=== PATIENT | female | born 1955 | race Caucasian/White ===

== ENCOUNTER 2016-11-20 16:13 | Emergency (ER) | payer OTHER ==
[2016-11-20] MEDS ORDERED: Acetaminophen/HYDROcodone 325-5 MG Tab PO ONE (16:56)
[2016-11-20] MEDS ORDERED: Acetaminophen 325 MG Tab PO ONE (16:57)
--- NOTE | 2016-11-20 17:27 | EDM.PDOC ---
ED HPI Trauma - General Chief Complaint: Upper Extremity Injury/Pain Stated Complaint: L UPPER BODY INJURY, GOT BLOWN OFF PORCH Time Seen by Provider: 11/20/16 16:38 Source: Reports: Patient, Family (spouse), RN notes reviewed - History of Present Illness INITIAL COMMENTS - FREE TEXT/NARRATIVE: 61-year-old female that fell injuring her left shoulder, left clavicle and also back of her shoulder. Not absolutely sure just how she landed. she states she was opening a screen door in the wind grabbed the door, threw her hand blew her off of the porch landing hard on the left elbow and shoulder. She has a lot of discomfort with motion of her left arm particular of the anterior mid clavicle and also back of her shoulder. She did not hurt her head neck or back. There was no LOC and she has no difficulty breathing. She denies other major pain or injury from this incident. Allergies/ADRs: Allergies No Known Allergies Allergy (Verified 11/20/16 16:23) Home Medications: Ambulatory Orders Acetaminophen [Tylenol Arthritis Pain] 650 mg PO DAILY 01/22/16 [Confirmed 11/20] Cholecalciferol (Vitamin D3) [Vitamin D3] 5,000 unit PO BEDTIME 01/22/16 [ Confirmed 11/20/16] Glucosamine [Glucosamine Sulfate] 500 mg PO DAILY 01/22/16 [Confirmed 11/20/16] Hydrocodone/Acetaminophen [[place] 5-325 Tablet] 1 tab PO Q6H PRN #20 tablet 01/21 [Confirmed 11/20/16] Omeprazole [Prilosec] 20 mg PO DAILY 01/22/16 [Confirmed 11/20/16] Pramipexole Di-HCl [Mirapex] 10 mg PO DAILY 01/22/16 [Confirmed 11/20/16] Vitamin E 1,000 unit PO BEDTIME 01/22/16 [Confirmed 11/20/16] Doxycycline [Doxycycline Hyclate] 100 mg PO BID 11/20/16 [Confirmed 11/20/16] Prednisone [IJD: predniSONE] 20 mg PO DAILY 11/20/16 [Confirmed 11/20/16] Past Medical History HEENT History: Reports: Impaired vision Other HEENT History: wears glasses Gastrointestinal History: Reports: GERD Musculoskeletal History: Reports: Back pain, chronic, Osteoarthritis Neurological History: Reports: Other (see below) (Restless leg syndrome) Dermatologic History: Reports: Psoriasis - Past Surgical History Female Surgical History: Reports: Hysterectomy Musculoskeletal Surgical History: Reports: Hip replacement, Knee replacement Social & Family History - Family History Family Medical History: Noncontributory - Tobacco Use Smoking Status *Q: Current Every Day Smoker Years of Tobacco use: 40 Packs/Tins Daily: 0.2 - Caffeine Use Caffeine Use: Reports: Coffee, Soda - Recreational Drug Use Recreational Drug Use: No - Living Situation & Occupation Living situation: Reports: , with spouse 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 Denies: leg pain, foot pain Skin: Denies: bruising Neurological: Denies: numbness, tingling, trouble speaking, difficulty walking, weakness Trauma Exam - Physical Exam Exam: See Below General Appearance: Reports: alert, mild distress Head: Reports: atraumatic. Denies: scalp swelling, facial swelling Eyes: bilateral eye: PERRL Ears: Reports: normal external exam Nose: Reports: normal inspection Throat/Mouth: Reports: Normal inspection Neck: Reports: non-tender, full range of motion Respiratory Exam: Reports: no respiratory distress, lungs clear, normal breath sounds, chest non-tender Cardiovascular: Reports: regular rate, rhythm GI/Abdominal: Reports: soft, non tender Back: Reports: other (there is tenderness over the left posterior scapula, no bruising or swelling visible). Denies: paraspinal tenderness, vertebral tenderness Extremities: Reports: bony-point tenderness (left superior posterior and anterior shoulder, left clavicle), other (no visible deformity, she does have some pain with motion of the left upper extremity) Neurologic: Reports: no motor/sensory deficits Skin: Reports: Normal color, Warm/dry Course - Vital Signs Last Recorded V/S: Last Vital Signs Temp 97.8 F 11/20/16 16:19 Pulse 79 03/07/17 16:19 Resp 18 11/20/16 16:19 BP 156/84 H 11/20/16 16:19 Pulse Ox 96 11/20/16 16:19 - Orders/Labs/Meds Orders: Active Orders 24 hr Category Date Time Status Clavicle Lt [CR] Stat Exams 11/20/16 17:16 Taken Shoulder 1V Lt [CR] Stat Exams 11/20/16 17:15 Taken Meds: Medications Discontinued Medications Generic Name Dose Route Start Last Admin Trade Name Kristine PRN Reason Stop Dose Admin Acetaminophen 650 mg 11/20/16 16:57 11/20/16 17:03 Tylenol PO 11/20/16 16:58 650 mg NOW ONE Administration Acetaminophen/Hydrocodone Bitart 1 tab 11/20/16 16:56 11/20/16 17:04 [place] 325-5 Mg PO 11/20/16 16:57 0.5 tab ONETIME ONE Administration - Re-Assessments/Exams Free Text/Narrative Re-Assessment/Exam: 11/20/16 18:00 x-rays of the shoulder and clavicle do not show any sign of fracture. Have given Tylenol 650 milligrams by mouth, one half tablet hydrocodone 5 325. Plan to treat with an arm sling. Discharge instructions as documented Departure - Departure Time of Disposition: 18:01 Disposition: Home, Self-Care 01 Condition: fair Clinical Impression: Fall Qualifiers: Encounter type: initial encounter Qualified Code(s): W19.XXXA - Unspecified fall, initial encounter Shoulder contusion Qualifiers: Encounter type: initial encounter Laterality: left Qualified Code(s): S40.012A - Contusion of left shoulder, initial encounter Forms: ED Department Discharge, Return to Work/School Form Additional Instructions: rest arm and shoulder, no heavy lifting, use arm cradle her sling as needed for comfort, Tylenol every 6-8 hours as needed for discomfort or 500 mg Tylenol along with one half tablet hydrocodone if needed for more severe pain, increase activity slowly as tolerated, followup clinic if not much better within 4-5 days as expected - My Orders Last 24 Hours: My Active Orders 11/20/16 17:15 Shoulder 1V Lt [CR] Stat 11/20/16 17:16 Clavicle Lt [CR] Stat - Assessment/Plan Last 24 Hours: My Active Orders 11/20/16 17:15 Shoulder 1V Lt [CR] Stat 11/20/16 17:16 Clavicle Lt [CR] Stat
[2016-11-20 18:32] VITALS: BP 155/95
--- NOTE | 2016-11-21 10:16 | CR ---
Left shoulder: Single Y scapular view was obtained of the left shoulder. Comparison: Previous left shoulder study of 11/20/16. No dislocation seen on current exam. No definite fracture is seen on this one view. Impression: 1. Unremarkable Y scapular view. Diagnostic code #1
--- NOTE | 2016-11-21 10:16 | CR ---
Left clavicle: Two views of the left clavicle were obtained. Slight joint space narrowing is noted within the acromioclavicular joint. No fracture or other abnormality is appreciated. Impression: 1. Mild degenerative change. Nothing acute is seen on two-view left clavicle study. Diagnostic code #2
== END 2016-11-20 18:30 | disposition home or self-care (01) ==
LOC: JD.ED 16:13
DX: S40.012A Contusion of left shoulder, initial encounter (principal); W19.XXXA Unspecified fall, initial encounter; K21.9 Gastro-esophageal reflux disease without esophagitis; M19.90 Unspecified osteoarthritis, unspecified site; L40.9 Psoriasis, unspecified; Z90.710 Acquired absence of both cervix and uterus; Z96.649 Presence of unspecified artificial hip joint; Z96.659 Presence of unspecified artificial knee joint; F17.210 Nicotine dependence, cigarettes, uncomplicated; Z79.899 Other long term (current) drug therapy
CPT/HCPCS: 73000; 73020; 99284; A9270; 99283

== ENCOUNTER 2017-01-29 12:58 | Inpatient (IN) | payer OTHER ==
--- NOTE | 2017-01-29 13:35 | EDM.PDOC ---
ED HPI GENERAL MEDICAL PROBLEM - General Chief Complaint: Neurological Problem Stated Complaint: SYNCOPE/CONFUSION Time Seen by Provider: 01/29/17 13:28 Source of Information: Reports: Patient, Family (spouse) History Limitations: Reports: No Limitations - History of Present Illness INITIAL COMMENTS - FREE TEXT/NARRATIVE: 61-year-old female presents to the ED in the accompaniment of her .. she reports that she has developed confusion and severe fatigue. His heart he went to get out of bed the last 2 days. He did not recognize that she was febrile. She has a chronic productive cough but it is more productive the last day or 2. She's had some chills and she had to use extra coverage to keep warm last night. Denies any genitourinary complaints. Not coughing up any sputum that she spits out. She is a smoker approximately 3/4 of a pack per day. Is taking water without difficulty today. No appetite. Denies any genitourinary complaints. No diarrhea. No skin sores. Onset: Gradual (Started yesterday.) Onset Date: 01/28/17 Duration: Hour(s):, Getting Worse Location: Reports: Generalized Quality: Reports: Other (Generalized myalgia. Sense of confusion and disorientation.) Severity: Moderate Improves with: Reports: None Worsens with: Reports: None Context: Denies: Activity, Exercise, Lifting, Sick Contact, Trauma, Other Associated Symptoms: Reports: Confusion, Cough, cough w sputum, Diaphoresis ( She doesn't cough up and this "get it.), Fever/Chills, Headaches, Loss of Appetite, Malaise, Nausea/Vomiting, Weakness (Mild nausea with no vomiting generalized.). Denies: Chest Pain, Rash, Seizure, Shortness of Breath, Syncope Treatments [employer]CHNICIAN: Reports: Other (see below) (None.) Generalized Pain Score (Numeric/FACES): 5 - Related Data Allergies Allergy/AdvReac Type Severity Reaction Status Date / Time No Known Allergies Allergy Verified 01/29/17 13:17 Home Meds: Home Meds Acetaminophen [Tylenol Arthritis Pain] 650 mg PO DAILY 01/22/16 [History] Cholecalciferol (Vitamin D3) [Vitamin D3] 5,000 unit PO BEDTIME 01/22/16 [ History] Glucosamine [Glucosamine Sulfate] 500 mg PO DAILY 01/22/16 [History] Omeprazole [Prilosec] 20 mg PO DAILY 01/22/16 [History] Pramipexole Di-HCl [Mirapex] 10 mg PO DAILY 01/22/16 [History] Vitamin E 1,000 unit PO BEDTIME 01/22/16 [History] Past Medical History HEENT History: Reports: Impaired Vision Other HEENT History: wears glasses Respiratory History: Reports: Bronchitis, Recurrent, COPD (Chronic bronchitis from cigarette smoking not on any medications other than occasional albuterol neb treatment.), Pneumonia, Recurrent Gastrointestinal History: Reports: GERD Musculoskeletal History: Reports: Back Pain, Chronic, Osteoarthritis Neurological History: Reports: Other (See Below) Dermatologic History: Reports: Psoriasis - Past Surgical History Female Surgical History: Reports: Hysterectomy (Ovaries were retained.) Musculoskeletal Surgical History: Reports: Hip Replacement (Right hip replacement.), Knee Replacement (Right has been replaced. The left lens replacement.) Social & Family History - Family History Family Medical History: Noncontributory - Tobacco Use Smoking Status *Q: Current Every Day Smoker Years of Tobacco use: 40 Packs/Tins Daily: 0.5 - Caffeine Use Caffeine Use: Reports: Coffee - Recreational Drug Use Recreational Drug Use: No - Living Situation & Occupation Living situation: Reports: , with Spouse Occupation: Employed ED ROS GENERAL - Review of Systems Review Of Systems: See Below Constitutional: Reports: Fever, Chills, Malaise, Weakness, Fatigue, Diaphoresis , Decreased Appetite HEENT: Reports: Other (Dry throat.) Respiratory: Reports: Shortness of Breath, Cough (Productive cough.). Denies: Wheezing, Pleuritic Chest Pain Cardiovascular: Reports: Chest Pain. Denies: Claudication, Dyspnea on Exertion , Edema, Lightheadedness, Orthopnea, Palpitations, PND, Syncope, Other Endocrine: Reports: Fatigue GI/Abdominal: Reports: Anorexia, Nausea (Mild). Denies: Abdominal Pain, Black Stool, Bloody Stool, Constipation, Diarrhea, Difficulty Swallowing, Distension, Flatus, Hematemesis, Hematochezia, Vomiting : Reports: No Symptoms Musculoskeletal: Reports: Back Pain, Other (Been joint pain.) Skin: Reports: No Symptoms ( The muscles are achy.) Neurological: Reports: Confusion, Dizziness Psychiatric: Reports: Confusion Hematologic/Lymphatic: Reports: No Symptoms Immunologic: Reports: No Symptoms - Physical Exam Exam: See Below Exam Limited By: No Limitations General Appearance: Alert, Mild Distress, Other (Very warm to palpation temperatures to greater than 102.) Eye Exam: Bilateral Eye: Normal Inspection Ears: Normal External Exam, Normal TMs Throat/Mouth: Normal Inspection, Normal Lips, Normal Teeth, Normal Oropharynx, Other Head Exam: Atraumatic, Normocephalic (Tongue is dry and coated) Neck: Normal Inspection, Supple, Non-Tender, Full Range of Motion. No: Lymphadenopathy (L), Lymphadenopathy (R) Respiratory/Chest: No Accessory Muscle Use, Chest Non-Tender, Respiratory Distress, Rhonchi (Dictated rest 20-24 per minute.), Wheezing ( Upper anterior lobes with productive sounding cough.scattered wheezes primarily throughout the upper anterior lungs are laterally. ). No: Lungs Clear, Normal Breath Sounds Cardiovascular: Normal Peripheral Pulses, Regular Rate, Rhythm, No Edema ( Synthroid 1:15 prominent presumably due to fever. Monitor suggests a sinus rhythm.), No Gallop, No Murmur, No Rub, Tachycardia GI/Abdominal: Normal Bowel Sounds, Soft, Non-Tender, No Organomegaly Neuro Exam (Abbreviated): Alert, Oriented, CN II-XII Intact, Normal Cognition, Normal Gait Back Exam: Normal Inspection, Full Range of Motion. No: CVA Tenderness (L), CVA Tenderness (R) Extremities: Normal Inspection, Normal Range of Motion, Non-Tender, Normal Capillary Refill, Other (Well-healed right lateral hip surgical wound and right) Psychiatric: Normal Affect ( anterior knee wound compatible with hip and knee replacements), Normal Mood Skin Exam: Warm, Dry, Intact, Normal Color, No Rash EKG INTERPRETATION EKG Date: 01/29/17 Time: 13:45 Rhythm: other (Sinus tachycardia) Rate (beats/min): 108 [place]: normal P-wave: present QRS: normal ST-T: normal QT: normal Course - Vital Signs Last Recorded V/S: Last Vital Signs Temp 38.8 C H 01/29/17 14:15 Pulse 112 H 01/29/17 13:10 Resp 22 H 01/29/17 13:10 BP 116/61 01/29/17 13:10 Pulse Ox 95 01/29/17 13:10 - Orders/Labs/Meds Orders: Active Orders 24 hr Category Date Time Status Admission Status [Patient Status] [ADT] Routine ADT 01/29/17 15:23 Ordered EKG Documentation Completion [RC] STAT Care 01/29/17 13:40 Active Chest 2V [CR] Stat Exams 01/29/17 13:37 Taken CKMB [CHEM] Stat Lab 01/29/17 14:00 Results COMPREHENSIVE METABOLIC PN,CMP [CHEM] Stat Lab 01/29/17 14:00 Results CRP [C-REACTIVE PROTEIN] [CHEM] Stat Lab 01/29/17 14:00 Results CULTURE BLOOD [BC] Stat Lab 01/29/17 14:00 Received CULTURE BLOOD [BC] Stat Lab 01/29/17 14:34 Received CULTURE URINE [RM] Stat Lab 01/29/17 14:58 Uncollected MYCOPLASMA PNEUMONIAE IGM AB [CHEM] Stat Lab 01/29/17 14:34 Received TROPONIN I [CHEM] Stat Lab 01/29/17 14:00 Results Azithromycin [Zithromax] 500 mg Med 01/29/17 14:50 Active Sodium Chloride 0.9% [Normal Saline] 250 ml IV ONETIME Dextrose 5%-0.9% NaCl [Dextrose 5%-Normal Saline] 1,000 Med 01/29/17 13:45 Active ml IV ASDIRECTED Ketorolac [Toradol] Med 01/29/17 13:45 Active 30 mg IVPUSH ONETIME Blood Culture x2 Reflex Set [OM.PC] Stat Oth 01/29/17 13:38 Ordered Medication Orders Dextrose/Sodium Chloride (Dextrose 5%-Normal Saline) 1,000 mls @ 500 mls/hr IV ASDIRECTED YOSEPH Last Admin: 01/29/17 14:17 Dose: 500 mls/hr Azithromycin 500 mg/ Sodium (Chloride) 250 mls @ 250 mls/hr IV ONETIME ONE Stop: 01/29/17 15:49 Ketorolac Tromethamine (Toradol) 30 mg IVPUSH ONETIME YOSEPH Last Admin: 01/29/17 14:17 Dose: 30 mg Labs: Laboratory Tests 01/29/17 01/29/17 01/29/17 Range/Units 14:00 14:00 14:00 WBC 24.95 H (3.98-10.04) K/mm3 RBC 4.09 (3.98-5.22) M/mm3 Hgb 11.6 (11.2-15.7) gm/L Hct 36.5 (34.1-44.9) % MCV 89.2 (79.4-94.8) fl MCH 28.4 (25.6-32.2) pg MCHC 31.8 L (32.2-35.5) g/dl RDW Std Deviation 45.5 (36.4-46.3) fL Plt Count 266 (182-369) K/mm3 MPV 7.9 L (9.4-12.3) fl Neutrophils % (Manual) 89 H (40-60) % Band Neutrophils % 0 (0-10) % Lymphocytes % (Manual) 6 L (20-40) % Atypical Lymphs % 0 % Monocytes % (Manual) 5 (2-10) % Eosinophils % (Manual) 0 L (0.7-5.8) % Basophils % (Manual) 0 L (0.1-1.2) Platelet Estimate Adequate Plt Morphology Comment Normal RBC Morph Comment Normal Sodium 128 L (136-145) mEq/L Potassium 3.8 (3.5-5.1) mEq/L Chloride 95 L (98-107) mEq/L Carbon Dioxide 22 (21-32) mEq/L Anion Gap 14.8 (5-15) BUN 17 (7-18) mg/dL Creatinine 0.9 (0.55-1.02) mg/dL Est Cr Clr Drug Dosing 56.68 mL/min Estimated GFR (MDRD) > 60 (>60) mL/min BUN/Creatinine Ratio 18.9 H (14-18) Glucose 99 (80-115) mg/dL Lactic Acid 1.1 (0.4-2.0) mmol/L Calcium 8.6 (8.5-10.1) mg/dL Total Bilirubin 0.7 (0.2-1.0) mg/dL AST 16 (15-37) U/L ALT 18 (14-59) U/L Alkaline Phosphatase 117 H (46-116) U/L CK-MB (CK-2) < 0.5 (0-3.6) ng/ml Troponin I < 0.017 (0.00-0.056) ng/mL Total Protein 7.4 (6.4-8.2) g/dl Albumin 3.1 L (3.4-5.0) g/dl Globulin 4.3 gm/dL Albumin/Globulin Ratio 0.7 L (1-2) Urine Color (Yellow) Urine Appearance (Clear) Urine pH (5.0-8.0) Ur Specific [place] (1.005-1.030) Urine Protein (Negative) Urine Glucose (UA) (Negative) Urine Ketones (Negative) Urine Occult Blood (Negative) Urine Nitrite (Negative) Urine Bilirubin (Negative) Urine Urobilinogen (0.2-1.0) Ur Leukocyte Esterase (Negative) Urine RBC (0-5) /hpf Urine WBC (0-5) /hpf Urine WBC Clumps (NOT SEEN) /hpf Ur Epithelial Cells (0-5) /hpf Amorphous Sediment (NOT SEEN) /hpf Urine Bacteria (FEW) /hpf Fine Granular Casts (0-5) /lpf Coarse Granular Casts (0-5) /hpf Urine Mucus (FEW) /hpf Urinalysis Comment 01/29/17 Range/Units 14:20 WBC (3.98-10.04) K/mm3 RBC (3.98-5.22) M/mm3 Hgb (11.2-15.7) gm/L Hct (34.1-44.9) % MCV (79.4-94.8) fl MCH (25.6-32.2) pg MCHC (32.2-35.5) g/dl RDW Std Deviation (36.4-46.3) fL Plt Count (182-369) K/mm3 MPV (9.4-12.3) fl Neutrophils % (Manual) (40-60) % Band Neutrophils % (0-10) % Lymphocytes % (Manual) (20-40) % Atypical Lymphs % % Monocytes % (Manual) (2-10) % Eosinophils % (Manual) (0.7-5.8) % Basophils % (Manual) (0.1-1.2) Platelet Estimate Plt Morphology Comment RBC Morph Comment Sodium (136-145) mEq/L Potassium (3.5-5.1) mEq/L Chloride (98-107) mEq/L Carbon Dioxide (21-32) mEq/L Anion Gap (5-15) BUN (7-18) mg/dL Creatinine (0.55-1.02) mg/dL Est Cr Clr Drug Dosing mL/min Estimated GFR (MDRD) (>60) mL/min BUN/Creatinine Ratio (14-18) Glucose (80-115) mg/dL Lactic Acid (0.4-2.0) mmol/L Calcium (8.5-10.1) mg/dL Total Bilirubin (0.2-1.0) mg/dL AST (15-37) U/L ALT (14-59) U/L Alkaline Phosphatase (46-116) U/L CK-MB (CK-2) (0-3.6) ng/ml Troponin I (0.00-0.056) ng/mL Total Protein (6.4-8.2) g/dl Albumin (3.4-5.0) g/dl Globulin gm/dL Albumin/Globulin Ratio (1-2) Urine Color [place] H (Yellow) Urine Appearance Slt cloudy H (Clear) Urine pH 5.5 (5.0-8.0) Ur Specific [place] 1.025 (1.005-1.030) Urine Protein 2+ H (Negative) Urine Glucose (UA) Trace H (Negative) Urine Ketones Trace H (Negative) Urine Occult Blood 1+ H (Negative) Urine Nitrite Positive H (Negative) Urine Bilirubin 3+ H (Negative) Urine Urobilinogen 1.0 (0.2-1.0) Ur Leukocyte Esterase Trace H (Negative) Urine RBC 0-5 (0-5) /hpf Urine WBC 10-20 H (0-5) /hpf Urine WBC Clumps Few (NOT SEEN) /hpf Ur Epithelial Cells 10-20 H (0-5) /hpf Amorphous Sediment Few H (NOT SEEN) /hpf Urine Bacteria Moderate H (FEW) /hpf Fine Granular Casts 0-5 (0-5) /lpf Coarse Granular Casts 0-5 (0-5) /hpf Urine Mucus Few (FEW) /hpf Urinalysis Comment Meds: Medications Generic Name Dose Route Start Last Admin Trade Name Freq PRN Reason Stop Dose Admin Dextrose/Sodium Chloride 1,000 mls @ 500 mls/hr 01/29/17 13:45 01/29/17 14:17 Dextrose 5%-Normal Saline IV 500 mls/hr ASDIRECTED YOSEPH Administration Azithromycin 500 mg/ Sodium 250 mls @ 250 mls/hr 01/29/17 14:50 Chloride IV 01/29/17 15:49 ONETIME ONE Ketorolac Tromethamine 30 mg 01/29/17 13:45 01/29/17 14:17 Toradol IVPUSH 30 mg ONETIME YOSEPH Administration Discontinued Medications Generic Name Dose Route Start Last Admin Trade Name Kristine PRN Reason Stop Dose Admin Acetaminophen 975 mg 01/29/17 13:36 01/29/17 14:15 Tylenol PO 01/29/17 13:37 975 mg NOW ONE Administration Ceftriaxone Sodium 2 gm/ 100 mls @ 200 mls/hr 01/29/17 14:50 01/29/17 15:10 Sodium Chloride IV 01/29/17 15:19 200 mls/hr ONETIME ONE Administration - Radiology Interpretation Free Text/Narrative:: 61-year-old female presents the ED with her . He identified that she still in bed this morning since he got home from work. She has not gotten out of bed today. . She is feeling weak and confused. Her dizzy and lightheaded when she stands up. Illness started yesterday. Feeling chills and some rigors last night. Has a productive sounding cough and apparently is prone to bronchitis pneumonia. She hasn't coughed up any sputum to identify what color it is She has an albuterol metered dose inhaler she uses when necessary .examination reveals her to be markedly febrile. Her heart rate of 1:15 per minute tachypnea get 22-24 per minute with O2 sats of 95% on room air. On examination lungs are congested with rhonchi throughout both upper lung bone. Concern would be for an underlying pneumonia. Septic workup commenced. IV will be normal D5 normal saline at 500 mils per hour. Given Toradol 30 mg IV for aches and pain and Tylenol 97.5 mg by mouth for fever relief. Influenza screen will also be done. - Re-Assessments/Exams Free Text/Narrative Re-Assessment/Exam: 01/29/17 14:54 ECG reveals a sinus tachycardia at 108 per minute. No other abnormalities were appreciated. Two-view chest x-ray reveals a large pneumonic infiltrate in the left mid portion of the lower lobe. There is also a mild fluffy infiltrate in the inferior lobe the right lung. Will therefore be started on Rocephin 2 g IV and Zithromax 500 mg IV. She reports being on Levaquin 500 mg for 10 days about 6 weeks ago. She reports this is her fourth diagnoses of pneumonia in the last year. This raises the concern for a partially obstructing bronchial lesion. She is still a cigarette smoker. 01/29/17 14:57 lab tests reveal a markedly elevated white count at 24.95 with 89 % neutrophils and no bands. Hemoglobin is low 11.6 hematocrit is 36.5. Platelets 266,000. Chemistry shows low sodium of 128 potassium 3.8 chloride 95. Anion gap is 14.8 alkaline phosphatase is 117. Urinalysis is also positive for potential infection with 1+ blood positive nitrates. 3+ bilirubin white cells 10 -20 per high-power field and 10-20 epithelial cells per high-power field moderate bacteria noted. Urine culture ordered. She will require admission to the hospital. I will check on her bed status. 01/29/17 15:[address] criteria for admission. Will be admitted to med surgery floor on telemetry. Case discussed with Dr. Harris--hospitalist. Departure - Departure Time of Disposition: 15:26 Disposition: Admitted As Inpatient 66 Condition: serious Clinical Impression: Hyponatremia Bilateral pneumonia Qualifiers: Pneumonia type: due to unspecified organism Lung location: lower lobe of lung Qualified Code(s): J18.9 - Pneumonia, unspecified organism Urinary tract infection Qualifiers: Urinary tract infection type: site unspecified Hematuria presence: without hematuria Qualified Code(s): N39.0 - Urinary tract infection, site not specified - Discharge Information Referrals: Zachary Kevin MD [Primary Care Provider] - Forms: ED Department Discharge - My Orders Last 24 Hours: My Active Orders 01/29/17 13:37 Chest 2V [CR] Stat 01/29/17 13:38 Blood Culture x2 Reflex Set [OM.PC] Stat 01/29/17 13:40 EKG Documentation Completion [RC] STAT 01/29/17 13:45 Dextrose 5%-0.9% NaCl [Dextrose 5%-Normal Saline] 1,000 ml IV ASDIRECTED Ketorolac [Toradol] 30 mg IVPUSH ONETIME 01/29/17 14:00 CKMB [CHEM] Stat COMPREHENSIVE METABOLIC PN,CMP [CHEM] Stat CRP [C-REACTIVE PROTEIN] [CHEM] Stat CULTURE BLOOD [BC] Stat TROPONIN I [CHEM] Stat 01/29/17 14:34 CULTURE BLOOD [BC] Stat MYCOPLASMA PNEUMONIAE IGM AB [CHEM] Stat 01/29/17 14:50 Azithromycin [Zithromax] 500 mg Sodium Chloride 0.9% [Normal Saline] 250 ml IV ONETIME 01/29/17 14:58 CULTURE URINE [RM] Stat 01/29/17 15:23 Admission Status [Patient Status] [ADT] Routine - Assessment/Plan Last 24 Hours: My Active Orders 01/29/17 13:37 Chest 2V [CR] Stat 01/29/17 13:38 Blood Culture x2 Reflex Set [OM.PC] Stat 01/29/17 13:40 EKG Documentation Completion [RC] STAT 01/29/17 13:45 Dextrose 5%-0.9% NaCl [Dextrose 5%-Normal Saline] 1,000 ml IV ASDIRECTED Ketorolac [Toradol] 30 mg IVPUSH ONETIME 01/29/17 14:00 CKMB [CHEM] Stat COMPREHENSIVE METABOLIC PN,CMP [CHEM] Stat CRP [C-REACTIVE PROTEIN] [CHEM] Stat CULTURE BLOOD [BC] Stat TROPONIN I [CHEM] Stat 01/29/17 14:34 CULTURE BLOOD [BC] Stat MYCOPLASMA PNEUMONIAE IGM AB [CHEM] Stat 01/29/17 14:50 Azithromycin [Zithromax] 500 mg Sodium Chloride 0.9% [Normal Saline] 250 ml IV ONETIME 01/29/17 14:58 CULTURE URINE [RM] Stat 01/29/17 15:23 Admission Status [Patient Status] [ADT] Routine
[2017-01-29] MEDS ORDERED: Acetaminophen 325 MG Tab PO ONE (13:36)
[2017-01-29] MEDS ORDERED: Ketorolac 30 MG/ML SDV IVPUSH SCH (13:45)
[2017-01-29] MEDS: Dextrose 5%-0.9% NaCl 1,000 ML IV SCH ×2 (14:17→19:43)
[2017-01-29] MEDS ORDERED: Azithromycin 500 MG in Sodium Chloride 0.9% 250 ML IV ONE (14:50)
[2017-01-29] MEDS ORDERED: cefTRIAXone 2 GM in Sodium Chloride 0.9% 100 ML IV ONE (14:50)
--- NOTE | 2017-01-29 15:37 | CR ---
Chest: Two views of the chest were obtained. Comparison: No previous chest x-ray. Consolidation noted within the left mid lung. Lesser density noted within both lower lobes. Heart size appears at the upper limits of normal. Tortuous thoracic aorta is seen. Impression: 1. Consolidation within the left mid lung with lesser density seen within both lower lobes. Findings presumably represent pneumonia. Follow-up recommended after clinical therapy is complete to make sure this does not represent a pulmonary mass. Diagnostic code #3
--- NOTE | 2017-01-29 17:44 | PCM.HP ---
H&P History of Present Illness - General Date of Service: 01/29/17 Admit Problem/Dx: Admission Diagnosis/Problem Admission Diagnosis/Problem Pneumonia Source of Information: Patient, Old Records, Provider, RN, RN Notes Reviewed History Limitations: Reports: Altered Mental Status - History of Present Illness Initial Comments - Free Text/Narative: This is a 61 yo white female with past medical hx/o GERD, Chronic Back Pain, OA and Psoriasis who comes in with complaints of malaise, fatigue with confusion for the past 2 days. She reports associated productive cough that was brownish but is now dark-yellowish in color. She had some chills but w/o subjective fever. She denies any muscle or joint aches or pain. Patient is an active smoker, at least 1ppd for 40 years now. She denies ever been diagnosed with any lung disease. However she has had recurrent bronchitis/ pneumonia at least 4 bouts in a year. Her initial work up in ED shows a CBC remarkable for WBC of 24.95, and Neutrophils of 89%. Her chemistry is significant for Na of 128, Cl of 95, BS of 99, Serum Osm of 269, LA of 1.1, Alk Phos of 117, Mg 1.7, CRP of 35.6, and Albumin of 3.1. Her UA is pos for UTI. Her CXR shows left mid-lung consolidation. Patient is being admitted for PNA and UTI. She is full code. Generalized Pain Score (Numeric/FACES): 5 - Related Data Allergies/Adverse Reactions: Allergies Allergy/AdvReac Type Severity Reaction Status Date / Time perfume Allergy Airway Verified 01/29/17 20:26 Tightness Home Medications: Home Meds Acetaminophen [Tylenol Arthritis Pain] 650 mg PO DAILY 01/22/16 [History] Cholecalciferol (Vitamin D3) [Vitamin D3] 5,000 unit PO DAILY 01/22/16 [History] Omeprazole [Prilosec] 20 mg PO DAILY 01/22/16 [History] Pramipexole Di-HCl [Mirapex] 1.5 mg PO BEDTIME 01/22/16 [History] Vitamin E 1,000 unit PO BEDTIME 01/22/16 [History] Albuterol Sulfate [Proair Hfa] 1 - 2 inh INH Q4HR PRN 01/29/17 [History] Fluticasone/Vilanterol [Breo Ellipta 200-25 Mcg INH] 1 dose INH DAILY 01/29/17 [ History] Loratadine/Pseudoephedrine [Loratadine-Pseudoephed 10-240] 1 tab PO DAILY PRN [History] Montelukast [Singulair] 10 mg PO BEDTIME 01/29/17 [History] traZODone 1 - 2 tab PO BEDTIME 01/29/17 [History] Past Medical History HEENT History: Reports: Impaired Vision Other HEENT History: wears glasses Respiratory History: Reports: Bronchitis, Recurrent, COPD, Pneumonia, Recurrent Gastrointestinal History: Reports: GERD Genitourinary History: Reports: None 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: Musculoskeletal History: Reports: Back Pain, Chronic, Osteoarthritis Neurological History: Reports: Other (See Below) Dermatologic History: Reports: Psoriasis - Infectious Disease History Infectious Disease History: Reports: Chicken Pox, Measles, Mumps - Past Surgical History HEENT Surgical History: Reports: None Respiratory Surgical History: Reports: None GI Surgical History: Reports: None Female Surgical History: Reports: Hysterectomy Musculoskeletal Surgical History: Reports: Hip Replacement, Knee Replacement Dermatological Surgical History: Reports: None Social & Family History - Family History Family Medical History: Noncontributory Neurological: Reports: CVA Oncologic: Reports: Colon - Tobacco Use Smoking Status *Q: Current Every Day Smoker Years of Tobacco use: 40 Packs/Tins Daily: 0.5 Used Tobacco, but Quit: No Second Hand Smoke Exposure: No - Caffeine Use Caffeine Use: Reports: Coffee, Soda - Recreational Drug Use Recreational Drug Use: No - Living Situation & Occupation Living situation: Reports: , with Spouse Occupation: Employed H&P Review of Systems - Review of Systems: Review Of Systems: See Below General: Reports: Fever, Chills, Malaise, Weakness, Fatigue, Diaphoresis, Decreased Appetite HEENT: Reports: No Symptoms Pulmonary: Reports: Shortness of Breath, Cough, Sputum. Denies: Wheezing, Pleuritic Chest Pain Cardiovascular: Reports: Chest Pain. Denies: Palpitations, Dyspnea on Exertion , Edema, Lightheadedness, Syncope, Blood Pressure Problem Gastrointestinal: Reports: Anorexia, Decreased Appetite, Nausea. Denies: Abdominal Pain, Constipation, Diarrhea, Vomiting Genitourinary: Reports: No Symptoms Musculoskeletal: Reports: Back Pain, Joint Pain Skin: Denies: Cyanosis, Pruritis, Rash, Erythema Psychiatric: Reports: Confusion. Denies: Mood Lability, Anxiety, Agitation, Hallucinations Neurological: Reports: Dizziness, Weakness, Gait Disturbance Hematologic/Lymphatic: Reports: No Symptoms Immunologic: Reports: No Symptoms Exam - Exam Exam: See Below - Vital Signs Vital Signs: Last Vital Signs Temp 38.8 C H 01/29/17 14:15 Pulse 112 H 01/29/17 13:10 Resp 22 H 01/29/17 13:10 BP 116/61 01/29/17 13:10 Pulse Ox 95 01/29/17 13:10 Weight: 80.83 kg - Exam Quality Assessment: No: Supplemental Oxygen General: Alert, Oriented, Cooperative, Mild Distress HEENT: Conjunctiva Clear, EACs Clear, EOMI, Hearing Intact, Mucosa Moist & [place] , Nares Patent, Normal Nasal Septum, Posterior Pharynx Clear, Pupils Equal, Pupils Reactive Neck: Supple, Trachea Midline, +2 Carotid Pulse wo Bruit, Full Range of Motion. No: JVD Lungs: Normal Respiratory Effort, Decreased Breath Sounds, Rhonchi, Wheezing Cardiovascular: Regular Rate, Regular Rhythm Abdomen: Normal Bowel Sounds, Soft. No: Organomegaly (Female) Exam: Deferred Rectal (Female) Exam: Deferred Back Exam: Normal Inspection, Decreased Range of Motion Extremities: Normal Inspection, Normal Pulses. No: Clubbing, Cyanosis Peripheral Pulses: 2+: Posterior Tibial (L), Posterior Tibial (R), Dorsalis Pedis (L), Dorsalis Pedis (R) Skin: Warm, Dry, Intact Neuro Extensive - Mental Status: Oriented x3, Normal Cognition, Memory Intact Neuro Extensive - Motor, Sensory, Reflexes: CN II-XII Intact, Abnormal Gait Psychiatric: Alert, Normal Affect, Normal Mood - Patient Data Lab Results last 24 hrs: Laboratory Results - last 24 hr 01/29/17 Range/Units 15:46 Serum Osmolality 269 L (280-300) mosm/kg Result Diagrams: 01/30/17 05:25 01/30/17 05:25 EKG INTERPRETATION EKG Date: 01/29/17 Time: 13:45 Rhythm: other (Sinus Tachycardia) Rate (beats/min): 108 [place]: normal P-wave: present QRS: normal ST-T: normal QT: normal *Q Meaningful Use (ADM) - VTE *Q VTE Criteria *Q: - Stroke *Q Stroke Criteria *Q: - AMI *Q AMI Criteria *Q: Problem List Initiated/Reviewed/Updated: Yes Orders Last 24hrs: Medication Orders Dextrose/Sodium Chloride (Dextrose 5%-Normal Saline) 1,000 mls @ 500 mls/hr IV ASDIRECTED YOSEPH Last Admin: 01/29/17 14:17 Dose: 500 mls/hr Ketorolac Tromethamine (Toradol) 30 mg IVPUSH ONETIME YOSEPH Last Admin: 01/29/17 14:17 Dose: 30 mg Assessment/Plan Comment:: Assessment/Plan: Acute: Right Mid Lung CAP - Risk factor: GERD, Smoking and likely COPD via CXR (she has not had PFT done) - HR CT scan since this is her 4ht episode of pneumonia in AM - IV Antibiotics Azithromycin and Rocephin daily - FV and IS as directed - Mucinex 1200 mg po BID - Serial CXR Urinary Tract Infection - UA pos - UA Cx/Sx pending - Already on IV Abx Leukoctyosis - WBC 25K and CRP is 35 - 2/2 above - Treat underlying cause - Will continue to monitor Hyponatremia - Likely from hypovolemic - UA spec gravity is 1.025 (she is dry) - IVF fluids and encourage oral intake Chronic: GERD OA Chronic Back Pain OA Nicotine Dependence Psoriasis Plan: Admit to Med-Surge Resume Home Meds Routine AM Labs Offered Nicotine Patch/Gum-refused PT/OT/RT eval SW/CM for d/c planning Additional orders as above Code status:1
[2017-01-29] MEDS ORDERED: Metoprolol Tartrate 5 MG/5 ML SDV IVPUSH PRN (19:13)
[2017-01-29] MEDS ORDERED: hydrALAZINE 20 MG/ML SDV IVPUSH PRN (19:13)
[2017-01-29] MEDS ORDERED: LORATADINE PO PRN (19:14)
[2017-01-29] MEDS ORDERED: PSEUDOEPHEDRINE PO PRN (19:14)
[2017-01-29] MEDS ORDERED: Acetaminophen/HYDROcodone 325-5 MG Tab PO PRN (19:15)
[2017-01-29] MEDS ORDERED: HYDROmorphone 1 MG/ML Syringe IVPUSH PRN (19:15)
[2017-01-29] MEDS ORDERED: Promethazine 12.5 MG in Sodium Chloride 0.9% 50 ML IV PRN (19:15)
[2017-01-29] MEDS ORDERED: Docusate Sodium 100 MG Cap PO PRN (19:15)
[2017-01-29] MEDS ORDERED: Bisacodyl 5 MG Tab PO PRN (19:15)
[2017-01-29] MEDS ORDERED: LORazepam 2 MG/ML MDV IV PRN (19:15)
[2017-01-29] MEDS ORDERED: Ondansetron 4 MG/2 ML SDV IV PRN (19:15)
[2017-01-29] MEDS: Albuterol/Ipratropium 3.0-0.5 MG/3 ML Neb Soln NEB PRN (20:25)
[2017-01-29] MEDS: Cholecalciferol (Vitamin D3) 1,000 Unit Tab PO SCH (21:05)
[2017-01-29] MEDS: guaiFENesin 600 MG Tab.ER PO SCH (21:06)
[2017-01-29] MEDS: Vitamin E (dl-alpha-tocopherol acetate) 400 Unit Cap PO SCH (21:06)
[2017-01-29] MEDS: Montelukast 10 MG Tab PO SCH (21:06)
[2017-01-30] MEDS: Acetaminophen 325 MG Tab PO PRN ×2 (03:38→16:41)
[2017-01-30] MEDS: Pramipexole 0.25 MG Tab PO SCH ×2 (04:16→20:59)
[2017-01-30] MEDS: Pantoprazole 40 MG Tab.CR PO SCH (06:05)
[2017-01-30] MEDS: Albuterol/Ipratropium 3.0-0.5 MG/3 ML Neb Soln NEB PRN ×2 (06:23→10:12)
[2017-01-30] MEDS ORDERED: Iopamidol 612 MG/ML 100 ML Bottle IVPUSH ONE (08:35)
[2017-01-30] MEDS ORDERED: Sodium Chloride 0.9% 10 ML Syringe FLUSH PRN (08:35)
[2017-01-30] MEDS ORDERED: Pramipexole 0.5 MG Tab PO SCH (09:00)
[2017-01-30] MEDS: Acetaminophen 325 MG Tab PO SCH (09:31)
[2017-01-30] MEDS: guaiFENesin 600 MG Tab.ER PO SCH ×2 (09:32→20:59)
[2017-01-30] MEDS: BREO ELLIPTA INH SCH (09:32)
[2017-01-30] MEDS: Azithromycin 500 MG in Sodium Chloride 0.9% 250 ML IV SCH (09:32)
[2017-01-30] MEDS: Enoxaparin 40 MG/0.4 ML Syringe SUBCUT SCH (09:32)
[2017-01-30] MEDS ORDERED: Pneumococcal Polyvalent-23 Vaccine 0.5 ML SDV IM ONE (09:35)
--- NOTE | 2017-01-30 10:02 | CT ---
CT chest Technique: Multiple axial sections through the chest were obtained. Intravenous contrast was utilized. Comparison: Previous chest x-ray of 01/29/17. Findings: Consolidation is seen within the left upper lung mostly within the lingula. Other smaller patchy areas of increased density are seen along the lateral chest within the right lower lobe, right middle lobe and right upper lung. Emphysematous changes are present. Interstitial fibrosis is seen within both lung bases. Small left-sided pleural effusion is noted. No axillary adenopathy is seen. Several mediastinal lymph nodes are seen which are slightly prominent in size with largest measuring about 1.7 cm. No pericardial thickening is seen. Cyst is noted within the right kidney measuring approximately 1.5 cm. Bone window settings were reviewed which show scattered degenerative change within the spine. Impression: 1. Consolidation within primarily the lingula as well as smaller areas of parenchymal densities scattered within the right lung. Findings most likely represent pneumonia. 2. Small left-sided pleural effusion most likely representing small parapneumonic effusion. 3. Emphysematous change and bilateral basilar fibrosis. 4. Slightly prominent mediastinal lymph nodes most likely due to old inflammatory change although follow-up could be obtained in 6 months to confirm stability. Follow-up can be performed without contrast. Diagnostic code #5 Inspector Filters called report to Dr. Ronny Corona at 09:46 on 01/30/17
[2017-01-30] MEDS: cefTRIAXone 1 GM in Sodium Chloride 0.9% 100 ML IV SCH (10:46)
[2017-01-30] MEDS ORDERED: HYDROmorphone 0.5 MG/0.5 ML Syringe IVPUSH PRN (10:52)
[2017-01-30] MEDS ORDERED: Magnesium Sulfate/Water 2 GM in Premix Bag 1 BAG IV ONE (11:30)
--- NOTE | 2017-01-30 17:24 | PCM.PN ---
- General Info Date of Service: 01/30/17 Admission Dx/Problem (Free Text): Admission Diagnosis/Problem Admission Diagnosis/Problem Pneumonia Subjective Update: Follow Up Functional Status: Reports: pain controlled, tolerating diet, ambulating, urinating. Denies: new symptoms - Review of Systems General: Denies: Fever, Weakness, Fatigue, Malaise, Chills HEENT: Reports: no symptoms Pulmonary: Reports: cough, sputum. Denies: shortness of breath, pleuritic chest pain, wheezing Cardiovascular: Denies: Chest Pain, Palpitations, Dyspnea on Exertion Gastrointestinal: Denies: Abdominal pain, Vomiting Genitourinary: Reports: no symptoms Musculoskeletal: Reports: no symptoms Skin: Denies: cyanosis, pallor, pruritis, rash Neurological: Denies: Confusion, Difficulty Walking, Weakness Psychiatric: Denies: confusion, depression, anxiety, agitation, cravings, hallucinations Systems Review Comment:: She feels better. She did not sleep well overnight. She coughs up more phlegm. She remains afebrile and her WBC is now down to 20K. She has no new complaints. - Patient Data Vitals - most recent: Last Vital Signs Temp 37.7 C 01/30/17 16:41 Pulse 89 01/30/17 15:27 Resp 20 01/30/17 15:27 BP 120/64 01/30/17 15:27 Pulse Ox 97 01/30/17 15:27 Weight - most recent: 80.785 kg I&O - last 24 hours: Intake & Output 01/30/17 01/30/17 01/30/17 06:59 14:59 22:59 Intake Total 1183 142 1130 Output Total 575 1150 Balance 1135 180 600 Lab Results last 24 hrs: Laboratory Results - last 24 hr 01/30/17 01/30/17 Range/Units 05:25 05:25 WBC 20.05 H (3.98-10.04) K/mm3 RBC 3.56 L (3.98-5.22) M/mm3 Hgb 10.3 L (11.2-15.7) gm/L Hct 31.9 L (34.1-44.9) % MCV 89.6 (79.4-94.8) fl MCH 28.9 (25.6-32.2) pg MCHC 32.3 (32.2-35.5) g/dl RDW Std Deviation 45.7 (36.4-46.3) fL Plt Count 280 (182-369) K/mm3 MPV 8.0 L (9.4-12.3) fl Neut % (Auto) 85.5 H (34.0-71.1) % Lymph % (Auto) 7.8 L (19.3-51.7) % [place] % (Auto) 6.6 (4.7-12.5) % Eos % (Auto) 0 L (0.7-5.8) Baso % (Auto) 0.0 L (0.1-1.2) % Neut # (Auto) 17.11 H (1.56-6.13) K/mm3 Lymph # (Auto) 1.56 (1.18-3.74) K/mm3 [place] # (Auto) 1.33 H (0.24-0.36) K/mm3 Eos # (Auto) 0.01 L (0.04-0.36) K/mm3 Baso # (Auto) 0.01 (0.01-0.08) K/mm3 Manual Slide Review Abnormal smear Sodium 131 L (136-145) mEq/L Potassium 3.6 (3.5-5.1) mEq/L Chloride 100 (98-107) mEq/L Carbon Dioxide 21 (21-32) mEq/L Anion Gap 13.6 (5-15) BUN 17 (7-18) mg/dL Creatinine 0.7 (0.55-1.02) mg/dL Est Cr Clr Drug Dosing 72.88 mL/min Estimated GFR (MDRD) > 60 (>60) mL/min BUN/Creatinine Ratio 24.3 H (14-18) Glucose 95 (80-115) mg/dL Calcium 8.0 L (8.5-10.1) mg/dL Magnesium 1.5 L (1.8-2.4) mg/dl C-Reactive Protein 41.1 H* (<1.0) mg/dL Yaya Results last 24 hrs: Microbiology 01/29/17 21:20 Gram Stain - Final Sputum - Expectorated Sputum Culture - Preliminary NORMAL RESPIRATORY ALTAGRACIA 1 DAY Med Orders - Current: Current Medications Acetaminophen (Tylenol) 650 mg PO DAILY YOSEPH Last Admin: 05/17/17 09:31 Dose: 650 mg Acetaminophen (Tylenol) 650 mg PO Q4H PRN PRN Reason: Pain (Mild 1-3)/fever Last Admin: 01/30/17 16:41 Dose: 650 mg Hydrocodone Bitart/Acetaminophen ([place] 325-5 Mg) 1 tab PO Q4H PRN PRN Reason: Pain (moderate 4-6) Albuterol/Ipratropium (Duoneb 3.0-0.5 Mg/3 Ml) 3 ml NEB Q4H PRN PRN Reason: Shortness Of Breath/wheezing Last Admin: 01/30/17 10:12 Dose: 3 ml Bisacodyl (Dulcolax) 5 mg PO DAILY PRN PRN Reason: Constipation Cholecalciferol (Vitamin D3) 5,000 units PO BEDTIME [facility] Last Admin: 01/29/17 21:05 Dose: Not Given Docusate Sodium (Colace) 100 mg PO BID PRN PRN Reason: Constipation Enoxaparin Sodium (Lovenox) 40 mg SUBCUT DAILY [facility] Last Admin: 01/30/17 09:32 Dose: 40 mg Guaifenesin (Mucinex) 1,200 mg PO BID [facility] Last Admin: 01/30/17 09:32 Dose: 1,200 mg Hydralazine HCl (Apresoline) 20 mg IVPUSH Q4H PRN PRN Reason: Hypertension Hydromorphone HCl (Dilaudid) 0.25 mg IVPUSH Q2H PRN PRN Reason: Pain (severe 7-10) Azithromycin 500 mg/ Sodium (Chloride) 250 mls @ 250 mls/hr IV Q24H [facility] Last Admin: 01/30/17 09:32 Dose: 250 mls/hr Promethazine HCl 12.5 mg/ (Sodium Chloride) 50.5 mls @ 100 mls/hr IV Q6H PRN PRN Reason: Nausea/Vomiting Ceftriaxone Sodium 1 gm/ (Sodium Chloride) 100 mls @ 200 mls/hr IV Q24H [facility] Last Admin: 01/30/17 10:46 Dose: 200 mls/hr Lorazepam (Ativan) 1 mg IV Q6H PRN PRN Reason: Anxiety Magnesium Sulfate (Pharmacy To Dose - Magnesium Replacement) 0 dose .XX ASDIRECTED PRN PRN Reason: rx dose Metoprolol Tartrate (Lopressor) 5 mg IVPUSH Q4H PRN PRN Reason: Tachycardia Montelukast Sodium (Singulair) 10 mg PO BEDTIME [facility] Last Admin: 01/29/17 21:06 Dose: 10 mg Ondansetron HCl (Zofran) 4 mg IV Q6H PRN PRN Reason: Nausea/Vomiting Pantoprazole Sodium (Protonix) 40 mg PO DAILY@0700 [facility] Last Admin: 01/30/17 06:05 Dose: 40 mg Breo Ellipta 200-25 (Mcg Inhaler) 0 each INH DAILY [facility] Last Admin: 01/30/17 09:32 Dose: Not Given Loratadine/Pseudoephedrine 10- 240 Mg 1 each PO DAILY PRN PRN Reason: Allergies Potassium Chloride (Pharmacy To Dose - Potassium Replacement) 0 dose .XX ASDIRECTED PRN PRN Reason: rx dose Pramipexole Dihydrochloride (Mirapex) 1.5 mg PO BEDTIME [facility] Last Admin: 01/30/17 04:16 Dose: Not Given Senna/Docusate Sodium (Senna Plus) 1 tab PO BID PRN PRN Reason: Constipation Sodium Chloride (Saline Flush) 10 ml FLUSH ONETIME PRN PRN Reason: IV FLUSH Stop: 01/30/17 18:00 Last Admin: 01/30/17 08:52 Dose: 10 ml Temazepam (Restoril) 15 mg PO BEDTIME PRN PRN Reason: Sleep Vitamin E (Vitamin E) 800 units PO BEDTIME [facility] Last Admin: 01/29/17 21:06 Dose: 800 units Discontinued Medications Acetaminophen (Tylenol) 975 mg PO NOW ONE Stop: 01/29/17 13:37 Last Admin: 01/29/17 14:15 Dose: 975 mg Hydromorphone HCl (Dilaudid) 0.25 mg IVPUSH Q2H PRN PRN Reason: Pain (severe 7-10) Dextrose/Sodium Chloride (Dextrose 5%-Normal Saline) 1,000 mls @ 500 mls/hr IV ASDIRECTED [facility] Last Admin: 01/29/17 19:43 Dose: 500 mls/hr Azithromycin 500 mg/ Sodium (Chloride) 250 mls @ 250 mls/hr IV ONETIME ONE Stop: 01/29/17 15:49 Last Admin: 01/29/17 15:52 Dose: 250 mls/hr Ceftriaxone Sodium 2 gm/ (Sodium Chloride) 100 mls @ 200 mls/hr IV ONETIME ONE Stop: 01/29/17 15:19 Last Admin: 01/29/17 15:10 Dose: 200 mls/hr Magnesium Sulfate 2 gm/ Premix 50 mls @ 25 mls/hr IV ONETIME ONE Stop: 01/30/17 13:29 Last Admin: 01/30/17 11:36 Dose: 25 mls/hr Iopamidol (Isovue-300 (61%)) 80 ml IVPUSH ONETIME ONE Stop: 01/30/17 08:36 Last Admin: 01/30/17 08:52 Dose: 80 ml Ketorolac Tromethamine (Toradol) 30 mg IVPUSH ONETIME YOSEPH Last Admin: 01/29/17 14:17 Dose: 30 mg Pneumococcal Polyvalent Vaccine (Pneumovax 23) 0.5 ml IM .ONCE ONE Stop: 01/30/17 09:36 Pramipexole Dihydrochloride (Mirapex) 1.5 mg PO DAILY [facility] Pramipexole Dihydrochloride (Mirapex) 1.5 mg PO BEDTIME YOSEPH - Exam Quality Assessment: No: supplemental oxygen General: alert, oriented, cooperative, no acute distress HEENT: Pupils equal, Pupils reactive, EOMI, Mucous membr. moist/pink Neck: supple, trachea midline Lungs: Normal respiratory effort, Decreased breath sounds, Rhonchi Cardiovascular: Regular Rate, Regular Rhythm Abdomen: bowel sounds present, soft, no tenderness, no distension (Female) Exam: Deferred Back Exam: Normal Inspection, Decreased Range of Motion Extremities: no edema, normal pulses, no tenderness/swelling, no clubbing, no cyanosis, no calf tenderness Peripheral Pulses: 2+: Dorsalis Pedis (L), Dorsalis Pedis (R) Skin: warm, dry, intact Neurological: no new focal deficit Psy/Mental Status: alert, normal affect, normal mood - Problem List Review Problem List Initiated/Reviewed/Updated: Yes - My Orders Last 24 Hours: My Active Orders 01/29/17 19:13 Metoprolol Tartrate [Lopressor] 5 mg IVPUSH Q4H PRN hydrALAZINE [Apresoline] 20 mg IVPUSH Q4H PRN 01/29/17 19:14 Patient's Own Medication [Ptom] 1 each PO DAILY PRN 01/29/17 19:15 Height and Weight [RC] 04 Intake and Output [RC] 04,16 Oxygen Therapy [RC] PRN Up With Assistance [RC] ASDIRECTED Up ad Key [RC] ASDIRECTED VTE/DVT Education [RC] , Vital Signs [RC] 03,09,15,21 Acetaminophen [Tylenol] 650 mg PO Q4H PRN Acetaminophen/HYDROcodone [[place] 325-5 MG] 1 tab PO Q4H PRN Albuterol/Ipratropium [DuoNeb 3.0-0.5 MG/3 ML] 3 ml NEB Q4H PRN Bisacodyl [Dulcolax] 5 mg PO DAILY PRN Docusate Sodium [Colace] 100 mg PO BID PRN Docusate Sodium/Sennosides [Senna Plus] 1 tab PO BID PRN LORazepam [Ativan] 1 mg IV Q6H PRN Magnesium Rep Pharmacy to Dose [Pharmacy to Dose - Magnesium Replacement] 0 dose .XX ASDIRECTED PRN Ondansetron [Zofran] 4 mg IV Q6H PRN Potassium Rep Pharmacy to Dose [Pharmacy to Dose - Potassium Replacement] 0 dose .XX ASDIRECTED PRN Promethazine [Phenergan] 12.5 mg Sodium Chloride 0.9% [Normal Saline] 50 ml IV Q6H Temazepam [Restoril] 15 mg PO BEDTIME PRN Resuscitation Status Routine 01/29/17 19:16 RT Aerosol Therapy [RC] ASDIRECTED 01/29/17 19:17 Consult to Case Management [CONS] Routine Consult to Finishing And Shipping Supervisor [CONS] Routine OT Evaluation and Treatment [CONS] Routine PT Evaluation and Treatment [CONS] Routine Respiratory Care Assess and Treatment [CONS] Routine 01/29/17 19:21 Flutter Valve Therapy [RT Chest Physiotherapy] [RC] ASDIRECTED 01/29/17 19:23 Incentive Spirometry [RT Incentive Spirometry] [RC] ASDIRECTED 01/29/17 21:00 Cholecalciferol (Vitamin D3) [Vitamin D3] 5,000 units PO BEDTIME Montelukast [Singulair] 10 mg PO BEDTIME Vitamin E (dl, acetate) [Vitamin E] 800 units PO BEDTIME guaiFENesin [Mucinex] 1,200 mg PO BID 01/29/17 21:20 CULTURE SPUTUM + SMEAR [RM] Stat STREP PNEUMONIAE ANTIGEN [MREF] Stat 01/29/17 Dinner Regular Diet [DIET] 01/30/17 03:00 Pramipexole [Mirapex] 1.5 mg PO BEDTIME 01/30/17 07:00 Pantoprazole [ProTONIX] 40 mg PO DAILY@0700 01/30/17 08:35 Sodium Chloride 0.9% [Saline Flush] 10 ml FLUSH ONETIME PRN 01/30/17 09:00 Acetaminophen [Tylenol] 650 mg PO DAILY Azithromycin [Zithromax] 500 mg Sodium Chloride 0.9% [Normal Saline] 250 ml IV Q24H Enoxaparin [Lovenox] 40 mg SUBCUT DAILY Patient's Own Medication [Ptom] 0 each INH DAILY 01/30/17 10:52 HYDROmorphone [Dilaudid] 0.25 mg IVPUSH Q2H PRN 01/30/17 11:00 cefTRIAXone [Rocephin] 1 gm Sodium Chloride 0.9% [Normal Saline] 100 ml IV Q24H 01/31/17 05:11 Chest 2V [CR] AM BASIC METABOLIC PANEL,BMP [CHEM] AM C-REACTIVE PROTEIN [CHEM] AM CBC WITH AUTO DIFF [HEME] AM MAGNESIUM [CHEM] AM 02/01/17 05:11 BASIC METABOLIC PANEL,BMP [CHEM] AM C-REACTIVE PROTEIN [CHEM] AM CBC WITH AUTO DIFF [HEME] AM MAGNESIUM [CHEM] AM 02/02/17 05:11 BASIC METABOLIC PANEL,BMP [CHEM] AM C-REACTIVE PROTEIN [CHEM] AM CBC WITH AUTO DIFF [HEME] AM MAGNESIUM [CHEM] AM 02/03/17 05:11 BASIC METABOLIC PANEL,BMP [CHEM] AM C-REACTIVE PROTEIN [CHEM] AM CBC WITH AUTO DIFF [HEME] AM MAGNESIUM [CHEM] AM 02/04/17 05:11 CBC WITH AUTO DIFF [HEME] AM MAGNESIUM [CHEM] AM - Plan Plan:: Assessment/Plan: Acute: Right Mid Lung CAP - Risk factor: GERD, Smoking and likely COPD via CXR (she has not had PFT done) - HR CT scan to be done this am - Continue IV Antibiotics Azithromycin and Rocephin daily - FV and IS as directed - Sputum Cx is negative for far - Mycoplasma Ag negative - Mucinex 1200 mg po BID - Serial CXR Urinary Tract Infection - UA pos - UA Cx is negative so far - Already on IV Abx Leukoctyosis - WBC 25K-->20K and CRP is 35--> 41 - 2/2 above - Treat underlying cause - Will continue to monitor Hyponatremia - Na 128--> now 131 - Likely from hypovolemic - UA spec gravity is 1.025 (she is dry) - IVF fluids and encourage oral intake Hypomagnesemia - Mg 1.7 - Pharmacy to monitor and replete Chronic: GERD OA Chronic Back Pain OA Nicotine Dependence Psoriasis Plan: She is looks much better Routine AM Labs Continue current treatment Continue PT/OT/RT eval Encourage to use FV/IS as directed Encourage to ambulate down the chambers as many times as she wants to SW/CM for d/c planning Additional orders as above Code status:1
[2017-01-30] MEDS: Temazepam 15 MG Cap PO PRN (20:59)
[2017-01-30] MEDS: Cholecalciferol (Vitamin D3) 1,000 Unit Tab PO SCH (20:59)
[2017-01-30] MEDS ORDERED: Pramipexole 0.25 MG Tab PO SCH (21:00)
[2017-01-30] MEDS: Montelukast 10 MG Tab PO SCH (21:00)
[2017-01-30] MEDS: Vitamin E (dl-alpha-tocopherol acetate) 400 Unit Cap PO SCH (21:00)
--- NOTE | 2017-01-31 01:14 | PCM.SN ---
- Free Text/Narrative Note: CT scan shows right lung consolidation, small left sided pleural effusion (most likely representing parapneumonic effusion), emphysematous change and bilateral basilar fibrosis, slightly prominent mediastinal lymph node (follow up in 6 months). Relayed info to patient. If she does not get better here, she [place] need to go [place] for bronchoscopy
[2017-01-31] MEDS: Pantoprazole 40 MG Tab.CR PO SCH (05:59)
[2017-01-31] MEDS: Albuterol/Ipratropium 3.0-0.5 MG/3 ML Neb Soln NEB PRN ×2 (06:17→20:30)
[2017-01-31] MEDS ORDERED: guaiFENesin/Dextromethorphan 100-10 MG/5 ML Soln 5 ML Cup PO PRN (07:26)
[2017-01-31] MEDS: Enoxaparin 40 MG/0.4 ML Syringe SUBCUT SCH (08:14)
[2017-01-31] MEDS: guaiFENesin 600 MG Tab.ER PO SCH ×2 (08:15→20:02)
[2017-01-31] MEDS: Acetaminophen 325 MG Tab PO SCH (08:15)
[2017-01-31] MEDS: Benzonatate 100 MG Cap PO PRN ×2 (08:16→20:03)
[2017-01-31] MEDS: Azithromycin 500 MG in Sodium Chloride 0.9% 250 ML IV SCH (08:16)
[2017-01-31] MEDS: BREO ELLIPTA INH SCH (08:16)
[2017-01-31] MEDS ORDERED: Magnesium Sulfate/Water 2 GM in Premix Bag 1 BAG IV ONE (09:00)
[2017-01-31] MEDS ORDERED: fentaNYL 12 MCG/HR Transdermal Patch TRDERM SCH (09:00)
--- NOTE | 2017-01-31 10:29 | PCM.PN ---
- General Info Date of Service: 01/31/17 Admission Dx/Problem (Free Text): Admission Diagnosis/Problem Admission Diagnosis/Problem Pneumonia Subjective Update: Follow Up Functional Status: Reports: tolerating diet, ambulating, urinating, new symptoms. Denies: pain controlled - Review of Systems General: Denies: Fever HEENT: Reports: no symptoms Pulmonary: Reports: cough, sputum. Denies: shortness of breath, wheezing Cardiovascular: Denies: Chest Pain, Palpitations, Dyspnea on Exertion, Edema Gastrointestinal: Denies: Abdominal pain, Nausea, Vomiting Genitourinary: Reports: no symptoms Musculoskeletal: Reports: back pain Skin: Denies: pallor, pruritis, rash Neurological: Reports: Gait Disturbance. Denies: Confusion, Difficulty Walking , Weakness Psychiatric: Denies: depression, anxiety, agitation, cravings, hallucinations Systems Review Comment:: Patient in so much pain this am. She did not sleep well last night. She could not get comfortable due to chronic back pain. She feels she is getting better otherwise. - Patient Data Vitals - most recent: Last Vital Signs Temp 37.0 C 01/31/17 07:47 Pulse 90 01/31/17 07:47 Resp 15 01/31/17 07:47 BP 129/59 L 01/31/17 07:47 Pulse Ox 94 L 01/31/17 07:47 Weight - most recent: 81.148 kg I&O - last 24 hours: Intake & Output 01/30/17 01/31/17 01/31/17 22:59 06:59 14:59 Intake Total 1750 3450 120 Output Total 1150 1100 Balance 600 2350 120 Lab Results last 24 hrs: Laboratory Results - last 24 hr 01/31/17 01/31/17 Range/Units 04:40 04:40 WBC 12.43 H (3.98-10.04) K/mm3 RBC 3.54 L (3.98-5.22) M/mm3 Hgb 10.1 L (11.2-15.7) gm/L Hct 31.4 L (34.1-44.9) % MCV 88.7 (79.4-94.8) fl MCH 28.5 (25.6-32.2) pg MCHC 32.2 (32.2-35.5) g/dl RDW Std Deviation 44.6 (36.4-46.3) fL Plt Count 265 (182-369) K/mm3 MPV 8.2 L (9.4-12.3) fl Neut % (Auto) 76.8 H (34.0-71.1) % Lymph % (Auto) 13.1 L (19.3-51.7) % [place] % (Auto) 9.4 (4.7-12.5) % Eos % (Auto) 0.2 L (0.7-5.8) Baso % (Auto) 0.1 (0.1-1.2) % Neut # (Auto) 9.54 H (1.56-6.13) K/mm3 Lymph # (Auto) 1.63 (1.18-3.74) K/mm3 [place] # (Auto) 1.17 H (0.24-0.36) K/mm3 Eos # (Auto) 0.03 L (0.04-0.36) K/mm3 Baso # (Auto) 0.01 (0.01-0.08) K/mm3 Sodium 133 L (136-145) mEq/L Potassium 3.7 (3.5-5.1) mEq/L Chloride 99 (98-107) mEq/L Carbon Dioxide 23 (21-32) mEq/L Anion Gap 14.7 (5-15) BUN 8 (7-18) mg/dL Creatinine 0.4 L (0.55-1.02) mg/dL Est Cr Clr Drug Dosing 127.54 mL/min Estimated GFR (MDRD) > 60 (>60) mL/min BUN/Creatinine Ratio 20.0 H (14-18) Glucose 112 (80-115) mg/dL Calcium 8.2 L (8.5-10.1) mg/dL Magnesium 1.6 L (1.8-2.4) mg/dl C-Reactive Protein 28.5 H* (<1.0) mg/dL Yaya Results last 24 hrs: Microbiology 01/29/17 21:20 Gram Stain - Final Sputum - Expectorated Sputum Culture - Final NORMAL RESPIRATORY ALTAGRACAI 2 DAYS 01/29/17 21:20 Streptococcus pneumoniae Antigen (M - Final Urine - Bladder Med Orders - Current: Current Medications Acetaminophen (Tylenol) 650 mg PO DAILY YOSEPH Last Admin: 01/31/17 08:15 Dose: 650 mg Acetaminophen (Tylenol) 650 mg PO Q4H PRN PRN Reason: Pain (Mild 1-3)/fever Last Admin: 01/30/17 16:41 Dose: 650 mg Hydrocodone Bitart/Acetaminophen ([place] 325-5 Mg) 1 tab PO Q4H PRN PRN Reason: Pain (moderate 4-6) Albuterol/Ipratropium (Duoneb 3.0-0.5 Mg/3 Ml) 3 ml NEB Q4H PRN PRN Reason: Shortness Of Breath/wheezing Last Admin: 01/31/17 06:17 Dose: 3 ml Benzonatate (Tessalon Perles) 200 mg PO TID PRN PRN Reason: Cough Last Admin: 01/31/17 08:16 Dose: 200 mg Bisacodyl (Dulcolax) 5 mg PO DAILY PRN PRN Reason: Constipation Cholecalciferol (Vitamin D3) 5,000 units PO BEDTIME [facility] Last Admin: 01/30/17 20:59 Dose: 5,000 units Docusate Sodium (Colace) 100 mg PO BID PRN PRN Reason: Constipation Enoxaparin Sodium (Lovenox) 40 mg SUBCUT DAILY [facility] Last Admin: 01/31/17 08:14 Dose: 40 mg Fentanyl (Duragesic) 12 mcg TRDERM Q72H [facility] Last Admin: 01/31/17 08:49 Dose: 12 mcg Guaifenesin (Mucinex) 1,200 mg PO BID [facility] Last Admin: 01/31/17 08:15 Dose: 1,200 mg Hydralazine HCl (Apresoline) 20 mg IVPUSH Q4H PRN PRN Reason: Hypertension Hydromorphone HCl (Dilaudid) 0.25 mg IVPUSH Q2H PRN PRN Reason: Pain (severe 7-10) Azithromycin 500 mg/ Sodium (Chloride) 250 mls @ 250 mls/hr IV Q24H [facility] Last Admin: 01/31/17 08:16 Dose: 250 mls/hr Promethazine HCl 12.5 mg/ (Sodium Chloride) 50.5 mls @ 100 mls/hr IV Q6H PRN PRN Reason: Nausea/Vomiting Ceftriaxone Sodium 1 gm/ (Sodium Chloride) 100 mls @ 200 mls/hr IV Q24H [facility] Last Admin: 01/30/17 10:46 Dose: 200 mls/hr Magnesium Sulfate 2 gm/ Premix 50 mls @ 25 mls/hr IV ONETIME ONE Stop: 01/31/17 10:59 Last Admin: 01/31/17 08:14 Dose: 25 mls/hr Lorazepam (Ativan) 1 mg IV Q6H PRN PRN Reason: Anxiety Magnesium Oxide (Magnesium Oxide) 400 mg PO DAILY [facility] Magnesium Sulfate (Pharmacy To Dose - Magnesium Replacement) 0 dose .XX ASDIRECTED PRN PRN Reason: rx dose Metoprolol Tartrate (Lopressor) 5 mg IVPUSH Q4H PRN PRN Reason: Tachycardia Miscellaneous Information (Remove Patch) 0 ea TRDERM Q72H [facility] Montelukast Sodium (Singulair) 10 mg PO BEDTIME [facility] Last Admin: 01/30/17 21:00 Dose: 10 mg Ondansetron HCl (Zofran) 4 mg IV Q6H PRN PRN Reason: Nausea/Vomiting Pantoprazole Sodium (Protonix) 40 mg PO DAILY@0700 [facility] Last Admin: 01/31/17 05:59 Dose: 40 mg Breo Ellipta 200-25 (Mcg Inhaler) 0 each INH DAILY [facility] Last Admin: 01/31/17 08:16 Dose: Not Given Loratadine/Pseudoephedrine 10- 240 Mg 1 each PO DAILY PRN PRN Reason: Allergies Potassium Chloride (Pharmacy To Dose - Potassium Replacement) 0 dose .XX ASDIRECTED PRN PRN Reason: rx dose Pramipexole Dihydrochloride (Mirapex) 1.5 mg PO BEDTIME [facility] Last Admin: 01/30/17 20:59 Dose: 1.5 mg Senna/Docusate Sodium (Senna Plus) 1 tab PO BID PRN PRN Reason: Constipation Temazepam (Restoril) 15 mg PO BEDTIME PRN PRN Reason: Sleep Last Admin: 01/30/17 20:59 Dose: 15 mg Vitamin E (Vitamin E) 800 units PO BEDTIME [facility] Last Admin: 01/30/17 21:00 Dose: 800 units Discontinued Medications Acetaminophen (Tylenol) 975 mg PO NOW ONE Stop: 01/29/17 13:37 Last Admin: 01/29/17 14:15 Dose: 975 mg Guaifenesin/Phenylephrine HCl (Robitussin Dm) 5 ml PO QID PRN PRN Reason: Cough Hydromorphone HCl (Dilaudid) 0.25 mg IVPUSH Q2H PRN PRN Reason: Pain (severe 7-10) Dextrose/Sodium Chloride (Dextrose 5%-Normal Saline) 1,000 mls @ 500 mls/hr IV ASDIRECTED [facility] Last Admin: 01/29/17 19:43 Dose: 500 mls/hr Azithromycin 500 mg/ Sodium (Chloride) 250 mls @ 250 mls/hr IV ONETIME ONE Stop: 01/29/17 15:49 Last Admin: 01/29/17 15:52 Dose: 250 mls/hr Ceftriaxone Sodium 2 gm/ (Sodium Chloride) 100 mls @ 200 mls/hr IV ONETIME ONE Stop: 01/29/17 15:19 Last Admin: 01/29/17 15:10 Dose: 200 mls/hr Magnesium Sulfate 2 gm/ Premix 50 mls @ 25 mls/hr IV ONETIME ONE Stop: 01/30/17 13:29 Last Admin: 01/30/17 11:36 Dose: 25 mls/hr Iopamidol (Isovue-300 (61%)) 80 ml IVPUSH ONETIME ONE Stop: 01/30/17 08:36 Last Admin: 01/30/17 08:52 Dose: 80 ml Ketorolac Tromethamine (Toradol) 30 mg IVPUSH ONETIME [facility] Last Admin: 01/29/17 14:17 Dose: 30 mg Pneumococcal Polyvalent Vaccine (Pneumovax 23) 0.5 ml IM .ONCE ONE Stop: 01/30/17 09:36 Pramipexole Dihydrochloride (Mirapex) 1.5 mg PO DAILY [facility] Pramipexole Dihydrochloride (Mirapex) 1.5 mg PO BEDTIME [facility] Sodium Chloride (Saline Flush) 10 ml FLUSH ONETIME PRN PRN Reason: IV FLUSH Stop: 01/30/17 18:00 Last Admin: 01/30/17 08:52 Dose: 10 ml - Exam Quality Assessment: No: supplemental oxygen General: alert, oriented, cooperative, no acute distress HEENT: Pupils equal, Pupils reactive, EOMI, Mucous membr. moist/pink Neck: supple, trachea midline, no JVD, no thyromegaly Lungs: Normal respiratory effort, Decreased breath sounds, Rhonchi Cardiovascular: Regular Rate, Regular Rhythm Abdomen: bowel sounds present, soft, no tenderness, no distension (Female) Exam: Deferred Back Exam: Normal Inspection, Decreased Range of Motion Extremities: no edema, normal pulses Peripheral Pulses: 2+: Posterior Tibial (L), Posterior Tibial (R), Dorsalis Pedis (L), Dorsalis Pedis (R) Skin: warm, dry, intact Neurological: no new focal deficit Psy/Mental Status: alert, normal affect, normal mood - Problem List Review Problem List Initiated/Reviewed/Updated: Yes - My Orders Last 24 Hours: My Active Orders 01/30/17 10:52 HYDROmorphone [Dilaudid] 0.25 mg IVPUSH Q2H PRN 01/30/17 11:00 cefTRIAXone [Rocephin] 1 gm Sodium Chloride 0.9% [Normal Saline] 100 ml IV Q24H 01/31/17 05:11 Chest 2V [CR] AM 01/31/17 09:00 Magnesium Sulfate/Water [Magnesium Sulfate 2 GM in Water 50 ML] 2 gm Premix Bag 1 bag IV ONETIME fentaNYL [Duragesic] 12 mcg TRDERM Q72H 01/31/17 10:02 Heat Therapy [OM.PC] Routine 01/31/17 12:00 Magnesium Oxide 400 mg PO DAILY 02/01/17 05:11 BASIC METABOLIC PANEL,BMP [CHEM] AM C-REACTIVE PROTEIN [CHEM] AM CBC WITH AUTO DIFF [HEME] AM MAGNESIUM [CHEM] AM 02/02/17 05:11 BASIC METABOLIC PANEL,BMP [CHEM] AM C-REACTIVE PROTEIN [CHEM] AM CBC WITH AUTO DIFF [HEME] AM MAGNESIUM [CHEM] AM 02/03/17 05:11 BASIC METABOLIC PANEL,BMP [CHEM] AM C-REACTIVE PROTEIN [CHEM] AM CBC WITH AUTO DIFF [HEME] AM MAGNESIUM [CHEM] AM 02/03/17 09:00 Remove Patch 0 ea TRDERM Q72H 02/04/17 05:11 CBC WITH AUTO DIFF [HEME] AM MAGNESIUM [CHEM] AM - Plan Plan:: Assessment/Plan: Acute: Right Mid Lung CAP - Risk factor: GERD, Smoking and likely COPD via CXR (she has not had PFT done) - HR CT scan to be done this am - Continue IV Antibiotics Azithromycin and Rocephin daily - FV and IS as directed - Sputum Cx is negative for far - Mycoplasma Ag negative - Mucinex 1200 mg po BID - CXR today Urinary Tract Infection - UA pos - UA Cx is negative so far - Already on IV Abx - I don't think she has it - She is asymptomatic Leukoctyosis - WBC 25K-->20K--> 12K and CRP is 35--> 41--> 28 - 2/2 above - Treat underlying cause - Will continue to monitor Hyponatremia - Na 128--> 131--> 133 - Likely from hypovolemic - UA spec gravity is 1.025 (she is dry) - IVF fluids and encourage oral intake Hypomagnesemia - Mg 1.7--> 1.6 - Pharmacy to monitor and replete Acute on CHronic Back Pain - She was crying in pain - She could not get comfortable last night - Fentanyl patch 12.5 mg daily - Will ask nursing supervisor buffing and pasting if we can change her bed or give her more back support Chronic: GERD OA Chronic Back Pain OA Nicotine Dependence Psoriasis Plan: She is clinically stable She is responding to current treatment Routine AM Labs Continue PT/OT/RT eval Encourage to use FV/IS as directed Encourage to ambulate down the chambers as many times as she wants to SW/CM for d/c planning Additional orders as above Code status:1
--- NOTE | 2017-01-31 10:50 | CR ---
Chest: Two views of the chest were obtained. Comparison: Previous chest x-ray 01/29/17. Continuing consolidation within the left midlung is seen. Increasing density noted throughout the right lung. Heart size is normal. Tortuous thoracic aorta is seen. Scattered degenerative change within the spine is seen. Bony structures are also osteopenic. Impression: 1. Worsening density throughout the right chest. Stable consolidation within the left midlung. 2. Other incidental findings. Diagnostic code #3
[2017-01-31] MEDS: cefTRIAXone 1 GM in Sodium Chloride 0.9% 100 ML IV SCH (10:53)
[2017-01-31] MEDS: Magnesium Oxide 400 MG Tab PO SCH ×2 (10:53→11:01)
[2017-01-31] MEDS: Acetaminophen 325 MG Tab PO PRN (13:44)
[2017-01-31] MEDS: Temazepam 15 MG Cap PO PRN (20:02)
[2017-01-31] MEDS: Vitamin E (dl-alpha-tocopherol acetate) 400 Unit Cap PO SCH (20:02)
[2017-01-31] MEDS: Pramipexole 0.25 MG Tab PO SCH (20:02)
[2017-01-31] MEDS: Cholecalciferol (Vitamin D3) 1,000 Unit Tab PO SCH (20:03)
[2017-01-31] MEDS: Montelukast 10 MG Tab PO SCH (20:03)
[2017-01-31] MEDS ORDERED: Pneumococcal Polyvalent-23 Vaccine 0.5 ML SDV IM ONE (21:24)
[2017-02-01] MEDS: Pantoprazole 40 MG Tab.CR PO SCH ×2 (05:06→06:04)
[2017-02-01] MEDS: Acetaminophen 325 MG Tab PO SCH ×2 (05:06→10:54)
[2017-02-01] MEDS: Albuterol/Ipratropium 3.0-0.5 MG/3 ML Neb Soln NEB PRN ×2 (06:20→21:20)
[2017-02-01] MEDS ORDERED: Magnesium Sulfate/Water 2 GM in Premix Bag 1 BAG IV ONE (08:00)
[2017-02-01] MEDS: Enoxaparin 40 MG/0.4 ML Syringe SUBCUT SCH (08:25)
[2017-02-01] MEDS: guaiFENesin 600 MG Tab.ER PO SCH ×2 (08:25→20:24)
[2017-02-01] MEDS: Magnesium Oxide 400 MG Tab PO SCH ×2 (08:26→20:22)
[2017-02-01] MEDS: Azithromycin 500 MG in Sodium Chloride 0.9% 250 ML IV SCH (08:26)
[2017-02-01] MEDS: Potassium Chloride 20 MEQ Tab.ER PO SCH ×3 (08:26→14:40)
--- NOTE | 2017-02-01 10:15 | PCM.PN ---
- General Info Date of Service: 02/01/17 Admission Dx/Problem (Free Text): Admission Diagnosis/Problem Admission Diagnosis/Problem Pneumonia Lynn was seen this morning resting comfortably in bed. Back pain is improved. Coughing is much improved. Denies SOB, CP, palpitations. No n/v/d, f/c/s. No constipation or difficulty with urination. CXR obtained yesterday showed slight worsening of PNA. Labs today are improved and are reviewed with patient in room today. Functional Status: Reports: pain controlled, tolerating diet, ambulating, urinating. Denies: new symptoms - Review of Systems General: Reports: Weakness (improving). Denies: Fever HEENT: Reports: no symptoms Pulmonary: Reports: cough (improved), wheezing (improved). Denies: shortness of breath, pleuritic chest pain Cardiovascular: Reports: No Symptoms. Denies: Chest Pain, Palpitations, Dyspnea on Exertion Gastrointestinal: Reports: No symptoms Genitourinary: Reports: no symptoms Musculoskeletal: Reports: back pain (improved today) Neurological: Reports: No Symptoms Psychiatric: Reports: no symptoms - Patient Data Vitals - most recent: Last Vital Signs Temp 98.2 F 02/01/17 08:24 Pulse 74 02/01/17 08:24 Resp 18 02/01/17 08:24 BP 121/68 02/01/17 08:24 Pulse Ox 97 02/01/17 08:24 Weight - most recent: 178 lb I&O - last 24 hours: Intake & Output 01/31/17 02/01/17 02/01/17 22:59 06:59 14:59 Intake Total 1500 500 Output Total 850 400 Balance 650 100 Lab Results last 24 hrs: Laboratory Results - last 24 hr 02/01/17 02/01/17 Range/Units 06:15 06:15 WBC 7.61 (3.98-10.04) K/mm3 RBC 3.50 L (3.98-5.22) M/mm3 Hgb 9.9 L (11.2-15.7) gm/L Hct 31.2 L (34.1-44.9) % MCV 89.1 (79.4-94.8) fl MCH 28.3 (25.6-32.2) pg MCHC 31.7 L (32.2-35.5) g/dl RDW Std Deviation 45.2 (36.4-46.3) fL Plt Count 311 (182-369) K/mm3 MPV 7.9 L (9.4-12.3) fl Neut % (Auto) 71.3 H (34.0-71.1) % Lymph % (Auto) 19.2 L (19.3-51.7) % [place] % (Auto) 7.9 (4.7-12.5) % Eos % (Auto) 0.5 L (0.7-5.8) Baso % (Auto) 0.3 (0.1-1.2) % Neut # (Auto) 5.43 (1.56-6.13) K/mm3 Lymph # (Auto) 1.46 (1.18-3.74) K/mm3 [place] # (Auto) 0.60 H (0.24-0.36) K/mm3 Eos # (Auto) 0.04 (0.04-0.36) K/mm3 Baso # (Auto) 0.02 (0.01-0.08) K/mm3 Sodium 136 (136-145) mEq/L Potassium 3.2 L (3.5-5.1) mEq/L Chloride 101 (98-107) mEq/L Carbon Dioxide 24 (21-32) mEq/L Anion Gap 14.2 (5-15) BUN 8 (7-18) mg/dL Creatinine 0.6 (0.55-1.02) mg/dL Est Cr Clr Drug Dosing 85.03 mL/min Estimated GFR (MDRD) > 60 (>60) mL/min BUN/Creatinine Ratio 13.3 L (14-18) Glucose 133 H (80-115) mg/dL Calcium 8.4 L (8.5-10.1) mg/dL Magnesium 1.6 L (1.8-2.4) mg/dl C-Reactive Protein 17.2 H* (<1.0) mg/dL Yaya Results last 24 hrs: Microbiology 01/29/17 21:20 Gram Stain - Final Sputum - Expectorated Sputum Culture - Final NORMAL RESPIRATORY ALTAGRACIA 2 DAYS 01/29/17 21:20 Streptococcus pneumoniae Antigen (M - Final Urine - Bladder Med Orders - Current: Current Medications Acetaminophen (Tylenol) 650 mg PO DAILY YOSEPH Last Admin: 02/01/17 05:06 Dose: 650 mg Acetaminophen (Tylenol) 650 mg PO Q4H PRN PRN Reason: Pain (Mild 1-3)/fever Last Admin: 01/31/17 13:44 Dose: 650 mg Hydrocodone Bitart/Acetaminophen ([place] 325-5 Mg) 1 tab PO Q4H PRN PRN Reason: Pain (moderate 4-6) Albuterol/Ipratropium (Duoneb 3.0-0.5 Mg/3 Ml) 3 ml NEB Q4H PRN PRN Reason: Shortness Of Breath/wheezing Last Admin: 02/01/17 06:20 Dose: 3 ml Benzonatate (Tessalon Perles) 200 mg PO TID PRN PRN Reason: Cough Last Admin: 01/31/17 20:03 Dose: 200 mg Bisacodyl (Dulcolax) 5 mg PO DAILY PRN PRN Reason: Constipation Cholecalciferol (Vitamin D3) 5,000 units PO BEDTIME [facility] Last Admin: 01/31/17 20:03 Dose: 5,000 units Docusate Sodium (Colace) 100 mg PO BID PRN PRN Reason: Constipation Enoxaparin Sodium (Lovenox) 40 mg SUBCUT DAILY [facility] Last Admin: 02/01/17 08:25 Dose: 40 mg Fentanyl (Duragesic) 12 mcg TRDERM Q72H [facility] Last Admin: 01/31/17 08:49 Dose: 12 mcg Guaifenesin (Mucinex) 1,200 mg PO BID [facility] Last Admin: 02/01/17 08:25 Dose: 1,200 mg Hydralazine HCl (Apresoline) 20 mg IVPUSH Q4H PRN PRN Reason: Hypertension Hydromorphone HCl (Dilaudid) 0.25 mg IVPUSH Q2H PRN PRN Reason: Pain (severe 7-10) Azithromycin 500 mg/ Sodium (Chloride) 250 mls @ 250 mls/hr IV Q24H [facility] Last Admin: 02/01/17 08:26 Dose: 250 mls/hr Promethazine HCl 12.5 mg/ (Sodium Chloride) 50.5 mls @ 100 mls/hr IV Q6H PRN PRN Reason: Nausea/Vomiting Ceftriaxone Sodium 1 gm/ (Sodium Chloride) 100 mls @ 200 mls/hr IV Q24H [facility] Last Admin: 01/31/17 10:53 Dose: 200 mls/hr Lorazepam (Ativan) 1 mg IV Q6H PRN PRN Reason: Anxiety Magnesium Oxide (Magnesium Oxide) 400 mg PO DAILY [facility] Last Admin: 02/01/17 08:26 Dose: 400 mg Magnesium Sulfate (Pharmacy To Dose - Magnesium Replacement) 0 dose .XX ASDIRECTED PRN PRN Reason: rx dose Metoprolol Tartrate (Lopressor) 5 mg IVPUSH Q4H PRN PRN Reason: Tachycardia Miscellaneous Information (Remove Patch) 0 ea TRDERM Q72H [facility] Montelukast Sodium (Singulair) 10 mg PO BEDTIME [facility] Last Admin: 01/31/17 20:03 Dose: 10 mg Ondansetron HCl (Zofran) 4 mg IV Q6H PRN PRN Reason: Nausea/Vomiting Pantoprazole Sodium (Protonix) 40 mg PO DAILY@0700 [facility] Last Admin: 02/01/17 06:04 Dose: Not Given Potassium Chloride (Pharmacy To Dose - Potassium Replacement) 0 dose .XX ASDIRECTED PRN PRN Reason: rx dose Potassium Chloride (Klor-Con M20) 20 meq PO Q3H [facility] Stop: 02/01/17 14:01 Last Admin: 02/01/17 08:26 Dose: 20 meq Pramipexole Dihydrochloride (Mirapex) 1.5 mg PO BEDTIME [facility] Last Admin: 01/31/17 20:02 Dose: 1.5 mg Senna/Docusate Sodium (Senna Plus) 1 tab PO BID PRN PRN Reason: Constipation Temazepam (Restoril) 15 mg PO BEDTIME PRN PRN Reason: Sleep Last Admin: 01/31/17 20:02 Dose: 15 mg Vitamin E (Vitamin E) 800 units PO BEDTIME [facility] Last Admin: 01/31/17 20:02 Dose: 800 units Discontinued Medications Acetaminophen (Tylenol) 975 mg PO NOW ONE Stop: 01/29/17 13:37 Last Admin: 01/29/17 14:15 Dose: 975 mg Guaifenesin/Phenylephrine HCl (Robitussin Dm) 5 ml PO QID PRN PRN Reason: Cough Hydromorphone HCl (Dilaudid) 0.25 mg IVPUSH Q2H PRN PRN Reason: Pain (severe 7-10) Dextrose/Sodium Chloride (Dextrose 5%-Normal Saline) 1,000 mls @ 500 mls/hr IV ASDIRECTED [facility] Last Admin: 01/29/17 19:43 Dose: 500 mls/hr Azithromycin 500 mg/ Sodium (Chloride) 250 mls @ 250 mls/hr IV ONETIME ONE Stop: 01/29/17 15:49 Last Admin: 01/29/17 15:52 Dose: 250 mls/hr Ceftriaxone Sodium 2 gm/ (Sodium Chloride) 100 mls @ 200 mls/hr IV ONETIME ONE Stop: 01/29/17 15:19 Last Admin: 01/29/17 15:10 Dose: 200 mls/hr Magnesium Sulfate 2 gm/ Premix 50 mls @ 25 mls/hr IV ONETIME ONE Stop: 01/30/17 13:29 Last Admin: 01/30/17 11:36 Dose: 25 mls/hr Magnesium Sulfate 2 gm/ Premix 50 mls @ 25 mls/hr IV ONETIME ONE Stop: 01/31/17 10:59 Last Admin: 01/31/17 08:14 Dose: 25 mls/hr Magnesium Sulfate 2 gm/ Premix 50 mls @ 25 mls/hr IV ONETIME ONE Stop: 02/01/17 09:59 Last Admin: 02/01/17 08:26 Dose: 25 mls/hr Iopamidol (Isovue-300 (61%)) 80 ml IVPUSH ONETIME ONE Stop: 01/30/17 08:36 Last Admin: 01/30/17 08:52 Dose: 80 ml Ketorolac Tromethamine (Toradol) 30 mg IVPUSH ONETIME [facility] Last Admin: 01/29/17 14:17 Dose: 30 mg Breo Ellipta 200-25 (Mcg Inhaler) 0 each INH DAILY [facility] Last Admin: 01/31/17 08:16 Dose: Not Given Loratadine/Pseudoephedrine 10- 240 Mg 1 each PO DAILY PRN PRN Reason: Allergies Pneumococcal Polyvalent Vaccine (Pneumovax 23) 0.5 ml IM .ONCE ONE Stop: 01/30/17 09:36 Pramipexole Dihydrochloride (Mirapex) 1.5 mg PO DAILY [facility] Pramipexole Dihydrochloride (Mirapex) 1.5 mg PO BEDTIME [facility] Sodium Chloride (Saline Flush) 10 ml FLUSH ONETIME PRN PRN Reason: IV FLUSH Stop: 01/30/17 18:00 Last Admin: 01/30/17 08:52 Dose: 10 ml - Exam Quality Assessment: DVT prophylaxis General: alert, oriented, cooperative, no acute distress HEENT: Pupils equal, Pupils reactive, EOMI, Mucous membr. moist/pink Neck: supple Lungs: Normal respiratory effort, Decreased breath sounds, Wheezing (expiratory) Cardiovascular: Regular Rate, Regular Rhythm Abdomen: bowel sounds present, soft, no tenderness, no distension (Female) Exam: Deferred Extremities: no edema, no calf tenderness Peripheral Pulses: 1+: Dorsalis Pedis (L), Dorsalis Pedis (R) Skin: warm, dry Neurological: no new focal deficit Psy/Mental Status: alert, normal affect, normal mood - Problem List & Annotations (1) Bilateral pneumonia SNOMED Code(s): 448358880 Code(s): J18.9 - PNEUMONIA, UNSPECIFIED ORGANISM Status: Acute Priority: High Current Visit: Yes Qualifiers: Pneumonia type: due to unspecified organism Lung location: lower lobe of lung Qualified Code(s): J18.9 - Pneumonia, unspecified organism (2) Hyponatremia SNOMED Code(s): 48835902 Code(s): E87.1 - HYPO-OSMOLALITY AND HYPONATREMIA Status: Resolved Priority: High Current Visit: Yes (3) Urinary tract infection SNOMED Code(s): 74262514 Code(s): N39.0 - URINARY TRACT INFECTION, SITE NOT SPECIFIED Status: Acute Priority: High Current Visit: Yes Qualifiers: Urinary tract infection type: site unspecified Hematuria presence: without hematuria Qualified Code(s): N39.0 - Urinary tract infection, site not specified (4) Back pain SNOMED Code(s): 490482837 Code(s): M54.9 - DORSALGIA, UNSPECIFIED Status: Acute Priority: High Current Visit: Yes Qualifiers: Back pain location: low back pain Chronicity: acute Sciatica presence: without sciatica - Problem List Review Problem List Initiated/Reviewed/Updated: Yes - Plan Plan:: Assessment/Plan: Acute: Right Mid Lung CAP - Risk factor: GERD, Smoking and likely COPD via CXR (she has not had PFT done) - HR CT scan completed - Continue IV Antibiotics Azithromycin and Rocephin daily - FV and IS as directed - Sputum Cx is negative for far - Mycoplasma Ag negative - Mucinex 1200 mg po BID - CXR repeat showed slight worsening but clinically she is much improved today Urinary Tract Infection - UA pos - UA Cx is negative so far - Already on IV Abx - She is asymptomatic Leukoctyosis - WBC 25K-->20K--> 12K-->7K and CRP is 35--> 41--> 28 --> 17 - 2/2 above - Treat underlying cause - Will continue to monitor Hyponatremia---Resolved - Na 128--> 131--> 133 - Likely from hypovolemic - UA spec gravity is 1.025 (she is dry) - IVF fluids and encourage oral intake Hypomagnesemia - Mg 1.7--> 1.6 - Pharmacy to monitor and replete Acute on Chronic low back pain --improved today - She was crying in pain - She could not get comfortable last night - Fentanyl patch 12.5 mg daily - Will ask nursing coin machine supervisor if we can change her bed or give her more back support Chronic: GERD OA Chronic Back Pain OA Nicotine Dependence Psoriasis Plan: She is clinically stable She is responding to current treatment Routine AM Labs Continue PT/OT/RT eval Encourage to use FV/IS as directed Encourage to ambulation SW/CM for d/c planning--likely discharge home tomorrow DVT/GI prophylax Additional orders as above Code status:1
[2017-02-01] MEDS: cefTRIAXone 1 GM in Sodium Chloride 0.9% 100 ML IV SCH (11:52)
[2017-02-01] MEDS ORDERED: Acetaminophen/Butalbital/Caffeine 325-50-40 MG Tab PO PRN (12:09)
[2017-02-01] MEDS: Pramipexole 0.25 MG Tab PO SCH (20:22)
[2017-02-01] MEDS: Montelukast 10 MG Tab PO SCH (20:24)
[2017-02-01] MEDS: Cholecalciferol (Vitamin D3) 1,000 Unit Tab PO SCH (20:25)
[2017-02-01] MEDS: Vitamin E (dl-alpha-tocopherol acetate) 400 Unit Cap PO SCH (20:27)
[2017-02-02] MEDS: Benzonatate 100 MG Cap PO PRN ×2 (01:30→10:02)
[2017-02-02] MEDS: Pantoprazole 40 MG Tab.CR PO SCH (06:40)
[2017-02-02] MEDS ORDERED: Magnesium Sulfate/Water 2 GM in Premix Bag 1 BAG IV ONE (08:13)
[2017-02-02] MEDS: Azithromycin 500 MG in Sodium Chloride 0.9% 250 ML IV SCH (08:16)
[2017-02-02] MEDS: Enoxaparin 40 MG/0.4 ML Syringe SUBCUT SCH (08:16)
[2017-02-02] MEDS: Acetaminophen 325 MG Tab PO SCH (08:16)
[2017-02-02] MEDS: guaiFENesin 600 MG Tab.ER PO SCH (08:17)
[2017-02-02] MEDS: Magnesium Oxide 400 MG Tab PO SCH (08:18)
--- NOTE | 2017-02-02 08:35 | PCM.DCSUM1 ---
Discharge Summary - Hospital Course Free Text/Narrative:: Additional Discharge Diagnoses: 1. Emphysema 2. Bibasilar Fibrosis 3. Small Left Sided Pleural Effusion 4. Mediastinal Lymph Node with CT scan follow up in 6 months Brief History: This is a 61 yo white female with past medical hx/o GERD, Chronic Back Pain, OA and Psoriasis who comes in with complaints of malaise, fatigue with confusion for the past 2 days. She reports associated productive cough that was brownish but now dark-yellowish in color. She had some chills but w/o subjective fever. She denies any muscle or joint aches or pain. Patient was admitted for medical treatment of PNA and UTI. - Discharge Data Discharge Date: 02/02/17 Discharge Disposition: Home, Self-Care 01 Condition: Good - Discharge Diagnosis/Problem(s) (1) Pneumonia SNOMED Code(s): 000558643 ICD Code: J18.9 - PNEUMONIA, UNSPECIFIED ORGANISM Status: Acute Qualifiers: Qualified Code(s): J18.1 - Lobar pneumonia, unspecified organism (2) Back pain SNOMED Code(s): 783139586 ICD Code: M54.9 - DORSALGIA, UNSPECIFIED Status: Acute Priority: High (3) Hyponatremia SNOMED Code(s): 82425977 ICD Code: E87.1 - HYPO-OSMOLALITY AND HYPONATREMIA Status: Resolved Priority: High (4) Hypomagnesemia syndrome SNOMED Code(s): 434219077 ICD Code: E83.42 - HYPOMAGNESEMIA Status: Acute (5) Leukocytosis SNOMED Code(s): 118827237, 409771069 ICD Code: D72.829 - ELEVATED WHITE BLOOD CELL COUNT, UNSPECIFIED Status: Resolved Qualifiers: Qualified Code(s): D72.825 - Bandemia (6) Acute exacerbation of chronic low back pain SNOMED Code(s): 978538496 ICD Code: M54.5 - LOW BACK PAIN; G89.29 - OTHER CHRONIC PAIN Status: Resolved (7) Nicotine abuse SNOMED Code(s): 88301047 ICD Code: Z72.0 - TOBACCO USE Status: Chronic - Patient Summary/Data Operative Procedure(s) Performed: None Complications: None Consults: Consultations 01/29/17 19:17 Consult to Case Management [CONS] Routine Consult to Director Of Group Counseling Program [CONS] Routine OT Evaluation and Treatment [CONS] Routine PT Evaluation and Treatment [CONS] Routine Respiratory Care Assess and Treatment [CONS] Routine Recommended Follow-up Testing/Procedures: CXR in 2-3 weeks Hospital Course: Patient was primarily admitted for CAP (mid-lung pneumonia) seen on CXR. She was thought to have UTI but we felt UA was contaminated. Given that this was her 45th-or 5th episode of PNA. A CT scan was ordered for baseline and she was found to have right sided pneumonia, small left sided pleural effusion, emphysema, bilateral basilar fibrosis and mediastinal lymph node with recommendation to follow up in 6 months. Patient received appropriate treatment to include IV antibiotics, routine RT care, bronchodilators, decongestant and expectorant along with FV/IS to improve her respiratory symptoms. Patient responded well to this regimen. Her hospital course was fairly uncomplicated. She did have an acute onset of chronic back pain but we were able to resolve with pain medications and routine back care. During this admission she had some electrolytes abnormality but with supplementation her levels improved. However she remained low on Mg so she was provided rx for it. Patient has done fairly well since admission. Over an hour was spent counseling her on smoking cessation. Patient will take additional 3 day course of oral antibiotics. She was advised to follow up her PCP and a repeat x-ray in 2-3 weeks. She was further advised to see a sales advisory manager in [place] for further pulmonary evaluation. Patient expressed understanding and in agreement with the plans as discussed above. All questions was answered. - Patient Instructions Diet: Usual Diet as Tolerated Activity: As Tolerated Driving: May Drive Today Notify Provider of: Fever, Increased Pain, Nausea and/or Vomiting Other/Special Instructions: - Please take all medications as directed. - Recommend you see a lung specialist at this time due to multiple hx/o. recurrent PNA. - Follow up CXR in 2-3 weeks. - Quit smoking. - Call your doctor for any questions or concerns. - Follow up with your family doctor in 2- 3 weeks - Discharge Plan Prescriptions/Med Rec: Acetaminophen/HYDROcodone [[place] 325-5 MG] 1 tab PO Q4H PRN #20 tablet PRN Reason: Other Docusate Sodium [Colace] 100 mg PO BID PRN #30 cap PRN Reason: Stool Softener Lactobac Cmb #3/Fos/Pantethine [Probiotic & Acidophilus] 1 each PO BID #6 capsule Levofloxacin [Levaquin] 750 mg PO DAILY #3 tablet Magnesium Oxide 400 mg PO BID #15 tablet guaiFENesin [Mucinex] 1,200 mg PO BID #15 tab.er Home Medications: Home Meds Acetaminophen [Tylenol Arthritis Pain] 650 mg PO DAILY 01/22/16 [History] Cholecalciferol (Vitamin D3) [Vitamin D3] 5,000 unit PO DAILY 01/22/16 [History] Omeprazole [Prilosec] 20 mg PO DAILY 01/22/16 [History] Pramipexole Di-HCl [Mirapex] 1.5 mg PO BEDTIME 01/22/16 [History] Vitamin E 1,000 unit PO BEDTIME 01/22/16 [History] Albuterol Sulfate [Proair Hfa] 1 - 2 inh INH Q4HR PRN 01/29/17 [History] Fluticasone/Vilanterol [Breo Ellipta 200-25 Mcg INH] 1 dose INH DAILY 01/29/17 [ History] Loratadine/Pseudoephedrine [Loratadine-Pseudoephed 10-240] 1 tab PO DAILY PRN [History] Montelukast [Singulair] 10 mg PO BEDTIME 01/29/17 [History] traZODone 1 - 2 tab PO BEDTIME 01/29/17 [History] Acetaminophen/HYDROcodone [[place] 325-5 MG] 1 tab PO Q4H PRN #20 tablet 02/02/17 [Rx] Docusate Sodium [Colace] 100 mg PO BID PRN #30 cap 02/02/17 [Rx] Lactobac Cmb #3/Fos/Pantethine [Probiotic & Acidophilus] 1 each PO BID #6 capsule 02/02/17 [Rx] Levofloxacin [Levaquin] 750 mg PO DAILY #3 tablet 02/02/17 [Rx] Magnesium Oxide 400 mg PO BID #15 tablet 02/02/17 [Rx] guaiFENesin [Mucinex] 1,200 mg PO BID #15 tab.er 02/02/17 [Rx] Patient Handouts: Smoking Cessation, Tips for Success, Psed-th-Cumh, Hyponatremia, [id number], Community-Acquired Pneumonia, Adult, [id number] Referrals: Zachary Kevin MD [Primary Care Provider] - - Discharge Summary/Plan Comment DC Time >30 min.: Yes (45 mins) Discharge Summary/Plan Comment: Discharge to Home - General Info Date of Service: 02/02/17 Admission Dx/Problem (Free Text: Admission Diagnosis/Problem Admission Diagnosis/Problem Pneumonia Lynn was seen this morning resting comfortably in bed. Back pain is improved. Coughing is much improved. Denies SOB, CP, palpitations. No n/v/d, f/c/s. No constipation or difficulty with urination. CXR obtained yesterday showed slight worsening of PNA. Labs today are improved and are reviewed with patient in room today. Subjective Update: Follow Up Functional Status: Reports: pain controlled, tolerating diet, ambulating, urinating. Denies: new symptoms - Review of Systems General: Denies: Fever, Weakness, Fatigue, Malaise HEENT: Reports: no symptoms Pulmonary: Reports: cough, sputum. Denies: shortness of breath Cardiovascular: Reports: No Symptoms Gastrointestinal: Denies: Abdominal pain, Decreased appetite, Nausea, Vomiting Genitourinary: Reports: no symptoms Musculoskeletal: Reports: back pain, joint pain Skin: Denies: rash Neurological: Reports: Difficulty Walking, Gait Disturbance. Denies: Confusion , Weakness Psychiatric: Denies: confusion, depression, anxiety, agitation, cravings, hallucinations - Patient Data Vitals - Most Recent: Last Vital Signs Temp 37.1 C 02/01/17 20:21 Pulse 87 02/01/17 20:21 Resp 18 02/01/17 20:21 BP 137/79 02/01/17 20:21 Pulse Ox 96 02/01/17 21:20 Weight - Most Recent: 81.329 kg I&O - Last 24 hours: Intake & Output 02/01/17 02/02/17 02/02/17 22:59 06:59 14:59 Intake Total 1530 1000 Output Total 700 1000 Balance 830 0 Lab Results - Last 24 hrs: Laboratory Results - last 24 hr 02/02/17 02/02/17 Range/Units 06:25 06:25 WBC 7.38 (3.98-10.04) K/mm3 RBC 3.57 L (3.98-5.22) M/mm3 Hgb 10.2 L (11.2-15.7) gm/L Hct 31.9 L (34.1-44.9) % MCV 89.4 (79.4-94.8) fl MCH 28.6 (25.6-32.2) pg MCHC 32.0 L (32.2-35.5) g/dl RDW Std Deviation 46.1 (36.4-46.3) fL Plt Count 337 (182-369) K/mm3 MPV 7.8 L (9.4-12.3) fl Neut % (Auto) 54.4 (34.0-71.1) % Lymph % (Auto) 30.6 (19.3-51.7) % [place] % (Auto) 12.2 (4.7-12.5) % Eos % (Auto) 0.8 (0.7-5.8) Baso % (Auto) 0.4 (0.1-1.2) % Neut # (Auto) 4.01 (1.56-6.13) K/mm3 Lymph # (Auto) 2.26 (1.18-3.74) K/mm3 [place] # (Auto) 0.90 H (0.24-0.36) K/mm3 Eos # (Auto) 0.06 (0.04-0.36) K/mm3 Baso # (Auto) 0.03 (0.01-0.08) K/mm3 Manual Slide Review Abnormal smear Sodium 137 (136-145) mEq/L Potassium 4.4 (3.5-5.1) mEq/L Chloride 102 (98-107) mEq/L Carbon Dioxide 28 (21-32) mEq/L Anion Gap 11.4 (5-15) BUN 6 L (7-18) mg/dL Creatinine 0.5 L (0.55-1.02) mg/dL Est Cr Clr Drug Dosing 102.03 mL/min Estimated GFR (MDRD) > 60 (>60) mL/min BUN/Creatinine Ratio 12.0 L (14-18) Glucose 99 (80-115) mg/dL Calcium 8.7 (8.5-10.1) mg/dL Magnesium 1.6 L (1.8-2.4) mg/dl C-Reactive Protein 13.8 H* (<1.0) mg/dL Med Orders - Current: Current Medications Acetaminophen (Tylenol) 650 mg PO DAILY YOSEPH Last Admin: 02/02/17 08:16 Dose: 650 mg Acetaminophen (Tylenol) 650 mg PO Q4H PRN PRN Reason: Pain (Mild 1-3)/fever Last Admin: 01/31/17 13:44 Dose: 650 mg Acetaminophen/Butalbital/Caffeine (Fioricet 325-50-40 Mg) 2 tab PO Q6H PRN PRN Reason: migraines Hydrocodone Bitart/Acetaminophen ([place] 325-5 Mg) 1 tab PO Q4H PRN PRN Reason: Pain (moderate 4-6) Last Admin: 02/02/17 01:31 Dose: 1 tab Albuterol/Ipratropium (Duoneb 3.0-0.5 Mg/3 Ml) 3 ml NEB Q4H PRN PRN Reason: Shortness Of Breath/wheezing Last Admin: 02/01/17 21:20 Dose: 3 ml Benzonatate (Tessalon Perles) 200 mg PO TID PRN PRN Reason: Cough Last Admin: 02/02/17 01:30 Dose: 200 mg Bisacodyl (Dulcolax) 5 mg PO DAILY PRN PRN Reason: Constipation Cholecalciferol (Vitamin D3) 5,000 units PO BEDTIME [facility] Last Admin: 02/01/17 20:25 Dose: 5,000 units Docusate Sodium (Colace) 100 mg PO BID PRN PRN Reason: Constipation Enoxaparin Sodium (Lovenox) 40 mg SUBCUT DAILY [facility] Last Admin: 02/02/17 08:16 Dose: Not Given Fentanyl (Duragesic) 12 mcg TRDERM Q72H [facility] Last Admin: 01/31/17 08:49 Dose: 12 mcg Guaifenesin (Mucinex) 1,200 mg PO BID [facility] Last Admin: 02/02/17 08:17 Dose: 1,200 mg Hydralazine HCl (Apresoline) 20 mg IVPUSH Q4H PRN PRN Reason: Hypertension Hydromorphone HCl (Dilaudid) 0.25 mg IVPUSH Q2H PRN PRN Reason: Pain (severe 7-10) Azithromycin 500 mg/ Sodium (Chloride) 250 mls @ 250 mls/hr IV Q24H [facility] Last Admin: 02/02/17 08:16 Dose: 250 mls/hr Promethazine HCl 12.5 mg/ (Sodium Chloride) 50.5 mls @ 100 mls/hr IV Q6H PRN PRN Reason: Nausea/Vomiting Ceftriaxone Sodium 1 gm/ (Sodium Chloride) 100 mls @ 200 mls/hr IV Q24H [facility] Last Admin: 02/01/17 11:52 Dose: 200 mls/hr Magnesium Sulfate 2 gm/ Premix 50 mls @ 25 mls/hr IV ONETIME ONE Stop: 02/02/17 10:12 Lorazepam (Ativan) 1 mg IV Q6H PRN PRN Reason: Anxiety Magnesium Oxide (Magnesium Oxide) 400 mg PO BID [facility] Last Admin: 02/02/17 08:18 Dose: 400 mg Magnesium Sulfate (Pharmacy To Dose - Magnesium Replacement) 0 dose .XX ASDIRECTED PRN PRN Reason: rx dose Metoprolol Tartrate (Lopressor) 5 mg IVPUSH Q4H PRN PRN Reason: Tachycardia Miscellaneous Information (Remove Patch) 0 ea TRDERM Q72H [facility] Last Admin: 02/01/17 14:40 Dose: 1 ea Montelukast Sodium (Singulair) 10 mg PO BEDTIME [facility] Last Admin: 02/01/17 20:24 Dose: 10 mg Ondansetron HCl (Zofran) 4 mg IV Q6H PRN PRN Reason: Nausea/Vomiting Pantoprazole Sodium (Protonix) 40 mg PO DAILY@0700 [facility] Last Admin: 02/02/17 06:40 Dose: 40 mg Potassium Chloride (Pharmacy To Dose - Potassium Replacement) 0 dose .XX ASDIRECTED PRN PRN Reason: rx dose Pramipexole Dihydrochloride (Mirapex) 1.5 mg PO BEDTIME [facility] Last Admin: 02/01/17 20:22 Dose: 1.5 mg Senna/Docusate Sodium (Senna Plus) 1 tab PO BID PRN PRN Reason: Constipation Temazepam (Restoril) 15 mg PO BEDTIME PRN PRN Reason: Sleep Last Admin: 01/31/17 20:02 Dose: 15 mg Vitamin E (Vitamin E) 800 units PO BEDTIME [facility] Last Admin: 02/01/17 20:27 Dose: 800 units Discontinued Medications Acetaminophen (Tylenol) 975 mg PO NOW ONE Stop: 01/29/17 13:37 Last Admin: 01/29/17 14:15 Dose: 975 mg Guaifenesin/Phenylephrine HCl (Robitussin Dm) 5 ml PO QID PRN PRN Reason: Cough Hydromorphone HCl (Dilaudid) 0.25 mg IVPUSH Q2H PRN PRN Reason: Pain (severe 7-10) Dextrose/Sodium Chloride (Dextrose 5%-Normal Saline) 1,000 mls @ 500 mls/hr IV ASDIRECTED [facility] Last Admin: 01/29/17 19:43 Dose: 500 mls/hr Azithromycin 500 mg/ Sodium (Chloride) 250 mls @ 250 mls/hr IV ONETIME ONE Stop: 01/29/17 15:49 Last Admin: 01/29/17 15:52 Dose: 250 mls/hr Ceftriaxone Sodium 2 gm/ (Sodium Chloride) 100 mls @ 200 mls/hr IV ONETIME ONE Stop: 01/29/17 15:19 Last Admin: 01/29/17 15:10 Dose: 200 mls/hr Magnesium Sulfate 2 gm/ Premix 50 mls @ 25 mls/hr IV ONETIME ONE Stop: 01/30/17 13:29 Last Admin: 01/30/17 11:36 Dose: 25 mls/hr Magnesium Sulfate 2 gm/ Premix 50 mls @ 25 mls/hr IV ONETIME ONE Stop: 01/31/17 10:59 Last Admin: 01/31/17 08:14 Dose: 25 mls/hr Magnesium Sulfate 2 gm/ Premix 50 mls @ 25 mls/hr IV ONETIME ONE Stop: 02/01/17 09:59 Last Admin: 02/01/17 08:26 Dose: 25 mls/hr Iopamidol (Isovue-300 (61%)) 80 ml IVPUSH ONETIME ONE Stop: 01/30/17 08:36 Last Admin: 01/30/17 08:52 Dose: 80 ml Ketorolac Tromethamine (Toradol) 30 mg IVPUSH ONETIME [facility] Last Admin: 01/29/17 14:17 Dose: 30 mg Magnesium Oxide (Magnesium Oxide) 400 mg PO DAILY [facility] Last Admin: 02/01/17 08:26 Dose: 400 mg Breo Ellipta 200-25 (Mcg Inhaler) 0 each INH DAILY [facility] Last Admin: 01/31/17 08:16 Dose: Not Given Loratadine/Pseudoephedrine 10- 240 Mg 1 each PO DAILY PRN PRN Reason: Allergies Pneumococcal Polyvalent Vaccine (Pneumovax 23) 0.5 ml IM .ONCE ONE Stop: 01/30/17 09:36 Potassium Chloride (Klor-Con M20) 20 meq PO Q3H YOSEPH Stop: 02/01/17 14:01 Last Admin: 02/01/17 14:40 Dose: 20 meq Pramipexole Dihydrochloride (Mirapex) 1.5 mg PO DAILY YOSEPH Pramipexole Dihydrochloride (Mirapex) 1.5 mg PO BEDTIME YOSEPH Sodium Chloride (Saline Flush) 10 ml FLUSH ONETIME PRN PRN Reason: IV FLUSH Stop: 01/30/17 18:00 Last Admin: 01/30/17 08:52 Dose: 10 ml - Exam Quality Assessment: Denies: supplemental oxygen General: Reports: alert, oriented, cooperative, no acute distress HEENT: Reports: Pupils equal, Pupils reactive, EOMI, Mucous membr. moist/pink Neck: Reports: supple, trachea midline, no JVD, no thyromegaly Lungs: Reports: Normal respiratory effort, Decreased breath sounds, Rhonchi Cardiovascular: Reports: Regular Rate, Regular Rhythm Abdomen: Reports: bowel sounds present, soft, no tenderness, no distension (Female) Exam: Deferred Rectal (Female) Exam: Deferred Back Exam: Reports: Normal Inspection, Decreased Range of Motion Extremities: Reports: no edema, normal pulses, no tenderness/swelling, no clubbing, no cyanosis, no calf tenderness Skin: Reports: warm, dry, intact Neurological: Reports: no new focal deficit Psy/Mental Status: Reports: alert, normal affect, normal mood *Q Meaningful Use (DIS) - VTE *Q VTE Criteria *Q: - Stroke *Q Stroke Criteria *Q: - AMI *Q AMI Criteria *Q:
[2017-02-02] MEDS: Albuterol/Ipratropium 3.0-0.5 MG/3 ML Neb Soln NEB PRN (09:00)
[2017-02-02] MEDS: cefTRIAXone 1 GM in Sodium Chloride 0.9% 100 ML IV SCH (10:36)
[2017-02-02] MEDS ORDERED: Diphtheria,Pertussis(Acell),Tetanus Vaccine 0.5 ML SDV inactive IM ONE (11:16)
[2017-02-02] MEDS ORDERED: Pneumococcal Polyvalent-23 Vaccine 0.5 ML SDV IM ONE (11:54)
[2017-02-02 13:35] VITALS: BP 135/82
== END 2017-02-02 12:37 | disposition home or self-care (01) | DRG 689 ==
LOC: JD.ED 12:58 → JD.MS 15:23
PROVIDERS: ADMIT Internal Medicine; ATTEND Internal Medicine
DX: N39.0 Urinary tract infection, site not specified (principal); J18.9 Pneumonia, unspecified organism; E87.1 Hypo-osmolality and hyponatremia; E83.42 Hypomagnesemia; J43.9 Emphysema, unspecified; J84.10 Pulmonary fibrosis, unspecified; K21.9 Gastro-esophageal reflux disease without esophagitis; G89.29 Other chronic pain; M54.9 Dorsalgia, unspecified; M19.90 Unspecified osteoarthritis, unspecified site; L40.9 Psoriasis, unspecified; Z96.641 Presence of right artificial hip joint; Z96.651 Presence of right artificial knee joint; F17.210 Nicotine dependence, cigarettes, uncomplicated; Z79.899 Other long term (current) drug therapy
CPT/HCPCS: 36415; 71020; 71020-26; 71260; 71260-26; 80048; 80053; 81001; 82553; 83605; 83735; 83930; 84484; 85025; 86140; 86738; 87040; 87070; 87086; 87205; 87804; 87899; 90715; 90732; 93005; 94640-76; 94664; 94667; 94760; 96361; 96374; 96375; 97110-GP; 97112-GP; 97116-GP; 97161-GP; 97165-GO; 97530-GO; 99285; 99285-25; A9270-GY; J0456; J0696; J1650; J1885; J3475; J7030; J7042; J7050; Q9967

== ENCOUNTER 2017-02-03 20:07 | Emergency (ER) | payer OTHER ==
[2017-02-03 20:14] VITALS: BP 146/86
[2017-02-03] MEDS ORDERED: Sodium Chloride 0.9% 10 ML Syringe FLUSH PRN ×2 (20:28→21:15)
[2017-02-03] MEDS ORDERED: Morphine 2 MG/ML Syringe IVPUSH ONE (20:34)
--- NOTE | 2017-02-03 20:36 | EDM.PDOC ---
ED HPI GENERAL MEDICAL PROBLEM - General Chief Complaint: Chest Pain Stated Complaint: CHEST PAIN Time Seen by Provider: 02/03/17 20:20 Source of Information: Reports: Patient History Limitations: Reports: No Limitations - History of Present Illness INITIAL COMMENTS - FREE TEXT/NARRATIVE: patient is a 61-year-old female who presents to the E.D. complaining of sudden onset of left-sided chest discomfort. States it started approximately one hour ago while at home and has slowly subsided with admission to the ED. Pain is described as a pressure, sharp, worsened with palpation and taking a deep breath. She did become lightheaded with onset. She denies any radiation of chest pain, diaphoresis, increasing shortness of breath, nausea/vomiting Pre/ syncopal episodes, or any additional complaints. Patient was just recently released from the hospital yesterday. Patient was admitted this past Saturday for pneumonia and is currently on Levaquin 750 mg every day. She continues to be short of breath but notes it has not worsened. She does not recall any specific events may have contributed to this. She never had these symptoms in the past. She has no history of CAD or DVT/PE. She took 325 mg aspirin this morning. She has not had anything for pain at this time. Pain is rated a 6/10 currently. Onset: Today, Sudden Duration: Hour(s): Location: Reports: Chest Quality: Reports: Ache, Sharp Severity: Moderate Left Chest Pain Score (Numeric/FACES): 8 - Related Data Allergies Allergy/AdvReac Type Severity Reaction Status Date / Time perfume Allergy Airway Verified 02/03/17 20:14 Tightness Home Meds: Home Meds Acetaminophen [Tylenol Arthritis Pain] 650 mg PO DAILY 01/22/16 [History] Cholecalciferol (Vitamin D3) [Vitamin D3] 5,000 unit PO DAILY 01/22/16 [History] Omeprazole [Prilosec] 20 mg PO DAILY 01/22/16 [History] Pramipexole Di-HCl [Mirapex] 1.5 mg PO BEDTIME 01/22/16 [History] Vitamin E 1,000 unit PO BEDTIME 01/22/16 [History] Albuterol Sulfate [Proair Hfa] 1 - 2 inh INH Q4HR PRN 01/29/17 [History] Fluticasone/Vilanterol [Breo Ellipta 200-25 Mcg INH] 1 dose INH DAILY 01/29/17 [ History] Loratadine/Pseudoephedrine [Loratadine-Pseudoephed 10-240] 1 tab PO DAILY PRN [History] Montelukast [Singulair] 10 mg PO BEDTIME 01/29/17 [History] traZODone 1 - 2 tab PO BEDTIME 01/29/17 [History] Acetaminophen/HYDROcodone [[place] 325-5 MG] 1 tab PO Q4H PRN #20 tablet 02/02/17 [Rx] Docusate Sodium [Colace] 100 mg PO BID PRN #30 cap 02/02/17 [Rx] Lactobac Cmb #3/Fos/Pantethine [Probiotic & Acidophilus] 1 each PO BID #6 capsule 02/02/17 [Rx] Levofloxacin [Levaquin] 750 mg PO DAILY #3 tablet 02/02/17 [Rx] Magnesium Oxide 400 mg PO BID #15 tablet 02/02/17 [Rx] guaiFENesin [Mucinex] 1,200 mg PO BID #15 tab.er 02/02/17 [Rx] Past Medical History HEENT History: Reports: Impaired Vision Other HEENT History: wears glasses Respiratory History: Reports: Bronchitis, Recurrent, COPD, Pneumonia, Recurrent Gastrointestinal History: Reports: GERD Genitourinary History: Reports: None 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: 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: Musculoskeletal History: Reports: Back Pain, Chronic, Osteoarthritis Neurological History: Reports: Other (See Below) Dermatologic History: Reports: Psoriasis - Infectious Disease History Infectious Disease History: Reports: Chicken Pox, Measles, Mumps - Past Surgical History HEENT Surgical History: Reports: None Respiratory Surgical History: Reports: None GI Surgical History: Reports: None Female Surgical History: Reports: Hysterectomy Musculoskeletal Surgical History: Reports: Hip Replacement, Knee Replacement Dermatological Surgical History: Reports: None Social & Family History - Family History Family Medical History: Noncontributory Neurological: Reports: CVA Oncologic: Reports: Colon - Tobacco Use Smoking Status *Q: Former Smoker Years of Tobacco use: 40 Packs/Tins Daily: 0.5 Used Tobacco, but Quit: Yes Month Tobacco Last Used: 01/2017 Second Hand Smoke Exposure: No - Caffeine Use Caffeine Use: Reports: Soda - Recreational Drug Use Recreational Drug Use: No - Living Situation & Occupation Living situation: Reports: , with Spouse Occupation: Employed ED ROS GENERAL - Review of Systems Review Of Systems: ROS reveals no pertinent complaints other than HPI. ED EXAM, GENERAL - Physical Exam Exam: See Below Exam Limited By: No Limitations General Appearance: Alert, WD/WN, No Apparent Distress Ears: Normal External Exam, Hearing Grossly Normal Nose: Normal Inspection Throat/Mouth: Normal Voice, No Airway Compromise Neck: Normal Inspection, Supple Respiratory/Chest: No Respiratory Distress, No Accessory Muscle Use, Rhonchi ( IN ALL LUNG LANE BILATERALLY), Wheezing (IN ALL LUNG LANE BILATERALLY), Other (TENDERNESS ALONG THE 4 AND 5TH INTERCOSTAL SPACE ALONG LEFT STERNAL BORDER) Cardiovascular: Normal Peripheral Pulses, Regular Rate, Rhythm Peripheral Pulses: 2+: Radial (L), Radial (R) GI/Abdominal: Normal Bowel Sounds, Soft, Non-Tender Back Exam: Normal Inspection Extremities: Normal Inspection, Non-Tender, Pedal Edema (TRACE ) Neurological: Alert, Oriented, CN II-XII Intact, Normal Cognition, No Motor/ Sensory Deficits Psychiatric: Normal Affect, Normal Mood Skin Exam: Warm, Dry, Intact, Normal Color Course - Vital Signs Last Recorded V/S: Last Vital Signs Temp 97.9 F 02/03/17 20:11 Pulse 104 H 02/03/17 20:11 Resp 17 02/03/17 20:11 BP 146/86 H 02/03/17 20:11 Pulse Ox 96 02/03/17 20:11 - Orders/Labs/Meds Orders: Active Orders 24 hr Category Date Time Status EKG Documentation Completion [RC] STAT Care 02/03/17 20:28 Active Peripheral IV Care [RC] . DIRECTED Care 02/03/17 20:28 Active Chest 2V [CR] Stat Exams 02/03/17 20:28 Taken Chest PE [Ang Chest] [CT] Stat Exams 02/03/17 21:08 Taken Peripheral IV Insertion Adult [OM.PC] Stat Oth 02/03/17 20:28 Ordered Labs: Laboratory Tests 02/03/17 02/03/17 02/03/17 Range/Units 20:20 20:20 20:20 WBC 9.78 (3.98-10.04) K/mm3 RBC 3.64 L (3.98-5.22) M/mm3 Hgb 10.3 L (11.2-15.7) gm/L Hct 32.3 L (34.1-44.9) % MCV 88.7 (79.4-94.8) fl MCH 28.3 (25.6-32.2) pg MCHC 31.9 L (32.2-35.5) g/dl RDW Std Deviation 43.8 (36.4-46.3) fL Plt Count 413 H (182-369) K/mm3 MPV 8.0 L (9.4-12.3) fl Neut % (Auto) 62.7 (34.0-71.1) % Lymph % (Auto) 24.2 (19.3-51.7) % Snyder % (Auto) 9.9 (4.7-12.5) % Eos % (Auto) 1.2 (0.7-5.8) Baso % (Auto) 0.5 (0.1-1.2) % Neut # (Auto) 6.12 (1.56-6.13) K/mm3 Lymph # (Auto) 2.37 (1.18-3.74) K/mm3 Snyder # (Auto) 0.97 H (0.24-0.36) K/mm3 Eos # (Auto) 0.12 (0.04-0.36) K/mm3 Baso # (Auto) 0.05 (0.01-0.08) K/mm3 Manual Slide Review Abnormal smear PT 10.7 (8.0-13.0) SECONDS INR 0.98 APTT 29 (22-36) SECONDS D-Dimer, Quantitative (0.19-0.59) mg/L Sodium 133 L (136-145) mEq/L Potassium 3.7 (3.5-5.1) mEq/L Chloride 97 L (98-107) mEq/L Carbon Dioxide 27 (21-32) mEq/L Anion Gap 12.7 (5-15) BUN 9 (7-18) mg/dL Creatinine 0.7 (0.55-1.02) mg/dL Est Cr Clr Drug Dosing 72.88 mL/min Estimated GFR (MDRD) > 60 (>60) mL/min BUN/Creatinine Ratio 12.9 L (14-18) Glucose 103 (80-115) mg/dL Calcium 8.6 (8.5-10.1) mg/dL Total Bilirubin 0.3 (0.2-1.0) mg/dL AST 24 (15-37) U/L ALT 72 H (14-59) U/L Alkaline Phosphatase 135 H (46-116) U/L CK-MB (CK-2) 0.6 (0-3.6) ng/ml Troponin I < 0.017 (0.00-0.056) ng/mL C-Reactive Protein 11.1 H* (<1.0) mg/dL Total Protein 7.2 (6.4-8.2) g/dl Albumin 2.7 L (3.4-5.0) g/dl Globulin 4.5 gm/dL Albumin/Globulin Ratio 0.6 L (1-2) 02/03/17 02/03/17 Range/Units 20:20 22:54 WBC (3.98-10.04) K/mm3 RBC (3.98-5.22) M/mm3 Hgb (11.2-15.7) gm/L Hct (34.1-44.9) % MCV (79.4-94.8) fl MCH (25.6-32.2) pg MCHC (32.2-35.5) g/dl RDW Std Deviation (36.4-46.3) fL Plt Count (182-369) K/mm3 MPV (9.4-12.3) fl Neut % (Auto) (34.0-71.1) % Lymph % (Auto) (19.3-51.7) % Snyder % (Auto) (4.7-12.5) % Eos % (Auto) (0.7-5.8) Baso % (Auto) (0.1-1.2) % Neut # (Auto) (1.56-6.13) K/mm3 Lymph # (Auto) (1.18-3.74) K/mm3 Snyder # (Auto) (0.24-0.36) K/mm3 Eos # (Auto) (0.04-0.36) K/mm3 Baso # (Auto) (0.01-0.08) K/mm3 Manual Slide Review PT (8.0-13.0) SECONDS INR APTT (22-36) SECONDS D-Dimer, Quantitative 2.25 H (0.19-0.59) mg/L Sodium (136-145) mEq/L Potassium (3.5-5.1) mEq/L Chloride (98-107) mEq/L Carbon Dioxide (21-32) mEq/L Anion Gap (5-15) BUN (7-18) mg/dL Creatinine (0.55-1.02) mg/dL Est Cr Clr Drug Dosing mL/min Estimated GFR (MDRD) (>60) mL/min BUN/Creatinine Ratio (14-18) Glucose (80-115) mg/dL Calcium (8.5-10.1) mg/dL Total Bilirubin (0.2-1.0) mg/dL AST (15-37) U/L ALT (14-59) U/L Alkaline Phosphatase (46-116) U/L CK-MB (CK-2) (0-3.6) ng/ml Troponin I < 0.017 (0.00-0.056) ng/mL C-Reactive Protein (<1.0) mg/dL Total Protein (6.4-8.2) g/dl Albumin (3.4-5.0) g/dl Globulin gm/dL Albumin/Globulin Ratio (1-2) Meds: Medications Discontinued Medications Generic Name Dose Route Start Last Admin Trade Name Freq PRN Reason Stop Dose Admin Sodium Chloride 100 mls @ 65 mls/hr 02/03/17 21:15 02/03/17 22:12 Normal Saline IV 65 mls/hr ASDIRECTED YOSEPH Administration Sodium Chloride 1,000 mls @ 125 mls/hr 02/03/17 22:00 Normal Saline IV ASDIRECTED YOSEPH Iopamidol 100 ml 02/03/17 21:15 02/03/17 22:12 Isovue-370 (76%) IVPUSH 02/03/17 21:16 100 ml ONETIME ONE Administration Morphine Sulfate 2 mg 02/03/17 20:34 02/03/17 21:03 Morphine IVPUSH 02/03/17 20:35 2 mg ONETIME ONE Administration Sodium Chloride 10 ml 02/03/17 20:28 02/03/17 21:04 Saline Flush FLUSH 10 ml ASDIRECTED PRN Administration Keep Vein Open Sodium Chloride 10 ml 02/03/17 21:15 02/03/17 22:13 Saline Flush FLUSH 10 ml ONETIME PRN Administration IV FLUSH - Re-Assessments/Exams Free Text/Narrative Re-Assessment/Exam: 02/03/17 20:30 Ordered a peripheral IV. Intial labs and studies include: CBC, chem 14, troponin, CK-MB, CRP, PTT, PT/INR, ddimer, chest x-ray, and EKG. Ordered 2mg Morphine IVP. Patient has taken ASA this morning. EKG: Sinus rhythm rate of 91, MS 149, QTc 447, No acute ST changes noted. 02/03/17 21:00 D-Dimer 2.25.Awaiting CMP to come back prior to ordering CTA chest. NS 125mls/hr ordered. CXR: improving consolidation in the left midlung and comparison to previous chest x-ray dated January 31, 2017. Density noted throughout the right lung. No cardiomegaly. Tortuous thoracic aorta seen. Final interpretation is pending Reassessment, patient's discomfort has improved with the above therapies. White blood cell count 9.78, hemoglobin 10.3, platelets 413, d-dimer 2.25, sodium 133, potassium 3.7, creatinine 0.7, ALT 72, alkaline phosphatase is 135, troponin less than 0.017, CRP 11.1. CT of the chest impression: No evidence of pulmonary emboli. Moderate in severity pulmonary fibrotic changes. Interval development of diffuse patchy airspace process. Consider bronchopneumonia or cryptogenic organizing pneumonia. Small bilateral pleural effusions. Pneumonia is improving per evidence of CT. No PE. Vital signs are stable. Will discharge patient home with instructions as documented. Discussed results of CT. Patient has mild pain that has moved to under the left breast along the sternal border. Will obtain 2nd troponin. 02/03/17 22:44 02/03/17 23:37 2nd troponin negative. Departure - Departure Time of Disposition: 22:32 Disposition: Home, Self-Care 01 Condition: good Clinical Impression: Atypical chest pain Pneumonia Qualifiers: Pneumonia type: due to unspecified organism Laterality: bilateral Lung location : unspecified part of lung Qualified Code(s): J18.9 - Pneumonia, unspecified organism Instructions: Community-Acquired Pneumonia, Adult, [id number] Referrals: Zachary Kevin MD [Primary Care Provider] - Forms: ED Department Discharge Additional Instructions: CT did not elicit PE. Pneumonia is improving. Continue taking all medications discharged from the hospital as prescribed. For pain take tylenol and ibuprofen in alternating fashion. As instructed with discharge from hospital follow up of lung specialist do to recurring pneumonia. Chest x-ray in 2-3 weeks. Quit smoking. Followup with her primary doctor in 2-3 weeks. Return back to the ED if you develop any new or worsening symptoms. - My Orders Last 24 Hours: My Active Orders 02/03/17 20:28 EKG Documentation Completion [RC] STAT Peripheral IV Care [RC] . DIRECTED Chest 2V [CR] Stat Peripheral IV Insertion Adult [OM.PC] Stat 02/03/17 21:08 Chest PE [Ang Chest] [CT] Stat - Assessment/Plan Last 24 Hours: My Active Orders 02/03/17 20:28 EKG Documentation Completion [RC] STAT Peripheral IV Care [RC] . DIRECTED Chest 2V [CR] Stat Peripheral IV Insertion Adult [OM.PC] Stat 02/03/17 21:08 Chest PE [Ang Chest] [CT] Stat
[2017-02-03] MEDS ORDERED: Sodium Chloride 0.9% 100 ML IV SCH (21:15)
[2017-02-03] MEDS ORDERED: Iopamidol 755 Mg/ML 100 ML Bottle IVPUSH ONE (21:15)
[2017-02-03] MEDS ORDERED: Sodium Chloride 0.9% 1,000 ML IV SCH (22:00)
--- NOTE | 2017-02-04 07:37 | CR ---
Chest: Two views of the chest were obtained. Comparison: Previous chest x-ray of 01/31/17. Decreasing mass or pneumonia within the left chest from prior exam. Multiple nodular densities are seen within the right chest which are more prominent than on previous exam. Heart size appears within normal limits. Tortuous thoracic aorta is identified. Impression: 1. Improving density within the left mid chest. Worsening nodular densities within the right chest. Diagnostic code #3
--- NOTE | 2017-02-04 07:52 | CT ---
CT chest Technique: Multiple axial sections through the chest are obtained. Intravenous contrast was utilized. Study has been performed as a pulmonary angiogram protocol. Comparison: Previous chest CT of 01/30/17. Findings: Small left-sided pleural effusion is seen slightly increased in size from prior exam. Minimal right sided pleural effusion is seen. Parenchymal consolidation noted within the left base which has diminished in size from previous exam. Nodular areas of parenchymal density seen throughout the right upper right middle lobe and right lower lobe which have worsened in appearance from prior exam. Interstitial fibrosis is present. Parenchymal densities also seen within the left upper chest which have worsened in the interim from prior exam. Mild adenopathy is seen within the mediastinum which appears stable from recent study. Coronary artery calcification is noted. Small portion of the visualized upper abdominal structures shows a cyst within the left kidney. Impression: 1. No findings of pulmonary embolism. 2. Slightly prominent mediastinal lymph nodes which remain stable from most recent exam. Continued follow-up is recommended as described on previous chest CT. 3. Slightly increased bilateral pleural effusions which remain small. 4. Improved consolidation within the left chest with multiple areas of worsenings densities within both sides of the chest. Findings could represent multiple areas of pneumonia either with typical or atypical organism. Bronchoscopy could be considered to further evaluate given the rapid worsening of these findings. 5. Other findings as noted above which are stable. Diagnostic code #5 Agree with preliminary report issued by [employer] ([facility] preliminary report dictated on 02/03/17, 11:17 PM Central Time)
== END 2017-02-04 00:05 | disposition home or self-care (01) ==
LOC: JD.ED 20:07
DX: J18.9 Pneumonia, unspecified organism (principal); R07.89 Other chest pain; J44.9 Chronic obstructive pulmonary disease, unspecified; M19.90 Unspecified osteoarthritis, unspecified site; L40.9 Psoriasis, unspecified; Z90.710 Acquired absence of both cervix and uterus; Z96.659 Presence of unspecified artificial knee joint; Z88.8 Allergy status to other drugs, medicaments and biological substances; Z79.899 Other long term (current) drug therapy; Z87.01 Personal history of pneumonia (recurrent); Z96.649 Presence of unspecified artificial hip joint; Z87.891 Personal history of nicotine dependence
CPT/HCPCS: 36415; 71020; 71275; 80053; 82553; 84484; 85025; 85379; 85610; 85730; 86140; 93005; 96374; 99285; J2270; J7030; J7050; Q9967; 99284

== ENCOUNTER 2018-04-26 22:35 | Emergency (ER) | payer BC, OTHER ==
[2018-04-26 22:38] VITALS: BP 115/69
--- NOTE | 2018-04-26 23:11 | EDM.PDOC ---
ED HPI GENERAL MEDICAL PROBLEM - General Chief Complaint: Respiratory Problem Stated Complaint: [facility] Time Seen by Provider: 04/26/18 22:36 Source of Information: Reports: Patient History Limitations: Reports: No Limitations - History of Present Illness INITIAL COMMENTS - FREE TEXT/NARRATIVE: This is a 62-year-old female. In April 11 she had the left top part of her lung removed due to what they thought was cancer. 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 Yesterday she had 2 episodes of when she would get up to walk she would get extremely short of breath and have to sit down. Today it has happened every time she gets up to go to the bathroom or walk. Her states that her oxygen while seated is around 93% pulse ox when she gets up to walk it drops down into the low 80s up her 70s and she gets short of breath and has to sit down. She states she has not smoked now for at least one year. Normally she is on 1-3 L by nasal cannula oxygen by an oxygen concentrator. She is also noted that recently she's been having some swelling in her lower legs but she has no history of congestive heart failure. She's had some chills today but no documented fever. No nausea vomiting or diarrhea. Her automation control technician is Dr. Juraez and her cardiothoracic surgeon was Dr. Alvarado. Due to the dropping oxygen and the shortness of breath today especially she comes to the ER for evaluation. - Related Data Allergies Allergy/AdvReac Type Severity Reaction Status Date / Time perfume Allergy Airway Verified 04/26/18 22:39 Tightness Home Meds: Home Meds Acetaminophen [Tylenol Arthritis Pain] 500 mg PO Q6H 01/22/16 [History] Omeprazole [Prilosec] 20 mg PO DAILY 01/22/16 [History] Pramipexole Di-HCl [Mirapex] 1.5 mg PO BEDTIME 01/22/16 [History] traZODone 1 tab PO BEDTIME 01/29/17 [History] Acetaminophen/HYDROcodone [Corona 325-5 MG] 1 tab PO Q4H PRN #20 tablet 02/02/17 [Rx] Magnesium Oxide 400 mg PO BID #15 tablet 02/02/17 [Rx] Albuterol Sulfate [Proair Respiclick] 1 - 2 inh INH Q4H PRN 04/26/18 [History] Ascorbic Acid [C-1000 with Delfina Hips] 1,000 mg PO DAILY 04/26/18 [History] Aspirin 325 mg PO DAILY 04/26/18 [History] Cetirizine [ZyrTEC] 10 mg PO DAILY 04/26/18 [History] Fexofenadine [Kat] 60 mg PO DAILY 04/26/18 [History] Hydrocodone/Acetaminophen [Hydrocodon-Acetaminophen 5-325] 1 tab PO Q6H PRN 08/03 [History] Ibuprofen 400 mg PO Q6H PRN 04/26/18 [History] Melatonin 3 mg PO BEDTIME PRN 04/26/18 [History] Metoprolol Tartrate 25 mg PO BID 04/26/18 [History] Polyethylene Glycol [Polyox Wsr-301] 17 gm PO BID PRN 04/26/18 [History] guaiFENesin [Mucinex] 1 tab PO BID 04/26/18 [History] Past Medical History HEENT History: Reports: Impaired Vision Other HEENT History: wears glasses Respiratory History: Reports: Bronchitis, Recurrent, COPD, Pneumonia, Recurrent Gastrointestinal History: Reports: GERD Genitourinary History: Reports: None MEDICAL RESEARCH TECH History: Reports: Musculoskeletal History: Reports: Back Pain, Chronic, Osteoarthritis Neurological History: Reports: Other (See Below) Dermatologic History: Reports: Psoriasis - Infectious Disease History Infectious Disease History: Reports: Chicken Pox, Measles, Mumps - Past Surgical History HEENT Surgical History: Reports: None Respiratory Surgical History: Reports: None, Lung Resection GI Surgical History: Reports: None Female Surgical History: Reports: Hysterectomy Musculoskeletal Surgical History: Reports: Hip Replacement, Knee Replacement Dermatological Surgical History: Reports: None Social & Family History - Family History Family Medical History: Noncontributory Neurological: Reports: CVA Oncologic: Reports: Colon - Tobacco Use Smoking Status *Q: Current Every Day Smoker Years of Tobacco use: 30 Packs/Tins Daily: 3 - Caffeine Use Caffeine Use: Reports: Coffee, Soda - Recreational Drug Use Recreational Drug Use: No - Living Situation & Occupation Living situation: Reports: , with Spouse Occupation: Employed ED ROS GENERAL - Review of Systems Review Of Systems: See Below Constitutional: Reports: Chills. Denies: Fever HEENT: Reports: No Symptoms Respiratory: Reports: Shortness of Breath, Wheezing. Denies: Cough Cardiovascular: Denies: Chest Pain Endocrine: Reports: No Symptoms GI/Abdominal: Denies: Abdominal Pain, Diarrhea, Nausea, Vomiting : Reports: No Symptoms Musculoskeletal: Reports: No Symptoms Skin: Reports: No Symptoms Neurological: Reports: No Symptoms, Difficulty Walking, Weakness Psychiatric: Reports: No Symptoms Hematologic/Lymphatic: Reports: No Symptoms ED EXAM, GENERAL - Physical Exam Exam: See Below Exam Limited By: No Limitations General Appearance: Alert, WD/WN, No Apparent Distress, Other (Pulse ox on 3 L is 97%) Eye Exam: Bilateral Eye: Normal Inspection Ears: Normal External Exam Nose: Normal Inspection Throat/Mouth: Normal Inspection, Normal Lips, Normal Voice, No Airway Compromise Head: Normocephalic Neck: Supple Respiratory/Chest: No Respiratory Distress, Lungs Clear, Normal Breath Sounds, Wheezing, Other (Scattered inspiratory wheezing noted in the bases bilaterally but no expiratory wheezing noted, no prolonged expiratory phase) Cardiovascular: Regular Rate, Rhythm, No Murmur. No: No Edema GI/Abdominal: Soft Back Exam: Full Range of Motion Extremities: Normal Inspection, Normal Range of Motion, Non-Tender, Pedal Edema , Other (She has 1+ edema to shins to the feet and it is pitting in nature) Neurological: Alert, Oriented Psychiatric: Normal Affect, Normal Mood Skin Exam: Warm, Dry EKG INTERPRETATION EKG Date: 04/26/18 Time: 23:15 EKG Interpretation Comments: Normal sinus rhythm rate of 88, no acute ST or T-wave changes noted however he has biphasic T waves in the anterior septal leads, there is no acute ischemia noted. Course - Vital Signs Last Recorded V/S: Last Vital Signs Temp 99.8 F 04/26/18 22:36 Pulse 103 H 04/26/18 22:36 Resp 20 04/26/18 22:36 BP 115/69 04/26/18 22:36 Pulse Ox 96 04/27/18 00:00 - Orders/Labs/Meds Labs: Laboratory Tests 04/26/18 04/26/18 04/26/18 Range/Units 23:20 23:20 23:20 WBC 10.94 H (3.98-10.04) K/mm3 RBC 3.02 L (3.98-5.22) M/mm3 Hgb 8.5 L (11.2-15.7) gm/L Hct 27.6 L (34.1-44.9) % MCV 91.4 (79.4-94.8) fl MCH 28.1 (25.6-32.2) pg MCHC 30.8 L (32.2-35.5) g/dl RDW Std Deviation 47.9 H (36.4-46.3) fL Plt Count 508 H (182-369) K/mm3 MPV 7.5 L (9.4-12.3) fl Neut % (Auto) 76.8 H (34.0-71.1) % Lymph % (Auto) 12.4 L (19.3-51.7) % [place] % (Auto) 8.8 (4.7-12.5) % Eos % (Auto) 1.4 (0.7-5.8) Baso % (Auto) 0.3 (0.1-1.2) % Neut # (Auto) 8.41 H (1.56-6.13) K/mm3 Lymph # (Auto) 1.36 (1.18-3.74) K/mm3 [place] # (Auto) 0.96 H (0.24-0.36) K/mm3 Eos # (Auto) 0.15 (0.04-0.36) K/mm3 Baso # (Auto) 0.03 (0.01-0.08) K/mm3 Sodium 140 (136-145) mEq/L Potassium 3.6 (3.5-5.1) mEq/L Chloride 105 (98-107) mEq/L Carbon Dioxide 25 (21-32) mEq/L Anion Gap 13.6 (5-15) BUN 11 (7-18) mg/dL Creatinine 0.7 (0.55-1.02) mg/dL Est Cr Clr Drug Dosing 65.90 mL/min Estimated GFR (MDRD) > 60 (>60) mL/min BUN/Creatinine Ratio 15.7 (14-18) Glucose 136 H (80-115) mg/dL Lactic Acid (0.4-2.0) mmol/L Calcium 8.1 L (8.5-10.1) mg/dL Total Bilirubin 0.3 (0.2-1.0) mg/dL AST 15 (15-37) U/L ALT 19 (14-59) U/L Alkaline Phosphatase 97 (46-116) U/L Troponin I < 0.017 (0.00-0.056) ng/mL C-Reactive Protein (<1.0) mg/dL NT-Pro-B Natriuret Pep 1708 H (0-125) pg/mL Total Protein 6.4 (6.4-8.2) g/dl Albumin 2.5 L (3.4-5.0) g/dl Globulin 3.9 gm/dL Albumin/Globulin Ratio 0.6 L (1-2) 04/26/18 04/27/18 Range/Units 23:20 00:50 WBC (3.98-10.04) K/mm3 RBC (3.98-5.22) M/mm3 Hgb (11.2-15.7) gm/L Hct (34.1-44.9) % MCV (79.4-94.8) fl MCH (25.6-32.2) pg MCHC (32.2-35.5) g/dl RDW Std Deviation (36.4-46.3) fL Plt Count (182-369) K/mm3 MPV (9.4-12.3) fl Neut % (Auto) (34.0-71.1) % Lymph % (Auto) (19.3-51.7) % [place] % (Auto) (4.7-12.5) % Eos % (Auto) (0.7-5.8) Baso % (Auto) (0.1-1.2) % Neut # (Auto) (1.56-6.13) K/mm3 Lymph # (Auto) (1.18-3.74) K/mm3 [place] # (Auto) (0.24-0.36) K/mm3 Eos # (Auto) (0.04-0.36) K/mm3 Baso # (Auto) (0.01-0.08) K/mm3 Sodium (136-145) mEq/L Potassium (3.5-5.1) mEq/L Chloride (98-107) mEq/L Carbon Dioxide (21-32) mEq/L Anion Gap (5-15) BUN (7-18) mg/dL Creatinine (0.55-1.02) mg/dL Est Cr Clr Drug Dosing mL/min Estimated GFR (MDRD) (>60) mL/min BUN/Creatinine Ratio (14-18) Glucose (80-115) mg/dL Lactic Acid 0.4 (0.4-2.0) mmol/L Calcium (8.5-10.1) mg/dL Total Bilirubin (0.2-1.0) mg/dL AST (15-37) U/L ALT (14-59) U/L Alkaline Phosphatase (46-116) U/L Troponin I (0.00-0.056) ng/mL C-Reactive Protein 9.3 H* (<1.0) mg/dL NT-Pro-B Natriuret Pep (0-125) pg/mL Total Protein (6.4-8.2) g/dl Albumin (3.4-5.0) g/dl Globulin gm/dL Albumin/Globulin Ratio (1-2) Meds: Medications Discontinued Medications Generic Name Dose Route Start Last Admin Trade Name Freq PRN Reason Stop Dose Admin Albuterol/Ipratropium 3 ml 04/26/18 23:50 04/26/18 23:55 Duoneb 3.0-0.5 Mg/3 Ml NEB 04/26/18 23:51 3 ml ONETIME ONE Administration Furosemide 80 mg 04/27/18 00:31 04/27/18 00:36 Lasix IVPUSH 04/27/18 00:32 80 mg NOW STA Administration - Radiology Interpretation Free Text/Narrative:: Chest x-ray suggests congestive heart failure as well as a possible infiltrate in the right lower lung. - Re-Assessments/Exams Free Text/Narrative Re-Assessment/Exam: 04/27/18 02:04 With the 80 of Lasix IV she is already diuresed 700 mL of fluids. 04/27/18 03:07 Patient is now diuresed about 1200 mL. She states she is feeling better and breathing better. 04/27/18 03:[address] Escobar at [facility] who is the hospitalist and she agrees to accept the patient in transport for further evaluation and treatment. The patient has requested to go to [facility] because that is where all her doctors are and that is where she had her pulmonary surgery and they have a on staff community ambassador. As long as the patient is quiet she breathes without difficulty and she is been sleeping part of the time while she's been here in the ER. She does indicate she is feeling better breathing better. She has had no chest pain and no other acute symptoms. Her pulse is 83 her pulse ox is 100% on 3 L by nasal cannula her blood pressure 137/85. She has remained stable since she has been here in the ER. 04/27/18 03:12 Her white cell count is 10.9, with a hemoglobin of 8.5, there is no left shift. Her troponin was negative lactic acid was 0.4. Her C-reactive protein was 9.3 but her pro-BNP was 1708. Departure - Departure Time of Disposition: 03:45 Disposition: DC/Tfer to Acute Hospital 02 Condition: Fair Clinical Impression: New onset of congestive heart failure, Hypoxemia, Oxygen desaturation, Peripheral edema Anemia Qualifiers: Anemia type: unspecified type Qualified Code(s): D64.9 - Anemia, unspecified COPD (chronic obstructive pulmonary disease) Qualifiers: COPD type: unspecified COPD Qualified Code(s): J44.9 - Chronic obstructive pulmonary disease, unspecified - Discharge Information *PRESCRIPTION DRUG MONITORING PROGRAM REVIEWED*: Not Applicable *COPY OF PRESCRIPTION DRUG MONITORING REPORT IN PATIENT [place]: Not Applicable Additional Instructions: I spoke to Dr. Escobar the hospitalist at [facility] and she accepts the patient in transport further evaluation and treatment ED Communication - ED Communication Date/Time Date: 04/27/18 Time Called: 03:05 - Discussed Case With (1) Discussed Case With (1): Admitting Provider Person/s Notified (1): Dr. Escobar (She accepts the patient)
[2018-04-26] MEDS ORDERED: Albuterol/Ipratropium 3.0-0.5 MG/3 ML Neb Soln NEB ONE (23:50)
[2018-04-27] MEDS ORDERED: Furosemide 40 MG/4 ML VIAL IVPUSH STA (00:31)
--- NOTE | 2018-04-28 10:51 | CR ---
Chest: Two views of the chest were obtained. Comparison: Prior chest x-ray of 11/12/17. Diffuse increased lung markings seen throughout the right chest as an interval change. Focal density noted within the left upper lung as well as mild increased lung markings within the left base. Heart size appears within normal limits. Atherosclerotic calcification is identified within the thoracic aorta. Bony structures appear within normal limits for the patient's age. Skin maryuri are present within the left chest. Impression: 1. Diffuse increased density on both sides of the chest worse on the right side. Please correlate if patient has infectious symptoms to represent diffuse bronchitis/pneumonia. Other differential is fairly extensive. Diagnostic code #3
== END 2018-04-27 03:45 ==
LOC: SUPCPDRO 22:35 → JD.ED 22:35
DX: I50.9 Heart failure, unspecified (principal); J44.9 Chronic obstructive pulmonary disease, unspecified; D64.9 Anemia, unspecified; R09.02 Hypoxemia; K21.9 Gastro-esophageal reflux disease without esophagitis; F17.210 Nicotine dependence, cigarettes, uncomplicated; Z79.82 Long term (current) use of aspirin; Z79.899 Other long term (current) drug therapy; Z91.09 Other allergy status, other than to drugs and biological substances
CPT/HCPCS: 36415; 51702; 71046; 80053; 83605; 83880; 84484; 85025; 86140; 87040; 93005; 94640; 96374; 99285; J1940; 93010; J7620-GY

== ENCOUNTER 2018-06-17 05:25 | Emergency (ER) | payer BC ==
--- NOTE | 2018-06-17 05:51 | EDM.PDOC ---
<PatriciaOlinda bell Javier - Last Filed: 06/17/18 06:49> ED HPI GENERAL MEDICAL PROBLEM - General Chief Complaint: Chest Pain Stated Complaint: POSSIBLE HEART ATTACK Time Seen by Provider: 06/17/18 05:35 Source of Information: Reports: Patient History Limitations: Reports: No Limitations - History of Present Illness INITIAL COMMENTS - FREE TEXT/NARRATIVE: 62 y/o F with hx L upper lobectomy for lung cancer approx 3 months ago presents with chest pain. States it woke her from sleep early this morning. No provoking factor. Pain is squeezing, located in mid chest slightly to the left, waxes and wanes, no provoking or relieving factor. She has the pain now, rates it moderate. Denies hx of similar symptoms previously. No abd pain/vomiting. No lower extremity pain or swelling. No hx immobilization in last several weeks, though she wasn't mobile for a few weeks after her surgery in March. No personal or family hx of DVT or PE. She's unsure whether or not she's ever had a stress test. She's not aware of having a hx of CAD, but she does have CHF and was admitted in [place] recently. Left Chest Pain Score (Numeric/FACES): 4 - Related Data Allergies Allergy/AdvReac Type Severity Reaction Status Date / Time perfume Allergy Airway Verified 06/17/18 05:37 Tightness Home Meds: Home Meds Acetaminophen [Tylenol Arthritis Pain] 500 mg PO Q6H 01/22/16 [History] Omeprazole [Prilosec] 20 mg PO DAILY 01/22/16 [History] Pramipexole Di-HCl [Mirapex] 1.5 mg PO BEDTIME 01/22/16 [History] traZODone 1 tab PO BEDTIME 01/29/17 [History] Acetaminophen/HYDROcodone [[place] 325-5 MG] 1 tab PO Q4H PRN #20 tablet 02/02/17 [Rx] Magnesium Oxide 400 mg PO BID #15 tablet 02/02/17 [Rx] Albuterol Sulfate [Proair Respiclick] 1 - 2 inh INH Q4H PRN 04/26/18 [History] Ascorbic Acid [C-1000 with Delfina Hips] 1,000 mg PO DAILY 04/26/18 [History] Aspirin 325 mg PO DAILY 04/26/18 [History] Cetirizine [ZyrTEC] 10 mg PO DAILY 04/26/18 [History] Fexofenadine [Kat] 60 mg PO DAILY 04/26/18 [History] Hydrocodone/Acetaminophen [Hydrocodon-Acetaminophen 5-325] 1 tab PO Q6H PRN 08/03 [History] Ibuprofen 400 mg PO Q6H PRN 04/26/18 [History] Melatonin 3 mg PO BEDTIME PRN 04/26/18 [History] Metoprolol Tartrate 25 mg PO BID 04/26/18 [History] Polyethylene Glycol [Polyox Wsr-301] 17 gm PO BID PRN 04/26/18 [History] guaiFENesin [Mucinex] 1 tab PO BID 04/26/18 [History] Past Medical History HEENT History: Reports: Impaired Vision Other HEENT History: wears glasses Respiratory History: Reports: Bronchitis, Recurrent, COPD, Pneumonia, Recurrent Gastrointestinal History: Reports: GERD Genitourinary History: Reports: None [employer] History: Reports: Musculoskeletal History: Reports: Back Pain, Chronic, Osteoarthritis Neurological History: Reports: Other (See Below) Dermatologic History: Reports: Psoriasis - Infectious Disease History Infectious Disease History: Reports: Chicken Pox, Measles, Mumps - Past Surgical History HEENT Surgical History: Reports: None Respiratory Surgical History: Reports: None, Lung Resection GI Surgical History: Reports: None Female Surgical History: Reports: Hysterectomy Musculoskeletal Surgical History: Reports: Hip Replacement, Knee Replacement Dermatological Surgical History: Reports: None Social & Family History - Family History Family Medical History: Noncontributory Neurological: Reports: CVA Oncologic: Reports: Colon - Caffeine Use Caffeine Use: Reports: Coffee, Soda - Living Situation & Occupation Living situation: Reports: , with Spouse Occupation: Employed ED ROS GENERAL - Review of Systems Review Of Systems: See Below Constitutional: Denies: Fever HEENT: Reports: No Symptoms Respiratory: Denies: Shortness of Breath Cardiovascular: Reports: Chest Pain Endocrine: Reports: No Symptoms GI/Abdominal: Denies: Abdominal Pain : Reports: No Symptoms Musculoskeletal: Reports: No Symptoms. Denies: Leg Pain Skin: Reports: No Symptoms Neurological: Reports: No Symptoms ED EXAM, GENERAL - Physical Exam Exam: See Below Exam Limited By: No Limitations General Appearance: Alert, WD/WN, No Apparent Distress Eye Exam: Bilateral Eye: Normal Inspection, PERRL Ears: Normal External Exam Nose: Normal Inspection Throat/Mouth: Normal Inspection, Normal Voice, No Airway Compromise Head: Atraumatic, Normocephalic Neck: Normal Inspection, Supple Respiratory/Chest: No Respiratory Distress, Lungs Clear, Normal Breath Sounds, Chest Non-Tender Cardiovascular: Normal Peripheral Pulses, Regular Rate, Rhythm, No Edema, No Murmur GI/Abdominal: Soft, Non-Tender, No Distention Back Exam: Normal Inspection Extremities: Normal Inspection, Non-Tender, No Pedal Edema Neurological: Alert, Oriented, Normal Cognition, No Motor/Sensory Deficits Psychiatric: Normal Affect, Normal Mood Skin Exam: Warm, Dry, Intact, Normal Color, No Rash Course - Vital Signs Last Recorded V/S: Last Vital Signs Temp 36.4 C 06/17/18 05:32 Pulse 70 06/17/18 07:01 Resp 18 06/17/18 07:01 BP 101/60 06/17/18 07:01 Pulse Ox 97 06/17/18 07:01 - Orders/Labs/Meds Orders: Active Orders 24 hr Category Date Time Status EKG 12 Lead [EKG Documentation Completion] [RC] STAT Care 06/17/18 05:36 Active Peripheral IV Care [RC] . DIRECTED Care 06/17/18 05:36 Active Peripheral IV Care [RC] . DIRECTED Care 06/17/18 05:36 Active Chest 1V Frontal [CR] Stat Exams 06/17/18 05:36 Taken Aspirin Med 06/17/18 06:00 Active 162 mg PO DAILY Morphine Med 06/17/18 05:44 Active 2 mg IVPUSH Q2H PRN Sodium Chloride 0.9% [Saline Flush] Med 06/17/18 05:36 Active 10 ml FLUSH ASDIRECTED PRN Peripheral IV Insertion Adult [OM.PC] Routine Oth 06/17/18 05:36 Ordered Medication Orders Aspirin (Aspirin) 162 mg PO DAILY [facility] Last Admin: 06/17/18 09:10 Dose: Not Given Admin: 06/17/18 06:02 Dose: 162 mg Morphine Sulfate (Morphine) 2 mg IVPUSH Q2H PRN PRN Reason: Pain Last Admin: 06/17/18 07:25 Dose: 2 mg Admin: 06/17/18 06:02 Dose: 2 mg Sodium Chloride (Saline Flush) 10 ml FLUSH ASDIRECTED PRN PRN Reason: Keep Vein Open Last Admin: 06/17/18 07:34 Dose: 10 ml Admin: 06/17/18 06:03 Dose: 10 ml Labs: Laboratory Tests 06/17/18 06/17/18 06/17/18 Range/Units 05:45 05:45 05:45 WBC 5.31 (3.98-10.04) K/mm3 RBC 4.21 (3.98-5.22) M/mm3 Hgb 11.9 (11.2-15.7) gm/L Hct 38.7 (34.1-44.9) % MCV 91.9 (79.4-94.8) fl MCH 28.3 (25.6-32.2) pg MCHC 30.7 L (32.2-35.5) g/dl RDW Std Deviation 47.1 H (36.4-46.3) fL Plt Count 325 (182-369) K/mm3 MPV 8.2 L (9.4-12.3) fl Neut % (Auto) 41.8 (34.0-71.1) % Lymph % (Auto) 43.3 (19.3-51.7) % [place] % (Auto) 9.4 (4.7-12.5) % Eos % (Auto) 4.5 (0.7-5.8) Baso % (Auto) 0.8 (0.1-1.2) % Neut # (Auto) 2.22 (1.56-6.13) K/mm3 Lymph # (Auto) 2.30 (1.18-3.74) K/mm3 [place] # (Auto) 0.50 H (0.24-0.36) K/mm3 Eos # (Auto) 0.24 (0.04-0.36) K/mm3 Baso # (Auto) 0.04 (0.01-0.08) K/mm3 D-Dimer, Quantitative 2.32 H (0.19-0.50) mg/L Sodium 140 (136-145) mEq/L Potassium 4.3 (3.5-5.1) mEq/L Chloride 106 (98-107) mEq/L Carbon Dioxide 29 (21-32) mEq/L Anion Gap 9.3 (5-15) BUN 21 H (7-18) mg/dL Creatinine 0.8 (0.55-1.02) mg/dL Est Cr Clr Drug Dosing 57.67 mL/min Estimated GFR (MDRD) > 60 (>60) mL/min BUN/Creatinine Ratio 26.3 H (14-18) Glucose 92 (80-115) mg/dL Calcium 8.8 (8.5-10.1) mg/dL Magnesium 2.2 (1.8-2.4) mg/dl Total Bilirubin 0.3 (0.2-1.0) mg/dL AST 18 (15-37) U/L ALT 16 (14-59) U/L Alkaline Phosphatase 93 (46-116) U/L Troponin I < 0.017 (0.00-0.056) ng/mL Total Protein 7.0 (6.4-8.2) g/dl Albumin 3.2 L (3.4-5.0) g/dl Globulin 3.8 gm/dL Albumin/Globulin Ratio 0.8 L (1-2) 06/17/18 Range/Units 08:06 WBC (3.98-10.04) K/mm3 RBC (3.98-5.22) M/mm3 Hgb (11.2-15.7) gm/L Hct (34.1-44.9) % MCV (79.4-94.8) fl MCH (25.6-32.2) pg MCHC (32.2-35.5) g/dl RDW Std Deviation (36.4-46.3) fL Plt Count (182-369) K/mm3 MPV (9.4-12.3) fl Neut % (Auto) (34.0-71.1) % Lymph % (Auto) (19.3-51.7) % [place] % (Auto) (4.7-12.5) % Eos % (Auto) (0.7-5.8) Baso % (Auto) (0.1-1.2) % Neut # (Auto) (1.56-6.13) K/mm3 Lymph # (Auto) (1.18-3.74) K/mm3 [place] # (Auto) (0.24-0.36) K/mm3 Eos # (Auto) (0.04-0.36) K/mm3 Baso # (Auto) (0.01-0.08) K/mm3 D-Dimer, Quantitative (0.19-0.50) mg/L Sodium (136-145) mEq/L Potassium (3.5-5.1) mEq/L Chloride (98-107) mEq/L Carbon Dioxide (21-32) mEq/L Anion Gap (5-15) BUN (7-18) mg/dL Creatinine (0.55-1.02) mg/dL Est Cr Clr Drug Dosing mL/min Estimated GFR (MDRD) (>60) mL/min BUN/Creatinine Ratio (14-18) Glucose (80-115) mg/dL Calcium (8.5-10.1) mg/dL Magnesium (1.8-2.4) mg/dl Total Bilirubin (0.2-1.0) mg/dL AST (15-37) U/L ALT (14-59) U/L Alkaline Phosphatase (46-116) U/L Troponin I < 0.017 (0.00-0.056) ng/mL Total Protein (6.4-8.2) g/dl Albumin (3.4-5.0) g/dl Globulin gm/dL Albumin/Globulin Ratio (1-2) Meds: Medications Generic Name Dose Route Start Last Admin Trade Name Freq PRN Reason Stop Dose Admin Aspirin 162 mg 06/17/18 06:00 06/17/18 09:10 Aspirin PO Not Given DAILY YOSEPH Morphine Sulfate 2 mg 06/17/18 05:44 06/17/18 07:25 Morphine IVPUSH 2 mg Q2H PRN Administration Pain Sodium Chloride 10 ml 06/17/18 05:36 06/17/18 07:34 Saline Flush FLUSH 10 ml ASDIRECTED PRN Administration Keep Vein Open Discontinued Medications Generic Name Dose Route Start Last Admin Trade Name Freq PRN Reason Stop Dose Admin Sodium Chloride 100 mls @ 4 mls/sec 06/17/18 07:06 06/17/18 07:34 Normal Saline IV 06/17/18 07:07 4 mls/sec ONETIME ONE Administration Iopamidol 100 ml 06/17/18 07:06 06/17/18 07:34 Isovue-370 (76%) IVPUSH 06/17/18 07:07 100 ml ONETIME ONE Administration - Re-Assessments/Exams Free Text/Narrative Re-Assessment/Exam: 06/17/18 05:51 EKG shows NSR, normal intervals, no significant ST abnormality, T wave flat in V2, T waves otherwise normal. 06/17/18 06:48 CXR shows mild pulmonary edema, difficult to exclude LLL pneumonia. However she isn't complaining of a cough, fever or feeling ill. Suspect this is just mild fluid overload. She is in no respiratory distress and has SpO2 99 on her usual 2L NC. D-D is positive, will proceed with CTA chest to r/o PE. Trop neg, will repeat for a delta 3 hr trop. Departure - Departure Disposition: Home, Self-Care 01 Clinical Impression: Chest pain Instructions: Nonspecific Chest Pain Referrals: Archana Lyles PA [Primary Care Provider] - Forms: ED Department Discharge Additional Instructions: You were seen in the emergency room for central chest pain. Workup in the ER included blood work, that included 2 sets of cardiac enzymes, a chest x-ray, a CT angiogram of your chest, and an ECG. Your workup was, for the most part, unremarkable. You have not suffered a heart attack. You do not have a blood clot in your lungs. You do not have pneumonia. The CT scan found that you have a small amount of fluid in the lower part of your left chest, likely left over from your left upper lobectomy in March. It is possible that this is the cause of your pain. In order to make sure that your pain was not cardiac, we recommend that you undergo an outpatient stress test. Please follow-up with your PCP, Archana Lyles, this week, to make such arrangements. If the stress test comes back negative but your chest pain continues, consideration could be given to removing the fluid from your chest. If any other problems, please do not hesitate to return to the ER. <Jacob Baker - Last Filed: 06/17/18 09:35> EKG INTERPRETATION EKG Date: 06/17/18 Time: 05:31 Rhythm: NSR Rate (Beats/Min): 69 [place]: Normal P-Wave: Present QRS: Normal ST-T: Normal QT: Normal Comparison: No Change (04/26/2018) Course - Re-Assessments/Exams Free Text/Narrative Re-Assessment/Exam: 06/17/18 07:51 CT angiogram of the chest is read by Dr. Hernandez as: 1. No findings of pulmonary embolism. 2. Enlarged heart with coronary artery calcification. 3. Small left-sided pleural effusion which may be loculated. 4. Diffuse interstitial fibrosis, worse on the right side. 5. Nothing acute is definitely appreciated. 06/17/18 09:28 Test results discussed with the patient and her . Today's workup, including 2 troponins, is unremarkable, and does not definitively explain the cause of the patient's symptoms. As above, the patient has a small left-sided pleural effusion, likely left over from her left upper lobectomy in March, and this may be the cause of her pain, however, while the patient has not suffered an CA, her pain could still be cardiac, and for that reason I'm recommending that she undergo an outpatient stress test. The patient has agreed to follow-up with her PCP this week to arrange for that. If the stress test is negative, consideration could be given to a therapeutic thoracentesis. Departure - Departure Time of Disposition: 09:30 Condition: Good
[2018-06-17] MEDS: Aspirin 81 MG Tab.Chew PO SCH ×2 (06:02→09:10)
[2018-06-17] MEDS: Morphine 4 MG/ML Syringe IVPUSH PRN ×2 (06:02→07:25)
[2018-06-17] MEDS: Sodium Chloride 0.9% 10 ML Syringe FLUSH PRN ×2 (06:03→07:34)
[2018-06-17] MEDS ORDERED: Sodium Chloride 0.9% 100 ML IV ONE (07:06)
[2018-06-17] MEDS ORDERED: Iopamidol 755 Mg/ML 100 ML Bottle IVPUSH ONE (07:06)
--- NOTE | 2018-06-17 07:49 | CT ---
CT chest Technique: Multiple axial sections through the chest were obtained. Intravenous contrast was utilized. Study has been performed as a pulmonary angiogram protocol. Comparison: Previous CT chest of 02/03/17. Findings: Pulmonary arteries are moderately well-opacified. No filling defects are identified to indicate pulmonary embolism. Heart is enlarged. Coronary artery calcification is seen. Small left-sided pleural effusion is seen which may be loculated. Scattered mediastinal lymph nodes are seen which are felt to be stable from previous CT exam and most likely on an old inflammatory basis. Thyroid gland is slightly generous in size which appears stable from previous exam. Small portion of the upper abdominal structures appear within normal limits. Diffuse interstitial fibrosis is seen within both lungs, worse on the right side. No acute parenchymal change is appreciated. Bone window settings were reviewed which shows slight degenerative change within the spine. Impression: 1. No findings of pulmonary embolism. 2. Enlarged heart with coronary artery calcification. 3. Small left-sided pleural effusion which may be loculated. 4. Diffuse interstitial fibrosis, worse on the right side. 5. Nothing acute is definitely appreciated. Diagnostic code #3
[2018-06-17 09:48] VITALS: BP 104/66
--- NOTE | 2018-06-17 11:01 | CR ---
Chest: Portable view of the chest was obtained. Comparison: Previous chest x-ray of 05/15/18. Diffuse interstitial change is seen on both sides. Triangular density is noted within the left upper lung which is stable. Heart size is mildly enlarged. Tortuous thoracic aorta is seen. Bony structures are osteopenic. Scattered degenerative change is seen within the spine. Impression: 1. Diffuse interstitial change which appears stable. Triangular density within the left upper chest remain stable. 2. Nothing acute is definitely appreciated. Diagnostic code #3
== END 2018-06-17 09:40 | disposition home or self-care (01) ==
LOC: JD.ED 05:25
DX: R07.9 Chest pain, unspecified (principal); R91.8 Other nonspecific abnormal finding of lung field; J44.9 Chronic obstructive pulmonary disease, unspecified; Z87.01 Personal history of pneumonia (recurrent); Z79.899 Other long term (current) drug therapy
CPT/HCPCS: 36415; 71045; 71275; 80053; 83735; 84484; 85025; 85379; 93005; 96374; 96376; 99285; A9270; J2270; J7030; J7050; Q9967; 93010; 99284-25

== ENCOUNTER 2019-01-15 12:00 | Emergency (ER) | payer BC ==
[2019-01-15 12:15] VITALS: BP 124/80
[2019-01-15] MEDS ORDERED: Albuterol/Ipratropium 3.0-0.5 MG/3 ML Neb Soln NEB ONE (12:40)
--- NOTE | 2019-01-15 12:46 | EDM.PDOC ---
ED HPI GENERAL MEDICAL PROBLEM - General Chief Complaint: Allergic Reaction Stated Complaint: RASH/SHORNTESS OF BREATH Time Seen by Provider: 01/15/19 12:17 Source of Information: Reports: Patient, Significant Other History Limitations: Reports: No Limitations - History of Present Illness INITIAL COMMENTS - FREE TEXT/NARRATIVE: 63 yo F sent from our clinic today for possible allergic reaction from unknown source. Symptoms started yesterday with rash on the arms, forearms, and back, swollen lips, as well as wheezing, SOB, swollen lips. She has various allergies , such as to environment (pollen, dust, etc) and has an epinephrine pen at home for "extreme allergy to perfume and cologne". She has not recently started any new medications, no new pets at home, no new foods. She has no idea what could be causing this reaction. She states she had similar symptoms 2 weeks ago but they were alleviated with Benadryl. She also has been using her Duoneb at home TID for the past couple of weeks. Today she took Benadryl around 7:30 am with no relief and also tried a Duoneb at home. She also has an albuterol inhaler at home, but states she hasn't used it in a couple of weeks. She was recently on 5 day course of Prednisone in December for IPF which helped her productive cough, but cough has since persisted, with sputum from clear to yellow at times. Only sick contact recently was her granddaughter who was recently diagnosed with mono. PCP is BHARGAVI Bae. - Related Data Allergies Allergy/AdvReac Type Severity Reaction Status Date / Time amoxicillin Allergy Nausea and Verified 01/15/19 12:13 Vomiting latex Allergy Rash Verified 07/20/18 23:11 levofloxacin Allergy Other Verified 01/15/19 12:13 perfume Allergy Airway Verified 07/20/18 23:11 Tightness Home Meds: Home Meds Acetaminophen [Tylenol Arthritis Pain] 650 mg PO Q6H PRN 01/22/16 [History] Omeprazole [Prilosec] 20 mg PO DAILY 01/22/16 [History] Pramipexole Di-HCl [Mirapex] 1.5 mg PO BEDTIME 01/22/16 [History] traZODone 50 mg PO BEDTIME 01/29/17 [History] Albuterol Sulfate [Proair Respiclick] 1 - 2 inh INH Q4H PRN 04/26/18 [History] Ascorbic Acid [C-1000 with Delfina Hips] 1,000 mg PO DAILY 04/26/18 [History] Aspirin 325 mg PO DAILY 04/26/18 [History] Melatonin 5 mg PO BEDTIME PRN 04/26/18 [History] Polyethylene Glycol [Polyox Wsr-301] 17 gm PO BID PRN 04/26/18 [History] guaiFENesin [Mucinex] 600 mg PO BID 04/26/18 [History] Calcium Carbonate/Vitamin D3 [Calcium Carb 500 MG] 400 mg PO BID 07/18/18 [ History] Cholecalciferol (Vitamin D3) [Vitamin D3] 1,000 unit PO DAILY 07/18/18 [History] Fluticasone Propionate [Flonase Allergy Relief] 2 spray NASBOTH BID 07/18/18 [ History] Furosemide [Lasix] 40 mg PO DAILY #30 tab 07/18/18 [Rx] Magnesium Oxide 400 mg PO DAILY 07/18/18 [History] Furosemide [Lasix] 20 mg PO DAILY #30 tab 07/21/18 [Rx] Spironolactone [Aldactone] 25 mg PO DAILY #30 tablet 07/21/18 [Rx] Past Medical History HEENT History: Reports: Impaired Vision Other HEENT History: wears glasses Respiratory History: Reports: Bronchitis, Recurrent, COPD, Pneumonia, Recurrent , Pulmonary Fibrosis, SOB, Other (See Below) Other Respiratory History: Upper L) lobe of lung removed. Gastrointestinal History: Reports: GERD Genitourinary History: Reports: UTI, Recurrent [employer]STRU[employer] MGR History: Reports: Musculoskeletal History: Reports: Back Pain, Chronic, Osteoarthritis Neurological History: Reports: Other (See Below) Psychiatric History: Reports: Depression Hematologic History: Reports: Blood Transfusion(s) Oncologic (Cancer) History: Reports: Lung Dermatologic History: Reports: Psoriasis - Infectious Disease History Infectious Disease History: Reports: Chicken Pox, Measles, Mumps - Past Surgical History HEENT Surgical History: Reports: None Respiratory Surgical History: Reports: None, Lung Resection GI Surgical History: Reports: None Female Surgical History: Reports: Hysterectomy Musculoskeletal Surgical History: Reports: Hip Replacement, Knee Replacement, Other (See Below) Other Musculoskeletal Surgeries/Procedures:: hip revision. Oncologic Surgical History: Reports: Lobectomy Dermatological Surgical History: Reports: None Social & Family History - Family History Family Medical History: Noncontributory Neurological: Reports: CVA Oncologic: Reports: Colon - Tobacco Use Smoking Status *Q: Former Smoker Used Tobacco, but Quit: Yes Month/Year Tobacco Last Used: 1 yr - Caffeine Use Caffeine Use: Reports: Soda - Recreational Drug Use Recreational Drug Use: No - Living Situation & Occupation Living situation: Reports: , with Spouse Occupation: Employed ED ROS ALLERGIC REACTION - Review of Systems Review Of Systems: See Below Constitutional: Reports: No Symptoms. Denies: Fever, Chills HEENT: Reports: Glasses, Rhinitis, Throat Pain ("irritated"). Denies: Ear Discharge, Ear Pain, Nosebleed, Throat Swelling Respiratory: Reports: Shortness of Breath, Wheezing, Cough, Sputum (clear to yellow). Denies: Pleuritic Chest Pain, Hemoptysis Cardiovascular: Reports: No Symptoms. Denies: Chest Pain, Edema, Lightheadedness, Palpitations Endocrine: Reports: No Symptoms GI/Abdominal: Reports: No Symptoms. Denies: Abdominal Pain, Diarrhea, Nausea, Vomiting : Reports: No Symptoms Musculoskeletal: Reports: No Symptoms Skin: Reports: Pruritis, Rash (forearms and back), Urticaria (forearms and back) Neurological: Reports: No Symptoms Psychiatric: Reports: No Symptoms Hematologic/Lymphatic: Reports: No Symptoms Immunologic: Reports: Seasonal Allergy. Denies: Anaphylaxis ED EXAM GENERAL NO PERIP PULSE - Physical Exam Exam: See Below Exam Limited By: No Limitations General Appearance: Alert, WD/WN, No Apparent Distress Eye Exam: Bilateral Eye: EOMI, Normal Inspection, PERRL Ears: Normal External Exam, Hearing Grossly Normal Nose: Normal Inspection, Normal Mucosa, No Blood. No: Nasal Tenderness Throat/Mouth: Normal Inspection, Normal Lips, Normal Teeth, Normal Gums, Normal Oropharynx, Normal Voice, No Airway Compromise Head: Atraumatic, Normocephalic Neck: Normal Inspection, Supple, Non-Tender, Full Range of Motion Respiratory/Chest: No Respiratory Distress, No Accessory Muscle Use, Chest Non- Tender, Wheezing (thoughout lung bone, LL posterior worst) Cardiovascular: Normal Peripheral Pulses, Regular Rate, Rhythm, No Edema, No Gallop, No JVD, No Murmur, No Rub GI/Abdominal: Soft, Non-Tender, No Organomegaly, No Distention, No Abnormal Bruit, No Mass, Abnormal Bowel Sounds (hyperactive- she hasn't eaten yet) Back Exam: Full Range of Motion, Other (mild rash on exam upper and lower back) Extremities: Normal Range of Motion, No Pedal Edema, Normal Capillary Refill, Other (petechiae to forearms) Neurological: Alert, Oriented, CN II-XII Intact, Normal Cognition, Normal Gait, Normal Reflexes, No Motor/Sensory Deficits Psychiatric: Normal Affect, Normal Mood Skin Exam: Warm, Dry, Intact, Petechiae (forearms), Rash Lymphatic: No Adenopathy Course - Vital Signs Last Recorded V/S: Last Vital Signs Temp 98.2 F 01/15/19 12:11 Pulse 93 01/15/19 12:11 Resp 20 01/15/19 12:11 BP 124/80 01/15/19 12:11 Pulse Ox 95 01/15/19 12:51 - Orders/Labs/Meds Orders: Active Orders 24 hr Category Date Time Status RT Aerosol Therapy [RC] ASDIRECTED Care 01/15/19 12:40 Active RT Aerosol Therapy [RC] ASDIRECTED Care 01/15/19 14:10 Active Labs: Laboratory Tests 01/15/19 01/15/19 01/15/19 Range/Units 12:15 12:15 12:15 WBC 6.50 (3.98-10.04) K/mm3 RBC 4.92 (3.98-5.22) M/mm3 Hgb 14.3 D (11.2-15.7) gm/L Hct 45.0 H (34.1-44.9) % MCV 91.5 (79.4-94.8) fl MCH 29.1 (25.6-32.2) pg MCHC 31.8 L (32.2-35.5) g/dl RDW Std Deviation 45.1 (36.4-46.3) fL Plt Count 302 (182-369) K/mm3 MPV 8.0 L (9.4-12.3) fl Neut % (Auto) 59.4 (34.0-71.1) % Lymph % (Auto) 29.7 (19.3-51.7) % Gordon % (Auto) 8.0 (4.7-12.5) % Eos % (Auto) 2.2 (0.7-5.8) Baso % (Auto) 0.5 (0.1-1.2) % Neut # (Auto) 3.87 (1.56-6.13) K/mm3 Lymph # (Auto) 1.93 (1.18-3.74) K/mm3 Gordon # (Auto) 0.52 H (0.24-0.36) K/mm3 Eos # (Auto) 0.14 (0.04-0.36) K/mm3 Baso # (Auto) 0.03 (0.01-0.08) K/mm3 PT 10.3 (9.5-12.1) SECONDS INR 0.94 Sodium 138 (136-145) mEq/L Potassium 3.8 (3.5-5.1) mEq/L Chloride 101 (98-107) mEq/L Carbon Dioxide 27 (21-32) mEq/L Anion Gap 13.8 (5-15) BUN 18 (7-18) mg/dL Creatinine 0.8 (0.55-1.02) mg/dL Est Cr Clr Drug Dosing 56.93 mL/min Estimated GFR (MDRD) > 60 (>60) mL/min BUN/Creatinine Ratio 22.5 H (14-18) Glucose 91 (80-115) mg/dL Calcium 9.1 (8.5-10.1) mg/dL Total Bilirubin 0.2 (0.2-1.0) mg/dL AST 19 (15-37) U/L ALT 21 (14-59) U/L Alkaline Phosphatase 95 (46-116) U/L C-Reactive Protein 0.6 (<1.0) mg/dL NT-Pro-B Natriuret Pep (0-125) pg/mL Total Protein 8.1 (6.4-8.2) g/dl Albumin 4.1 (3.4-5.0) g/dl Globulin 4.0 gm/dL Albumin/Globulin Ratio 1.0 (1-2) Monoscreen (NEGATIVE) 01/15/19 01/15/19 Range/Units 12:15 12:15 WBC (3.98-10.04) K/mm3 RBC (3.98-5.22) M/mm3 Hgb (11.2-15.7) gm/L Hct (34.1-44.9) % MCV (79.4-94.8) fl MCH (25.6-32.2) pg MCHC (32.2-35.5) g/dl RDW Std Deviation (36.4-46.3) fL Plt Count (182-369) K/mm3 MPV (9.4-12.3) fl Neut % (Auto) (34.0-71.1) % Lymph % (Auto) (19.3-51.7) % Gordon % (Auto) (4.7-12.5) % Eos % (Auto) (0.7-5.8) Baso % (Auto) (0.1-1.2) % Neut # (Auto) (1.56-6.13) K/mm3 Lymph # (Auto) (1.18-3.74) K/mm3 Gordon # (Auto) (0.24-0.36) K/mm3 Eos # (Auto) (0.04-0.36) K/mm3 Baso # (Auto) (0.01-0.08) K/mm3 PT (9.5-12.1) SECONDS INR Sodium (136-145) mEq/L Potassium (3.5-5.1) mEq/L Chloride (98-107) mEq/L Carbon Dioxide (21-32) mEq/L Anion Gap (5-15) BUN (7-18) mg/dL Creatinine (0.55-1.02) mg/dL Est Cr Clr Drug Dosing mL/min Estimated GFR (MDRD) (>60) mL/min BUN/Creatinine Ratio (14-18) Glucose (80-115) mg/dL Calcium (8.5-10.1) mg/dL Total Bilirubin (0.2-1.0) mg/dL AST (15-37) U/L ALT (14-59) U/L Alkaline Phosphatase (46-116) U/L C-Reactive Protein (<1.0) mg/dL NT-Pro-B Natriuret Pep 111 (0-125) pg/mL Total Protein (6.4-8.2) g/dl Albumin (3.4-5.0) g/dl Globulin gm/dL Albumin/Globulin Ratio (1-2) Monoscreen Negative (NEGATIVE) Meds: Medications Discontinued Medications Generic Name Dose Route Start Last Admin Trade Name Freq PRN Reason Stop Dose Admin Albuterol 2.5 mg 01/15/19 14:10 Proventil Neb Soln NEB 01/15/19 14:11 ONETIME ONE Albuterol/Ipratropium 3 ml 01/15/19 12:40 01/15/19 12:51 Duoneb 3.0-0.5 Mg/3 Ml NEB 01/15/19 12:41 3 ml ONETIME ONE Administration Sodium Chloride 1,000 mls @ 999 mls/hr 01/15/19 13:20 Normal Saline IV 01/15/19 14:20 ONETIME ONE Ketorolac Tromethamine 30 mg 01/15/19 13:20 Toradol IVPUSH 01/15/19 13:21 ONETIME ONE - Re-Assessments/Exams Free Text/Narrative Re-Assessment/Exam: 01/15/19 12:41 I have ordered CBC, CMP, CRP to help r/o infection as she does c/o productive cough w/ yellow sputum PT, PTT as appears to have petechiae on arms and back Gordon screen as recently around granddaughter who was recently diagnosed CXR 2V as she is SOB and has productive cough Duoneb treatment ordered to help with wheezing 01/15/19 13:41 CBC shows Hct 45, MCHC 31.8, MPV 8 CMP WNL CRP 0.6 Gordon negative Pt is feeling much better after Duoneb treatment. She is now 98% on RA. 01/15/19 13:[address] Phillips and myself: Some pulmonary vascular congestion and fibrosis seen on CXR--> Will order BNP to r/o possible HF d/t her IPF. 01/15/19 14:17 BNP 111, WNL. At this time, she is stable enough to go home. Will continue nebulizer treatments at home and search for what may be causing her allergic reaction. Recommend close f/u with PCP. Departure - Departure Time of Disposition: 14:18 Disposition: Home, Self-Care 01 Condition: Good Clinical Impression: Wheezing, Idiopathic pulmonary fibrosis Allergic contact dermatitis, unspecified cause Qualifiers: Contact dermatitis trigger: unspecified trigger Qualified Code(s): L23.9 - Allergic contact dermatitis, unspecified cause - Discharge Information *PRESCRIPTION DRUG MONITORING PROGRAM REVIEWED*: Not Applicable *COPY OF PRESCRIPTION DRUG MONITORING REPORT IN PATIENT [place]: Not Applicable Instructions: Allergies, Adult, [id number], Contact Dermatitis, [id number] Referrals: Zoey Blanco, [employer] [Primary Care Provider] - Forms: ED Department Discharge Additional Instructions: You were seen in the ED today for new onset rash and difficulty breathing likely due to unknown allergic reaction. You had Chest Xray and infectious workup as well as 2 nebulizing treatments here. You were able to be taken off oxygen with saturations around 95% and higher. Your workup here was negative for infection, including Gordon, which likely makes this an allergic reaction. At this time, it is important for you to continue using your Duoneb at home and oxygen as needed, Benadryl as needed, as well as figuring out what is causing these reactions. For the itching, you can try over the counter Calamine lotion for relief. Recommend close follow up with your primary care provider within the next few days to figure this out. Please return to ED if new or worsening symptoms. - My Orders Last 24 Hours: My Active Orders 01/15/19 12:40 RT Aerosol Therapy [RC] ASDIRECTED 01/15/19 14:10 RT Aerosol Therapy [RC] ASDIRECTED - Assessment/Plan Last 24 Hours: My Active Orders 01/15/19 12:40 RT Aerosol Therapy [RC] ASDIRECTED 01/15/19 14:10 RT Aerosol Therapy [RC] ASDIRECTED
[2019-01-15] MEDS ORDERED: Sodium Chloride 0.9% 1,000 ML IV ONE (13:20)
[2019-01-15] MEDS ORDERED: Ketorolac 30 MG/ML SDV IVPUSH ONE (13:20)
--- NOTE | 2019-01-15 14:02 | CR ---
Chest: Two views of the chest were obtained. Comparison: Prior chest x-ray of 11/26/18. Diffuse right-sided interstitial change is seen presumably due to asymmetric interstitial fibrosis. Mild increased density within the right middle lobe which is more prominent than on prior exam possibly due to small area of superimposed pneumonia. Left lung shows no acute parenchymal change. Heart size slightly enlarged. Scoliosis noted with the spine. Impression: 1. Diffuse right sided interstitial fibrosis. 2. Mild increased density of the right middle lobe from prior study possibly due to superimposed small area of pneumonia. 3. Other incidental findings. Diagnostic code #3
[2019-01-15] MEDS ORDERED: Albuterol 0.083% 2.5 MG/3 ML Neb Soln NEB ONE (14:10)
== END 2019-01-15 15:10 | disposition home or self-care (01) ==
LOC: JD.ED 12:00
DX: L23.9 Allergic contact dermatitis, unspecified cause (principal); K21.9 Gastro-esophageal reflux disease without esophagitis; R06.2 Wheezing; J84.10 Pulmonary fibrosis, unspecified; Z88.1 Allergy status to other antibiotic agents; Z91.040 Latex allergy status; Z79.899 Other long term (current) drug therapy; Z79.82 Long term (current) use of aspirin; Z87.891 Personal history of nicotine dependence
CPT/HCPCS: 36415; 71046; 71046-26; 80053; 83880; 85025; 85610; 86140; 86308; 94640; 99284-25; J7620-GY

== ENCOUNTER 2019-05-19 14:24 | Emergency (ER) | payer BC ==
[2019-05-19 14:58] VITALS: BP 118/87
[2019-05-19] MEDS ORDERED: Sodium Chloride 0.9% 10 ML Syringe FLUSH PRN ×2 (15:26→18:03)
[2019-05-19] MEDS ORDERED: Albuterol/Ipratropium 3.0-0.5 MG/3 ML Neb Soln NEB ONE (15:26)
--- NOTE | 2019-05-19 15:33 | EDM.PDOC ---
ED HPI GENERAL MEDICAL PROBLEM - General Chief Complaint: Respiratory Problem Stated Complaint: HARD TIME BREATHING Time Seen by Provider: 05/19/19 15:31 Source of Information: Reports: Patient History Limitations: Reports: No Limitations - History of Present Illness INITIAL COMMENTS - FREE TEXT/NARRATIVE: 63-year-old female presents for evaluation and treatment of shortness of breath. Patient reports gradual onset. Has really appreciate symptoms have worsened since Saturday. She reports shortness of breath primarily with exertion. She reports a productive cough and congestion. She states that she is been experiencing some chest pain, lightheadedness and dizziness. She has some subjective fevers and chills. No syncope. Has been taking [id number]-bybyafp Tylenol and nukol for symptoms. Last dose of Tylenol was around noon. Patient reports she is on O2 3L nasal canula at home with sleeping and on exertion. Primary care providers Dilia Dent. She also sees pulmonology in [place]. Next appointment is July 01 at she has a history of lung cancer and IPF. Chest Pain Score (Numeric/FACES): 4 - Related Data Allergies Allergy/AdvReac Type Severity Reaction Status Date / Time amoxicillin Allergy Nausea and Verified 05/19/19 14:58 Vomiting latex Allergy Rash Verified 05/19/19 14:58 levofloxacin Allergy Other Verified 05/19/19 14:58 perfume Allergy Airway Verified 05/19/19 14:58 Tightness bananas Allergy Vomiting Uncoded 05/19/19 14:58 Home Meds: Home Meds Acetaminophen [Tylenol Arthritis Pain] 650 mg PO Q6H PRN 01/22/16 [History] Omeprazole [Prilosec] 20 mg PO DAILY 01/22/16 [History] Pramipexole Di-HCl [Mirapex] 1.5 mg PO BEDTIME 01/22/16 [History] traZODone 50 mg PO BEDTIME 01/29/17 [History] Albuterol Sulfate [Proair Respiclick] 1 - 2 inh INH Q4H PRN 04/26/18 [History] Ascorbic Acid [C-1000 with Delfina Hips] 1,000 mg PO DAILY 04/26/18 [History] Aspirin 325 mg PO DAILY 04/26/18 [History] Melatonin 5 mg PO BEDTIME PRN 04/26/18 [History] guaiFENesin [Mucinex] 600 mg PO BID 04/26/18 [History] Calcium Carbonate/Vitamin D3 [Calcium Carb 500 MG] 400 mg PO BID 07/18/18 [ History] Cholecalciferol (Vitamin D3) [Vitamin D3] 1,000 unit PO DAILY 07/18/18 [History] Fluticasone Propionate [Flonase Allergy Relief] 2 spray NASBOTH BID PRN [History] Magnesium Oxide 400 mg PO DAILY 07/18/18 [History] Spironolactone [Aldactone] 25 mg PO DAILY #30 tablet 07/21/18 [Rx] Albuterol/Ipratropium [DuoNeb 3.0-0.5 MG/3 ML] 1 dose INH BID PRN 05/19/19 [ History] Fluticasone/Vilanterol [Breo Ellipta 100-25 MCG Inhalation Kit] 1 dose INH DAILY 05/19/19 [History] Furosemide [Lasix] 20 mg PO WITHLUNCH 05/19/19 [History] Furosemide [Lasix] 40 mg PO QAM 05/19/19 [History] predniSONE [Prednisone] 20 mg PO BID #10 tablet 05/19/19 [Rx] Past Medical History HEENT History: Reports: Impaired Vision Other HEENT History: wears glasses Respiratory History: Reports: Bronchitis, Recurrent, COPD, Pneumonia, Recurrent , Pulmonary Fibrosis, SOB, Other (See Below) Other Respiratory History: Upper L) lobe of lung removed. Gastrointestinal History: Reports: GERD Genitourinary History: Reports: UTI, Recurrent FLAT [employer] JEWEL History: Reports: Musculoskeletal History: Reports: Back Pain, Chronic, Osteoarthritis Neurological History: Reports: Other (See Below) Psychiatric History: Reports: Depression Hematologic History: Reports: Blood Transfusion(s) Oncologic (Cancer) History: Reports: Lung Dermatologic History: Reports: Psoriasis - Infectious Disease History Infectious Disease History: Reports: Chicken Pox, Measles, Mumps - Past Surgical History HEENT Surgical History: Reports: None Respiratory Surgical History: Reports: None, Lung Resection GI Surgical History: Reports: None Female Surgical History: Reports: Hysterectomy Musculoskeletal Surgical History: Reports: Hip Replacement, Knee Replacement, Other (See Below) Other Musculoskeletal Surgeries/Procedures:: hip revision. Oncologic Surgical History: Reports: Lobectomy Dermatological Surgical History: Reports: None Social & Family History - Family History Family Medical History: Noncontributory Neurological: Reports: CVA Oncologic: Reports: Colon - Tobacco Use Smoking Status *Q: Former Smoker Used Tobacco, but Quit: Yes Month/Year Tobacco Last Used: 1 year ago - Caffeine Use Caffeine Use: Reports: Soda - Recreational Drug Use Recreational Drug Use: No - Living Situation & Occupation Living situation: Reports: , with Spouse Occupation: Employed ED ROS GENERAL - Review of Systems Review Of Systems: See Below Constitutional: Reports: Fever (subjective), Chills HEENT: Reports: Other (reports congestion) Respiratory: Reports: Shortness of Breath, Cough, Sputum Cardiovascular: Reports: Chest Pain Neurological: Denies: Dizziness, Syncope ED EXAM, GENERAL - Physical Exam Exam: See Below Exam Limited By: No Limitations General Appearance: Alert, WD/WN, No Apparent Distress Eye Exam: Bilateral Eye: Normal Inspection Ears: Normal External Exam, Normal Canal, Hearing Grossly Normal, Normal TMs Nose: Normal Inspection Throat/Mouth: Normal Inspection, Normal Lips, Normal Oropharynx, Normal Voice, No Airway Compromise Neck: Normal Inspection Respiratory/Chest: No Respiratory Distress, Lungs Clear, Wheezing Cardiovascular: Normal Peripheral Pulses, Regular Rate, Rhythm, No Murmur Neurological: Alert, Oriented, Normal Cognition Psychiatric: Normal Affect, Normal Mood Skin Exam: Warm, Dry, Normal Color EKG INTERPRETATION EKG Date: 05/19/19 Time: 15:40 Rhythm: NSR Rate (Beats/Min): 84 [place]: Normal P-Wave: Present QRS: Normal ST-T: Normal QT: Normal EKG Interpretation Comments: NSR at [address] segment changes. PVC. right axis deviation. Reviewed by myself and dr. Nails . Course - Vital Signs Last Recorded V/S: Last Vital Signs Temp 98 F 05/19/19 14:53 Pulse 96 05/19/19 14:53 Resp 13 05/19/19 14:53 BP 118/87 05/19/19 14:53 Pulse Ox 93 L 05/19/19 15:39 - Orders/Labs/Meds Labs: Laboratory Tests 05/19/19 05/19/19 05/19/19 Range/Units 15:35 15:35 15:35 WBC 6.72 (3.98-10.04) K/mm3 RBC 4.70 (3.98-5.22) M/mm3 Hgb 13.6 (11.2-15.7) gm/L Hct 44.0 (34.1-44.9) % MCV 93.6 (79.4-94.8) fl MCH 28.9 (25.6-32.2) pg MCHC 30.9 L (32.2-35.5) g/dl RDW Std Deviation 44.7 (36.4-46.3) fL Plt Count 341 (182-369) K/mm3 MPV 8.1 L (9.4-12.3) fl Neutrophils % (Manual) 56 (40-60) % Band Neutrophils % 0 (0-10) % Lymphocytes % (Manual) 33 (20-40) % Atypical Lymphs % 0 % Monocytes % (Manual) 9 (2-10) % Eosinophils % (Manual) 2 (0.7-5.8) % Basophils % (Manual) 0 L (0.1-1.2) Platelet Estimate Adequate RBC Morph Comment Normal D-Dimer, Quantitative 0.68 H (0.19-0.50) mg/L Sodium 137 (136-145) mEq/L Potassium 4.2 (3.5-5.1) mEq/L Chloride 99 (98-107) mEq/L Carbon Dioxide 29 (21-32) mEq/L Anion Gap 13.2 (5-15) BUN 20 H (7-18) mg/dL Creatinine 0.7 (0.55-1.02) mg/dL Est Cr Clr Drug Dosing 65.06 mL/min Estimated GFR (MDRD) > 60 (>60) mL/min BUN/Creatinine Ratio 28.6 H (14-18) Glucose 102 (80-115) mg/dL Calcium 8.8 (8.5-10.1) mg/dL Total Bilirubin 0.3 (0.2-1.0) mg/dL AST 15 (15-37) U/L ALT 16 (14-59) U/L Alkaline Phosphatase 97 (46-116) U/L Troponin I < 0.017 (0.00-0.056) ng/mL C-Reactive Protein 0.5 (<1.0) mg/dL Total Protein 7.7 (6.4-8.2) g/dl Albumin 3.7 (3.4-5.0) g/dl Globulin 4.0 gm/dL Albumin/Globulin Ratio 0.9 L (1-2) Meds: Medications Discontinued Medications Generic Name Dose Route Start Last Admin Trade Name Freq PRN Reason Stop Dose Admin Albuterol/Ipratropium 3 ml 05/19/19 15:26 05/19/19 15:39 Duoneb 3.0-0.5 Mg/3 Ml NEB 05/19/19 15:27 3 ml ONETIME ONE Administration Sodium Chloride 500 mls @ 999 mls/hr 05/19/19 18:01 05/19/19 18:17 Normal Saline IV 05/19/19 18:31 999 mls/hr ONETIME ONE Administration Sodium Chloride 100 mls @ 80 mls/hr 05/19/19 18:15 05/19/19 18:18 Normal Saline IV 80 mls/hr ASDIRECTED YOSEPH Administration Iopamidol 100 ml 05/19/19 18:03 05/19/19 18:18 Isovue-370 (76%) IVPUSH 05/19/19 18:04 100 ml ONETIME ONE Administration Sodium Chloride 10 ml 05/19/19 15:26 05/19/19 18:18 Saline Flush FLUSH 10 ml ASDIRECTED PRN Administration Keep Vein Open Sodium Chloride 10 ml 05/19/19 18:03 05/19/19 15:35 Saline Flush FLUSH 10 ml ONETIME PRN Administration KEEP VEIN OPEN - Radiology Interpretation Free Text/Narrative:: CT chest Technique: Multiple axial sections through the chest were obtained. Intravenous contrast was utilized. Study has been performed as a pulmonary angiogram protocol. Comparison: Previous chest CT of 07/18/18. Findings: Pulmonary arteries are well-opacified. No filling defects are seen to indicate pulmonary embolism. No adenopathy is seen within the chest. Ascending aorta is slightly ectatic. Descending aorta is normal in size. No focal aneurysm is seen. Coronary artery calcification is seen. Heart is enlarged. Cyst is noted within the left kidney which is felt to be incidental. Diffuse interstitial change is seen within the right lung which is stable. Lesser interstitial fibrosis is noted within the left lung. No acute parenchymal change is appreciated. Stable appearing left sixth rib fractures are seen. Anterior fracture remains ununited. Posterior fracture shows bridging callus. Impression: 1. No findings of pulmonary embolism. 2. Interstitial fibrosis which appears similar to prior chest CT. 3. Other findings as noted above which are also stable. Chest: PA and lateral views of the chest were obtained. Comparison: Prior chest x-ray of 01/15/19. Diffuse right-sided interstitial change is seen. These findings are similar to previous exam. Lungs otherwise are clear. Heart size is mildly enlarged. Tortuous thoracic aorta is seen. Possible emphysematous change is noted. Mild degenerative change is scattered within the spine with scoliosis. Impression: 1. Interstitial change within the right lung which appears fairly stable most likely representing fibrosis. 2. Other findings as noted above. Nothing acute is definitely appreciated. - Re-Assessments/Exams Free Text/Narrative Re-Assessment/Exam: 05/19/19 19:37 Reviewed the labs, ekg and imaging with the patient. Will discharge her home at this time. Will put her on some prednisone. Follow-up with PCP. Discharge instructions as documented. Departure - Departure Time of Disposition: 19:38 Disposition: Home, Self-Care 01 Condition: Fair Clinical Impression: Wheezing - Discharge Information *PRESCRIPTION DRUG MONITORING PROGRAM REVIEWED*: No *COPY OF PRESCRIPTION DRUG MONITORING REPORT IN PATIENT ODESSA: No Prescriptions: predniSONE [Prednisone] 20 mg PO BID #10 tablet Instructions: Bronchospasm, Adult Referrals: Shari Franklin PA-C [Primary Care Provider] - Forms: ED Department Discharge Additional Instructions: prednisone 1 tab PO bid x 5 days. continue breathing treatments as prescribed. follow-up with PCP or Saturday for a recheck of your symptoms. please return to the ER should your symptoms change or worsen.
[2019-05-19] MEDS ORDERED: Sodium Chloride 0.9% 500 ML IV ONE (18:01)
[2019-05-19] MEDS ORDERED: Iopamidol 755 Mg/ML 100 ML Bottle IVPUSH ONE (18:03)
[2019-05-19] MEDS ORDERED: Sodium Chloride 0.9% 100 ML IV SCH (18:15)
--- NOTE | 2019-05-19 18:46 | CT ---
CT chest Technique: Multiple axial sections through the chest were obtained. Intravenous contrast was utilized. Study has been performed as a pulmonary angiogram protocol. Comparison: Previous chest CT of 07/18/18. Findings: Pulmonary arteries are well-opacified. No filling defects are seen to indicate pulmonary embolism. No adenopathy is seen within the chest. Ascending aorta is slightly ectatic. Descending aorta is normal in size. No focal aneurysm is seen. Coronary artery calcification is seen. Heart is enlarged. Cyst is noted within the left kidney which is felt to be incidental. Diffuse interstitial change is seen within the right lung which is stable. Lesser interstitial fibrosis is noted within the left lung. No acute parenchymal change is appreciated. Stable appearing left sixth rib fractures are seen. Anterior fracture remains ununited. Posterior fracture shows bridging callus. Impression: 1. No findings of pulmonary embolism. 2. Interstitial fibrosis which appears similar to prior chest CT. 3. Other findings as noted above which are also stable. Diagnostic code #2
--- NOTE | 2019-05-20 07:00 | CR ---
Chest: PA and lateral views of the chest were obtained. Comparison: Prior chest x-ray of 01/15/19. Diffuse right-sided interstitial change is seen. These findings are similar to previous exam. Lungs otherwise are clear. Heart size is mildly enlarged. Tortuous thoracic aorta is seen. Possible emphysematous change is noted. Mild degenerative change is scattered within the spine with scoliosis. Impression: 1. Interstitial change within the right lung which appears fairly stable most likely representing fibrosis. 2. Other findings as noted above. Nothing acute is definitely appreciated. Diagnostic code #2
== END 2019-05-19 19:49 | disposition home or self-care (01) ==
LOC: JD.ED 14:24
DX: R06.2 Wheezing (principal); K21.9 Gastro-esophageal reflux disease without esophagitis; J44.9 Chronic obstructive pulmonary disease, unspecified; M19.90 Unspecified osteoarthritis, unspecified site; Z88.1 Allergy status to other antibiotic agents; Z91.040 Latex allergy status; Z91.048 Other nonmedicinal substance allergy status; Z79.899 Other long term (current) drug therapy; Z79.82 Long term (current) use of aspirin; Z79.51 Long term (current) use of inhaled steroids; Z90.710 Acquired absence of both cervix and uterus; Z87.891 Personal history of nicotine dependence
CPT/HCPCS: 36415; 71046; 71275; 80053; 84484; 85007; 85027; 85379; 86140; 93005; 94640; 96360; 99285; J7030; J7040; Q9967; J7620-GY

== ENCOUNTER 2019-06-05 19:12 | Emergency (ER) | payer BC ==
[2019-06-05 19:21] VITALS: BP 100/79; PULSE 90
[2019-06-05] MEDS ORDERED: Alum Hydrox/Mag Hydrox/Simeth 30 ML, Lidocaine 2% 15 ML PO STA ×2 (20:18)
--- NOTE | 2019-06-05 20:22 | EDM.PDOC ---
ED HPI GENERAL MEDICAL PROBLEM - General Chief Complaint: Chest Pain Stated Complaint: CHEST PAIN Time Seen by Provider: 06/05/19 19:46 Source of Information: Reports: Patient, Family () History Limitations: Reports: No Limitations - History of Present Illness INITIAL COMMENTS - FREE TEXT/NARRATIVE: Mrs. Willson is a very pleasant 63-year-old woman who states that she has been experiencing sternal and medial pectoralis area pain on and off for the past 2 months. She states that when it is present, it feels extremity is sitting on her chest. She also has occasional sharp pain on the left side of her chest. She describes the sensations as a pain, not a discomfort. When present, she has dyspnea and nausea, but no diaphoresis or sense of impending doom. Her pain is made worse with exertion, but can also come on with rest. She states that she underwent a cardiac stress test last Saturday, finding 2 areas of decreased perfusion. She will be following up with a Gas Leak Tester this coming Saturday, , possibly for a coronary angiogram. The patient is also complaining of GERD symptoms. She states that she took an 81 mg aspirin when her symptoms recurred again tonight. The patient's PCP is DON Aarna. Her Oncologist is Dr. Juan Morales. Treatments PATTERN DRAFTER: Reports: Aspirin Middle Chest Pain Score (Numeric/FACES): 8 - Related Data Allergies Allergy/AdvReac Type Severity Reaction Status Date / Time amoxicillin Allergy Nausea and Verified 06/05/19 19:21 Vomiting latex Allergy Rash Verified 06/05/19 19:21 levofloxacin Allergy Other Verified 06/05/19 19:21 perfume Allergy Airway Verified 06/05/19 19:21 Tightness bananas Allergy Vomiting Uncoded 05/19/19 14:58 Home Meds: Home Meds Acetaminophen [Tylenol Arthritis Pain] 650 mg PO Q6H PRN 01/22/16 [History] Omeprazole [Prilosec] 20 mg PO DAILY 01/22/16 [History] Pramipexole Di-HCl [Mirapex] 1.5 mg PO BEDTIME 01/22/16 [History] traZODone 50 mg PO BEDTIME 01/29/17 [History] Albuterol Sulfate [Proair Respiclick] 1 - 2 inh INH Q4H PRN 04/26/18 [History] Ascorbic Acid [C-1000 with Delfina Hips] 1,000 mg PO DAILY 04/26/18 [History] Aspirin 325 mg PO DAILY 04/26/18 [History] Melatonin 5 mg PO BEDTIME PRN 04/26/18 [History] guaiFENesin [Mucinex] 600 mg PO BID 04/26/18 [History] Cholecalciferol (Vitamin D3) [Vitamin D3] 1,000 unit PO DAILY 07/18/18 [History] Fluticasone Propionate [Flonase Allergy Relief] 2 spray NASBOTH BID PRN [History] Spironolactone [Aldactone] 25 mg PO DAILY #30 tablet 07/21/18 [Rx] Albuterol/Ipratropium [DuoNeb 3.0-0.5 MG/3 ML] 1 dose INH BID PRN 05/19/19 [ History] Fluticasone/Vilanterol [Breo Ellipta 100-25 MCG Inhalation Kit] 1 dose INH DAILY 05/19/19 [History] Furosemide [Lasix] 20 mg PO WITHLUNCH 05/19/19 [History] Furosemide [Lasix] 40 mg PO QAM 05/19/19 [History] Past Medical History HEENT History: Reports: Impaired Vision Other HEENT History: wears glasses Respiratory History: Reports: Pulmonary Fibrosis (idiopathic, on home O2) Gastrointestinal History: Reports: GERD MOTOR 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: Reports: Musculoskeletal History: Reports: Back Pain, Chronic (DDD), Osteoarthritis ( spine) Neurological History: Reports: Other (See Below) (Restless leg syndrome) Psychiatric History: Reports: Depression Endocrine/Metabolic History: Reports: Obesity/BMI 30+ Hematologic History: Reports: Blood Transfusion(s) Oncologic (Cancer) History: Reports: Lung (s/p left upper lobectomy 2018) Dermatologic History: Reports: Psoriasis - Infectious Disease History Infectious Disease History: Reports: Chicken Pox, Measles, Mumps - Past Surgical History HEENT Surgical History: Reports: Oral Surgery (wisdom teeth extraction) Female Surgical History: Reports: D&C (x 1), Hysterectomy (partial), Tubal Ligation (bilateral) Musculoskeletal Surgical History: Reports: Hip Replacement (right, with revision ), Knee Replacement (right), ORIF (left 5th finger, right femur) Oncologic Surgical History: Reports: Lobectomy (left upper, 2018) Social & Family History - Family History Family Medical History: Noncontributory Neurological: Reports: CVA Oncologic: Reports: Colon - Tobacco Use Smoking Status *Q: Former Smoker Years of Tobacco use: 43 Packs/Tins Daily: 2 Month/Year Tobacco Last Used: Quit 2018 - Caffeine Use Caffeine Use: Reports: Soda - Alcohol Use Alcohol Use History: No - Recreational Drug Use Recreational Drug Use: No - Living Situation & Occupation Living situation: Reports: , with Spouse 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 Musculoskeletal: Reports: Back Pain (chronic) ED EXAM, GENERAL - Physical Exam Exam: See Below Exam Limited By: No Limitations General Appearance: Alert, WD/WN, No Apparent Distress Eye Exam: Bilateral Eye: EOMI, Normal Inspection Ears: Normal External Exam, Hearing Grossly Normal Nose: Normal Inspection Throat/Mouth: Normal Inspection, Normal Lips, Normal Voice, No Airway Compromise Head: Atraumatic, Normocephalic Neck: Normal Inspection, Full Range of Motion Respiratory/Chest: No Respiratory Distress, Lungs Clear, Normal Breath Sounds, No Accessory Muscle Use, Other (Reproducible tenderness to palpation of the patient's sternum and medial pectoralis muscles, bilaterally. Pain is also reproduced with the patient pressing her hands together with her arms outstretched in front of her chest.) Cardiovascular: Normal Peripheral Pulses, Regular Rate, Rhythm, No Edema, No Gallop, No JVD, No Murmur, No Rub Peripheral Pulses: 4+: Radial (L), Radial (R) GI/Abdominal: Normal Bowel Sounds, Soft, Non-Tender (including the epigastrium) , No Organomegaly, No Distention, No Abnormal Bruit, No Mass (Female) Exam: Deferred Rectal (Female) Exam: Deferred Back Exam: Normal Inspection, Full Range of Motion, NT Extremities: Normal Inspection, Normal Range of Motion, No Pedal Edema, Normal Capillary Refill Neurological: Alert, Oriented, Normal Cognition, No Motor/Sensory Deficits Psychiatric: Normal Affect Skin Exam: Warm, Dry, Intact, Normal Color, No Rash EKG INTERPRETATION EKG Date: 06/05/19 Time: 19:17 Rhythm: NSR Rate (Beats/Min): 87 [place]: RAD-Right [place] Deviation P-Wave: Enlarged (LAE) QRS: Normal ST-T: Normal QT: Normal Comparison: No Change (05/19/2019) Course - Vital Signs Last Recorded V/S: Last Vital Signs Temp 36.3 C 06/05/19 19:18 Pulse 90 06/05/19 19:18 Resp 16 06/05/19 19:18 BP 100/79 06/05/19 19:18 Pulse Ox 100 06/05/19 19:18 - Orders/Labs/Meds Labs: Laboratory Tests 06/05/19 06/05/19 06/05/19 Range/Units 20:29 20:29 20:29 WBC (3.98-10.04) K/mm3 RBC (3.98-5.22) M/mm3 Hgb (11.2-15.7) gm/dl Hct (34.1-44.9) % MCV (79.4-94.8) fl MCH (25.6-32.2) pg MCHC (32.2-35.5) g/dl RDW Std Deviation (36.4-46.3) fL Plt Count (182-369) K/mm3 MPV (9.4-12.3) fl Neut % (Auto) (34.0-71.1) % Lymph % (Auto) (19.3-51.7) % Travis % (Auto) (4.7-12.5) % Eos % (Auto) (0.7-5.8) Baso % (Auto) (0.1-1.2) % Neut # (Auto) (1.56-6.13) K/mm3 Lymph # (Auto) (1.18-3.74) K/mm3 Travis # (Auto) (0.24-0.36) K/mm3 Eos # (Auto) (0.04-0.36) K/mm3 Baso # (Auto) (0.01-0.08) K/mm3 D-Dimer, Quantitative 0.55 H (0.19-0.50) mg/L Sodium 139 (136-145) mEq/L Potassium 3.6 (3.5-5.1) mEq/L Chloride 105 (98-107) mEq/L Carbon Dioxide 23 (21-32) mEq/L Anion Gap 14.6 (5-15) BUN 20 H (7-18) mg/dL Creatinine 0.7 (0.55-1.02) mg/dL Est Cr Clr Drug Dosing 62.07 mL/min Estimated GFR (MDRD) > 60 (>60) mL/min BUN/Creatinine Ratio 28.6 H (14-18) Glucose 103 (80-115) mg/dL Calcium 8.9 (8.5-10.1) mg/dL Total Bilirubin 0.2 (0.2-1.0) mg/dL AST 13 L (15-37) U/L ALT 14 (14-59) U/L Alkaline Phosphatase 82 (46-116) U/L Troponin I < 0.017 (0.00-0.056) ng/mL NT-Pro-B Natriuret Pep 174 H (0-125) pg/mL Total Protein 7.3 (6.4-8.2) g/dl Albumin 3.6 (3.4-5.0) g/dl Globulin 3.7 gm/dL Albumin/Globulin Ratio 1.0 (1-2) 06/05/19 Range/Units 20:29 WBC 7.03 (3.98-10.04) K/mm3 RBC 4.66 (3.98-5.22) M/mm3 Hgb 13.5 (11.2-15.7) gm/dl Hct 42.7 (34.1-44.9) % MCV 91.6 (79.4-94.8) fl MCH 29.0 (25.6-32.2) pg MCHC 31.6 L (32.2-35.5) g/dl RDW Std Deviation 44.5 (36.4-46.3) fL Plt Count 313 (182-369) K/mm3 MPV 7.9 L (9.4-12.3) fl Neut % (Auto) 55.1 (34.0-71.1) % Lymph % (Auto) 34.3 (19.3-51.7) % Travis % (Auto) 7.5 (4.7-12.5) % Eos % (Auto) 2.4 (0.7-5.8) Baso % (Auto) 0.4 (0.1-1.2) % Neut # (Auto) 3.87 (1.56-6.13) K/mm3 Lymph # (Auto) 2.41 (1.18-3.74) K/mm3 Travis # (Auto) 0.53 H (0.24-0.36) K/mm3 Eos # (Auto) 0.17 (0.04-0.36) K/mm3 Baso # (Auto) 0.03 (0.01-0.08) K/mm3 D-Dimer, Quantitative (0.19-0.50) mg/L Sodium (136-145) mEq/L Potassium (3.5-5.1) mEq/L Chloride (98-107) mEq/L Carbon Dioxide (21-32) mEq/L Anion Gap (5-15) BUN (7-18) mg/dL Creatinine (0.55-1.02) mg/dL Est Cr Clr Drug Dosing mL/min Estimated GFR (MDRD) (>60) mL/min BUN/Creatinine Ratio (14-18) Glucose (80-115) mg/dL Calcium (8.5-10.1) mg/dL Total Bilirubin (0.2-1.0) mg/dL AST (15-37) U/L ALT (14-59) U/L Alkaline Phosphatase (46-116) U/L Troponin I (0.00-0.056) ng/mL NT-Pro-B Natriuret Pep (0-125) pg/mL Total Protein (6.4-8.2) g/dl Albumin (3.4-5.0) g/dl Globulin gm/dL Albumin/Globulin Ratio (1-2) Meds: Medications Discontinued Medications Generic Name Dose Route Start Last Admin Trade Name Omkarq PRN Reason Stop Dose Admin Al Hydroxide/Mg Hydroxide 30 0 ml 06/05/19 20:18 06/05/19 20:30 ml/ Lidocaine HCl 15 ml PO 06/05/19 20:19 45 ml ONETIME STA Administration - Re-Assessments/Exams Free Text/Narrative Re-Assessment/Exam: 06/05/19 20:19 Because the patient failed a stress test last Saturday, she likely has significant coronary artery disease, however, because her chest pain is reproducible with palpation, as well as with pressing her hands together with her arms outstretched in front of her chest, her current chest pain appears to be musculoskeletal in etiology, and is unlikely anginal. Her ECG is unremarkable , despite being obtained while she is having chest pain. I have ordered a workup that includes blood work and a chest x-ray, and in the meantime, the patient will be given a GI cocktail to address her GERD. 06/05/19 21:06 Notified by Carol COELHO that the GI cocktail helped the patient's GERD symptoms. 06/05/19 21:36 2-view chest radiograph reviewed. The cardiac silhouette is at the upper limits of normal, however, no pulmonary vascular congestion or pleural effusions are seen to suggest decompensated CHF. There is a diffuse interstitial infiltrate, prominently on the right, consistent with pulmonary fibrosis, but no focal infiltrate seen. No pneumothorax. There is mild hyperinflation and mild bilateral diaphragmatic flattening, consistent with COPD. Aortosclerosis is noted. There may be slight thoracolumbar scoliosis. Formal read per the Radiologist pending. The patient's CBC is unremarkable. Her CMP is remarkable for BUN slightly elevated at 20, with a normal creatinine. The remainder of her CMP is unremarkable. Her troponin is undetectably low. Her D-dimer is slightly elevated at 0.55. Her BNP is slightly elevated at 174. I believe the patient's D-dimer is normal for her age, and not consistent with a pulmonary embolus. 06/05/19 21:43 Test results discussed with the patient and her . As above, I believe the patient's chest pain is musculoskeletal in etiology, combined with some GERD. I suggested that the patient increase her Nexium to twice a day, until she can discuss the issue with her prescribing provider. I explained that my diagnosis today do not mean that she does not have coronary artery disease; she almost certainly does have coronary disease, only that her presenting symptoms today are not due to the coronary artery disease. The patient appears to understand that distinction. Departure - Departure Time of Disposition: 21:45 Disposition: Home, Self-Care 01 Condition: Good Clinical Impression: GERD (gastroesophageal reflux disease), Musculoskeletal chest pain - Discharge Information *PRESCRIPTION DRUG MONITORING PROGRAM REVIEWED*: Not Applicable *COPY OF PRESCRIPTION DRUG MONITORING REPORT IN PATIENT ODESSA: Not Applicable Instructions: Nonspecific Chest Pain, [id number], Musculoskeletal Pain, Gastroesophageal Reflux Disease, Adult, [id number] Referrals: Shari Franklin PA-C [Primary Care Provider] - Juan Morales MD [Ordering Only Provider] - Forms: ED Department Discharge Additional Instructions: You were seen in the emergency room for recurrent central chest pain, along with shortness of breath, nausea, and acid reflux symptoms. Workup in the ER included blood work, a chest x-ray, and an ECG. Your entire workup was unremarkable. You have not suffered a heart attack. You do not have pneumonia or a collapsed lung. You do not have a blood clot in your lungs. You are not in congestive heart failure. Based on your history, physical examination, and ER tests, the cause of your chest pain appears to be musculoskeletal in etiology. For this, you may take [id number] Tylenol and a muscle relaxant. Your acid reflux symptoms improved following a GI cocktail. For this, we recommend that you increase your Nexium to one tablet twice a day. As discussed, just because you have musculoskeletal chest pain and GERD does not mean that you do not have significant coronary artery disease. We recommend that you proceed with the cardiac testing currently scheduled for this coming 06/10/2019. If any other problems, please do not hesitate to return to the ER.
--- NOTE | 2019-06-08 07:10 | CR ---
Chest: Two views of the chest were obtained. Comparison: Prior chest x-ray 05/19/19. Interstitial change is seen. Interstitial change is felt compatible with stable fibrosis. Heart is slightly enlarged. Tortuous thoracic aorta is seen. Diaphragms are flattened on the lateral view compatible with emphysematous change. Mild disc space narrowing is noted within the spine with mild scoliosis and osteopenia. Impression: 1. Findings as noted above. Nothing acute is appreciated. Diagnostic code #2
== END 2019-06-05 22:10 | disposition home or self-care (01) ==
LOC: JD.ED 19:12
DX: R07.89 Other chest pain (principal); K21.9 Gastro-esophageal reflux disease without esophagitis; M19.90 Unspecified osteoarthritis, unspecified site; E66.9 Obesity, unspecified; Z68.33 Body mass index [BMI] 33.0-33.9, adult; Z87.891 Personal history of nicotine dependence; Z88.1 Allergy status to other antibiotic agents; Z91.040 Latex allergy status; Z88.8 Allergy status to other drugs, medicaments and biological substances; Z91.018 Allergy to other foods; Z91.048 Other nonmedicinal substance allergy status; Z79.82 Long term (current) use of aspirin; Z79.899 Other long term (current) drug therapy
CPT/HCPCS: 36415; 71046; 80053; 83880; 84484; 85025; 85379; 93005; 99285; A9270; 93010; 99284

== ENCOUNTER 2019-06-27 13:07 | Emergency (ER) | payer BC ==
[2019-06-27 13:17] VITALS: BP 133/81; PULSE 84
[2019-06-27] MEDS ORDERED: Sodium Chloride 0.9% 10 ML Syringe FLUSH PRN (13:23)
[2019-06-27] MEDS ORDERED: Ondansetron 4 MG/2 ML SDV IVPUSH ONE (13:24)
[2019-06-27] MEDS ORDERED: Aspirin 81 MG Tab.Chew PO ONE (13:24)
--- NOTE | 2019-06-27 14:50 | CR ---
Chest: Portable view of the chest was obtained. Comparison: Prior chest x-ray of 06/17/19. Interstitial change is noted within the right lung. This is either stable or improved from previous exam. No acute parenchymal change is seen within either lung. Heart size and mediastinum are within normal limits for portable technique. Bony structures are grossly intact. Impression: 1. Interstitial change within the right lung either stable or improved from prior chest x-ray. 2. Other findings also stable. Nothing acute is appreciated. Diagnostic code #2
[2019-06-27] MEDS ORDERED: methylPREDNISolone Sodium Succinate 125 MG/2 ML SDV IVPUSH ONE (14:57)
[2019-06-27] MEDS ORDERED: Albuterol/Ipratropium 3.0-0.5 MG/3 ML Neb Soln NEB ONE (14:57)
--- NOTE | 2019-06-27 15:36 | EDM.PDOC ---
ED HPI GENERAL MEDICAL PROBLEM - General Chief Complaint: Chest Pain Stated Complaint: CHEST PAIN Time Seen by Provider: 06/27/19 13:20 Source of Information: Reports: Patient, Family History Limitations: Reports: No Limitations - History of Present Illness INITIAL COMMENTS - FREE TEXT/NARRATIVE: The patient presents with chest pain and shortness of breath. This started at home. She had the pain go to her left arm. She has oxygen at home as needed so she took some oxygen. She recently had a stent in her heart 10 days ago. She has no fever, chills, cough, abdominal pain, or vomiting. She has no swelling in her legs or pain in her legs. She did have some nausea. Onset: Sudden Duration: Hour(s): Location: Reports: Chest Quality: Reports: Pressure Severity: Moderate Improves with: Reports: None Worsens with: Reports: None Associated Symptoms: Reports: Chest Pain, Shortness of Breath. Denies: Cough, Fever/Chills, Headaches, Nausea/Vomiting Chest Pain Score (Numeric/FACES): 7 - Related Data Allergies Allergy/AdvReac Type Severity Reaction Status Date / Time amoxicillin Allergy Nausea and Verified 06/27/19 13:17 Vomiting latex Allergy Rash Verified 06/27/19 13:17 levofloxacin Allergy Other Verified 06/27/19 13:17 perfume Allergy Airway Verified 06/27/19 13:17 Tightness bananas Allergy Vomiting Uncoded 06/27/19 13:17 Home Meds: Home Meds Acetaminophen [Tylenol Arthritis Pain] 650 mg PO Q6H PRN 01/22/16 [History] Omeprazole [Prilosec] 20 mg PO DAILY 01/22/16 [History] Pramipexole Di-HCl [Mirapex] 1.5 mg PO BEDTIME 01/22/16 [History] traZODone 50 mg PO BEDTIME 01/29/17 [History] Albuterol Sulfate [Proair Respiclick] 1 - 2 inh INH Q4H PRN 04/26/18 [History] Ascorbic Acid [C-1000 with Delfina Hips] 1,000 mg PO DAILY 04/26/18 [History] Melatonin 5 mg PO BEDTIME PRN 04/26/18 [History] guaiFENesin [Mucinex] 600 mg PO BID 04/26/18 [History] Cholecalciferol (Vitamin D3) [Vitamin D3] 1,000 unit PO DAILY 07/18/18 [History] Fluticasone Propionate [Flonase Allergy Relief] 2 spray NASBOTH BID PRN [History] Spironolactone [Aldactone] 25 mg PO DAILY #30 tablet 07/21/18 [Rx] Albuterol/Ipratropium [DuoNeb 3.0-0.5 MG/3 ML] 1 dose INH BID PRN 05/19/19 [ History] Fluticasone/Vilanterol [Breo Ellipta 100-25 MCG Inhalation Kit] 1 dose INH DAILY 05/19/19 [History] Furosemide [Lasix] 40 mg PO QAM 05/19/19 [History] Aspirin 81 mg PO DAILY 06/27/19 [History] Clopidogrel [Plavix] 75 mg PO DAILY 06/27/19 [History] Codeine/Promethazine [Phenergan with Codeine] 5 - 10 ml PO Q6HR PRN #300 ml 09/03 [Rx] Pramipexole [Mirapex] 1.5 mg PO BEDTIME 06/27/19 [History] Sertraline [Zoloft] 50 mg PO DAILY 06/27/19 [History] atorvaSTATin [Lipitor] 40 mg PO DAILY 06/27/19 [History] hydrOXYzine HCl [Hydroxyzine HCl] 25 mg PO BEDTIME PRN 06/27/19 [History] Past Medical History HEENT History: Reports: Impaired Vision Other HEENT History: wears glasses Cardiovascular History: Reports: Angina Other Cardiovascular History: Stent LD4 06/10/19. Respiratory History: Reports: Pulmonary Fibrosis Other Respiratory History: Upper L) lobe of lung removed. 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 History: Reports: Musculoskeletal History: Reports: Back Pain, Chronic, Osteoarthritis Neurological History: Reports: Other (See Below) Psychiatric History: Reports: Depression Endocrine/Metabolic History: Reports: Obesity/BMI 30+ Hematologic History: Reports: Blood Transfusion(s) Immunologic History: Reports: None Oncologic (Cancer) History: Reports: Lung Dermatologic History: Reports: Psoriasis - Infectious Disease History Infectious Disease History: Reports: Chicken Pox, Measles, Mumps - Past Surgical History HEENT Surgical History: Reports: Oral Surgery Female Surgical History: Reports: D&C, Hysterectomy, Tubal Ligation Musculoskeletal Surgical History: Reports: Hip Replacement, Knee Replacement, ORIF, Other (See Below) Other Musculoskeletal Surgeries/Procedures:: Hip revision to R Oncologic Surgical History: Reports: Lobectomy, Other (See Below) Other Oncologic Surgeries/Procedures: lobectomy to L upper lung Social & Family History - Family History Family Medical History: Noncontributory Neurological: Reports: CVA Oncologic: Reports: Colon - Tobacco Use Smoking Status *Q: Former Smoker Used Tobacco, but Quit: Yes Month/Year Tobacco Last Used: 2017 Second Hand Smoke Exposure: No - Caffeine Use Caffeine Use: Reports: Soda - Recreational Drug Use Recreational Drug Use: No - Living Situation & Occupation Living situation: Reports: , with Spouse 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) ED ROS GENERAL - Review of Systems Review Of Systems: See Below Constitutional: Reports: No Symptoms HEENT: Reports: No Symptoms Respiratory: Reports: Shortness of Breath Cardiovascular: Reports: Chest Pain Endocrine: Reports: No Symptoms GI/Abdominal: Reports: No Symptoms : Reports: No Symptoms Musculoskeletal: Reports: No Symptoms ED EXAM, GENERAL - Physical Exam Exam: See Below Exam Limited By: No Limitations General Appearance: Alert, No Apparent Distress Ears: Normal External Exam Nose: Normal Inspection Head: Atraumatic, Normocephalic Neck: Normal Inspection Respiratory/Chest: No Respiratory Distress, Wheezing (Moderate) Cardiovascular: Regular Rate, Rhythm, No Edema, No Murmur GI/Abdominal: Soft, Non-Tender, No Organomegaly, No Mass Back Exam: Normal Inspection Extremities: Normal Inspection EKG INTERPRETATION EKG Date: 06/27/19 Time: 13:13 Rhythm: NSR Rate (Beats/Min): 81 [place]: Normal P-Wave: Present QRS: Normal ST-T: Normal QT: Normal Course - Vital Signs Last Recorded V/S: Last Vital Signs Temp 98.6 F 06/27/19 13:14 Pulse 84 06/27/19 13:14 Resp 19 06/27/19 13:14 BP 133/81 06/27/19 13:14 Pulse Ox 96 06/27/19 14:57 - Orders/Labs/Meds Orders: Active Orders 24 hr Category Date Time Status Cardiac Monitoring [RC] . DIRECTED Care 06/27/19 13:23 Active EKG Documentation Completion [RC] ASDIRECTED Care 06/27/19 16:09 Active EKG Documentation Completion [RC] STAT Care 06/27/19 13:24 Active Oxygen Therapy [RC] PRN Care 06/27/19 13:24 Active Peripheral IV Care [RC] . DIRECTED Care 06/27/19 13:24 Active RT Aerosol Therapy [RC] ASDIRECTED Care 06/27/19 14:57 Active Sodium Chloride 0.9% [Saline Flush] Med 06/27/19 13:23 Active 10 ml FLUSH ASDIRECTED PRN Peripheral IV Insertion Adult [OM.PC] Stat Oth 06/27/19 13:23 Ordered EKG 12 Lead [EK] Stat Ther 06/27/19 16:09 Ordered Medication Orders Sodium Chloride (Saline Flush) 10 ml FLUSH ASDIRECTED PRN PRN Reason: Keep Vein Open Last Admin: 06/27/19 13:34 Dose: 10 ml Labs: Laboratory Tests 06/27/19 06/27/19 06/27/19 Range/Units 13:25 13:25 16:25 WBC 8.49 (3.98-10.04) K/mm3 RBC 4.50 (3.98-5.22) M/mm3 Hgb 13.1 (11.2-15.7) gm/dl Hct 41.4 (34.1-44.9) % MCV 92.0 (79.4-94.8) fl MCH 29.1 (25.6-32.2) pg MCHC 31.6 L (32.2-35.5) g/dl RDW Std Deviation 46.5 H (36.4-46.3) fL Plt Count 366 (182-369) K/mm3 MPV 8.0 L (9.4-12.3) fl Neut % (Auto) 84.8 H (34.0-71.1) % Lymph % (Auto) 10.2 L (19.3-51.7) % [place] % (Auto) 3.8 L (4.7-12.5) % Eos % (Auto) 0.9 (0.7-5.8) Baso % (Auto) 0.2 (0.1-1.2) % Neut # (Auto) 7.19 H (1.56-6.13) K/mm3 Lymph # (Auto) 0.87 L (1.18-3.74) K/mm3 [place] # (Auto) 0.32 (0.24-0.36) K/mm3 Eos # (Auto) 0.08 (0.04-0.36) K/mm3 Baso # (Auto) 0.02 (0.01-0.08) K/mm3 Sodium 144 (136-145) mEq/L Potassium 3.0 L (3.5-5.1) mEq/L Chloride 105 (98-107) mEq/L Carbon Dioxide 30 (21-32) mEq/L Anion Gap 12.0 (5-15) BUN 18 (7-18) mg/dL Creatinine 0.6 (0.55-1.02) mg/dL Est Cr Clr Drug Dosing 72.42 mL/min Estimated GFR (MDRD) > 60 (>60) mL/min BUN/Creatinine Ratio 30.0 H (14-18) Glucose 111 (80-115) mg/dL Calcium 8.7 (8.5-10.1) mg/dL Total Bilirubin 0.6 (0.2-1.0) mg/dL AST 14 L (15-37) U/L ALT 17 (14-59) U/L Alkaline Phosphatase 84 (46-116) U/L Troponin I < 0.017 < 0.017 (0.00-0.056) ng/mL Total Protein 6.6 (6.4-8.2) g/dl Albumin 3.4 (3.4-5.0) g/dl Globulin 3.2 gm/dL Albumin/Globulin Ratio 1.1 (1-2) Meds: Medications Generic Name Dose Route Start Last Admin Trade Name Freq PRN Reason Stop Dose Admin Sodium Chloride 10 ml 06/27/19 13:23 06/27/19 13:34 Saline Flush FLUSH 10 ml ASDIRECTED PRN Administration Keep Vein Open Discontinued Medications Generic Name Dose Route Start Last Admin Trade Name Freq PRN Reason Stop Dose Admin Albuterol/Ipratropium 3 ml 06/27/19 14:57 06/27/19 15:11 Duoneb 3.0-0.5 Mg/3 Ml NEB 06/27/19 14:58 3 ml ONETIME ONE Administration Aspirin 324 mg 06/27/19 13:24 06/27/19 13:34 Aspirin PO 06/27/19 13:25 324 mg ONETIME ONE Administration Methylprednisolone Sodium Succinate 125 mg 06/27/19 14:57 06/27/19 15:28 Solu-Medrol IVPUSH 06/27/19 14:58 125 mg ONETIME ONE Administration Ondansetron HCl 4 mg 06/27/19 13:24 06/27/19 13:34 Zofran IVPUSH 06/27/19 13:25 4 mg ONETIME ONE Administration - Re-Assessments/Exams Free Text/Narrative Re-Assessment/Exam: 06/27/19 15:36 I ordered an IV NS, zofran 4mg IV, aspirin 324mg PO, EKG, CXR and labs. Her EKG shows a NSR with no acute changes. Her CXR shows pulmonary fibrosis and COPD that is stable. Her CBC looks good. Her K was low at 3. Her troponin is negative. She did not feel much better. She is wheezing so I ordered a duoneb and solu-medrol 125mg IV. I will do a repeat troponin and EKG at 3 hours. 06/27/19 17:28 Her repeat EKG shows no changes from prior. Her repeat troponin is negative. She still does not feel good. She got up to go to the bathroom without oxygen and her sats went into the 70s. I feels she needs to be admitted but she does not want to be. She was recently on steroids. I will have her continue the treatments and have her continue the oxygen. I will give her some phenergan with codeine for the cough. Departure - Departure Time of Disposition: 17:30 Disposition: Home, Self-Care 01 Condition: Good Clinical Impression: Non-cardiac chest pain COPD (chronic obstructive pulmonary disease) Qualifiers: COPD type: unspecified COPD Qualified Code(s): J44.9 - Chronic obstructive pulmonary disease, unspecified Prescriptions: Codeine/Promethazine [Phenergan with Codeine] 5 - 10 ml PO Q6HR PRN #300 ml PRN Reason: Cough Referrals: Shari Franklin PA-C [Primary Care Provider] - 1 Week Forms: ED Department Discharge Additional Instructions: Continue with your nebs at home. Take the phenergan with codeine every 6 hours as needed for the cough and congestion. Follow up with Dilia Franklin within a week. Please return if you are worse. - My Orders Last 24 Hours: My Active Orders 06/27/19 13:23 Cardiac Monitoring [RC] . DIRECTED Sodium Chloride 0.9% [Saline Flush] 10 ml FLUSH ASDIRECTED PRN Peripheral IV Insertion Adult [OM.PC] Stat 06/27/19 13:24 EKG Documentation Completion [RC] STAT Oxygen Therapy [RC] PRN Peripheral IV Care [RC] . DIRECTED 06/27/19 14:57 RT Aerosol Therapy [RC] ASDIRECTED 06/27/19 16:09 EKG Documentation Completion [RC] ASDIRECTED EKG 12 Lead [EK] Stat - Assessment/Plan Last 24 Hours: My Active Orders 06/27/19 13:23 Cardiac Monitoring [RC] . DIRECTED Sodium Chloride 0.9% [Saline Flush] 10 ml FLUSH ASDIRECTED PRN Peripheral IV Insertion Adult [OM.PC] Stat 06/27/19 13:24 EKG Documentation Completion [RC] STAT Oxygen Therapy [RC] PRN Peripheral IV Care [RC] . DIRECTED 06/27/19 14:57 RT Aerosol Therapy [RC] ASDIRECTED 06/27/19 16:09 EKG Documentation Completion [RC] ASDIRECTED EKG 12 Lead [EK] Stat
== END 2019-06-27 17:42 | disposition home or self-care (01) ==
LOC: JD.ED 13:07
DX: J44.9 Chronic obstructive pulmonary disease, unspecified (principal); F32.9 Major depressive disorder, single episode, unspecified; K21.9 Gastro-esophageal reflux disease without esophagitis; E66.9 Obesity, unspecified; Z68.32 Body mass index [BMI] 32.0-32.9, adult; Z88.0 Allergy status to penicillin; Z88.1 Allergy status to other antibiotic agents; Z91.040 Latex allergy status; Z91.018 Allergy to other foods; Z91.09 Other allergy status, other than to drugs and biological substances; Z95.5 Presence of coronary angioplasty implant and graft; Z79.899 Other long term (current) drug therapy; Z79.02 Long term (current) use of antithrombotics/antiplatelets; Z79.82 Long term (current) use of aspirin; Z87.891 Personal history of nicotine dependence
CPT/HCPCS: 36415; 71045; 80053; 84484; 85025; 93005; 94640; 96374; 96375; 99285; A9270; J2405; J2930; 93010; 99284; J7620-GY

== ENCOUNTER 2020-03-03 11:18 | Emergency (ER) | payer OTHER ==
[2020-03-03] MEDS ORDERED: Sodium Chloride 0.9% 10 ML Syringe FLUSH PRN (11:35)
[2020-03-03] MEDS ORDERED: methylPREDNISolone Sodium Succinate 125 MG/2 ML SDV IVPUSH ONE (11:36)
[2020-03-03] MEDS ORDERED: Albuterol/Ipratropium 3.0-0.5 MG/3 ML Neb Soln NEB ONE (11:36)
[2020-03-03] MEDS ORDERED: Aspirin 81 MG Tab.Chew PO ONE (11:37)
--- NOTE | 2020-03-03 11:42 | EDM.PDOC ---
ED HPI GENERAL MEDICAL PROBLEM - General Chief Complaint: Chest Pain Stated Complaint: CHEST PAIN/SOB Time Seen by Provider: 03/03/20 11:26 Source of Information: Reports: Patient History Limitations: Reports: No Limitations - History of Present Illness INITIAL COMMENTS - FREE TEXT/NARRATIVE: The patient presents with chest pain and shortness of breath. She said the chest pain was yesterday. She has been more short of breath the past few days. She has a history of pulmonary fibrosis and she is on oxygen. She has been requiring more oxygen when walking around. She has no fever or chills. She does have a slight cough but that is normal for her. She was tested for COVID 19 about 15 days ago. She did travel out of the state about 4 weeks ago and that is why she got tested. There has been no travel since then. She has a stent in her LAD. She has no swelling or pain. She has no abdominal pain, nausea and vomiting. Onset: Gradual Duration: Day(s): Location: Reports: Chest Quality: Reports: Pressure Severity: Mild Improves with: Reports: None Worsens with: Reports: None Associated Symptoms: Reports: Chest Pain, Cough, Shortness of Breath. Denies: Fever/Chills, Headaches, Nausea/Vomiting - Related Data Allergies Allergy/AdvReac Type Severity Reaction Status Date / Time amoxicillin Allergy Nausea and Verified 03/03/20 11:41 Vomiting antihemoph factor (FVIII) Allergy Anaphylactic Verified 03/03/20 11:41 rec B-dom trunc peg-exei Shock [From Esperoct] latex Allergy Rash Verified 03/03/20 11:41 levofloxacin Allergy Other Verified 03/03/20 11:41 perfume Allergy Airway Verified 03/03/20 11:41 Tightness bananas Allergy Vomiting Uncoded 03/03/20 11:41 Home Meds: Home Meds Acetaminophen [Tylenol Arthritis Pain] 650 mg PO Q6H PRN 01/22/16 [History] Omeprazole [Prilosec] 20 mg PO DAILY 01/22/16 [History] Pramipexole Di-HCl [Mirapex] 1.5 mg PO BEDTIME 01/22/16 [History] traZODone 50 mg PO BEDTIME 01/29/17 [History] Albuterol Sulfate [Proair Respiclick] 1 - 2 inh INH Q4H PRN 04/26/18 [History] Ascorbic Acid [C-1000 with Delfina Hips] 1,000 mg PO DAILY 04/26/18 [History] Melatonin 5 mg PO BEDTIME PRN 04/26/18 [History] guaiFENesin [Mucinex] 600 mg PO BID 04/26/18 [History] Cholecalciferol (Vitamin D3) [Vitamin D3] 1,000 unit PO DAILY 07/18/18 [History] Fluticasone Propionate [Flonase Allergy Relief] 2 spray NASBOTH BID PRN 07/18/18 [History] Spironolactone [Aldactone] 25 mg PO DAILY #30 tablet 07/21/18 [Rx] Albuterol/Ipratropium [DuoNeb 3.0-0.5 MG/3 ML] 1 dose INH BID PRN 05/19/19 [History] Fluticasone/Vilanterol [Breo Ellipta 100-25 MCG Inhalation Kit] 1 dose INH DAILY 05/19/19 [History] Furosemide [Lasix] 40 mg PO QAM 05/19/19 [History] Aspirin 81 mg PO DAILY 06/27/19 [History] Clopidogrel [Plavix] 75 mg PO DAILY 06/27/19 [History] Codeine/Promethazine [Phenergan with Codeine] 5 - 10 ml PO Q6HR PRN #300 ml 06/27/19 [Rx] Pramipexole [Mirapex] 1.5 mg PO BEDTIME 06/27/19 [History] Sertraline [Zoloft] 50 mg PO DAILY 06/27/19 [History] atorvaSTATin [Lipitor] 40 mg PO DAILY 06/27/19 [History] hydrOXYzine HCL [Hydroxyzine HCl] 25 mg PO BEDTIME PRN 06/27/19 [History] Past Medical History HEENT History: Reports: Impaired Vision Other HEENT History: wears glasses Cardiovascular History: Reports: Angina Other Cardiovascular History: Stent LD4 06/10/19. Respiratory History: Reports: Pulmonary Fibrosis Other Respiratory History: Upper L) lobe of lung removed. 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: Musculoskeletal History: Reports: Back Pain, Chronic, Osteoarthritis Neurological History: Reports: Other (See Below) Psychiatric History: Reports: Depression Endocrine/Metabolic History: Reports: Obesity/BMI 30+ Hematologic History: Reports: Blood Transfusion(s) Immunologic History: Reports: None Oncologic (Cancer) History: Reports: Lung Dermatologic History: Reports: Psoriasis - Infectious Disease History Infectious Disease History: Reports: Chicken Pox, Measles, Mumps - Past Surgical History HEENT Surgical History: Reports: Oral Surgery Female Surgical History: Reports: D&C, Hysterectomy, Tubal Ligation Musculoskeletal Surgical History: Reports: Hip Replacement, Knee Replacement, ORIF, Other (See Below) Other Musculoskeletal Surgeries/Procedures:: Hip revision to R Oncologic Surgical History: Reports: Lobectomy, Other (See Below) Other Oncologic Surgeries/Procedures: lobectomy to L upper lung Social & Family History - Family History Family Medical History: Noncontributory Neurological: Reports: CVA Oncologic: Reports: Colon - Caffeine Use Caffeine Use: Reports: Soda - Living Situation & Occupation Living situation: Reports: , with Spouse 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) ED ROS GENERAL - Review of Systems Review Of Systems: See Below Constitutional: Reports: No Symptoms HEENT: Reports: No Symptoms Respiratory: Reports: Shortness of Breath, Cough Cardiovascular: Reports: No Symptoms Endocrine: Reports: No Symptoms GI/Abdominal: Reports: No Symptoms : Reports: No Symptoms Musculoskeletal: Reports: No Symptoms ED EXAM, GENERAL - Physical Exam Exam: See Below Exam Limited By: No Limitations General Appearance: Alert, No Apparent Distress Ears: Normal External Exam Nose: Normal Inspection Head: Atraumatic, Normocephalic Neck: Normal Inspection Respiratory/Chest: No Respiratory Distress, Decreased Breath Sounds, Wheezing Cardiovascular: Regular Rate, Rhythm, No Edema, No Murmur GI/Abdominal: Soft, Non-Tender, No Organomegaly, No Mass Back Exam: Normal Inspection Course - Vital Signs Last Recorded V/S: Last Vital Signs Temp 97.6 F 03/03/20 14:35 Pulse 84 03/03/20 14:35 Resp 14 03/03/20 14:35 BP 130/74 03/03/20 14:35 Pulse Ox 94 L 03/03/20 14:35 - Orders/Labs/Meds Orders: Active Orders 24 hr Category Date Time Status Cardiac Monitoring [RC] . DIRECTED Care 03/03/20 11:35 Active EKG Documentation Completion [RC] STAT Care 03/03/20 11:36 Active Oxygen Therapy [RC] PRN Care 03/03/20 11:35 Active Peripheral IV Care [RC] . DIRECTED Care 03/03/20 11:36 Active RT Aerosol Therapy [RC] ASDIRECTED Care 03/03/20 11:36 Active Sodium Chloride 0.9% [Saline Flush] Med 03/03/20 11:35 Active 10 ml FLUSH ASDIRECTED PRN Peripheral IV Insertion Adult [OM.PC] Stat Oth 03/03/20 11:35 Ordered Medication Orders Sodium Chloride (Saline Flush) 10 ml FLUSH ASDIRECTED PRN PRN Reason: Keep Vein Open Last Admin: 03/03/20 12:02 Dose: 10 ml Documented by: TIFFANY Labs: Laboratory Tests 03/03/20 03/03/20 Range/Units 11:40 11:40 WBC 8.40 (3.98-10.04) K/mm3 RBC 4.48 (3.98-5.22) M/mm3 Hgb 12.7 (11.2-15.7) gm/dl Hct 42.6 (34.1-44.9) % MCV 95.1 H (79.4-94.8) fl MCH 28.3 (25.6-32.2) pg MCHC 29.8 L (32.2-35.5) g/dl RDW Std Deviation 51.5 H (36.4-46.3) fL Plt Count 342 (182-369) K/mm3 MPV 8.0 L (9.4-12.3) fl Neut % (Auto) 70.6 (34.0-71.1) % Lymph % (Auto) 19.0 L (19.3-51.7) % [place] % (Auto) 8.5 (4.7-12.5) % Eos % (Auto) 1.3 (0.7-5.8) Baso % (Auto) 0.4 (0.1-1.2) % Neut # (Auto) 5.93 (1.56-6.13) K/mm3 Lymph # (Auto) 1.60 (1.18-3.74) K/mm3 [place] # (Auto) 0.71 H (0.24-0.36) K/mm3 Eos # (Auto) 0.11 (0.04-0.36) K/mm3 Baso # (Auto) 0.03 (0.01-0.08) K/mm3 Manual Slide Review Abnormal smear Sodium 145 (136-145) mEq/L Potassium 3.0 L (3.5-5.1) mEq/L Chloride 104 (98-107) mEq/L Carbon Dioxide 33 H (21-32) mEq/L Anion Gap 11.0 (5-15) BUN 13 (7-18) mg/dL Creatinine 0.7 (0.55-1.02) mg/dL Est Cr Clr Drug Dosing 67.16 mL/min Estimated GFR (MDRD) > 60 (>60) mL/min BUN/Creatinine Ratio 18.6 H (14-18) Glucose 77 L (80-115) mg/dL Calcium 9.0 (8.5-10.1) mg/dL Total Bilirubin 0.7 (0.2-1.0) mg/dL AST 15 (15-37) U/L ALT 21 (14-59) U/L Alkaline Phosphatase 101 (46-116) U/L Troponin I < 0.017 (0.00-0.056) ng/mL Total Protein 7.6 (6.4-8.2) g/dl Albumin 3.5 (3.4-5.0) g/dl Globulin 4.1 gm/dL Albumin/Globulin Ratio 0.9 L (1-2) Meds: Medications Generic Name Dose Route Start Last Admin Trade Name Kristine PRN Reason Stop Dose Admin Sodium Chloride 10 ml 03/03/20 11:35 03/03/20 12:02 Saline Flush FLUSH 10 ml ASDIRECTED PRN Administration Keep Vein Open Discontinued Medications Generic Name Dose Route Start Last Admin Trade Name Kristine PRN Reason Stop Dose Admin Albuterol/Ipratropium 3 ml 03/03/20 11:36 03/03/20 12:06 Duoneb 3.0-0.5 Mg/3 Ml NEB 03/03/20 11:37 3 ml ONETIME ONE Administration Aspirin 324 mg 03/03/20 11:37 03/03/20 11:55 Aspirin PO 03/03/20 11:38 324 mg ONETIME ONE Administration Hydromorphone HCl 1 mg 03/03/20 14:24 03/03/20 14:32 Dilaudid IVPUSH 03/03/20 14:25 1 mg ONETIME ONE Administration Methylprednisolone Sodium Succinate 125 mg 03/03/20 11:36 03/03/20 11:59 Solu-Medrol IVPUSH 03/03/20 11:37 125 mg ONETIME ONE Administration - Re-Assessments/Exams Free Text/Narrative Re-Assessment/Exam: 03/03/20 11:44 I ordered an IV saline lock, aspirin, duoneb, solu-medrol 125mg, EKG, CXR and labs. 03/03/20 14:49 Her EKG shows nothing acute. Her CXR shows no acute changes. Her CBC looks good. Her K looks good at 3. Her troponin is negative. She says she is having a headache and right ear pain. She has been treated a couple times for sinus infections. I ordered a CT of her sinuses. That CT looks good. I will get her on some prednisone. I also ordered some dilaudid for the headache she is having. Departure - Departure Time of Disposition: 15:00 Disposition: Home, Self-Care 01 Condition: Good Clinical Impression: COPD exacerbation Headache Qualifiers: Headache type: unspecified Headache chronicity pattern: acute headache Intractability: not intractable Qualified Code(s): R51 - Headache Referrals: Ruby Guerra, REECE [Nurse Practitioner] - 1 Week Forms: ED Department Discharge Additional Instructions: Take your medication as prescribed. Take the prednisone daily for 5 days. Please return if you are worse. Sepsis Event Note (ED) - Focused Exam Vital Signs: Vital Signs Temp Pulse Resp BP Pulse Ox Pulse Ox 03/03/20 14:35 97.6 F 84 14 130/74 94 L 03/03/20 12:06 100 03/03/20 11:31 97.7 F 102 H 16 142/82 H 90 L - My Orders Last 24 Hours: My Active Orders 03/03/20 11:35 Cardiac Monitoring [RC] . DIRECTED Oxygen Therapy [RC] PRN Sodium Chloride 0.9% [Saline Flush] 10 ml FLUSH ASDIRECTED PRN Peripheral IV Insertion Adult [OM.PC] Stat 03/03/20 11:36 EKG Documentation Completion [RC] STAT Peripheral IV Care [RC] . DIRECTED RT Aerosol Therapy [RC] ASDIRECTED - Assessment/Plan Last 24 Hours: My Active Orders 03/03/20 11:35 Cardiac Monitoring [RC] . DIRECTED Oxygen Therapy [RC] PRN Sodium Chloride 0.9% [Saline Flush] 10 ml FLUSH ASDIRECTED PRN Peripheral IV Insertion Adult [OM.PC] Stat 03/03/20 11:36 EKG Documentation Completion [RC] STAT Peripheral IV Care [RC] . DIRECTED RT Aerosol Therapy [RC] ASDIRECTED
--- NOTE | 2020-03-03 12:29 | CR ---
Chest: AP view of the chest was obtained. Comparison: Prior chest x-ray of 02/17/20. Heart is enlarged. Interstitial change within the right lung is stable. Lesser chronic change within the left lung. No definite acute parenchymal change is seen within either lung. Bony structures are grossly intact. Previous rib resection within the left upper chest is noted. Impression: 1. Mild cardiomegaly. 2. Chronic interstitial change within the right chest lesser interstitial change within the left chest. 3. Nothing acute is definitely appreciated. Diagnostic code #2 Study was dictated in MDT
--- NOTE | 2020-03-03 14:19 | CT ---
CT paranasal sinuses Technique: Multiple axial sections through the paranasal sinuses were obtained. Reconstructed coronal and sagittal images were obtained. Comparison: No prior paranasal sinus exam. Findings: Paranasal sinuses show no mucosal thickening or air-fluid levels. Mild nasal septal deviation is seen. Ostiomeatal complexes are clear. Surrounding bony structures are within normal limits. Mastoid sinuses are clear. Impression: 1. Mild nasal septal deviation. 2. No additional abnormality is appreciated within the paranasal sinuses on CT study. Diagnostic code #2 This report was dictated in MDT
[2020-03-03] MEDS ORDERED: HYDROmorphone 1 MG/ML Syringe IVPUSH ONE (14:24)
[2020-03-03 14:40] VITALS: BP 130/74; PULSE 84
== END 2020-03-03 14:50 | disposition home or self-care (01) ==
LOC: JD.ED 11:18
DX: J44.1 Chronic obstructive pulmonary disease with (acute) exacerbation (principal); R51 Headache; K21.9 Gastro-esophageal reflux disease without esophagitis; F32.9 Major depressive disorder, single episode, unspecified; E66.9 Obesity, unspecified; Z68.32 Body mass index [BMI] 32.0-32.9, adult; Z88.1 Allergy status to other antibiotic agents; Z88.8 Allergy status to other drugs, medicaments and biological substances; Z91.048 Other nonmedicinal substance allergy status; Z91.018 Allergy to other foods; Z79.02 Long term (current) use of antithrombotics/antiplatelets; Z79.82 Long term (current) use of aspirin; Z79.899 Other long term (current) drug therapy
CPT/HCPCS: 36415; 70486; 71045; 80053; 84484; 85025; 93005; 94640; 96374; 96375; 99285; A9270; J1170; J2930; J7620-GY

== ENCOUNTER 2020-11-14 16:32 | Inpatient (IN) | payer BC, MEDICARE ==
[2020-11-14] MEDS ORDERED: Potassium Chloride 20 MEQ Tab.ER PO ONE (16:53)
[2020-11-14] MEDS ORDERED: Sodium Chloride 0.9% 1,000 ML IV STA (16:54)
--- NOTE | 2020-11-14 17:06 | EDM.PDOC ---
ED HPI GENERAL MEDICAL PROBLEM - General Chief Complaint: Cardiovascular Problem Stated Complaint: LOW POTASSIUM Time Seen by Provider: 11/14/20 16:35 Source of Information: Reports: Patient, Provider, RN Notes Reviewed History Limitations: Reports: No Limitations - History of Present Illness INITIAL COMMENTS - FREE TEXT/NARRATIVE: Patient is a 65-year-old female sent to the emergency department from her primary care provider's office with complaints of a 10 pound weight gain, increasing shortness of breath with exertion requiring higher than normal supplemental O2, intermittent chest pressure, and hypokalemia. Patient has a history of pulmonary fibrosis, lung cancer with a left upper lobectomy, congestive heart failure, and coronary artery disease with stents. She ge nerally wears 2 to 3 L of oxygen by nasal cannula at home. For the last few weeks, she has been requiring increasing oxygen demands with exertion. At times she has to go up to 6 L in order to make it a short distance. She also complains of intermittent chest pressure which is not present at this time. Over the last week or so, her weight has increased 10 pounds. She normally takes Lasix 40 mg daily, however states the last 2 to 3 days she has been taking it twice daily but that the fluid does not seem to be coming off. She denies any cough, fever or chills. Complete work-up was completed in the clinic prior to coming to ER including blood work, chest x-ray, EKG. She was found to be hypokalemic at 2.4 hypernatremic at 151, hypercarbic at 34 and have a elevated proBNP of 3077. Tro ponin was negative. EKG showed no acute ischemia. Chest x-ray was also completed in the clinic and show signs of pulmonary vascular congestion. Covid test done in the clinic was negative. Her primary care provider, DON Fernandez, states that she spoke with her behavioral health case manager, Dr. Nunn, and he would like her to have a stress test as well as an echocardiogram completed and the results forwarded to his office. - Related Data Allergies Allergy/AdvReac Type Severity Reaction Status Date / Time amoxicillin Allergy Nausea and Verified 11/14/20 16:44 Vomiting antihemoph factor (FVIII) Allergy Anaphylactic Verified 11/14/20 16:44 rec B-dom trunc peg-exei Shock [From Esperoct] latex Allergy Rash Verified 11/14/20 16:44 levofloxacin Allergy Other Verified 11/14/20 16:44 perfume Allergy Airway Verified 11/14/20 16:44 Tightness bananas Allergy Vomiting Uncoded 11/14/20 16:44 IV contrast Allergy Airway Uncoded 11/14/20 16:44 Tightness Home Meds: Home Meds Acetaminophen [Tylenol Arthritis Pain] 650 mg PO Q6H PRN 01/22/16 [History] Omeprazole [Prilosec] 20 mg PO DAILY 01/22/16 [History] Pramipexole Di-HCl [Mirapex] 1.5 mg PO BEDTIME 01/22/16 [History] traZODone 50 mg PO BEDTIME 01/29/17 [History] Albuterol Sulfate [Proair Respiclick] 1 - 2 inh INH Q4H PRN 04/26/18 [History] Ascorbic Acid [C-1000 with Delfina Hips] 1,000 mg PO DAILY 04/26/18 [History] Melatonin 5 mg PO BEDTIME PRN 04/26/18 [History] guaiFENesin [Mucinex] 600 mg PO BID 04/26/18 [History] Cholecalciferol (Vitamin D3) [Vitamin D3] 1,000 unit PO DAILY 07/18/18 [History] Fluticasone Propionate [Flonase Allergy Relief] 2 spray NASBOTH BID PRN 07/18/18 [History] Spironolactone [Aldactone] 25 mg PO DAILY #30 tablet 07/21/18 [Rx] Albuterol/Ipratropium [DuoNeb 3.0-0.5 MG/3 ML] 1 dose INH BID PRN 05/19/19 [History] Fluticasone/Vilanterol [Breo Ellipta 100-25 MCG Inhalation Kit] 1 dose INH DAILY 05/19/19 [History] Furosemide [Lasix] 40 mg PO QAM 05/19/19 [History] Aspirin 81 mg PO DAILY 06/27/19 [History] Clopidogrel [Plavix] 75 mg PO DAILY 06/27/19 [History] Codeine/Promethazine [Phenergan with Codeine] 5 - 10 ml PO Q6HR PRN #300 ml 06/27/19 [Rx] Pramipexole [Mirapex] 1.5 mg PO BEDTIME 06/27/19 [History] Sertraline [Zoloft] 50 mg PO DAILY 06/27/19 [History] atorvaSTATin [Lipitor] 40 mg PO DAILY 06/27/19 [History] hydrOXYzine HCL [Hydroxyzine HCl] 25 mg PO BEDTIME PRN 06/27/19 [History] Past Medical History HEENT History: Reports: Impaired Vision Other HEENT History: wears glasses Cardiovascular History: Reports: Angina Other Cardiovascular History: Stent LD4 06/10/19. Respiratory History: Reports: Pulmonary Fibrosis Other Respiratory History: Upper L) lobe of lung removed. Gastrointestinal History: Reports: GERD Genitourinary History: Reports: UTI, Recurrent HOG COUNTER History: Reports: Musculoskeletal History: Reports: Back Pain, Chronic, Osteoarthritis Neurological History: Reports: Other (See Below) Psychiatric History: Reports: Depression Endocrine/Metabolic History: Reports: Obesity/BMI 30+ Hematologic History: Reports: Blood Transfusion(s) Immunologic History: Reports: None Oncologic (Cancer) History: Reports: Lung Dermatologic History: Reports: Psoriasis - Infectious Disease History Infectious Disease History: Reports: Chicken Pox, Measles, Mumps - Past Surgical History HEENT Surgical History: Reports: Oral Surgery Respiratory Surgical History: Reports: None, Lung Resection GI Surgical History: Reports: None Female Surgical History: Reports: D&C, Hysterectomy, Tubal Ligation Musculoskeletal Surgical History: Reports: Hip Replacement, Knee Replacement, ORIF, Other (See Below) Other Musculoskeletal Surgeries/Procedures:: Hip revision to R Oncologic Surgical History: Reports: Lobectomy, Other (See Below) Other Oncologic Surgeries/Procedures: lobectomy to L upper lung Dermatological Surgical History: Reports: None Social & Family History - Family History Family Medical History: No Pertinent Family History Neurological: Reports: CVA Oncologic: Reports: Colon - Tobacco Use Tobacco Use Status *Q: Former Tobacco User Used Tobacco, but Quit: Yes Month/Year Tobacco Last Used: 2017 - Caffeine Use Caffeine Use: Reports: None - Recreational Drug Use Recreational Drug Use: No - Living Situation & Occupation Living situation: Reports: , with Spouse 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 Denies: Fever, Chills, Weakness HEENT: Reports: No Symptoms Respiratory: Reports: Shortness of Breath, Wheezing. Denies: Cough Cardiovascular: Reports: Chest Pain (Intermittent chest pressure), Dyspnea on Exertion, Edema (Bilateral lower extremities) Endocrine: Reports: No Symptoms GI/Abdominal: Reports: No Symptoms : Reports: No Symptoms Musculoskeletal: Reports: No Symptoms Skin: Reports: No Symptoms Neurological: Reports: No Symptoms Psychiatric: Reports: No Symptoms Hematologic/Lymphatic: Reports: No Symptoms Immunologic: Reports: No Symptoms ED EXAM, GENERAL - Physical Exam Exam: See Below Exam Limited By: No Limitations General Appearance: Alert, WD/WN, No Apparent Distress Respiratory/Chest: No Respiratory Distress, No Accessory Muscle Use, Chest Non- Tender, Rhonchi (Throughout) Cardiovascular: Normal Peripheral Pulses, Regular Rate, Rhythm, No Gallop, No JVD, No Murmur, No Rub, Other (2+ pedal and pretibial edema to bilateral lower extremities.) GI/Abdominal: Normal Bowel Sounds, Soft, Non-Tender, No Organomegaly, No Distention, No Abnormal Bruit, No Mass Neurological: Alert, Oriented, CN II-XII Intact, Normal Cognition, Normal Gait, Normal Reflexes, No Motor/Sensory Deficits Psychiatric: Normal Affect, Normal Mood Skin Exam: Warm, Dry, Intact, Normal Color, No Rash Course - Vital Signs Last Recorded V/S: Last Vital Signs Temp 97.1 F 11/14/20 16:41 Pulse 99 11/14/20 16:41 Resp 24 H 11/14/20 16:41 BP 145/89 H 11/14/20 16:41 Pulse Ox 79 L 11/14/20 16:41 - Orders/Labs/Meds Orders: Active Orders 24 hr Category Date Time Status Potassium Chloride [KCl in Water 10 MEQ/100 ML] 10 meq Med 11/14/20 17:00 Active Premix Bag 1 bag IV Q1H Sodium Chloride 0.9% [Normal Saline] 1,000 ml Med 11/14/20 16:54 Active IV NOW Sodium Chloride 0.9% [Normal Saline] 100 ml Med 11/14/20 18:00 Active IV ASDIRECTED Sodium Chloride 0.9% [Saline Flush] Med 11/14/20 18:00 Active 10 ml FLUSH BOLUS Medication Orders Sodium Chloride (Normal Saline) 1,000 mls @ 50 mls/hr IV NOW STA Stop: 11/15/20 12:53 Last Admin: 11/14/20 17:13 Dose: 50 mls/hr Documented by: TIFFANY Potassium Chloride 10 meq/ (Premix) 100 mls @ 100 mls/hr IV Q1H YOSEPH Stop: 11/14/20 22:59 Last Admin: 11/14/20 19:52 Dose: 50 mls/hr Documented by: Infusion: 11/14/20 19:52 Dose: 5 mls/hr Documented by: Infusion: 11/14/20 17:32 Dose: 5 mls/hr Documented by: Admin: 11/14/20 17:13 Dose: 100 mls/hr Documented by: TIFFANY Sodium Chloride (Normal Saline) 100 mls @ 60 mls/min IV ASDIRECTED YOSEPH Last Admin: 11/14/20 19:51 Dose: 60 mls/min Documented by: CHING Sodium Chloride (Saline Flush) 10 ml FLUSH BOLUS YOSEPH Last Admin: 11/14/20 19:51 Dose: 10 ml Documented by: CHING Labs: Laboratory Tests 11/14/20 Range/Units 14:14 D-Dimer, Quantitative 0.73 H (0.19-0.50) mg/L Meds: Medications Generic Name Dose Route Start Last Admin Trade Name Freq PRN Reason Stop Dose Admin Sodium Chloride 1,000 mls @ 50 mls/hr 11/14/20 16:54 11/14/20 17:13 Normal Saline IV 11/15/20 12:53 50 mls/hr NOW STA Administration Potassium Chloride 10 meq/ 100 mls @ 100 mls/hr 11/14/20 17:00 11/14/20 19:52 Premix IV 11/14/20 22:59 50 mls/hr Q1H YOSEPH Administration Sodium Chloride 100 mls @ 60 mls/min 11/14/20 18:00 11/14/20 19:51 Normal Saline IV 60 mls/min ASDIRECTED YOSEPH Administration Sodium Chloride 10 ml 11/14/20 18:00 11/14/20 19:51 Saline Flush FLUSH 10 ml BOLUS YOSEPH Administration Discontinued Medications Generic Name Dose Route Start Last Admin Trade Name Freq PRN Reason Stop Dose Admin Diphenhydramine HCl 50 mg 11/14/20 18:36 11/14/20 18:46 Benadryl IVPUSH 11/14/20 18:37 50 mg ONETIME ONE Administration Famotidine 20 mg 11/14/20 18:36 11/14/20 18:45 Pepcid IVPUSH 11/14/20 18:37 20 mg ONETIME ONE Administration Furosemide 40 mg 11/14/20 20:17 Lasix IVPUSH 11/14/20 20:18 ONETIME ONE Iopamidol 100 ml 11/14/20 17:56 11/14/20 19:51 Isovue-370 (76%) IVPUSH 11/14/20 17:57 100 ml ONETIME ONE Administration Methylprednisolone Sodium Succinate 125 mg 11/14/20 18:36 11/14/20 18:43 Solu-Medrol IVPUSH 11/14/20 18:37 125 mg ONETIME ONE Administration Potassium Chloride 40 meq 11/14/20 16:53 11/14/20 17:13 Klor-Con M20 PO 11/14/20 16:54 40 meq ONETIME ONE Administration - Re-Assessments/Exams Free Text/Narrative Re-Assessment/Exam: Patient is a 65-year-old female sent to the emergency department from her primary care provider's office with complaints of intermittent chest pressure, increased shortness of breath with exertion requiring increased supplemental O2, and a 10 pound weight gain. Blood work completed in the clinic showed that the patient is hypokalemic hyponatremic. Chest x-ray does show signs of pulmonary vascular congestion and her BNP was elevated. Her primary care provider consulted with the patient's behavioral health case manager, Dr. Nunn, and he would like a stress test and echo echocardiogram completed and the results forwarded to him. I have ordered 40 mg of oral potassium as well as 6 bags of KCl 10 mEq IV. Patient will likely require IV Lasix, however I will refrain from giving this until her potassium levels have increased. I will discuss her case with the hospitalist, Dr. Moss. 11/14/20 17:[address] Moss. He requested that we add on a D-dimer and complete a CT angiogram the chest to evaluate the patient's pulmonary fibrosis. He would also like her to receive Lasix 40mg IV. 11/14/20 18:50 Dimer is minimally elevated at 0.73. patient has an allergy to IV contrast. She states in the past she has been able to tolerate it with premedication. If she received steroids and Benadryl, she states that she just feels a little itchy. Other than that, she generally breaks out in hives and her throat feels tight. She has agreed to completing the CT scan if premedicated. I have ordered Solu- Medrol 125 mg IV, Benadryl 50 mg IV, and Pepcid 20 mg IV. We will wait about 45 minutes after the medications to proceed with the CT scan. 11/14/20 20:07 Patient is back from CT and has had no reaction to the IV contrast. She is resting comfortably at this time. I will await results of the CT scan and that I will speak again with Dr. Moss. 11/14/20 20:21 CT angiogram of the chest shows no findings of acute pulmonary embolism. Chronic interstitial change within both lungs, worse on the right side which is fairly stable from prior CT exam. Stable cardiomegaly. No acute abnormalities. Results discussed with Dr. Moss. He has accepted the patient for admission. Departure - Departure Time of Disposition: 20:22 Disposition: Admitted As Inpatient 66 Condition: Good Clinical Impression: Peripheral edema, Idiopathic pulmonary fibrosis, Hypokalemia Acute exacerbation of CHF (congestive heart failure) Qualifiers: Heart failure type: diastolic Qualified Code(s): I50.33 - Acute on chronic diastolic (congestive) heart failure COPD (chronic obstructive pulmonary disease) Qualifiers: COPD type: unspecified COPD Qualified Code(s): J44.9 - Chronic obstructive pulmonary disease, unspecified Referrals: Shari Franklin PA-C [Primary Care Provider] - Forms: ED Department Discharge Sepsis Event Note (ED) - Evaluation Sepsis Screening Result: No Definite Risk - Focused Exam Vital Signs: Vital Signs Temp Pulse Resp BP Pulse Ox 11/14/20 16:41 97.1 F 99 24 H 145/89 H 79 L - My Orders Last 24 Hours: My Active Orders 11/14/20 16:54 Sodium Chloride 0.9% [Normal Saline] 1,000 ml IV NOW 11/14/20 17:00 Potassium Chloride [KCl in Water 10 MEQ/100 ML] 10 meq Premix Bag 1 bag IV Q1H 11/14/20 18:00 Sodium Chloride 0.9% [Normal Saline] 100 ml IV ASDIRECTED Sodium Chloride 0.9% [Saline Flush] 10 ml FLUSH BOLUS - Assessment/Plan Last 24 Hours: My Active Orders 11/14/20 16:54 Sodium Chloride 0.9% [Normal Saline] 1,000 ml IV NOW 11/14/20 17:00 Potassium Chloride [KCl in Water 10 MEQ/100 ML] 10 meq Premix Bag 1 bag IV Q1H 11/14/20 18:00 Sodium Chloride 0.9% [Normal Saline] 100 ml IV ASDIRECTED Sodium Chloride 0.9% [Saline Flush] 10 ml FLUSH BOLUS
[2020-11-14] MEDS: Potassium Chloride 10 MEQ in Premix Bag 1 BAG IV SCH ×3 (17:13→22:30)
[2020-11-14] MEDS ORDERED: Iopamidol 755 Mg/ML 100 ML Bottle IVPUSH ONE (17:56)
[2020-11-14] MEDS ORDERED: Sodium Chloride 0.9% 10 ML Syringe FLUSH SCH (18:00)
[2020-11-14] MEDS ORDERED: Sodium Chloride 0.9% 100 ML IV SCH (18:00)
[2020-11-14] MEDS ORDERED: methylPREDNISolone Sodium Succinate 125 MG/2 ML SDV IVPUSH ONE (18:36)
[2020-11-14] MEDS ORDERED: Famotidine 20 MG/2 ML SDV IVPUSH ONE (18:36)
[2020-11-14] MEDS ORDERED: diphenhydrAMINE 50 MG/ML SDV IVPUSH ONE (18:36)
--- NOTE | 2020-11-14 20:16 | CT ---
CT chest Technique: Multiple axial sections of the chest were obtained. Intravenous contrast was utilized. Study has been performed as a pulmonary angiogram protocol. Comparison: Prior chest x-ray performed earlier on the same day (3:47 PM). Study is also compared to old CT chest dated 05/23/19. Findings: Pulmonary arteries are well opacified. No filling defects are seen to indicate pulmonary embolism. Thoracic aorta shows no aneurysm. Scattered lymph nodes are seen within the mediastinum which are felt to be within normal limits. Small amount of pericardial effusion seen. Heart is enlarged. Small portion of the visualized upper abdominal structures shows no discrete abnormality. Lung window settings shows diffuse interstitial change throughout a large portion of the right lung. Left lung shows slight apical pleural thickening. Lesser interstitial change is noted within the left chest. This diffuse interstitial change is felt to be fairly stable by CT exam from previous chest CT. Bone window settings show old bilateral rib fractures. Scattered degenerative change is noted within the spine. Sternum appears to be intact. Impression: 1. No findings of pulmonary embolism. 2. Chronic interstitial change within both lungs, worse on the right side which is fairly stable from prior CT exam. 3. Stable cardiomegaly. 4. Nothing acute is appreciated. Diagnostic code #3
[2020-11-14] MEDS ORDERED: Furosemide 40 MG/4 ML VIAL IVPUSH ONE (20:17)
--- NOTE | 2020-11-14 20:31 | PCM.HP.2 ---
H&P History of Present Illness - General Date of Service: 11/14/20 Admit Problem/Dx: Admission Diagnosis/Problem Admission Diagnosis/Problem Hypokalemia Source of Information: Patient, Old Records, Provider, RN Notes Reviewed History Limitations: Reports: No Limitations - History of Present Illness Initial Comments - Free Text/Narative: This is a 65 yo white female with past medical hx/o Impaired Vision, Chronic Agnina, CAD S/p Stent placement in 2019, Heart Failure with Preserved EF, Pulmonary Fibrosis, History of Lung CA, Left Upper Lobe Lobectomy, COPD, Former Smoker, Chronic Respiratory Failure on Supplemental O2, GERD, Recurrent UTI, chronic Back pain, OA, Psoriasis, Depression and Obesity who was sent to ED for evaluation of 10 day history of increasing shortness of breath associated with dyspnea on exertion, intermittent chest pressure and 10 pounds weight gain. She states she is normally on 2-3L NC but had to go up on it due to increased shortness of breath. She endorses significant dyspnea even for a short distance. Currently, she does not have chest pain or pressure. She is normally on Lasix 40 mg po daily and had to take twice a day in the past 2-3 days but without improvement of her fluid retention. She was initially seen at the clinic with abnormal findings of hypokalemia, hypernatremia, and elevated probNP of 3077. Her troponin was negative. Her EKG showed no acute ischemia. However her chest x-ray revealed pulmonary vascular congestion. Her D-dimer was slightly elevated. Her chest CTA report read as no findings of PE. Chronic interstitial change within both lungs. Stable cardiomegaly. Nothing acute is appreciated. Her UA and Covid tests were both negative. Her case was discussed by DON Fernandez with Dr. Nunn, who recommended she be admitted and have stress test as well as 2D echo done. - Related Data Allergies/Adverse Reactions: Allergies Allergy/AdvReac Type Severity Reaction Status Date / Time antihemoph factor (FVIII) Allergy Anaphylactic Verified 11/14/20 22:01 rec B-dom trunc peg-exei Shock [From Esperoct] Iodinated Contrast Media Allergy Airway Verified 11/15/20 10:53 Tightness latex Allergy Rash Verified 11/14/20 22:01 levofloxacin Allergy Other Verified 11/14/20 22:01 perfume Allergy Airway Verified 11/14/20 22:01 Tightness amoxicillin AdvReac Nausea and Verified 11/15/20 10:52 Vomiting banana AdvReac Vomiting Verified 11/15/20 10:52 Home Medications: Home Meds Pramipexole Di-HCl [Mirapex] 1.5 mg PO BEDTIME 01/22/16 [History] traZODone 50 mg PO BEDTIME 01/29/17 [History] Ascorbic Acid [C-1000 with Delfina Hips] 1,000 mg PO BID 04/26/18 [History] Cholecalciferol (Vitamin D3) [Vitamin D3] 2,000 unit PO BID 07/18/18 [History] Fluticasone Propionate [Flonase Allergy Relief] 2 spray NASBOTH BID PRN 07/18/18 [History] Albuterol/Ipratropium [DuoNeb 3.0-0.5 MG/3 ML] 1 dose INH BID PRN 05/19/19 [History] Furosemide [Lasix] 40 mg PO QAM 05/19/19 [History] Aspirin 81 mg PO DAILY 06/27/19 [History] Clopidogrel [Plavix] 75 mg PO DAILY 06/27/19 [History] Sertraline [Zoloft] 50 mg PO DAILY 06/27/19 [History] atorvaSTATin [Lipitor] 40 mg PO DAILY 06/27/19 [History] hydrOXYzine HCL [Hydroxyzine HCl] 25 mg PO BEDTIME PRN 06/27/19 [History] Isosorbide Mononitrate [Isosorbide Mononitrate ER] 30 mg PO DAILY 11/14/20 [History] Pantoprazole [ProTONIX] 40 mg PO DAILY 11/14/20 [History] Potassium Chloride [Klor-Con M20] 20 meq PO BID 11/14/20 [History] Past Medical History HEENT History: Reports: Impaired Vision Other HEENT History: wears glasses Cardiovascular History: Reports: Angina Other Cardiovascular History: Stent LD4 06/10/19. Respiratory History: Reports: Pulmonary Fibrosis Other Respiratory History: Upper L) lobe of lung removed. Gastrointestinal History: Reports: GERD Genitourinary History: Reports: UTI, Recurrent [employer]OR History: Reports: Musculoskeletal History: Reports: Back Pain, Chronic, Osteoarthritis Neurological History: Reports: Other (See Below) Psychiatric History: Reports: Depression Endocrine/Metabolic History: Reports: Obesity/BMI 30+ Hematologic History: Reports: Blood Transfusion(s) Immunologic History: Reports: None Oncologic (Cancer) History: Reports: Lung Dermatologic History: Reports: Psoriasis - Infectious Disease History Infectious Disease History: Reports: Chicken Pox, Measles, Mumps - Past Surgical History HEENT Surgical History: Reports: Oral Surgery Respiratory Surgical History: Reports: None, Lung Resection GI Surgical History: Reports: None Female Surgical History: Reports: D&C, Hysterectomy, Tubal Ligation Musculoskeletal Surgical History: Reports: Hip Replacement, Knee Replacement, ORIF, Other (See Below) Other Musculoskeletal Surgeries/Procedures:: Hip revision to R Oncologic Surgical History: Reports: Lobectomy, Other (See Below) Other Oncologic Surgeries/Procedures: lobectomy to L upper lung Dermatological Surgical History: Reports: None Social & Family History - Family History Family Medical History: No Pertinent Family History Neurological: Reports: CVA Oncologic: Reports: Colon - Tobacco Use Tobacco Use Status *Q: Former Tobacco User Used Tobacco, but Quit: Yes Month/Year Tobacco Last Used: 2017 - Caffeine Use Caffeine Use: Reports: None - Recreational Drug Use Recreational Drug Use: No - Living Situation & Occupation Living situation: Reports: , with Spouse 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 Denies: Lightheadedness Gastrointestinal: Denies: Abdominal Pain, Nausea, Vomiting Genitourinary: Reports: Frequency Musculoskeletal: Reports: Back Pain. Denies: Joint Pain Skin: Denies: Cyanosis, Rash, Erythema, Change in Color, Change in Hair/Nails Psychiatric: Denies: Depression, Anxiety Neurological: Denies: Confusion, Difficulty Walking, Gait Disturbance Hematologic/Lymphatic: Reports: No Symptoms Immunologic: Reports: No Symptoms Exam - Exam Exam: See Below - Vital Signs Vital Signs: Last Vital Signs Temp 36.2 C 11/14/20 16:41 Pulse 99 11/14/20 16:41 Resp 24 H 11/14/20 16:41 BP 145/89 H 11/14/20 16:41 Pulse Ox 79 L 11/14/20 16:41 Weight: 88.451 kg - Exam Quality Assessment: Supplemental Oxygen General: Alert, Oriented, Cooperative, Other (Obese) HEENT: Conjunctiva Clear, EACs Clear, EOMI, Hearing Intact, Mucosa Moist & Triangle, Nares Patent, Normal Nasal Septum, Posterior Pharynx Clear, Pupils Equal Neck: Supple, Trachea Midline, Full Range of Motion. No: JVD Lungs: Normal Respiratory Effort, Other (coarse) Cardiovascular: Regular Rate, Regular Rhythm, Normal S1, Normal S2 GI/Abdominal Exam: Normal Bowel Sounds, Soft, Non-Tender, No Organomegaly, No Distention, No Abnormal Bruit, No Mass, Other (Obese) (Female) Exam: Deferred Rectal (Female) Exam: Deferred Back Exam: Normal Inspection, Decreased Range of Motion Extremities: Normal Inspection, Normal Range of Motion, Non-Tender, Pedal Edema, Slow Capillary Refill, Other (2+ b/l lower etxremity edema) Peripheral Pulses: 1+: Dorsalis Pedis (L), Dorsalis Pedis (R) Skin: Warm, Dry, Intact Neuro Extensive - Mental Status: Oriented x3, Normal Cognition, Memory Intact Neuro Extensive - Motor, Sensory, Reflexes: CN II-XII Intact, Normal Gait Psychiatric: Alert, Normal Affect, Normal Mood - Patient Data Lab Results Last 24 hrs: Laboratory Results - last 24 hr 11/14/20 Range/Units 14:14 D-Dimer, Quantitative 0.73 H (0.19-0.50) mg/L Result Diagrams: 11/15/20 04:40 11/15/20 04:40 Sepsis Event Note - Evaluation Sepsis Screening Result: No Definite Risk - Focused Exam Vital Signs: Vital Signs Temp Pulse Resp BP Pulse Ox 11/14/20 16:41 36.2 C 99 24 H 145/89 H 79 L Problem List Initiated/Reviewed/Updated: Yes Orders Last 24hrs: Active Orders 24 hr Category Date Time Status Patient Status [ADT] Routine ADT 11/14/20 20:23 Active Potassium Chloride [KCl in Water 10 MEQ/100 ML] 10 meq Med 11/14/20 17:00 Active Premix Bag 1 bag IV Q1H Sodium Chloride 0.9% [Normal Saline] 1,000 ml Med 11/14/20 16:54 Active IV NOW Sodium Chloride 0.9% [Normal Saline] 100 ml Med 11/14/20 18:00 Active IV ASDIRECTED Sodium Chloride 0.9% [Saline Flush] Med 11/14/20 18:00 Active 10 ml FLUSH BOLUS Medication Orders Sodium Chloride (Normal Saline) 1,000 mls @ 50 mls/hr IV NOW STA Stop: 11/15/20 12:53 Last Admin: 11/14/20 17:13 Dose: 50 mls/hr Documented by: TIFFANY Potassium Chloride 10 meq/ (Premix) 100 mls @ 100 mls/hr IV Q1H YOSEPH Stop: 11/14/20 22:59 Last Admin: 11/14/20 19:52 Dose: 50 mls/hr Documented by: Infusion: 11/14/20 19:52 Dose: 5 mls/hr Documented by: Infusion: 11/14/20 17:32 Dose: 5 mls/hr Documented by: Admin: 11/14/20 17:13 Dose: 100 mls/hr Documented by: TIFFANY Sodium Chloride (Normal Saline) 100 mls @ 60 mls/min IV ASDIRECTED YOSEPH Last Admin: 11/14/20 19:51 Dose: 60 mls/min Documented by: CHING Sodium Chloride (Saline Flush) 10 ml FLUSH BOLUS [facility] Last Admin: 11/14/20 19:51 Dose: 10 ml Documented by: CHING Assessment/Plan Comment:: This is a 65 yo white female with past medical hx/o Impaired Vision, Chronic Agnina, CAD S/p Stent placement in 2019, Heart Failure with Preserved EF, Pulmonary Fibrosis, History of Lung CA, Left Upper Lobe Lobectomy, COPD, Former Smoker, Chronic Respiratory Failure on Supplemental O2, GERD, Recurrent UTI, chronic Back pain, OA, Psoriasis, Depression and Obesity who was sent to ED for evaluation of 10 day history of increasing shortness of breath associated with dyspnea on exertion, intermittent chest pressure and 10 pounds weight gain. Assessment: Acute: Acute on chronic congestive heart failure with preserved ejection fraction 50- 55% on 04/23/2019 Moderate tricuspid valve regurgitation 04/23/2019 Elevated proBNP of 3077 Bilateral lower extremity edema 10 Pounds weight gain -Chest CTA shows pulmonary vascular congestion -Patient received IV Lasix in ED -Plan: Thyroid panel and heart failure regimen Chest Pressure r/o Angina Equivalent Carries a hx/o CAD with stent placement -Initial troponin and EKG were both negative -Plan: ACS work up and stress test in AM Elevated D-Dimer Acute on chronic hypoxic respiratory failure Acute on chronic interstitial lung disease COPD Exacerbation -Chest CTA negative for PE -Has underlying pulmonary fibrosis -She is normally on 2-3L NC but had to go up to as high as 6L NC -Currently on 5L NC -Plan: Continue supplemental O2,IV steroid, and bronchodilators. Sputum culture with gram stain. IV Azithromycin 500 mg daily. Electrolytes Abnormality Mild Hypernatremia with Na of 151 Hypokalemia with K of 2.4 Mild Hypercapnia with CO2 of 34 -Received IV and oral potassium in ED -Expect sodium to improve after diuretics: lasix and hydrochlorothiazide/triamterene -Hold IV fluids -Will replete and monitor labs Class II Obese -BMI of 36.8 -Dietary consult for weight management Chronic: Impaired Vision, Chronic Agnina, CAD S/p Stent placement in 2019, Heart Failure with Preserved EF, Pulmonary Fibrosis, History of Lung CA, Left Upper Lobe Lobectomy, COPD, Former Smoker, Chronic Respiratory Failure on Supplemental O2, GERD, Recurrent UTI, chronic Back pain, OA, Psoriasis, Depression and Obesity Plan: Admit to [facility]. Routine AM labs. Heart failure work up and regiment: diuretics, salt/fluid restriction, strict Is/Os, and daily weight check. 2D echo and Lexiscan stress test in AM. NPO midnight. Resume some home meds once verified. May consider lasix gtt if no response to current treatment. Thyroid panel and Vit D level. PT/OT when appropriate. Code status is full. Prognosis is guarded.
[2020-11-14] MEDS ORDERED: Docusate Sodium 100 MG Cap PO PRN (21:13)
[2020-11-14] MEDS ORDERED: Albuterol/Ipratropium 3.0-0.5 MG/3 ML Neb Soln NEB PRN (21:13)
[2020-11-14] MEDS ORDERED: Promethazine 12.5 MG in Sodium Chloride 0.9% 50 ML IV PRN (21:13)
[2020-11-14] MEDS ORDERED: LORazepam 2 MG/ML SDV IV PRN (21:13)
[2020-11-14] MEDS ORDERED: Zolpidem 5 MG Tab PO PRN (21:13)
[2020-11-14] MEDS ORDERED: Ondansetron 4 MG/2 ML SDV IV PRN (21:13)
[2020-11-14] MEDS ORDERED: Acetaminophen 650 MG Supp RECTAL PRN (21:13)
[2020-11-14] MEDS ORDERED: HYDROmorphone 0.5 MG/0.5 ML Syringe IVPUSH PRN (21:13)
[2020-11-14] MEDS ORDERED: Acetaminophen/HYDROcodone 325-5 MG Tab PO PRN (21:13)
[2020-11-14] MEDS ORDERED: Fluticasone Propionate Nasal Spray 16 GM Bottle NASBOTH PRN (21:20)
[2020-11-14] MEDS ORDERED: hydrOXYzine HCl 25 MG Tab PO PRN (21:20)
[2020-11-14] MEDS ORDERED: Hydrochlorothiazide/Triamterene 25-37.5 MG Cap PO STA (21:25)
[2020-11-14] MEDS ORDERED: Pramipexole 0.5 MG Tab PO STA (21:38)
[2020-11-15] MEDS: Potassium Chloride 10 MEQ in Premix Bag 1 BAG IV SCH ×5 (00:42→15:54)
[2020-11-15] MEDS: Azithromycin 500 MG in Sodium Chloride 0.9% 250 ML IV SCH ×2 (05:02→20:44)
[2020-11-15] MEDS: methylPREDNISolone Sodium Succinate 125 MG/2 ML SDV IVPUSH SCH ×3 (06:11→22:20)
--- NOTE | 2020-11-15 07:17 | PCM.PN ---
- General Info Date of Service: 11/15/20 Admission Dx/Problem (Free Text): Admission Diagnosis/Problem Admission Diagnosis/Problem Hypokalemia Subjective Update: No significant overnight or acute issues. She feels much better this AM. She is now back to her baseline home O2 of 2L NC. Her last weigh in shows 86 kg (88 kg on admission). She is afebrile w/o leukocytosis. Her K remains low at 3.2 but better. Her Mg today is low at 1.7. Functional Status: Reports: Pain Controlled, Tolerating Diet, Ambulating, Urinating. Denies: New Symptoms - Review of Systems General: Reports: Fatigue. Denies: Fever, Chills HEENT: Reports: No Symptoms Pulmonary: Reports: Shortness of Breath, Cough, Sputum, Wheezing Cardiovascular: Reports: Dyspnea on Exertion, Edema. Denies: Chest Pain Gastrointestinal: Denies: Abdominal Pain, Nausea, Vomiting Genitourinary: Reports: Frequency Musculoskeletal: Denies: Joint Pain Skin: Denies: Bruising, Pruritis, Rash Neurological: Denies: Confusion Psychiatric: Denies: Depression, Anxiety - Patient Data Vitals - Most Recent: Last Vital Signs Temp 36.7 C 11/15/20 06:41 Pulse 71 11/15/20 06:41 Resp 22 H 11/15/20 06:41 BP 114/65 11/15/20 06:41 Pulse Ox 96 11/15/20 06:41 Weight - Most Recent: 86.5 kg I&O - Last 24 Hours: Intake & Output 11/14/20 11/15/20 11/15/20 22:59 06:59 14:59 Intake Total 1625 Output Total 1800 Balance -175 Lab Results Last 24 Hours: Laboratory Results - last 24 hr 11/14/20 11/14/20 11/15/20 Range/Units 14:14 23:12 04:40 WBC 4.21 (3.98-10.04) K/mm3 RBC 4.32 (3.98-5.22) M/mm3 Hgb 12.8 (11.2-15.7) gm/dl Hct 42.2 (34.1-44.9) % MCV 97.7 H (79.4-94.8) fl MCH 29.6 (25.6-32.2) pg MCHC 30.3 L (32.2-35.5) g/dl RDW Std Deviation 50.4 H (36.4-46.3) fL Plt Count 300 (182-369) K/mm3 MPV 8.6 L (9.4-12.3) fl Neut % (Auto) 85.3 H (34.0-71.1) % Lymph % (Auto) 13.3 L (19.3-51.7) % [place] % (Auto) 0.7 L (4.7-12.5) % Eos % (Auto) 0.2 L (0.7-5.8) Baso % (Auto) 0.0 L (0.1-1.2) % Neut # (Auto) 3.59 (1.56-6.13) K/mm3 Lymph # (Auto) 0.56 L (1.18-3.74) K/mm3 [place] # (Auto) 0.03 L (0.24-0.36) K/mm3 Eos # (Auto) 0.01 L (0.04-0.36) K/mm3 Baso # (Auto) 0.00 L (0.01-0.08) K/mm3 Manual Slide Review Normal smear D-Dimer, Quantitative 0.73 H (0.19-0.50) mg/L Sodium (136-145) mEq/L Potassium (3.5-5.1) mEq/L Chloride (98-107) mEq/L Carbon Dioxide (21-32) mEq/L Anion Gap (5-15) BUN (7-18) mg/dL Creatinine (0.55-1.02) mg/dL Est Cr Clr Drug Dosing mL/min Estimated GFR (MDRD) (>60) mL/min BUN/Creatinine Ratio (14-18) Glucose (80-115) mg/dL Calcium (8.5-10.1) mg/dL Magnesium (1.8-2.4) mg/dl Troponin I < 0.017 (0.00-0.056) ng/mL 11/15/20 Range/Units 04:40 WBC (3.98-10.04) K/mm3 RBC (3.98-5.22) M/mm3 Hgb (11.2-15.7) gm/dl Hct (34.1-44.9) % MCV (79.4-94.8) fl MCH (25.6-32.2) pg MCHC (32.2-35.5) g/dl RDW Std Deviation (36.4-46.3) fL Plt Count (182-369) K/mm3 MPV (9.4-12.3) fl Neut % (Auto) (34.0-71.1) % Lymph % (Auto) (19.3-51.7) % [place] % (Auto) (4.7-12.5) % Eos % (Auto) (0.7-5.8) Baso % (Auto) (0.1-1.2) % Neut # (Auto) (1.56-6.13) K/mm3 Lymph # (Auto) (1.18-3.74) K/mm3 [place] # (Auto) (0.24-0.36) K/mm3 Eos # (Auto) (0.04-0.36) K/mm3 Baso # (Auto) (0.01-0.08) K/mm3 Manual Slide Review D-Dimer, Quantitative (0.19-0.50) mg/L Sodium 145 (136-145) mEq/L Potassium 3.2 L (3.5-5.1) mEq/L Chloride 103 (98-107) mEq/L Carbon Dioxide 31 (21-32) mEq/L Anion Gap 14.2 (5-15) BUN 13 (7-18) mg/dL Creatinine 0.9 (0.55-1.02) mg/dL Est Cr Clr Drug Dosing 47.03 mL/min Estimated GFR (MDRD) > 60 (>60) mL/min BUN/Creatinine Ratio 14.4 (14-18) Glucose 164 H (80-115) mg/dL Calcium 8.6 (8.5-10.1) mg/dL Magnesium 1.7 L (1.8-2.4) mg/dl Troponin I < 0.017 (0.00-0.056) ng/mL Med Orders - Current: Current Medications Acetaminophen (Tylenol) 650 mg RECTAL Q4H PRN PRN Reason: Pain (mild 1-3) Hydrocodone Bitart/Acetaminophen (Lennox 325-5 Mg) 1 tab PO Q4H PRN PRN Reason: Pain (moderate 4-6) Albuterol/Ipratropium (Duoneb 3.0-0.5 Mg/3 Ml) 3 ml NEB Q4H PRN PRN Reason: Shortness Of Breath/wheezing Last Admin: 11/14/20 23:48 Dose: 3 ml Documented by: Albuterol/Ipratropium (Duoneb 3.0-0.5 Mg/3 Ml) 3 ml NEB Q8HRRT [facility] Ascorbic Acid (Vitamin C) 1,000 mg PO BID [facility] Aspirin (Aspirin) 81 mg PO DAILY [facility] Atorvastatin Calcium (Lipitor) 40 mg PO DAILY [facility] Cholecalciferol (Vitamin D3) 50 mcg PO BID [facility] Clopidogrel Bisulfate (Plavix) 75 mg PO DAILY [facility] Docusate Sodium (Colace) 100 mg PO BID PRN PRN Reason: Constipation Enoxaparin Sodium (Lovenox) 40 mg SUBCUT DAILY [facility] Fluticasone Propionate (Flonase) 0 gm NASBOTH BID PRN PRN Reason: Allergies Hydromorphone HCl (Dilaudid) 0.5 mg IVPUSH Q2H PRN PRN Reason: Pain (severe 7-10) Hydroxyzine HCl (Atarax) 25 mg PO BEDTIME PRN PRN Reason: Insomnia Sodium Chloride (Normal Saline) 1,000 mls @ 50 mls/hr IV NOW STA Stop: 11/15/20 12:53 Last Admin: 11/14/20 17:13 Dose: 50 mls/hr Documented by: Promethazine HCl 12.5 mg/ (Sodium Chloride) 50.5 mls @ 100 mls/hr IV Q6H PRN PRN Reason: Nausea/Vomiting Azithromycin 500 mg/ Sodium (Chloride) 250 mls @ 250 mls/hr IV Q24H [facility] Last Admin: 11/15/20 05:02 Dose: 250 mls/hr Documented by: Isosorbide Mononitrate (Imdur) 30 mg PO DAILY [facility] Lorazepam (Ativan) 0.5 mg IV Q6H PRN PRN Reason: anxiety/restlessness Methylprednisolone Sodium Succinate (Solu-Medrol) 125 mg IVPUSH Q8H [facility] Last Admin: 11/15/20 06:11 Dose: 125 mg Documented by: Ondansetron HCl (Zofran) 4 mg IV Q6H PRN PRN Reason: Nausea/Vomiting Pantoprazole Sodium (Protonix) 40 mg PO DAILY [facility] Potassium Chloride (Klor-Con M20) 20 meq PO BID [facility] Pramipexole Dihydrochloride (Mirapex) 1.5 mg PO BEDTIME [facility] Senna/Docusate Sodium (Senna Plus) 1 tab PO BID PRN PRN Reason: Constipation Sertraline HCl (Zoloft) 50 mg PO DAILY [facility] Sodium Chloride (Saline Flush) 10 ml FLUSH BOLUS [facility] Last Admin: 11/14/20 19:51 Dose: 10 ml Documented by: Trazodone HCl (Trazodone) 50 mg PO BEDTIME YOSEPH Discontinued Medications Atorvastatin Calcium (Lipitor) 40 mg PO DAILY [facility] Diphenhydramine HCl (Benadryl) 50 mg IVPUSH ONETIME ONE Stop: 11/14/20 18:37 Last Admin: 11/14/20 18:46 Dose: 50 mg Documented by: Famotidine (Pepcid) 20 mg IVPUSH ONETIME ONE Stop: 11/14/20 18:37 Last Admin: 11/14/20 18:45 Dose: 20 mg Documented by: Furosemide (Lasix) 40 mg IVPUSH ONETIME ONE Stop: 11/14/20 20:18 Last Admin: 11/14/20 21:07 Dose: 40 mg Documented by: Potassium Chloride 10 meq/ (Premix) 100 mls @ 100 mls/hr IV Q1H [facility] Stop: 11/14/20 22:59 Last Admin: 11/15/20 06:16 Dose: 50 mls/hr Documented by: Sodium Chloride (Normal Saline) 100 mls @ 60 mls/min IV ASDIRECTED [facility] Last Admin: 11/14/20 19:51 Dose: 60 mls/min Documented by: Iopamidol (Isovue-370 (76%)) 100 ml IVPUSH ONETIME ONE Stop: 11/14/20 17:57 Last Admin: 11/14/20 19:51 Dose: 100 ml Documented by: Methylprednisolone Sodium Succinate (Solu-Medrol) 125 mg IVPUSH ONETIME ONE Stop: 11/14/20 18:37 Last Admin: 11/14/20 18:43 Dose: 125 mg Documented by: Potassium Chloride (Klor-Con M20) 40 meq PO ONETIME ONE Stop: 11/14/20 16:54 Last Admin: 11/14/20 17:13 Dose: 40 meq Documented by: Pramipexole Dihydrochloride (Mirapex) 1.5 mg PO NOW STA Stop: 11/14/20 21:39 Last Admin: 11/14/20 23:12 Dose: 1.5 mg Documented by: Triamterene/Hydrochlorothiazide (Dyazide 25-37.5 Mg) 1 each PO NOW STA Stop: 11/14/20 21:26 Last Admin: 11/14/20 23:11 Dose: 1 each Documented by: Zolpidem Tartrate (Ambien) 5 mg PO BEDTIME PRN PRN Reason: Sleep - Exam Quality Assessment: Supplemental Oxygen General: Alert, Oriented, Cooperative HEENT: Pupils Equal, Pupils Reactive, EOMI, Mucous Membr. Moist/[place] Neck: Supple Lungs: Normal Respiratory Effort, Wheezing, Other (sounds much better) Cardiovascular: Regular Rate, Regular Rhythm GI/Abdominal Exam: Normal Bowel Sounds, Soft, Non-Tender, No Organomegaly, No Distention, No Abnormal Bruit, Other (obese) (Female) Exam: Deferred Back Exam: Normal Inspection, Decreased Range of Motion Extremities: Normal Inspection, Normal Range of Motion, Non-Tender, Pedal Edema, Other (lower extremity edema on both legs) Peripheral Pulses: 1+: Dorsalis Pedis (L), Dorsalis Pedis (R) Skin: Warm, Dry, Intact Neurological: No New Focal Deficit Psy/Mental Status: Alert, Normal Affect, Normal Mood - Patient Data Lab Results Last 24 hrs: Laboratory Results - last 24 hr 11/14/20 11/14/20 11/15/20 Range/Units 14:14 23:12 04:40 WBC 4.21 (3.98-10.04) K/mm3 RBC 4.32 (3.98-5.22) M/mm3 Hgb 12.8 (11.2-15.7) gm/dl Hct 42.2 (34.1-44.9) % MCV 97.7 H (79.4-94.8) fl MCH 29.6 (25.6-32.2) pg MCHC 30.3 L (32.2-35.5) g/dl RDW Std Deviation 50.4 H (36.4-46.3) fL Plt Count 300 (182-369) K/mm3 MPV 8.6 L (9.4-12.3) fl Neut % (Auto) 85.3 H (34.0-71.1) % Lymph % (Auto) 13.3 L (19.3-51.7) % [place] % (Auto) 0.7 L (4.7-12.5) % Eos % (Auto) 0.2 L (0.7-5.8) Baso % (Auto) 0.0 L (0.1-1.2) % Neut # (Auto) 3.59 (1.56-6.13) K/mm3 Lymph # (Auto) 0.56 L (1.18-3.74) K/mm3 [place] # (Auto) 0.03 L (0.24-0.36) K/mm3 Eos # (Auto) 0.01 L (0.04-0.36) K/mm3 Baso # (Auto) 0.00 L (0.01-0.08) K/mm3 Manual Slide Review Normal smear D-Dimer, Quantitative 0.73 H (0.19-0.50) mg/L Sodium (136-145) mEq/L Potassium (3.5-5.1) mEq/L Chloride (98-107) mEq/L Carbon Dioxide (21-32) mEq/L Anion Gap (5-15) BUN (7-18) mg/dL Creatinine (0.55-1.02) mg/dL Est Cr Clr Drug Dosing mL/min Estimated GFR (MDRD) (>60) mL/min BUN/Creatinine Ratio (14-18) Glucose (80-115) mg/dL Calcium (8.5-10.1) mg/dL Magnesium (1.8-2.4) mg/dl Troponin I < 0.017 (0.00-0.056) ng/mL 11/15/20 Range/Units 04:40 WBC (3.98-10.04) K/mm3 RBC (3.98-5.22) M/mm3 Hgb (11.2-15.7) gm/dl Hct (34.1-44.9) % MCV (79.4-94.8) fl MCH (25.6-32.2) pg MCHC (32.2-35.5) g/dl RDW Std Deviation (36.4-46.3) fL Plt Count (182-369) K/mm3 MPV (9.4-12.3) fl Neut % (Auto) (34.0-71.1) % Lymph % (Auto) (19.3-51.7) % [place] % (Auto) (4.7-12.5) % Eos % (Auto) (0.7-5.8) Baso % (Auto) (0.1-1.2) % Neut # (Auto) (1.56-6.13) K/mm3 Lymph # (Auto) (1.18-3.74) K/mm3 [place] # (Auto) (0.24-0.36) K/mm3 Eos # (Auto) (0.04-0.36) K/mm3 Baso # (Auto) (0.01-0.08) K/mm3 Manual Slide Review D-Dimer, Quantitative (0.19-0.50) mg/L Sodium 145 (136-145) mEq/L Potassium 3.2 L (3.5-5.1) mEq/L Chloride 103 (98-107) mEq/L Carbon Dioxide 31 (21-32) mEq/L Anion Gap 14.2 (5-15) BUN 13 (7-18) mg/dL Creatinine 0.9 (0.55-1.02) mg/dL Est Cr Clr Drug Dosing 47.03 mL/min Estimated GFR (MDRD) > 60 (>60) mL/min BUN/Creatinine Ratio 14.4 (14-18) Glucose 164 H (80-115) mg/dL Calcium 8.6 (8.5-10.1) mg/dL Magnesium 1.7 L (1.8-2.4) mg/dl Troponin I < 0.017 (0.00-0.056) ng/mL Result Diagrams: 11/15/20 04:40 11/15/20 04:40 Sepsis Event Note - Evaluation Sepsis Screening Result: No Definite Risk - Focused Exam Vital Signs: Vital Signs Temp Pulse Pulse Resp BP BP Pulse Ox 11/15/20 06:41 36.7 C 71 22 H 114/65 96 11/15/20 04:21 36.6 C 80 20 139/70 90 L 11/14/20 23:48 11/14/20 21:46 36.6 C 20 117/89 11/14/20 21:30 80 18 108/75 93 L 11/14/20 21:14 93 L 11/14/20 21:13 Pulse Ox 11/15/20 06:41 11/15/20 04:21 11/14/20 23:48 94 L 11/14/20 21:46 11/14/20 21:30 11/14/20 21:14 11/14/20 21:13 93 L - Problem List Review Problem List Initiated/Reviewed/Updated: Yes - My Orders Last 24 Hours: My Active Orders 11/14/20 Breakfast Nothing Per Oral Diet [DIET] 11/14/20 21:13 Height and Weight [RC] 0600 Oxygen Therapy [RC] PRN Up With Assistance [RC] ASDIRECTED Up ad Key [RC] ASDIRECTED VTE/DVT Education [RC] PER UNIT ROUTINE Vital Signs [RC] Q4H Consult to Case Management/Application Engineer [CONS] Routine Consult to Dog Boarder [CONS] Routine Consult to Spiritual Care [CONS] Routine OT Evaluation and Treatment [CONS] Routine PT Evaluation and Treatment [CONS] Routine Respiratory Care Assess and Treatment [CONS] Routine CULTURE SPUTUM + SMEAR [RM] Stat Acetaminophen [Tylenol] 650 mg RECTAL Q4H PRN Acetaminophen/HYDROcodone [[place] 325-5 MG] 1 tab PO Q4H PRN Albuterol/Ipratropium [DuoNeb 3.0-0.5 MG/3 ML] 3 ml NEB Q4H PRN Docusate Sodium [Colace] 100 mg PO BID PRN Docusate Sodium/Sennosides [Senna Plus] 1 tab PO BID PRN HYDROmorphone [Dilaudid] 0.5 mg IVPUSH Q2H PRN LORazepam [Ativan] 0.5 mg IV Q6H PRN Ondansetron [Zofran] 4 mg IV Q6H PRN Promethazine [Phenergan] 12.5 mg Sodium Chloride 0.9% [Normal Saline] 50 ml IV Q6H Resuscitation Status Routine 11/14/20 21:14 Intake and Output [RC] 04,16 Pulse Oximetry [RC] CONTINUOUS Antiembolic Hose [OM.PC] Per Unit Routine 11/14/20 21:15 Antiembolic Devices [RC] PER UNIT ROUTINE 11/14/20 21:17 RT Aerosol Therapy [RC] ASDIRECTED 11/14/20 21:20 Fluticasone Propionate [Flonase] 0 gm NASBOTH BID PRN hydrOXYzine HCL [Atarax] 25 mg PO BEDTIME PRN 11/14/20 21:23 Echo Comp wo Cont [US] Routine 11/14/20 21:24 Consult to Pulmonary Rehabilitation [CONS] Routine Lexiscan [EKG Stress NM Adenosine] [EK] Routine 11/14/20 21:36 RT Aerosol Therapy [RC] ASDIRECTED 11/14/20 21:45 Azithromycin [Zithromax] 500 mg Sodium Chloride 0.9% [Normal Saline (AdvBag)] 250 ml IV Q24H 11/15/20 04:40 T4 FREE [CHEM] Routine TSH [CHEM] Routine VITAMIN D,25-HYDROXY [CHEM] Routine 11/15/20 06:00 methylPREDNISolone Sod Succ [Solu-MEDROL] 125 mg IVPUSH Q8H 11/15/20 Breakfast 2 Gram Sodium Diet [DIET] Heart Healthy Diet [DIET] 11/15/20 08:00 Albuterol/Ipratropium [DuoNeb 3.0-0.5 MG/3 ML] 3 ml NEB Q8HRRT 11/15/20 09:00 Ascorbic Acid [Vitamin C] 1,000 mg PO BID Aspirin 81 mg PO DAILY Cholecalciferol (Vitamin D3) [Vitamin D3] 50 mcg PO BID Clopidogrel [Plavix] 75 mg PO DAILY Enoxaparin [Lovenox] 40 mg SUBCUT DAILY Isosorbide Mononitrate [Imdur] 30 mg PO DAILY Pantoprazole [ProTONIX] 40 mg PO DAILY Potassium Chloride [Klor-Con M20] 20 meq PO BID Sertraline [Zoloft] 50 mg PO DAILY atorvaSTATin [Lipitor] 40 mg PO DAILY 11/15/20 21:00 Pramipexole [Mirapex] 1.5 mg PO BEDTIME traZODone 50 mg PO BEDTIME 11/16/20 05:11 BASIC METABOLIC PANEL,BMP [CHEM] AM CBC WITH AUTO DIFF [HEME] AM MAGNESIUM [CHEM] AM 11/17/20 05:11 BASIC METABOLIC PANEL,BMP [CHEM] AM CBC WITH AUTO DIFF [HEME] AM MAGNESIUM [CHEM] AM 11/18/20 05:11 BASIC METABOLIC PANEL,BMP [CHEM] AM CBC WITH AUTO DIFF [HEME] AM MAGNESIUM [CHEM] AM 11/19/20 05:11 BASIC METABOLIC PANEL,BMP [CHEM] AM CBC WITH AUTO DIFF [HEME] AM MAGNESIUM [CHEM] AM - Plan Plan:: This is a 65 yo white female with past medical hx/o Impaired Vision, Chronic Agnina, CAD S/p Stent placement in 2019, Heart Failure with Preserved EF, Pulmonary Fibrosis, History of Lung CA, Left Upper Lobe Lobectomy, COPD, Former Smoker, Chronic Respiratory Failure on Supplemental O2, GERD, Recurrent UTI, chronic Back pain, OA, Psoriasis, Depression and Obesity who was sent to ED for evaluation of 10 day history of increasing shortness of breath associated with dyspnea on exertion, intermittent chest pressure and 10 pounds weight gain. Assessment: Acute: Acute on chronic congestive heart failure with preserved ejection fraction 50- 55% on 04/23/2019 Moderate tricuspid valve regurgitation 04/23/2019 Elevated proBNP of 3077 Bilateral lower extremity edema 10 Pounds weight gain -Chest CTA shows pulmonary vascular congestion -Patient received IV Lasix in ED -Thyroid panel and Vit D level both wnl -Plan: Continue heart failure regimen and 2D echo this AM Chest Pressure r/o Angina Equivalent Carries a hx/o CAD with stent placement -Initial troponin and EKG were both negative -Additional troponins wnl -Repeat EKG shows no acute ST-T wave changes -Lipid panel wnl -Lexiscan stress test showed no acute ischemia Elevated D-Dimer Acute on chronic hypoxic respiratory failure Acute on chronic interstitial lung disease COPD Exacerbation -Chest CTA negative for PE -Has underlying pulmonary fibrosis -She is normally on 2-3L NC but had to go up to as high as 6L NC -Last night she was on 5L NC; now at baseline of 2L NC -Breathing improves -Plan: Continue supplemental O2,IV steroid, IV azithromycin, and bronchodilators. Sputum culture with gram stain. Covid-19 test negative Electrolytes Abnormality Hypokalemia with K of 2.4, improved to 3.2 Hypomagnesemia with Mg of 1.7 -Received IV and oral potassium in ED -She has oral K supplement, will add IV Potassium -Magnesium sulfate 2 grams IV x 1 -Will continue to replete and monitor Class II Obese -BMI of 36.8 -Dietary consult for weight management Resolved: Mild Hypernatremia with Na of 151, now 145 Mild Hypercapnia with CO2 of 34, now 31 Chronic: Impaired Vision, Chronic Agnina, CAD S/p Stent placement in 2019, Heart Failure with Preserved EF, Pulmonary Fibrosis, History of Lung CA, Left Upper Lobe Lobectomy, COPD, Former Smoker, Chronic Respiratory Failure on Supplemental O2, GERD, Recurrent UTI, chronic Back pain, OA, Psoriasis, Depression and Obesity Plan: Continue current treatment. Routine AM labs. Heart failure regimen: diuretics, salt/fluid restrictions, strict Is/Os, and daily weight check. Thyroid panel and Vit D level. Continue PT/OT when appropriate. Code status is full. Prognosis guarded-good. Updated her at beside regarding her morning labs, test results, and clinical progress. 1615: 2D echo report read as LVEF of 60-65%. Grade I Diastolic Dysfunction. No RWMA. Moderate Tricuspid Regurgitation. RVSP now 91 mmHg (was 60 mmHg on 04/22/2019). RV size is moderately enlarged. Discussed reports with patient at bedside.
[2020-11-15 07:43] LABS: VITAMIN D,25-HYDROXY 53.4 ng/ml (30.0-100.0)
[2020-11-15] MEDS ORDERED: Magnesium Sulfate/Water 2 GM/50 ML BAG IV ONE ×2 (08:00→14:00)
--- NOTE | 2020-11-15 08:20 | PCM.PRNOTE ---
- Free Text/Narrative Note: Date of service: 11/15/20 Procedure: Regadenoson (Lexiscan) stress test Ordering provider: Dr. Ronny Moss Indication: Chest pain Baseline EKG: Sinus rhythm at [address] depression in V3-V5. T-wave inversion in aVL, V1-V2. Risks and benefits were discussed with the patient and consent form was signed. The patient received Regadenoson (Lexiscan) 0.4 mg IV and a nuclear agent using standard protocol. The patient was seated for the procedure. Lexiscan test: Heart rate: 92 bpm; Blood pressure: 131/70 mm Hg; Oxygenation: 95%. EKG changes of ischemia during stress test or in recovery: None Arrhythmias: Rare PVC Adverse effects of Lexiscan: Nausea, shortness of breath, and chest tightness. All improving spontaneously prior to completion of test. Test terminated due to: End of protocol Impression: 1. Indeterminate Lexiscan stress test ECG for ischemia. Non-diagnostic per Lexiscan protocol. No definitive signs of ischemia seen. 2. Nuclear images pending and will be reported separately per Radiologist.
[2020-11-15] MEDS ORDERED: atorvaSTATin 40 MG Tab PO SCH (09:00)
[2020-11-15] MEDS: Albuterol/Ipratropium 3.0-0.5 MG/3 ML Neb Soln NEB SCH ×3 (09:44→20:17)
[2020-11-15] MEDS: Enoxaparin 40 MG/0.4 ML Syringe SUBCUT SCH (10:39)
[2020-11-15] MEDS: Cholecalciferol (Vitamin D3) 25 MCG Tab PO SCH ×2 (10:40→20:34)
[2020-11-15] MEDS: atorvaSTATin 20 MG Tab PO SCH (10:40)
[2020-11-15] MEDS: Pantoprazole 40 MG Tab.CR PO SCH (10:40)
[2020-11-15] MEDS: Sertraline 50 MG Tab PO SCH (10:40)
[2020-11-15] MEDS ORDERED: Furosemide 20 MG/2 ML VIAL IVPUSH ONE ×3 (10:45→18:00)
--- NOTE | 2020-11-15 12:43 | NM ---
Cardiolite cardiac scan with Lexiscan Technique: I have data stating the patient was stressed utilizing Lexiscan protocol. Stress dose of technetium 99m Cardiolite was 11.0 mCi. Rest dose was 31.2 mCi. SPECT imaging was obtained 3 planes for both portions of the study. Study was also gated. Low-dose chest CT was performed to allow for attenuation correction. Comparison: Prior Cardiolite cardiac exam in 12/17/19. Findings: Activity within the left ventricular myocardium is homogeneous between rest and stress study. No discrete fixed or reversible type defects are appreciated. Ejection fraction is over 70 percent. Wall thickening and wall motion are normal. Impression: 1. No abnormality is identified on Cardiolite cardiac scan with Lexiscan. Diagnostic code #1
[2020-11-15] MEDS: Isosorbide Mononitrate 30 MG Tab.ER PO SCH (13:57)
[2020-11-15] MEDS: Aspirin 81 MG Tab.Chew PO SCH (13:57)
[2020-11-15] MEDS: Potassium Chloride 20 MEQ Tab.ER PO SCH ×2 (13:58→20:34)
[2020-11-15] MEDS: Ascorbic Acid 500 MG Tab PO SCH ×2 (13:58→20:34)
[2020-11-15] MEDS: Clopidogrel 75 MG Tab PO SCH (13:58)
[2020-11-15] MEDS: traZODone 50 MG Tab PO SCH (20:33)
[2020-11-15] MEDS: Pramipexole 0.5 MG Tab PO SCH (20:34)
[2020-11-16] MEDS: methylPREDNISolone Sodium Succinate 125 MG/2 ML SDV IVPUSH SCH ×3 (05:03→21:56)
--- NOTE | 2020-11-16 05:28 | PCM.PN ---
- General Info Date of Service: 11/16/20 Admission Dx/Problem (Free Text): Admission Diagnosis/Problem Admission Diagnosis/Problem Hypokalemia Subjective Update: Found midnight by night nurse considerably hypoxic in the 70s with supplemental O2 off on her. She is currently on 3L NC sating in the low 90s. Otherwise she has no acute issues. She states she continues to feel better. She is afebrile w/o leukocytosis. She is so far -770 net balance on fluids. Her abnormal e-lytes improves. Functional Status: Reports: Pain Controlled, Tolerating Diet, Ambulating, Urinating, Incentive Spirometry. Denies: New Symptoms - Review of Systems General: Denies: Fever, Chills HEENT: Reports: No Symptoms Pulmonary: Reports: Shortness of Breath, Cough Cardiovascular: Denies: Chest Pain Gastrointestinal: Denies: Abdominal Pain, Nausea, Vomiting Genitourinary: Reports: Frequency Musculoskeletal: Reports: No Symptoms Skin: Denies: Cyanosis, Pallor, Diaphoresis Neurological: Denies: Confusion Psychiatric: Denies: Depression, Anxiety - Patient Data Vitals - Most Recent: Last Vital Signs Temp 36.6 C 11/16/20 05:03 Pulse 77 11/16/20 05:03 Resp 16 11/16/20 05:03 BP 132/73 11/16/20 05:03 Pulse Ox 95 11/16/20 05:03 Weight - Most Recent: 86.5 kg I&O - Last 24 Hours: Intake & Output 11/15/20 11/15/20 11/16/20 14:59 22:59 06:59 Intake Total 480 Output Total 800 Balance -320 Lab Results Last 24 Hours: Laboratory Results - last 24 hr 11/15/20 11/15/20 11/15/20 Range/Units 04:40 04:40 04:40 WBC 4.21 (3.98-10.04) K/mm3 RBC 4.32 (3.98-5.22) M/mm3 Hgb 12.8 (11.2-15.7) gm/dl Hct 42.2 (34.1-44.9) % MCV 97.7 H (79.4-94.8) fl MCH 29.6 (25.6-32.2) pg MCHC 30.3 L (32.2-35.5) g/dl RDW Std Deviation 50.4 H (36.4-46.3) fL Plt Count 300 (182-369) K/mm3 MPV 8.6 L (9.4-12.3) fl Neut % (Auto) 85.3 H (34.0-71.1) % Lymph % (Auto) 13.3 L (19.3-51.7) % [place] % (Auto) 0.7 L (4.7-12.5) % Eos % (Auto) 0.2 L (0.7-5.8) Baso % (Auto) 0.0 L (0.1-1.2) % Neut # (Auto) 3.59 (1.56-6.13) K/mm3 Lymph # (Auto) 0.56 L (1.18-3.74) K/mm3 [place] # (Auto) 0.03 L (0.24-0.36) K/mm3 Eos # (Auto) 0.01 L (0.04-0.36) K/mm3 Baso # (Auto) 0.00 L (0.01-0.08) K/mm3 Manual Slide Review Normal smear Sodium 145 (136-145) mEq/L Potassium 3.2 L (3.5-5.1) mEq/L Chloride 103 (98-107) mEq/L Carbon Dioxide 31 (21-32) mEq/L Anion Gap 14.2 (5-15) BUN 13 (7-18) mg/dL Creatinine 0.9 (0.55-1.02) mg/dL Est Cr Clr Drug Dosing 47.03 mL/min Estimated GFR (MDRD) > 60 (>60) mL/min BUN/Creatinine Ratio 14.4 (14-18) Glucose 164 H (80-115) mg/dL Calcium 8.6 (8.5-10.1) mg/dL Magnesium 1.7 L (1.8-2.4) mg/dl Troponin I < 0.017 (0.00-0.056) ng/mL Triglycerides (<150) mg/dL Cholesterol (<200) mg/dL LDL Cholesterol Direct (<100) mg/dL HDL Cholesterol (40-59) mg/dL Vitamin D 25-Hydroxy 53.4 (30.0-100.0) ng/ml Free T4 1.02 (0.76-1.46) ng/dL TSH 3rd Generation 0.359 (0.358-3.74) uIU/mL 11/15/20 11/16/20 Range/Units 04:40 04:55 WBC 7.73 (3.98-10.04) K/mm3 RBC 3.95 L (3.98-5.22) M/mm3 Hgb 11.9 (11.2-15.7) gm/dl Hct 38.8 (34.1-44.9) % MCV 98.2 H (79.4-94.8) fl MCH 30.1 (25.6-32.2) pg MCHC 30.7 L (32.2-35.5) g/dl RDW Std Deviation 51.4 H (36.4-46.3) fL Plt Count 281 (182-369) K/mm3 MPV 8.4 L (9.4-12.3) fl Neut % (Auto) 88.7 H (34.0-71.1) % Lymph % (Auto) 8.4 L (19.3-51.7) % [place] % (Auto) 2.8 L (4.7-12.5) % Eos % (Auto) 0 L (0.7-5.8) Baso % (Auto) 0.0 L (0.1-1.2) % Neut # (Auto) 6.85 H (1.56-6.13) K/mm3 Lymph # (Auto) 0.65 L (1.18-3.74) K/mm3 [place] # (Auto) 0.22 L (0.24-0.36) K/mm3 Eos # (Auto) 0.00 L (0.04-0.36) K/mm3 Baso # (Auto) 0.00 L (0.01-0.08) K/mm3 Manual Slide Review Sodium (136-145) mEq/L Potassium (3.5-5.1) mEq/L Chloride (98-107) mEq/L Carbon Dioxide (21-32) mEq/L Anion Gap (5-15) BUN (7-18) mg/dL Creatinine (0.55-1.02) mg/dL Est Cr Clr Drug Dosing mL/min Estimated GFR (MDRD) (>60) mL/min BUN/Creatinine Ratio (14-18) Glucose (80-115) mg/dL Calcium (8.5-10.1) mg/dL Magnesium (1.8-2.4) mg/dl Troponin I (0.00-0.056) ng/mL Triglycerides 34 (<150) mg/dL Cholesterol 140 (<200) mg/dL LDL Cholesterol Direct 79 (<100) mg/dL HDL Cholesterol 52.0 (40-59) mg/dL Vitamin D 25-Hydroxy (30.0-100.0) ng/ml Free T4 (0.76-1.46) ng/dL TSH 3rd Generation (0.358-3.74) uIU/mL Yaya Results Last 24 Hours: Microbiology 11/14/20 07:00 Gram Stain - Final Sputum - Expectorated Sputum Culture - Final Med Orders - Current: Current Medications Acetaminophen (Tylenol) 650 mg RECTAL Q4H PRN PRN Reason: Pain (mild 1-3) Hydrocodone Bitart/Acetaminophen (Marlette 325-5 Mg) 1 tab PO Q4H PRN PRN Reason: Pain (moderate 4-6) Albuterol/Ipratropium (Duoneb 3.0-0.5 Mg/3 Ml) 3 ml NEB Q4H PRN PRN Reason: Shortness Of Breath/wheezing Last Admin: 11/14/20 23:48 Dose: 3 ml Documented by: Albuterol/Ipratropium (Duoneb 3.0-0.5 Mg/3 Ml) 3 ml NEB Q8HRRT [facility] Last Admin: 11/15/20 20:17 Dose: 3 ml Documented by: Ascorbic Acid (Vitamin C) 1,000 mg PO BID [facility] Last Admin: 11/15/20 20:34 Dose: 1,000 mg Documented by: Aspirin (Aspirin) 81 mg PO DAILY [facility] Last Admin: 11/15/20 13:57 Dose: 81 mg Documented by: Atorvastatin Calcium (Lipitor) 40 mg PO DAILY [facility] Last Admin: 11/15/20 10:40 Dose: 40 mg Documented by: Cholecalciferol (Vitamin D3) 50 mcg PO BID [facility] Last Admin: 11/15/20 20:34 Dose: 50 mcg Documented by: Clopidogrel Bisulfate (Plavix) 75 mg PO DAILY [facility] Last Admin: 11/15/20 13:58 Dose: 75 mg Documented by: Docusate Sodium (Colace) 100 mg PO BID PRN PRN Reason: Constipation Enoxaparin Sodium (Lovenox) 40 mg SUBCUT DAILY [facility] Last Admin: 11/15/20 10:39 Dose: 40 mg Documented by: Fluticasone Propionate (Flonase) 0 gm NASBOTH BID PRN PRN Reason: Allergies Furosemide (Lasix) 40 mg IVPUSH DAILY [facility] Stop: 11/19/20 09:01 Hydromorphone HCl (Dilaudid) 0.5 mg IVPUSH Q2H PRN PRN Reason: Pain (severe 7-10) Hydroxyzine HCl (Atarax) 25 mg PO BEDTIME PRN PRN Reason: Insomnia Promethazine HCl 12.5 mg/ (Sodium Chloride) 50.5 mls @ 100 mls/hr IV Q6H PRN PRN Reason: Nausea/Vomiting Azithromycin 500 mg/ Sodium (Chloride) 250 mls @ 250 mls/hr IV Q24H [facility] Last Admin: 11/15/20 20:44 Dose: 250 mls/hr Documented by: Isosorbide Mononitrate (Imdur) 30 mg PO DAILY [facility] Last Admin: 11/15/20 13:57 Dose: 30 mg Documented by: Lorazepam (Ativan) 0.5 mg IV Q6H PRN PRN Reason: anxiety/restlessness Methylprednisolone Sodium Succinate (Solu-Medrol) 125 mg IVPUSH Q8H [facility] Last Admin: 11/16/20 05:03 Dose: 125 mg Documented by: Ondansetron HCl (Zofran) 4 mg IV Q6H PRN PRN Reason: Nausea/Vomiting Pantoprazole Sodium (Protonix) 40 mg PO DAILY [facility] Last Admin: 11/15/20 10:40 Dose: 40 mg Documented by: Potassium Chloride (Klor-Con M20) 20 meq PO BID [facility] Last Admin: 11/15/20 20:34 Dose: 20 meq Documented by: Pramipexole Dihydrochloride (Mirapex) 1.5 mg PO BEDTIME [facility] Last Admin: 11/15/20 20:34 Dose: 1.5 mg Documented by: Senna/Docusate Sodium (Senna Plus) 1 tab PO BID PRN PRN Reason: Constipation Sertraline HCl (Zoloft) 50 mg PO DAILY [facility] Last Admin: 11/15/20 10:40 Dose: 50 mg Documented by: Trazodone HCl (Trazodone) 50 mg PO BEDTIME [facility] Last Admin: 11/15/20 20:33 Dose: 50 mg Documented by: Discontinued Medications Atorvastatin Calcium (Lipitor) 40 mg PO DAILY [facility] Diphenhydramine HCl (Benadryl) 50 mg IVPUSH ONETIME ONE Stop: 11/14/20 18:37 Last Admin: 11/14/20 18:46 Dose: 50 mg Documented by: Famotidine (Pepcid) 20 mg IVPUSH ONETIME ONE Stop: 11/14/20 18:37 Last Admin: 11/14/20 18:45 Dose: 20 mg Documented by: Furosemide (Lasix) 40 mg IVPUSH ONETIME ONE Stop: 11/14/20 20:18 Last Admin: 11/14/20 21:07 Dose: 40 mg Documented by: Furosemide (Lasix) 20 mg IVPUSH NOW ONE Stop: 11/15/20 10:46 Last Admin: 11/15/20 14:17 Dose: 20 mg Documented by: Furosemide (Lasix) 20 mg IVPUSH NOW ONE Stop: 11/15/20 14:01 Last Admin: 11/15/20 17:31 Dose: Not Given Documented by: Furosemide (Lasix) 20 mg IVPUSH NOW ONE Stop: 11/15/20 18:01 Last Admin: 11/15/20 17:37 Dose: 20 mg Documented by: Sodium Chloride (Normal Saline) 1,000 mls @ 50 mls/hr IV NOW STA Stop: 11/15/20 12:53 Last Admin: 11/14/20 17:13 Dose: 50 mls/hr Documented by: Potassium Chloride 10 meq/ (Premix) 100 mls @ 100 mls/hr IV Q1H [facility] Stop: 11/14/20 22:59 Last Admin: 11/15/20 06:16 Dose: 50 mls/hr Documented by: Sodium Chloride (Normal Saline) 100 mls @ 60 mls/min IV ASDIRECTED [facility] Last Admin: 11/14/20 19:51 Dose: 60 mls/min Documented by: Potassium Chloride 10 meq/ (Premix) 100 mls @ 100 mls/hr IV Q1H [facility] Stop: 11/15/20 11:59 Last Admin: 11/15/20 15:54 Dose: Not Given Documented by: Magnesium Sulfate (Magnesium Sulfate In Water 2 Gm/50 Ml) 2 gm in 50 mls @ 25 mls/hr IV ONETIME ONE Stop: 11/15/20 09:59 Last Admin: 11/15/20 14:15 Dose: 25 mls/hr Documented by: Magnesium Sulfate (Magnesium Sulfate In Water 2 Gm/50 Ml) 2 gm in 50 mls @ 25 mls/hr IV ONETIME ONE Stop: 11/15/20 15:59 Last Admin: 11/15/20 17:31 Dose: Not Given Documented by: Iopamidol (Isovue-370 (76%)) 100 ml IVPUSH ONETIME ONE Stop: 11/14/20 17:57 Last Admin: 11/14/20 19:51 Dose: 100 ml Documented by: Methylprednisolone Sodium Succinate (Solu-Medrol) 125 mg IVPUSH ONETIME ONE Stop: 11/14/20 18:37 Last Admin: 11/14/20 18:43 Dose: 125 mg Documented by: Potassium Chloride (Klor-Con M20) 40 meq PO ONETIME ONE Stop: 11/14/20 16:54 Last Admin: 11/14/20 17:13 Dose: 40 meq Documented by: Pramipexole Dihydrochloride (Mirapex) 1.5 mg PO NOW STA Stop: 11/14/20 21:39 Last Admin: 11/14/20 23:12 Dose: 1.5 mg Documented by: Regadenoson (Lexiscan) 0.4 mg IVPUSH ONETIME ONE Stop: 11/15/20 07:38 Last Admin: 11/15/20 07:43 Dose: 0.4 mg Documented by: Sodium Chloride (Saline Flush) 10 ml FLUSH BOLUS [facility] Last Admin: 11/14/20 19:51 Dose: 10 ml Documented by: Triamterene/Hydrochlorothiazide (Dyazide 25-37.5 Mg) 1 each PO NOW STA Stop: 11/14/20 21:26 Last Admin: 11/14/20 23:11 Dose: 1 each Documented by: Zolpidem Tartrate (Ambien) 5 mg PO BEDTIME PRN PRN Reason: Sleep - Exam Quality Assessment: Supplemental Oxygen, DVT Prophylaxis General: Alert, Oriented, Cooperative, No Acute Distress HEENT: Pupils Equal, Pupils Reactive, EOMI, Mucous Membr. Moist/[place] Lungs: Normal Respiratory Effort, Decreased Breath Sounds, Wheezing (imrpoved) Cardiovascular: Regular Rate, Regular Rhythm GI/Abdominal Exam: Normal Bowel Sounds, Soft, Non-Tender, No Organomegaly, No Distention, No Mass (Female) Exam: Deferred Back Exam: Normal Inspection, Decreased Range of Motion Extremities: Normal Inspection, Normal Range of Motion, Non-Tender, No Pedal Edema, Normal Capillary Refill Peripheral Pulses: 2+: Dorsalis Pedis (L), Dorsalis Pedis (R) Skin: Warm, Dry, Intact Neurological: No New Focal Deficit Psy/Mental Status: Alert, Normal Affect, Normal Mood - Patient Data Lab Results Last 24 hrs: Laboratory Results - last 24 hr 11/15/20 11/15/20 11/15/20 Range/Units 04:40 04:40 04:40 WBC 4.21 (3.98-10.04) K/mm3 RBC 4.32 (3.98-5.22) M/mm3 Hgb 12.8 (11.2-15.7) gm/dl Hct 42.2 (34.1-44.9) % MCV 97.7 H (79.4-94.8) fl MCH 29.6 (25.6-32.2) pg MCHC 30.3 L (32.2-35.5) g/dl RDW Std Deviation 50.4 H (36.4-46.3) fL Plt Count 300 (182-369) K/mm3 MPV 8.6 L (9.4-12.3) fl Neut % (Auto) 85.3 H (34.0-71.1) % Lymph % (Auto) 13.3 L (19.3-51.7) % [place] % (Auto) 0.7 L (4.7-12.5) % Eos % (Auto) 0.2 L (0.7-5.8) Baso % (Auto) 0.0 L (0.1-1.2) % Neut # (Auto) 3.59 (1.56-6.13) K/mm3 Lymph # (Auto) 0.56 L (1.18-3.74) K/mm3 [place] # (Auto) 0.03 L (0.24-0.36) K/mm3 Eos # (Auto) 0.01 L (0.04-0.36) K/mm3 Baso # (Auto) 0.00 L (0.01-0.08) K/mm3 Manual Slide Review Normal smear Sodium 145 (136-145) mEq/L Potassium 3.2 L (3.5-5.1) mEq/L Chloride 103 (98-107) mEq/L Carbon Dioxide 31 (21-32) mEq/L Anion Gap 14.2 (5-15) BUN 13 (7-18) mg/dL Creatinine 0.9 (0.55-1.02) mg/dL Est Cr Clr Drug Dosing 47.03 mL/min Estimated GFR (MDRD) > 60 (>60) mL/min BUN/Creatinine Ratio 14.4 (14-18) Glucose 164 H (80-115) mg/dL Calcium 8.6 (8.5-10.1) mg/dL Magnesium 1.7 L (1.8-2.4) mg/dl Troponin I < 0.017 (0.00-0.056) ng/mL Triglycerides (<150) mg/dL Cholesterol (<200) mg/dL LDL Cholesterol Direct (<100) mg/dL HDL Cholesterol (40-59) mg/dL Vitamin D 25-Hydroxy 53.4 (30.0-100.0) ng/ml Free T4 1.02 (0.76-1.46) ng/dL TSH 3rd Generation 0.359 (0.358-3.74) uIU/mL 11/15/20 11/16/20 Range/Units 04:40 04:55 WBC 7.73 (3.98-10.04) K/mm3 RBC 3.95 L (3.98-5.22) M/mm3 Hgb 11.9 (11.2-15.7) gm/dl Hct 38.8 (34.1-44.9) % MCV 98.2 H (79.4-94.8) fl MCH 30.1 (25.6-32.2) pg MCHC 30.7 L (32.2-35.5) g/dl RDW Std Deviation 51.4 H (36.4-46.3) fL Plt Count 281 (182-369) K/mm3 MPV 8.4 L (9.4-12.3) fl Neut % (Auto) 88.7 H (34.0-71.1) % Lymph % (Auto) 8.4 L (19.3-51.7) % [place] % (Auto) 2.8 L (4.7-12.5) % Eos % (Auto) 0 L (0.7-5.8) Baso % (Auto) 0.0 L (0.1-1.2) % Neut # (Auto) 6.85 H (1.56-6.13) K/mm3 Lymph # (Auto) 0.65 L (1.18-3.74) K/mm3 [place] # (Auto) 0.22 L (0.24-0.36) K/mm3 Eos # (Auto) 0.00 L (0.04-0.36) K/mm3 Baso # (Auto) 0.00 L (0.01-0.08) K/mm3 Manual Slide Review Sodium (136-145) mEq/L Potassium (3.5-5.1) mEq/L Chloride (98-107) mEq/L Carbon Dioxide (21-32) mEq/L Anion Gap (5-15) BUN (7-18) mg/dL Creatinine (0.55-1.02) mg/dL Est Cr Clr Drug Dosing mL/min Estimated GFR (MDRD) (>60) mL/min BUN/Creatinine Ratio (14-18) Glucose (80-115) mg/dL Calcium (8.5-10.1) mg/dL Magnesium (1.8-2.4) mg/dl Troponin I (0.00-0.056) ng/mL Triglycerides 34 (<150) mg/dL Cholesterol 140 (<200) mg/dL LDL Cholesterol Direct 79 (<100) mg/dL HDL Cholesterol 52.0 (40-59) mg/dL Vitamin D 25-Hydroxy (30.0-100.0) ng/ml Free T4 (0.76-1.46) ng/dL TSH 3rd Generation (0.358-3.74) uIU/mL Result Diagrams: 11/17/20 05:04 11/17/20 05:04 Yaya Results Last 24 hrs: Microbiology 11/14/20 07:00 Gram Stain - Final Sputum - Expectorated Sputum Culture - Final Sepsis Event Note - Evaluation Sepsis Screening Result: No Definite Risk - Focused Exam Vital Signs: Vital Signs Temp Pulse Resp BP Pulse Ox Pulse Ox 11/16/20 05:03 36.6 C 77 16 132/73 95 11/16/20 00:43 36.4 C 88 17 134/77 93 L 11/15/20 21:54 36.7 C 89 16 114/83 92 L 11/15/20 21:14 91 L 11/15/20 20:38 36.7 C 82 16 119/65 90 L 11/15/20 20:18 91 L - Problem List Review Problem List Initiated/Reviewed/Updated: Yes - My Orders Last 24 Hours: My Active Orders 11/15/20 06:00 methylPREDNISolone Sod Succ [Solu-MEDROL] 125 mg IVPUSH Q8H 11/15/20 Breakfast 2 Gram Sodium Diet [DIET] Heart Healthy Diet [DIET] 11/15/20 08:00 Albuterol/Ipratropium [DuoNeb 3.0-0.5 MG/3 ML] 3 ml NEB Q8HRRT 11/15/20 09:00 Ascorbic Acid [Vitamin C] 1,000 mg PO BID Aspirin 81 mg PO DAILY Cholecalciferol (Vitamin D3) [Vitamin D3] 50 mcg PO BID Clopidogrel [Plavix] 75 mg PO DAILY Enoxaparin [Lovenox] 40 mg SUBCUT DAILY Isosorbide Mononitrate [Imdur] 30 mg PO DAILY Pantoprazole [ProTONIX] 40 mg PO DAILY Potassium Chloride [Klor-Con M20] 20 meq PO BID Sertraline [Zoloft] 50 mg PO DAILY atorvaSTATin [Lipitor] 40 mg PO DAILY 11/15/20 Dinner Fluid Restriction [DIET] 11/15/20 21:00 Pramipexole [Mirapex] 1.5 mg PO BEDTIME traZODone 50 mg PO BEDTIME 11/16/20 04:55 BASIC METABOLIC PANEL,BMP [CHEM] AM CBC WITH AUTO DIFF [HEME] AM MAGNESIUM [CHEM] AM PRO B-TYPE NATRIUR PEPT,BNPPRO [CHEM] DAILY 11/16/20 09:00 Furosemide [Lasix] 40 mg IVPUSH DAILY 11/17/20 05:00 PRO B-TYPE NATRIUR PEPT,BNPPRO [CHEM] DAILY 11/17/20 05:11 BASIC METABOLIC PANEL,BMP [CHEM] AM CBC WITH AUTO DIFF [HEME] AM MAGNESIUM [CHEM] AM 11/18/20 05:00 PRO B-TYPE NATRIUR PEPT,BNPPRO [CHEM] DAILY 11/18/20 05:11 BASIC METABOLIC PANEL,BMP [CHEM] AM CBC WITH AUTO DIFF [HEME] AM MAGNESIUM [CHEM] AM 11/19/20 05:11 BASIC METABOLIC PANEL,BMP [CHEM] AM CBC WITH AUTO DIFF [HEME] AM MAGNESIUM [CHEM] AM - Plan Plan:: This is a 65 yo white female with past medical hx/o Impaired Vision, Chronic Agnina, CAD S/p Stent placement in 2019, Heart Failure with Preserved EF, Pulmonary Fibrosis, History of Lung CA, Left Upper Lobe Lobectomy, COPD, Former Smoker, Chronic Respiratory Failure on Supplemental O2, GERD, Recurrent UTI, chronic Back pain, OA, Psoriasis, Depression and Obesity who was sent to ED for evaluation of 10 day history of increasing shortness of breath associated with dyspnea on exertion, intermittent chest pressure and 10 pounds weight gain. Assessment: Acute: Acute on chronic congestive heart failure with preserved ejection fraction 50- 55% on 04/23/2019 Moderate tricuspid valve regurgitation 04/23/2019 Elevated proBNP of 3077 Bilateral lower extremity edema 10 Pounds weight gain -Chest CTA shows pulmonary vascular congestion -Patient received IV Lasix in ED -Thyroid panel and Vit D level both wnl -2D echo report read as LVEF of 60-65%. Grade I Diastolic Dysfunction. No RWMA. Moderate Tricuspid Regurgitation. RVSP now 91 mmHg (was 60 mmHg on 04/22/2019). RV size is moderately enlarged. Discussed reports with patient at bedside. -She seems to be improving clinically -Plan: Continue heart failure regimen Chest Pressure r/o Angina Equivalent Carries a hx/o CAD with stent placement -Initial troponin and EKG were both negative -Additional troponin wnl -Repeat EKG shows no acute ST-T wave changes -Lipid panel wnl -Lexiscan stress test showed no acute ischemia -Nuclear scan report read as no abnormality is identified Elevated D-Dimer Acute on chronic hypoxic respiratory failure Acute on chronic interstitial lung disease COPD Exacerbation -Chest CTA negative for PE -Has underlying pulmonary fibrosis -She is normally on 2-3L NC but had to go up to as high as 6L NC -Covid-19 test negative -She is currently on 3L NC -Breathing improves -Plan: Continue supplemental O2,IV steroid, IV azithromycin, and bronchodilators. Sputum culture with gram stain. Electrolytes Abnormality Hypokalemia with K of 2.4, resolved Hypomagnesemia with Mg of 1.7, resolved -Received IV and oral potassium in ED -Will continue to replete and monitor Class II Obese -BMI of 36.8 -Dietary consult for weight management Resolved: Mild Hypernatremia with Na of 151, now 145 Mild Hypercapnia with CO2 of 34, now 31 Chronic: Impaired Vision, Chronic Agnina, CAD S/p Stent placement in 2019, Heart Failure with Preserved EF, Pulmonary Fibrosis, History of Lung CA, Left Upper Lobe Lobectomy, COPD, Former Smoker, Chronic Respiratory Failure on Supplemental O2, GERD, Recurrent UTI, chronic Back pain, OA, Psoriasis, Depression and Obesity Plan: Continue current treatment. Routine AM labs. Heart failure regimen: diuretics, salt/fluid restrictions, strict Is/Os, and daily weight check. Continue PT/OT for deconditioning. Code status is full. Prognosis guarded-good. LOS > 96 hrs due to complexity of acute presenting illness. She requires more time with treatment. Updated patient and about her morning labs and clinical progress.
[2020-11-16] MEDS: Albuterol/Ipratropium 3.0-0.5 MG/3 ML Neb Soln NEB SCH ×3 (06:09→20:33)
[2020-11-16] MEDS: Enoxaparin 40 MG/0.4 ML Syringe SUBCUT SCH (09:08)
[2020-11-16] MEDS: Furosemide 40 MG/4 ML VIAL IVPUSH SCH (09:09)
[2020-11-16] MEDS: Sertraline 50 MG Tab PO SCH (09:09)
[2020-11-16] MEDS: Cholecalciferol (Vitamin D3) 25 MCG Tab PO SCH ×2 (09:09→20:13)
[2020-11-16] MEDS: Pantoprazole 40 MG Tab.CR PO SCH (09:09)
[2020-11-16] MEDS: Aspirin 81 MG Tab.Chew PO SCH (09:09)
[2020-11-16] MEDS: Potassium Chloride 20 MEQ Tab.ER PO SCH ×2 (09:09→20:14)
[2020-11-16] MEDS: Clopidogrel 75 MG Tab PO SCH (09:10)
[2020-11-16] MEDS: Ascorbic Acid 500 MG Tab PO SCH ×2 (09:10→20:15)
[2020-11-16] MEDS: Isosorbide Mononitrate 30 MG Tab.ER PO SCH (09:10)
[2020-11-16] MEDS: atorvaSTATin 20 MG Tab PO SCH (09:10)
[2020-11-16] MEDS: Pramipexole 0.5 MG Tab PO SCH (20:12)
[2020-11-16] MEDS: traZODone 50 MG Tab PO SCH (20:14)
[2020-11-16] MEDS: Azithromycin 500 MG in Sodium Chloride 0.9% 250 ML IV SCH (21:57)
[2020-11-17] MEDS: Albuterol/Ipratropium 3.0-0.5 MG/3 ML Neb Soln NEB SCH ×3 (06:00→21:50)
[2020-11-17] MEDS: methylPREDNISolone Sodium Succinate 125 MG/2 ML SDV IVPUSH SCH ×3 (06:07→21:38)
--- NOTE | 2020-11-17 06:43 | PCM.PN ---
- General Info Date of Service: 11/17/20 Admission Dx/Problem (Free Text): Admission Diagnosis/Problem Admission Diagnosis/Problem Hypokalemia Subjective Update: Had an uneventful night. She rested well last night. She sounded much better. Weight loss so far is bet 4-5 lbs since admission. Her sodium is slightly up at 149 this AM. She does however reports having PELAEZ. She also states she had elevated BP this AM but does not show on EMR. Overall she feels pretty good. Functional Status: Reports: Pain Controlled, Tolerating Diet, Ambulating, Urinating, Incentive Spirometry. Denies: New Symptoms - Review of Systems General: Denies: Fever, Weakness, Fatigue, Malaise, Chills HEENT: Denies: Contact Lenses Pulmonary: Reports: Shortness of Breath Cardiovascular: Denies: Chest Pain Gastrointestinal: Denies: Abdominal Pain, Nausea, Vomiting Genitourinary: Reports: Frequency Musculoskeletal: Reports: No Symptoms Skin: Denies: Cyanosis Neurological: Denies: Confusion, Syncope, Difficulty Walking, Weakness, Gait Disturbance Psychiatric: Denies: Depression, Anxiety - Patient Data Vitals - Most Recent: Last Vital Signs Temp 36.7 C 11/17/20 03:16 Pulse 88 11/17/20 03:16 Resp 16 11/17/20 03:16 BP 130/79 11/17/20 03:16 Pulse Ox 92 L 11/17/20 06:02 Weight - Most Recent: 86.863 kg I&O - Last 24 Hours: Intake & Output 11/16/20 11/16/20 11/17/20 14:59 22:59 06:59 Intake Total 120 700 550 Output Total 1550 Balance 120 -850 550 Lab Results Last 24 Hours: Laboratory Results - last 24 hr 11/17/20 11/17/20 Range/Units 05:04 05:04 WBC 8.80 (3.98-10.04) K/mm3 RBC 3.92 L (3.98-5.22) M/mm3 Hgb 11.6 (11.2-15.7) gm/dl Hct 39.2 (34.1-44.9) % MCV 100.0 H (79.4-94.8) fl MCH 29.6 (25.6-32.2) pg MCHC 29.6 L (32.2-35.5) g/dl RDW Std Deviation 55.3 H (36.4-46.3) fL Plt Count 287 (182-369) K/mm3 MPV 8.4 L (9.4-12.3) fl Neut % (Auto) 90.0 H (34.0-71.1) % Lymph % (Auto) 6.6 L (19.3-51.7) % [place] % (Auto) 3.3 L (4.7-12.5) % Eos % (Auto) 0 L (0.7-5.8) Baso % (Auto) 0.0 L (0.1-1.2) % Neut # (Auto) 7.92 H (1.56-6.13) K/mm3 Lymph # (Auto) 0.58 L (1.18-3.74) K/mm3 [place] # (Auto) 0.29 (0.24-0.36) K/mm3 Eos # (Auto) 0.00 L (0.04-0.36) K/mm3 Baso # (Auto) 0.00 L (0.01-0.08) K/mm3 Sodium 149 H (136-145) mEq/L Potassium 4.1 (3.5-5.1) mEq/L Chloride 110 H (98-107) mEq/L Carbon Dioxide 32 (21-32) mEq/L Anion Gap 11.1 (5-15) BUN 28 H (7-18) mg/dL Creatinine 0.7 (0.55-1.02) mg/dL Est Cr Clr Drug Dosing 60.52 mL/min Estimated GFR (MDRD) > 60 (>60) mL/min BUN/Creatinine Ratio 40.0 H (14-18) Glucose 133 H (80-115) mg/dL Calcium 8.7 (8.5-10.1) mg/dL Magnesium 2.2 (1.8-2.4) mg/dl Med Orders - Current: Current Medications Acetaminophen (Tylenol) 650 mg RECTAL Q4H PRN PRN Reason: Pain (mild 1-3) Hydrocodone Bitart/Acetaminophen ([place] 325-5 Mg) 1 tab PO Q4H PRN PRN Reason: Pain (moderate 4-6) Albuterol/Ipratropium (Duoneb 3.0-0.5 Mg/3 Ml) 3 ml NEB Q4H PRN PRN Reason: Shortness Of Breath/wheezing Last Admin: 11/14/20 23:48 Dose: 3 ml Documented by: Albuterol/Ipratropium (Duoneb 3.0-0.5 Mg/3 Ml) 3 ml NEB Q8HRRT [facility] Last Admin: 11/17/20 06:00 Dose: 3 ml Documented by: Ascorbic Acid (Vitamin C) 1,000 mg PO BID [facility] Last Admin: 11/16/20 20:15 Dose: 1,000 mg Documented by: Aspirin (Aspirin) 81 mg PO DAILY [facility] Last Admin: 11/16/20 09:09 Dose: 81 mg Documented by: Atorvastatin Calcium (Lipitor) 40 mg PO DAILY [facility] Last Admin: 11/16/20 09:10 Dose: 40 mg Documented by: Cholecalciferol (Vitamin D3) 50 mcg PO BID [facility] Last Admin: 11/16/20 20:13 Dose: 50 mcg Documented by: Clopidogrel Bisulfate (Plavix) 75 mg PO DAILY [facility] Last Admin: 11/16/20 09:10 Dose: 75 mg Documented by: Docusate Sodium (Colace) 100 mg PO BID PRN PRN Reason: Constipation Enoxaparin Sodium (Lovenox) 40 mg SUBCUT DAILY [facility] Last Admin: 11/16/20 09:08 Dose: 40 mg Documented by: Fluticasone Propionate (Flonase) 0 gm NASBOTH BID PRN PRN Reason: Allergies Furosemide (Lasix) 40 mg IVPUSH DAILY [facility] Stop: 11/19/20 09:01 Last Admin: 11/16/20 09:09 Dose: 40 mg Documented by: Hydromorphone HCl (Dilaudid) 0.5 mg IVPUSH Q2H PRN PRN Reason: Pain (severe 7-10) Last Admin: 11/16/20 21:56 Dose: 0.5 mg Documented by: Hydroxyzine HCl (Atarax) 25 mg PO BEDTIME PRN PRN Reason: Insomnia Promethazine HCl 12.5 mg/ (Sodium Chloride) 50.5 mls @ 100 mls/hr IV Q6H PRN PRN Reason: Nausea/Vomiting Azithromycin 500 mg/ Sodium (Chloride) 250 mls @ 250 mls/hr IV Q24H [facility] Last Admin: 11/16/20 21:57 Dose: 250 mls/hr Documented by: Isosorbide Mononitrate (Imdur) 30 mg PO DAILY [facility] Last Admin: 11/16/20 09:10 Dose: 30 mg Documented by: Lorazepam (Ativan) 0.5 mg IV Q6H PRN PRN Reason: anxiety/restlessness Methylprednisolone Sodium Succinate (Solu-Medrol) 125 mg IVPUSH Q8H [facility] Last Admin: 11/17/20 06:07 Dose: 125 mg Documented by: Ondansetron HCl (Zofran) 4 mg IV Q6H PRN PRN Reason: Nausea/Vomiting Pantoprazole Sodium (Protonix) 40 mg PO DAILY [facility] Last Admin: 11/16/20 09:09 Dose: 40 mg Documented by: Potassium Chloride (Klor-Con M20) 40 meq PO BID [facility] Last Admin: 11/16/20 20:14 Dose: 40 meq Documented by: Pramipexole Dihydrochloride (Mirapex) 1.5 mg PO BEDTIME [facility] Last Admin: 11/16/20 20:12 Dose: 1.5 mg Documented by: Senna/Docusate Sodium (Senna Plus) 1 tab PO BID PRN PRN Reason: Constipation Sertraline HCl (Zoloft) 50 mg PO DAILY [facility] Last Admin: 11/16/20 09:09 Dose: 50 mg Documented by: Trazodone HCl (Trazodone) 50 mg PO BEDTIME [facility] Last Admin: 11/16/20 20:14 Dose: 50 mg Documented by: Discontinued Medications Atorvastatin Calcium (Lipitor) 40 mg PO DAILY [facility] Diphenhydramine HCl (Benadryl) 50 mg IVPUSH ONETIME ONE Stop: 11/14/20 18:37 Last Admin: 11/14/20 18:46 Dose: 50 mg Documented by: Famotidine (Pepcid) 20 mg IVPUSH ONETIME ONE Stop: 11/14/20 18:37 Last Admin: 11/14/20 18:45 Dose: 20 mg Documented by: Furosemide (Lasix) 40 mg IVPUSH ONETIME ONE Stop: 11/14/20 20:18 Last Admin: 11/14/20 21:07 Dose: 40 mg Documented by: Furosemide (Lasix) 20 mg IVPUSH NOW ONE Stop: 11/15/20 10:46 Last Admin: 11/15/20 14:17 Dose: 20 mg Documented by: Furosemide (Lasix) 20 mg IVPUSH NOW ONE Stop: 11/15/20 14:01 Last Admin: 11/15/20 17:31 Dose: Not Given Documented by: Furosemide (Lasix) 20 mg IVPUSH NOW ONE Stop: 11/15/20 18:01 Last Admin: 11/15/20 17:37 Dose: 20 mg Documented by: Sodium Chloride (Normal Saline) 1,000 mls @ 50 mls/hr IV NOW STA Stop: 11/15/20 12:53 Last Admin: 11/14/20 17:13 Dose: 50 mls/hr Documented by: Potassium Chloride 10 meq/ (Premix) 100 mls @ 100 mls/hr IV Q1H [facility] Stop: 11/14/20 22:59 Last Admin: 11/15/20 06:16 Dose: 50 mls/hr Documented by: Sodium Chloride (Normal Saline) 100 mls @ 60 mls/min IV ASDIRECTED [facility] Last Admin: 11/14/20 19:51 Dose: 60 mls/min Documented by: Potassium Chloride 10 meq/ (Premix) 100 mls @ 100 mls/hr IV Q1H [facility] Stop: 11/15/20 11:59 Last Admin: 11/15/20 15:54 Dose: Not Given Documented by: Magnesium Sulfate (Magnesium Sulfate In Water 2 Gm/50 Ml) 2 gm in 50 mls @ 25 mls/hr IV ONETIME ONE Stop: 11/15/20 09:59 Last Admin: 11/15/20 14:15 Dose: 25 mls/hr Documented by: Magnesium Sulfate (Magnesium Sulfate In Water 2 Gm/50 Ml) 2 gm in 50 mls @ 25 mls/hr IV ONETIME ONE Stop: 11/15/20 15:59 Last Admin: 11/15/20 17:31 Dose: Not Given Documented by: Iopamidol (Isovue-370 (76%)) 100 ml IVPUSH ONETIME ONE Stop: 11/14/20 17:57 Last Admin: 11/14/20 19:51 Dose: 100 ml Documented by: Methylprednisolone Sodium Succinate (Solu-Medrol) 125 mg IVPUSH ONETIME ONE Stop: 11/14/20 18:37 Last Admin: 11/14/20 18:43 Dose: 125 mg Documented by: Potassium Chloride (Klor-Con M20) 40 meq PO ONETIME ONE Stop: 11/14/20 16:54 Last Admin: 11/14/20 17:13 Dose: 40 meq Documented by: Potassium Chloride (Klor-Con M20) 20 meq PO BID [facility] Last Admin: 11/15/20 20:34 Dose: 20 meq Documented by: Pramipexole Dihydrochloride (Mirapex) 1.5 mg PO NOW STA Stop: 11/14/20 21:39 Last Admin: 11/14/20 23:12 Dose: 1.5 mg Documented by: Regadenoson (Lexiscan) 0.4 mg IVPUSH ONETIME ONE Stop: 11/15/20 07:38 Last Admin: 11/15/20 07:43 Dose: 0.4 mg Documented by: Sodium Chloride (Saline Flush) 10 ml FLUSH BOLUS [facility] Last Admin: 11/14/20 19:51 Dose: 10 ml Documented by: Triamterene/Hydrochlorothiazide (Dyazide 25-37.5 Mg) 1 each PO NOW STA Stop: 11/14/20 21:26 Last Admin: 11/14/20 23:11 Dose: 1 each Documented by: Zolpidem Tartrate (Ambien) 5 mg PO BEDTIME PRN PRN Reason: Sleep - Exam Quality Assessment: Supplemental Oxygen General: Alert, Oriented, Cooperative HEENT: Pupils Equal, Pupils Reactive, EOMI, Mucous Membr. Moist/[place] Neck: Supple Lungs: Normal Respiratory Effort, Decreased Breath Sounds, Other (could not hear wheezing) Cardiovascular: Regular Rate, Regular Rhythm GI/Abdominal Exam: Normal Bowel Sounds, Soft, Non-Tender, No Organomegaly, No Distention, No Abnormal Bruit (Female) Exam: Deferred Back Exam: Normal Inspection, Decreased Range of Motion Extremities: Normal Inspection, Normal Range of Motion, Non-Tender, No Pedal Edema, Normal Capillary Refill Peripheral Pulses: 2+: Dorsalis Pedis (L), Dorsalis Pedis (R) Skin: Warm, Dry, Intact Neurological: No New Focal Deficit Psy/Mental Status: Alert, Normal Affect, Normal Mood - Patient Data Lab Results Last 24 hrs: Laboratory Results - last 24 hr 11/17/20 11/17/20 Range/Units 05:04 05:04 WBC 8.80 (3.98-10.04) K/mm3 RBC 3.92 L (3.98-5.22) M/mm3 Hgb 11.6 (11.2-15.7) gm/dl Hct 39.2 (34.1-44.9) % MCV 100.0 H (79.4-94.8) fl MCH 29.6 (25.6-32.2) pg MCHC 29.6 L (32.2-35.5) g/dl RDW Std Deviation 55.3 H (36.4-46.3) fL Plt Count 287 (182-369) K/mm3 MPV 8.4 L (9.4-12.3) fl Neut % (Auto) 90.0 H (34.0-71.1) % Lymph % (Auto) 6.6 L (19.3-51.7) % [place] % (Auto) 3.3 L (4.7-12.5) % Eos % (Auto) 0 L (0.7-5.8) Baso % (Auto) 0.0 L (0.1-1.2) % Neut # (Auto) 7.92 H (1.56-6.13) K/mm3 Lymph # (Auto) 0.58 L (1.18-3.74) K/mm3 [place] # (Auto) 0.29 (0.24-0.36) K/mm3 Eos # (Auto) 0.00 L (0.04-0.36) K/mm3 Baso # (Auto) 0.00 L (0.01-0.08) K/mm3 Sodium 149 H (136-145) mEq/L Potassium 4.1 (3.5-5.1) mEq/L Chloride 110 H (98-107) mEq/L Carbon Dioxide 32 (21-32) mEq/L Anion Gap 11.1 (5-15) BUN 28 H (7-18) mg/dL Creatinine 0.7 (0.55-1.02) mg/dL Est Cr Clr Drug Dosing 60.52 mL/min Estimated GFR (MDRD) > 60 (>60) mL/min BUN/Creatinine Ratio 40.0 H (14-18) Glucose 133 H (80-115) mg/dL Calcium 8.7 (8.5-10.1) mg/dL Magnesium 2.2 (1.8-2.4) mg/dl Result Diagrams: 11/17/20 05:04 11/17/20 05:04 Sepsis Event Note - Evaluation Sepsis Screening Result: No Definite Risk - Focused Exam Vital Signs: Vital Signs Temp Pulse Resp BP Pulse Ox Pulse Ox 11/17/20 06:02 92 L 11/17/20 03:16 36.7 C 88 16 130/79 89 L 11/16/20 23:23 36.7 C 80 14 106/77 93 L 11/16/20 21:00 93 L 11/16/20 20:35 91 L 11/16/20 20:01 36.6 C 88 14 131/80 93 L - Problem List Review Problem List Initiated/Reviewed/Updated: Yes - My Orders Last 24 Hours: My Active Orders 11/16/20 09:00 Furosemide [Lasix] 40 mg IVPUSH DAILY Potassium Chloride [Klor-Con M20] 40 meq PO BID 11/17/20 05:04 CBC WITH AUTO DIFF [HEME] AM PRO B-TYPE NATRIUR PEPT,BNPPRO [CHEM] DAILY 11/18/20 05:00 PRO B-TYPE NATRIUR PEPT,BNPPRO [CHEM] DAILY 11/18/20 05:11 BASIC METABOLIC PANEL,BMP [CHEM] AM CBC WITH AUTO DIFF [HEME] AM MAGNESIUM [CHEM] AM 11/19/20 05:11 BASIC METABOLIC PANEL,BMP [CHEM] AM CBC WITH AUTO DIFF [HEME] AM MAGNESIUM [CHEM] AM - Plan Plan:: This is a 65 yo white female with past medical hx/o Impaired Vision, Chronic Agnina, CAD S/p Stent placement in 2019, Heart Failure with Preserved EF, Pulmonary Fibrosis, History of Lung CA, Left Upper Lobe Lobectomy, COPD, Former Smoker, Chronic Respiratory Failure on Supplemental O2, GERD, Recurrent UTI, chronic Back pain, OA, Psoriasis, Depression and Obesity who was sent to ED for evaluation of 10 day history of increasing shortness of breath associated with dyspnea on exertion, intermittent chest pressure and 10 pounds weight gain. Assessment: Acute: Acute on chronic congestive heart failure with preserved ejection fraction 50- 55% on 04/23/2019 Moderate tricuspid valve regurgitation 04/23/2019 Elevated proBNP of 3077 Bilateral lower extremity edema 10 Pounds weight gain -Chest CTA shows pulmonary vascular congestion -Patient received IV Lasix in ED -Thyroid panel and Vit D level both wnl -2D echo report read as LVEF of 60-65%. Grade I Diastolic Dysfunction. No RWMA. Moderate Tricuspid Regurgitation. RVSP now 91 mmHg (was 60 mmHg on 04/22/2019). RV size is moderately enlarged. Discussed reports with patient at bedside. -She has improved considerably -Plan: Continue heart failure regimen Chest Pressure r/o Angina Equivalent, resolved Carries a hx/o CAD with stent placement -Initial troponin and EKG were both negative -Additional troponin wnl -Repeat EKG shows no acute ST-T wave changes -Lipid panel wnl -Lexiscan stress test showed no acute ischemia -Nuclear scan report read as no abnormality is identified Elevated D-Dimer Acute on chronic hypoxic respiratory failure Acute on chronic interstitial lung disease COPD Exacerbation -Chest CTA negative for PE -Has underlying pulmonary fibrosis -She is normally on 2-3L NC but had to go up to as high as 6L NC -Covid-19 test negative -She is currently on 2-3L NC at baseline -Respiratory [place], she seems to be at baseline -Plan: Continue supplemental O2,IV steroid, IV azithromycin, and bronchodilators. Sputum culture with gram stain. Electrolytes Abnormality Hypernatremia with Na of 149 -Will continue to replete and monitor Class II Obese -BMI of 36.8 -Dietary consult for weight management Resolved: Mild Hypercapnia with CO2 of 34, now 31 Hypokalemia with K of 2.4, resolved Hypomagnesemia with Mg of 1.7, resolved Chronic: Impaired Vision, Chronic Agnina, CAD S/p Stent placement in 2019, Heart Failure with Preserved EF, Pulmonary Fibrosis, History of Lung CA, Left Upper Lobe Lobectomy, COPD, Former Smoker, Chronic Respiratory Failure on Supplemental O2, GERD, Recurrent UTI, chronic Back pain, OA, Psoriasis, Depression and Obesity Plan: She continues to improve clinically. Continue current treatment. Routine AM labs. Heart failure regimen: diuretics, salt/fluid restrictions, strict Is/Os, and daily weight check. Continue PT/OT for deconditioning. Code status is full. Prognosis is good at this point. LOS > 96 hrs due to complexity of acute presenting illness. She requires more time with treatment with possible discharge in AM. Updated patient and about her morning labs and clinical progress.
[2020-11-17] MEDS ORDERED: Acetaminophen/Butalbital/Caffeine 325-50-40 MG Tab PO PRN (08:07)
[2020-11-17] MEDS: Cholecalciferol (Vitamin D3) 25 MCG Tab PO SCH ×2 (08:33→21:37)
[2020-11-17] MEDS: atorvaSTATin 20 MG Tab PO SCH (08:33)
[2020-11-17] MEDS: Isosorbide Mononitrate 30 MG Tab.ER PO SCH (08:33)
[2020-11-17] MEDS: Aspirin 81 MG Tab.Chew PO SCH (08:33)
[2020-11-17] MEDS: Sertraline 50 MG Tab PO SCH (08:33)
[2020-11-17] MEDS: Enoxaparin 40 MG/0.4 ML Syringe SUBCUT SCH (08:34)
[2020-11-17] MEDS: Clopidogrel 75 MG Tab PO SCH (08:34)
[2020-11-17] MEDS: Furosemide 40 MG/4 ML VIAL IVPUSH SCH (08:34)
[2020-11-17] MEDS: Pantoprazole 40 MG Tab.CR PO SCH (08:34)
[2020-11-17] MEDS: Ascorbic Acid 500 MG Tab PO SCH ×2 (08:34→21:37)
[2020-11-17] MEDS: Potassium Chloride 20 MEQ Tab.ER PO SCH ×2 (08:34→21:37)
[2020-11-17] MEDS ORDERED: Acetaminophen 325 MG Tab PO PRN (12:45)
--- NOTE | 2020-11-17 15:22 | PCM.PRNOTE ---
- Free Text/Narrative Note: Notified by nursing that patient is a difficult IV start. IV established x1 attempt in left forearm with 20 gauge catheter utilizing aseptic technique. IV flushed without difficulty and no swelling or pain noted.
[2020-11-17] MEDS ORDERED: Azithromycin 250 MG Tab PO SCH (21:00)
[2020-11-17] MEDS: Pramipexole 0.5 MG Tab PO SCH (21:36)
[2020-11-17] MEDS: traZODone 50 MG Tab PO SCH (21:38)
[2020-11-18] MEDS: methylPREDNISolone Sodium Succinate 125 MG/2 ML SDV IVPUSH SCH (05:16)
[2020-11-18] MEDS: Albuterol/Ipratropium 3.0-0.5 MG/3 ML Neb Soln NEB SCH (06:24)
--- NOTE | 2020-11-18 06:58 | PCM.DCSUM1 ---
Discharge Summary - Hospital Course Brief History: This is a 65 yo white female with past medical hx/o Impaired Vision, Chronic Agnina, CAD S/p Stent placement in 2019, Heart Failure with Preserved EF, Pulmonary Fibrosis, History of Lung CA, Left Upper Lobe Lobectomy, COPD, Former Smoker, Chronic Respiratory Failure on Supplemental O2, GERD, Recurrent UTI, chronic Back pain, OA, Psoriasis, Depression and Obesity who was sent to ED for evaluation of 10 day history of increasing shortness of breath associated with dyspnea on exertion, intermittent chest pressure and 10 pounds weight gain. She was admitted for COPD Exacerbation and Acute Congestive Heart Failure. Diagnosis: Stroke: No Modified [place] Scale: No Symptoms at All Modified [place] Scale Score: 0 - Discharge Data Discharge Date: 11/18/20 Discharge Disposition: Home, Self-Care 01 Condition: Good - Referral to Home Health Primary Care Physician: Shari Franklin PA-C - Patient Summary/Data Consults: Consultations 11/14/20 21:13 Consult to Case Management/Visiting Nurse [CONS] Routine Consult to School Age Lead Teacher [CONS] Routine Consult to Spiritual Care [CONS] Routine OT Evaluation and Treatment [CONS] Routine PT Evaluation and Treatment [CONS] Routine Respiratory Care Assess and Treatment [CONS] Routine 11/14/20 21:24 Consult to Pulmonary Rehabilitation [CONS] Routine Hospital Course: Patient was primarily admitted for COPD exacerbation as well as acute congestive heart failure. She received intravenous steroids, bronchodilators, as well as intravenous azithromycin and she improved on this regimen. Her sputum culture was negative. Her Chest CTA revealed no PE or acute abnormality but some chronic interstitial changes. As for her congestive heart failure, she was put on heart failure regimen to include but not limited to diuretic as well as salt and f luid restrictions. Her 2D echo reveled an EF of 60-65%, Grade I Diastolic Dysfunction, No RWMA, and Moderate Tricuspid Regurgitation. Her hospital course was fairly uncomplicated. The rest of her chronic medical illness remained stable during this hospitalization. Once medically stable, she was then discharged home. Patient was educated about the importance of medical and dietary compliance. She was advised to follow with her PCP after discharge. - Patient Instructions Diet: Usual Diet as Tolerated, Fluid Restriction Fluid Restriction: 2000 mL Activity: As Tolerated Driving: Do Not Drive Showering/Bathing: May Shower Notify Provider of: Fever, Nausea and/or Vomiting - Discharge Plan *PRESCRIPTION DRUG MONITORING PROGRAM REVIEWED*: Not Applicable *COPY OF PRESCRIPTION DRUG MONITORING REPORT IN PATIENT ODESSA: Not Applicable Prescriptions/Med Rec: Potassium Chloride 20 meq PO BID #60 tablet.er Home Medications: Home Meds Pramipexole Di-HCl [Mirapex] 1.5 mg PO BEDTIME 01/22/16 [History] traZODone 50 mg PO BEDTIME 01/29/17 [History] Ascorbic Acid [C-1000 with Delfina Hips] 1,000 mg PO BID 04/26/18 [History] Cholecalciferol (Vitamin D3) [Vitamin D3] 2,000 unit PO BID 07/18/18 [History] Fluticasone Propionate [Flonase Allergy Relief] 2 spray NASBOTH BID PRN 07/18/18 [History] Albuterol/Ipratropium [DuoNeb 3.0-0.5 MG/3 ML] 1 dose INH BID PRN 05/19/19 [History] Furosemide [Lasix] 40 mg PO QAM 05/19/19 [History] Aspirin 81 mg PO DAILY 06/27/19 [History] Clopidogrel [Plavix] 75 mg PO DAILY 06/27/19 [History] Sertraline [Zoloft] 50 mg PO DAILY 06/27/19 [History] atorvaSTATin [Lipitor] 40 mg PO DAILY 06/27/19 [History] hydrOXYzine HCL [Hydroxyzine HCl] 25 mg PO BEDTIME PRN 06/27/19 [History] Isosorbide Mononitrate [Isosorbide Mononitrate ER] 30 mg PO DAILY 11/14/20 [History] Pantoprazole [ProTONIX] 40 mg PO DAILY 11/14/20 [History] Potassium Chloride [Klor-Con M20] 20 meq PO BID 11/14/20 [History] Potassium Chloride 20 meq PO BID #60 tablet.er 11/18/20 [Rx] Patient Handouts: Chronic Obstructive Pulmonary Disease, Heart Failure, Self Care, Heart Failure Action Plan, Sepsis, Diagnosis, Adult, Potassium Content of Foods, Heart Failure Eating Plan Referrals: Pulmonary, Rehab [Other] (Patient to have Pulmonary Rehab. when discharged from hospital, Please fax orders to Pulmonary rehab. at [phone], Patients Prop Worker is Dr. Arnaldo [facility]) Shari Franklin PA-C [Primary Care Provider] - 11/28/20 9:30 am (Please c heck in at 9:30 appt. time is at 10:00) - Discharge Summary/Plan Comment DC Time >30 min.: Yes (35 mins: disease education and medical/dietary compliance) Discharge Summary/Plan Comment: Discharge to Home - General Info Date of Service: 11/18/20 Admission Dx/Problem (Free Text: Admission Diagnosis/Problem Admission Diagnosis/Problem Hypokalemia Subjective Update: Had an uneventful night. She rested well last night. She sounded much better. Weight loss so far is bet 4-5 lbs since admission. Her sodium is slightly up at 149 this AM. She does however reports having PELAEZ. She also states she had elevated BP this AM but does not show on EMR. Overall she feels pretty good. Functional Status: Reports: Pain Controlled, Tolerating Diet, Ambulating, Urinating, New Symptoms, Incentive Spirometry - Review of Systems General: Denies: Fever, Chills Pulmonary: Reports: Shortness of Breath (baseline), Cough (baseline) Cardiovascular: Denies: Chest Pain, Palpitations, Edema Gastrointestinal: Denies: Abdominal Pain, Nausea, Vomiting Genitourinary: Reports: No Symptoms Musculoskeletal: Reports: No Symptoms Skin: Denies: Cyanosis, Mottled, Pallor, Diaphoresis Neurological: Denies: Confusion Psychiatric: Denies: Depression, Anxiety - Patient Data Vitals - Most Recent: Last Vital Signs Temp 36.6 C 11/17/20 20:31 Pulse 81 11/17/20 20:31 Resp 14 11/17/20 20:31 BP 150/84 H 11/17/20 20:31 Pulse Ox 93 L 11/18/20 06:24 Weight - Most Recent: 86.954 kg I&O - Last 24 hours: Intake & Output 11/17/20 11/17/20 11/18/20 14:59 22:59 06:59 Intake Total 120 300 410 Output Total 1900 480 Balance 120 -1600 -70 Lab Results - Last 24 hrs: Laboratory Results - last 24 hr 11/17/20 11/17/20 11/18/20 Range/Units 05:04 05:04 05:10 WBC 7.18 (3.98-10.04) K/mm3 RBC 3.91 L (3.98-5.22) M/mm3 Hgb 11.6 (11.2-15.7) gm/dl Hct 39.3 (34.1-44.9) % MCV 100.5 H (79.4-94.8) fl MCH 29.7 (25.6-32.2) pg MCHC 29.5 L (32.2-35.5) g/dl RDW Std Deviation 54.6 H (36.4-46.3) fL Plt Count 273 (182-369) K/mm3 MPV 8.4 L (9.4-12.3) fl Neut % (Auto) 86.2 H (34.0-71.1) % Lymph % (Auto) 9.2 L (19.3-51.7) % Cross % (Auto) 4.5 L (4.7-12.5) % Eos % (Auto) 0 L (0.7-5.8) Baso % (Auto) 0.0 L (0.1-1.2) % Neut # (Auto) 6.19 H (1.56-6.13) K/mm3 Lymph # (Auto) 0.66 L (1.18-3.74) K/mm3 Cross # (Auto) 0.32 (0.24-0.36) K/mm3 Eos # (Auto) 0.00 L (0.04-0.36) K/mm3 Baso # (Auto) 0.00 L (0.01-0.08) K/mm3 Manual Slide Review Abnormal smear NT-Pro-B Natriuret Pep 2579 H (0-125) pg/mL Med Orders - Current: Current Medications Acetaminophen (Tylenol) 650 mg RECTAL Q4H PRN PRN Reason: Pain (mild 1-3) Acetaminophen (Tylenol) 650 mg PO Q4H PRN PRN Reason: Pain Last Admin: 11/17/20 13:12 Dose: 650 mg Documented by: Acetaminophen/Butalbital/Caffeine (Fioricet 325-50-40 Mg) 1 tab PO Q6H PRN PRN Reason: Headache/Pain Hydrocodone Bitart/Acetaminophen ([place] 325-5 Mg) 1 tab PO Q4H PRN PRN Reason: Pain (moderate 4-6) Albuterol/Ipratropium (Duoneb 3.0-0.5 Mg/3 Ml) 3 ml NEB Q4H PRN PRN Reason: Shortness Of Breath/wheezing Last Admin: 11/14/20 23:48 Dose: 3 ml Documented by: Albuterol/Ipratropium (Duoneb 3.0-0.5 Mg/3 Ml) 3 ml NEB Q8HRRT [facility] Last Admin: 11/18/20 06:24 Dose: 3 ml Documented by: Ascorbic Acid (Vitamin C) 1,000 mg PO BID [facility] Last Admin: 11/17/20 21:37 Dose: 1,000 mg Documented by: Aspirin (Aspirin) 81 mg PO DAILY [facility] Last Admin: 11/17/20 08:33 Dose: 81 mg Documented by: Atorvastatin Calcium (Lipitor) 40 mg PO DAILY [facility] Last Admin: 11/17/20 08:33 Dose: 40 mg Documented by: Azithromycin (Zithromax) 500 mg PO Q24H [facility] Last Admin: 11/17/20 21:38 Dose: 500 mg Documented by: Cholecalciferol (Vitamin D3) 50 mcg PO BID [facility] Last Admin: 11/17/20 21:37 Dose: 50 mcg Documented by: Clopidogrel Bisulfate (Plavix) 75 mg PO DAILY [facility] Last Admin: 11/17/20 08:34 Dose: 75 mg Documented by: Docusate Sodium (Colace) 100 mg PO BID PRN PRN Reason: Constipation Enoxaparin Sodium (Lovenox) 40 mg SUBCUT DAILY [facility] Last Admin: 11/17/20 08:34 Dose: 40 mg Documented by: Fluticasone Propionate (Flonase) 0 gm NASBOTH BID PRN PRN Reason: Allergies Furosemide (Lasix) 40 mg IVPUSH DAILY [facility] Stop: 11/19/20 09:01 Last Admin: 11/17/20 08:34 Dose: 40 mg Documented by: Hydromorphone HCl (Dilaudid) 0.5 mg IVPUSH Q2H PRN PRN Reason: Pain (severe 7-10) Last Admin: 11/16/20 21:56 Dose: 0.5 mg Documented by: Hydroxyzine HCl (Atarax) 25 mg PO BEDTIME PRN PRN Reason: Insomnia Promethazine HCl 12.5 mg/ (Sodium Chloride) 50.5 mls @ 100 mls/hr IV Q6H PRN PRN Reason: Nausea/Vomiting Isosorbide Mononitrate (Imdur) 30 mg PO DAILY [facility] Last Admin: 11/17/20 08:33 Dose: 30 mg Documented by: Lorazepam (Ativan) 0.5 mg IV Q6H PRN PRN Reason: anxiety/restlessness Methylprednisolone Sodium Succinate (Solu-Medrol) 125 mg IVPUSH Q8H [facility] Last Admin: 11/18/20 05:16 Dose: 125 mg Documented by: Ondansetron HCl (Zofran) 4 mg IV Q6H PRN PRN Reason: Nausea/Vomiting Pantoprazole Sodium (Protonix) 40 mg PO DAILY [facility] Last Admin: 11/17/20 08:34 Dose: 40 mg Documented by: Potassium Chloride (Klor-Con M20) 40 meq PO BID [facility] Last Admin: 11/17/20 21:37 Dose: 40 meq Documented by: Pramipexole Dihydrochloride (Mirapex) 1.5 mg PO BEDTIME [facility] Last Admin: 11/17/20 21:36 Dose: 1.5 mg Documented by: Senna/Docusate Sodium (Senna Plus) 1 tab PO BID PRN PRN Reason: Constipation Sertraline HCl (Zoloft) 50 mg PO DAILY [facility] Last Admin: 11/17/20 08:33 Dose: 50 mg Documented by: Trazodone HCl (Trazodone) 50 mg PO BEDTIME [facility] Last Admin: 11/17/20 21:38 Dose: 50 mg Documented by: Discontinued Medications Atorvastatin Calcium (Lipitor) 40 mg PO DAILY [facility] Diphenhydramine HCl (Benadryl) 50 mg IVPUSH ONETIME ONE Stop: 11/14/20 18:37 Last Admin: 11/14/20 18:46 Dose: 50 mg Documented by: Famotidine (Pepcid) 20 mg IVPUSH ONETIME ONE Stop: 11/14/20 18:37 Last Admin: 11/14/20 18:45 Dose: 20 mg Documented by: Furosemide (Lasix) 40 mg IVPUSH ONETIME ONE Stop: 11/14/20 20:18 Last Admin: 11/14/20 21:07 Dose: 40 mg Documented by: Furosemide (Lasix) 20 mg IVPUSH NOW ONE Stop: 11/15/20 10:46 Last Admin: 11/15/20 14:17 Dose: 20 mg Documented by: Furosemide (Lasix) 20 mg IVPUSH NOW ONE Stop: 11/15/20 14:01 Last Admin: 11/15/20 17:31 Dose: Not Given Documented by: Furosemide (Lasix) 20 mg IVPUSH NOW ONE Stop: 11/15/20 18:01 Last Admin: 11/15/20 17:37 Dose: 20 mg Documented by: Sodium Chloride (Normal Saline) 1,000 mls @ 50 mls/hr IV NOW STA Stop: 11/15/20 12:53 Last Admin: 11/14/20 17:13 Dose: 50 mls/hr Documented by: Potassium Chloride 10 meq/ (Premix) 100 mls @ 100 mls/hr IV Q1H [facility] Stop: 11/14/20 22:59 Last Admin: 11/15/20 06:16 Dose: 50 mls/hr Documented by: Sodium Chloride (Normal Saline) 100 mls @ 60 mls/min IV ASDIRECTED [facility] Last Admin: 11/14/20 19:51 Dose: 60 mls/min Documented by: Azithromycin 500 mg/ Sodium (Chloride) 250 mls @ 250 mls/hr IV Q24H [facility] Last Admin: 11/16/20 21:57 Dose: 250 mls/hr Documented by: Potassium Chloride 10 meq/ (Premix) 100 mls @ 100 mls/hr IV Q1H [facility] Stop: 11/15/20 11:59 Last Admin: 11/15/20 15:54 Dose: Not Given Documented by: Magnesium Sulfate (Magnesium Sulfate In Water 2 Gm/50 Ml) 2 gm in 50 mls @ 25 mls/hr IV ONETIME ONE Stop: 11/15/20 09:59 Last Admin: 11/15/20 14:15 Dose: 25 mls/hr Documented by: Magnesium Sulfate (Magnesium Sulfate In Water 2 Gm/50 Ml) 2 gm in 50 mls @ 25 mls/hr IV ONETIME ONE Stop: 11/15/20 15:59 Last Admin: 11/15/20 17:31 Dose: Not Given Documented by: Iopamidol (Isovue-370 (76%)) 100 ml IVPUSH ONETIME ONE Stop: 11/14/20 17:57 Last Admin: 11/14/20 19:51 Dose: 100 ml Documented by: Methylprednisolone Sodium Succinate (Solu-Medrol) 125 mg IVPUSH ONETIME ONE Stop: 11/14/20 18:37 Last Admin: 11/14/20 18:43 Dose: 125 mg Documented by: Potassium Chloride (Klor-Con M20) 40 meq PO ONETIME ONE Stop: 11/14/20 16:54 Last Admin: 11/14/20 17:13 Dose: 40 meq Documented by: Potassium Chloride (Klor-Con M20) 20 meq PO BID [facility] Last Admin: 11/15/20 20:34 Dose: 20 meq Documented by: Pramipexole Dihydrochloride (Mirapex) 1.5 mg PO NOW STA Stop: 11/14/20 21:39 Last Admin: 11/14/20 23:12 Dose: 1.5 mg Documented by: Regadenoson (Lexiscan) 0.4 mg IVPUSH ONETIME ONE Stop: 11/15/20 07:38 Last Admin: 11/15/20 07:43 Dose: 0.4 mg Documented by: Sodium Chloride (Saline Flush) 10 ml FLUSH BOLUS [facility] Last Admin: 11/14/20 19:51 Dose: 10 ml Documented by: Triamterene/Hydrochlorothiazide (Dyazide 25-37.5 Mg) 1 each PO NOW STA Stop: 11/14/20 21:26 Last Admin: 11/14/20 23:11 Dose: 1 each Documented by: Zolpidem Tartrate (Ambien) 5 mg PO BEDTIME PRN PRN Reason: Sleep - Exam Quality Assessment: Reports: Supplemental Oxygen General: Reports: Alert, Oriented, Cooperative, No Acute Distress HEENT: Reports: Pupils Equal, Pupils Reactive, EOMI, Mucous Membr. Moist/[place] Neck: Reports: Supple Lungs: Reports: Normal Respiratory Effort, Wheezing (occasional expiratory) Cardiovascular: Reports: Regular Rate, Regular Rhythm GI/Abdominal Exam: Normal Bowel Sounds, Soft, Non-Tender, No Organomegaly, No Distention, No Mass (Female) Exam: Deferred Rectal (Female) Exam: Deferred Back Exam: Reports: Normal Inspection, Decreased Range of Motion Extremities: Normal Inspection, Normal Range of Motion, Non-Tender, No Pedal Edema, Normal Capillary Refill Skin: Reports: Warm, Dry, Intact Neurological: Reports: No New Focal Deficit Psy/Mental Status: Reports: Alert, Normal Affect, Normal Mood
[2020-11-18] MEDS: Pantoprazole 40 MG Tab.CR PO SCH (08:15)
[2020-11-18] MEDS: Isosorbide Mononitrate 30 MG Tab.ER PO SCH (08:15)
[2020-11-18] MEDS: atorvaSTATin 20 MG Tab PO SCH (08:15)
[2020-11-18] MEDS: Cholecalciferol (Vitamin D3) 25 MCG Tab PO SCH (08:15)
[2020-11-18] MEDS: Sertraline 50 MG Tab PO SCH (08:16)
[2020-11-18 08:18] VITALS: BP 131/86; PULSE 73
[2020-11-18] MEDS: Ascorbic Acid 500 MG Tab PO SCH (08:19)
[2020-11-18] MEDS: Aspirin 81 MG Tab.Chew PO SCH (08:19)
[2020-11-18] MEDS: Clopidogrel 75 MG Tab PO SCH (08:19)
[2020-11-18] MEDS: Enoxaparin 40 MG/0.4 ML Syringe SUBCUT SCH (08:20)
[2020-11-18] MEDS: Potassium Chloride 20 MEQ Tab.ER PO SCH (08:20)
[2020-11-18] MEDS: Furosemide 40 MG/4 ML VIAL IVPUSH SCH (08:20)
== END 2020-11-18 10:50 | disposition home or self-care (01) | DRG 142 ==
LOC: JD.ED 16:32 → JD.MS 20:23
PROVIDERS: ADMIT Internal Medicine; ATTEND Internal Medicine
DX: J84.9 Interstitial pulmonary disease, unspecified (principal); J84.112 Idiopathic pulmonary fibrosis; I50.33 Acute on chronic diastolic (congestive) heart failure; J96.21 Acute and chronic respiratory failure with hypoxia; J44.1 Chronic obstructive pulmonary disease with (acute) exacerbation; E87.6 Hypokalemia; I07.1 Rheumatic tricuspid insufficiency; E87.0 Hyperosmolality and hypernatremia; E66.9 Obesity, unspecified; H54.7 Unspecified visual loss; I25.119 Atherosclerotic heart disease of native coronary artery with unspecified angina pectoris; K21.9 Gastro-esophageal reflux disease without esophagitis; F32.9 Major depressive disorder, single episode, unspecified; M19.90 Unspecified osteoarthritis, unspecified site; M54.9 Dorsalgia, unspecified; G89.29 Other chronic pain; Z96.659 Presence of unspecified artificial knee joint; Z96.649 Presence of unspecified artificial hip joint; E83.42 Hypomagnesemia; L40.9 Psoriasis, unspecified; R07.89 Other chest pain; Z68.36 Body mass index [BMI] 36.0-36.9, adult; Z85.118 Personal history of other malignant neoplasm of bronchus and lung; Z87.891 Personal history of nicotine dependence; Z99.81 Dependence on supplemental oxygen; Z95.5 Presence of coronary angioplasty implant and graft; Z88.0 Allergy status to penicillin; Z88.1 Allergy status to other antibiotic agents; Z91.018 Allergy to other foods; Z91.041 Radiographic dye allergy status; Z79.82 Long term (current) use of aspirin; Z79.899 Other long term (current) drug therapy; Z79.51 Long term (current) use of inhaled steroids; Z87.440 Personal history of urinary (tract) infections; Z90.710 Acquired absence of both cervix and uterus
CPT/HCPCS: 36415; 71275; 71275-26; 78452; 78452-26; 80048; 80061; 82306; 83735; 83880; 84439; 84443; 84484; 85025; 85379; 87205; 93017; 93306; 94640; 94762; 96365; 96366; 96375; 97110-GP; 97116-GP; 97162-GP; 97165-GO; 99223; 99233; 99239; 99285; 99285-25; A9270-GY; A9500; J0456; J1170; J1200; J1650; J1940; J2785; J2930; J3475; J3480; J3490; J7030; J7050; J7620-GY; Q9967

== ENCOUNTER 2021-01-25 21:44 | Emergency (ER) | payer MEDICARE, BC ==
--- NOTE | 2021-01-25 21:59 | EDM.PDOC ---
ED HPI GENERAL MEDICAL PROBLEM - General Chief Complaint: Chest Pain Stated Complaint: CHEST PAIN Time Seen by Provider: 01/25/21 21:59 Source of Information: Reports: Patient History Limitations: Reports: No Limitations - History of Present Illness INITIAL COMMENTS - FREE TEXT/NARRATIVE: 65-year-old female presents to the ED complaining of central chest pressure squeezing discomfort since about 1500 hrs. today. She has been feeling very well for the last 2 weeks and did see her primary care provider earlier this morning and had labs drawn and scheduled for an echo tomorrow. She does have a history of coronary disease having 1 stent placement in 2019. Denies myocardial infarction. She is a COPD patient and does have a home nebulizer as well as metered-dose inhalers. She is audibly wheezing at the time of my evaluation. She did eat a little bit for supper i.e. a sandwich. No nausea or vomiting. She has got a grayish tinge to her skin. No diaphoresis no nausea. She denies any burping or belching. No odynophagia. She has known to have a hiatal hernia. No previous abdominal surgery. Patient reports she does wear oxygen at 2 L at bedtime and throughout the night due to left upper lobectomy in the past. Onset: Today, Sudden Onset Date: 01/25/21 Onset Time: 15:00 Duration: Hour(s):, Constant (Pain is perhaps a little worse than it was when it first started.), Getting Worse, Other (Pain does not radiate into her back neck shoulders or arms.) Location: Reports: Chest. Denies: Radiates to (Central midsternal chest with no radiation) Quality: Reports: Ache, Pressure, Other Severity: Moderate (Squeezing component to the pain. 7 out of 10) Improves with: Reports: None Worsens with: Reports: None, Other Context: Reports: Other (Spontaneous occurrence). Denies: Activity, Exercise (She has not appreciated any worse with walking.), Lifting, Sick Contact, Trauma Associated Symptoms: Reports: Chest Pain, Cough, Malaise (Does have a mild nonproductive cough.), Shortness of Breath. 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 (see below) (She did take 2 baby aspirins at home prior to coming to the ED.) Left Chest Pain Score (Numeric/FACES): 7 - Related Data Allergies Allergy/AdvReac Type Severity Reaction Status Date / Time antihemoph factor (FVIII) Allergy Severe Anaphylactic Verified 01/25/21 22:01 rec B-dom trunc peg-exei Shock [From Esperoct] Iodinated Contrast Media Allergy Severe Airway Verified 01/25/21 22:01 Tightness latex Allergy Severe Rash Verified 01/25/21 22:01 levofloxacin Allergy Severe Other Verified 01/25/21 22:01 perfume Allergy Severe Airway Verified 01/25/21 22:01 Tightness amoxicillin AdvReac Severe Nausea and Verified 01/25/21 22:01 Vomiting banana AdvReac Severe Vomiting Verified 01/25/21 22:01 Home Meds: Home Meds Pramipexole Di-HCl [Mirapex] 1.5 mg PO BEDTIME 01/22/16 [History] traZODone 50 mg PO BEDTIME 01/29/17 [History] Ascorbic Acid [C-1000 with Delfina Hips] 1,000 mg PO BID 04/26/18 [History] Cholecalciferol (Vitamin D3) [Vitamin D3] 1,000 unit PO BID 07/18/18 [History] Albuterol/Ipratropium [DuoNeb 3.0-0.5 MG/3 ML] 1 dose INH BID PRN 05/19/19 [History] Furosemide [Lasix] 40 mg PO QAM 05/19/19 [History] Aspirin 81 mg PO DAILY 06/27/19 [History] atorvaSTATin [Lipitor] 40 mg PO DAILY 06/27/19 [History] hydrOXYzine HCL [Hydroxyzine HCl] 25 mg PO BEDTIME PRN 06/27/19 [History] Pantoprazole [ProTONIX] 40 mg PO DAILY 11/14/20 [History] Potassium Chloride [Klor-Con M20] 20 meq PO BID 11/14/20 [History] Past Medical History HEENT History: Reports: Impaired Vision Other HEENT History: wears glasses Cardiovascular History: Reports: Angina, High Cholesterol, Stents Other Cardiovascular History: Stent LD4 06/10/19. Respiratory History: Reports: Croup, Pulmonary Fibrosis, SOB Other Respiratory History: Upper L) lobe of lung removed. Wears 2 liters oxygen at home at nightand with activity. 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: Musculoskeletal History: Reports: Back Pain, Chronic, Osteoarthritis Neurological History: Reports: Other (See Below) Psychiatric History: Reports: Anxiety, Depression, Mood Swings Endocrine/Metabolic History: Reports: Obesity/BMI 30+ Hematologic History: Reports: Blood Transfusion(s) Immunologic History: Reports: None Oncologic (Cancer) History: Reports: Lung Dermatologic History: Reports: Psoriasis - Infectious Disease History Infectious Disease History: Reports: Chicken Pox, Influenza, Measles, Mumps - Past Surgical History HEENT Surgical History: Reports: Oral Surgery Cardiovascular Surgical History: Reports: None Respiratory Surgical History: Reports: None, Lung Resection GI Surgical History: Reports: None Female Surgical History: Reports: D&C, Hysterectomy, Tubal Ligation Musculoskeletal Surgical History: Reports: Hip Replacement, Knee Replacement, ORIF, Other (See Below) Other Musculoskeletal Surgeries/Procedures:: Hip revision to R Oncologic Surgical History: Reports: Lobectomy, Other (See Below) Other Oncologic Surgeries/Procedures: lobectomy to L upper lung Dermatological Surgical History: Reports: None Social & Family History - Family History Family Medical History: No Pertinent Family History Neurological: Reports: CVA Oncologic: Reports: Colon - Caffeine Use Caffeine Use: Reports: Soda Other Caffeine Use: one pepsi a day - Living Situation & Occupation Living situation: Reports: , with Spouse 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 Denies: Fever, Chills, Weight Loss HEENT: Reports: Glasses Respiratory: Reports: Shortness of Breath, Wheezing, Cough. Denies: Pleuritic Chest Pain, Sputum, Hemoptysis Cardiovascular: Reports: Chest Pain, Blood Pressure Problem, Dyspnea on Exertion (See history of present illness.), Lightheadedness (Often runs too low.). Denies: Claudication, Orthopnea, Palpitations Endocrine: Reports: Fatigue GI/Abdominal: Reports: Other (Has a known hiatal hernia. Rare GERD. No odynophagia). Denies: Abdominal Pain, Constipation, Diarrhea, Nausea : Reports: Frequency Musculoskeletal: Reports: Back Pain, Joint Pain (Knees hips neck and shoulders at times.) Skin: Reports: No Symptoms Neurological: Reports: No Symptoms Psychiatric: Reports: No Symptoms Hematologic/Lymphatic: Reports: No Symptoms Immunologic: Reports: No Symptoms ED EXAM, GENERAL - Physical Exam Exam: See Below Exam Limited By: No Limitations General Appearance: Alert, WD/WN, Anxious, Mild Distress, Other (She does not appear to be feeling well. Temperature is 36.5. Heart rate 102 and sinus. Respiratory is 22 with O2 sats 100%. BP 116/83.) Eye Exam: Bilateral Eye: Normal Inspection (No scleral icterus or blepharal pallor.) Throat/Mouth: Normal Inspection, Normal Lips, Normal Oropharynx Head: Atraumatic, Normocephalic Neck: Normal Inspection, Supple, Non-Tender, Full Range of Motion. No: Carotid Bruit, Lymphadenopathy (L), Lymphadenopathy (R), Thyromegaly Respiratory/Chest: No Accessory Muscle Use, Respiratory Distress (Mild tachypnea at rest 22 to 24/min.), Wheezing (Diffuse wheezing in all lung bone.), Other (Patient has a history of interstitial pulmonary fibrosis.). No: Lungs Clear, Normal Breath Sounds, Crackles ( No real crackles appreciated or rales in the bases.), Rales, Rhonchi Cardiovascular: Regular Rate, Rhythm, No Edema, No Gallop, No Murmur, No Rub, Tachycardia (100/min.). No: Normal Peripheral Pulses Peripheral Pulses: 2+: Carotid (L), Carotid (R), Posterior Tibial (L), Posterior Tibial (R), Dorsalis Pedis (L), Dorsalis Pedis (R) GI/Abdominal: Normal Bowel Sounds, Soft, No Organomegaly, No Abnormal Bruit, No Mass, Pelvis Stable, Tender (Mild tenderness in the epigastrium.), Other (No surgical scars.). No: Guarding, Rigid, Rebound Back Exam: Normal Inspection, Full Range of Motion. No: CVA Tenderness (L), CVA Tenderness (R) Extremities: Normal Inspection, Normal Range of Motion ( No definitive signs of DVT.), Pedal Edema (Trace pedal edema at the ankles. Calves are mildly tender to touch.) Neurological: Alert, Oriented, CN II-XII Intact, Normal Cognition Psychiatric: Normal Mood, Flat Affect. No: Tearful Skin Exam: Warm, Dry, Intact. No: Normal Color (Grayish tinge to her skin.) #1 Interpretation EKG Date: 01/25/21 Time: 21:52 Rhythm: NSR Rate (Beats/Min): 100 [place]: RAD-Right [place] Deviation (Right axis deviation of 121 degrees.) P-Wave: Enlarged (Left atrial hypertrophy pattern.) QRS: Other (Decreased voltage precordial leads) ST-T: Other (T wave inversion V1 and V2 nonspecific finding there is ST segment depression V3 to V6 worrisome for ischemia.) QT: Prolonged (Mildly prolonged) EKG Interpretation Comments: Abnormal ECG Course - Vital Signs Last Recorded V/S: Last Vital Signs Temp 36.5 C 01/25/21 21:54 Pulse 102 H 01/25/21 21:54 Resp 22 H 01/25/21 21:54 BP 116/83 01/25/21 21:54 Pulse Ox 97 01/25/21 22:55 - Orders/Labs/Meds Orders: Active Orders 24 hr Category Date Time Status RT Aerosol Therapy [RC] ASDIRECTED Care 01/25/21 22:04 Active RT Aerosol Therapy [RC] ASDIRECTED Care 01/25/21 22:55 Active Chest 1V Frontal [CR] Stat Exams 01/25/21 22:05 Taken Albuterol/Ipratropium [DuoNeb 3.0-0.5 MG/3 ML] Med 01/25/21 22:04 Active 3 ml NEB Q4H PRN Albuterol/Ipratropium [DuoNeb 3.0-0.5 MG/3 ML] Med 01/25/21 22:55 Active 3 ml NEB Q4H PRN Nitroglycerin/D5W [Nitroglycerin 25 MG/D5W 250 ML] Med 01/25/21 22:15 Active 25 mg in 250 ml IV TITRATE Sodium Chloride 0.9% [Normal Saline] 1,000 ml Med 01/25/21 22:15 Active IV ASDIRECTED Medication Orders Albuterol/Ipratropium (Albuterol/Ipratropium 3.0-0.5 Mg/3 Ml Neb Soln) 3 ml NEB Q4H PRN PRN Reason: Shortness Of Breath/wheezing Last Admin: 01/25/21 22:25 Dose: 3 ml Documented by: NIKIA Albuterol/Ipratropium (Albuterol/Ipratropium 3.0-0.5 Mg/3 Ml Neb Soln) 3 ml NEB Q4H PRN PRN Reason: Shortness Of Breath/wheezing Last Admin: 01/25/21 23:06 Dose: 3 ml Documented by: NIKIA Sodium Chloride (Normal Saline) 1,000 mls @ 125 mls/hr IV ASDIRECTED YOSEPH Last Admin: 01/25/21 22:38 Dose: 125 mls/hr Documented by: LYNN Nitroglycerin/Dextrose (Nitroglycerin 25 Mg/D5w 250 Ml) 25 mg in 250 mls @ 3 mls/hr IV TITRATE YOSEPH; Protocol Last Admin: 01/25/21 22:41 Dose: 5 mcg/min, 3 mls/hr Documented by: LYNN Labs: Laboratory Tests 01/25/21 01/25/21 01/25/21 Range/Units 22:27 22:27 22:27 WBC 7.57 (3.98-10.04) K/mm3 RBC 4.45 (3.98-5.22) M/mm3 Hgb 13.6 (11.2-15.7) gm/dl Hct 43.0 (34.1-44.9) % MCV 96.6 H (79.4-94.8) fl MCH 30.6 (25.6-32.2) pg MCHC 31.6 L (32.2-35.5) g/dl RDW Std Deviation 48.2 H (36.4-46.3) fL Plt Count 274 (182-369) K/mm3 MPV 8.5 L (9.4-12.3) fl Neut % (Auto) 62.9 (34.0-71.1) % Lymph % (Auto) 23.0 (19.3-51.7) % Morrill % (Auto) 9.2 (4.7-12.5) % Eos % (Auto) 4.2 (0.7-5.8) Baso % (Auto) 0.4 (0.1-1.2) % Neut # (Auto) 4.76 (1.56-6.13) K/mm3 Lymph # (Auto) 1.74 (1.18-3.74) K/mm3 [place]rill # (Auto) 0.70 H (0.24-0.36) K/mm3 Eos # (Auto) 0.32 (0.04-0.36) K/mm3 Baso # (Auto) 0.03 (0.01-0.08) K/mm3 ESR 10 (0-20) mm/hr PT (9.7-12.0) SECONDS INR APTT (21.7-31.4) SECONDS D-Dimer, Quantitative (0.19-0.50) mg/L Sodium 143 (136-145) mEq/L Potassium 3.7 (3.5-5.1) mEq/L Chloride 104 (98-107) mEq/L Carbon Dioxide 29 (21-32) mEq/L Anion Gap 13.7 (5-15) BUN 25 H (7-18) mg/dL Creatinine 0.8 (0.55-1.02) mg/dL Est Cr Clr Drug Dosing 55.45 mL/min Estimated GFR (MDRD) > 60 (>60) mL/min BUN/Creatinine Ratio 31.3 H (14-18) Glucose 99 (70-99) mg/dL Calcium 8.8 (8.5-10.1) mg/dL Magnesium 2.7 H (1.8-2.4) mg/dL Total Bilirubin 0.3 (0.2-1.0) mg/dL AST 20 (15-37) U/L ALT 23 (14-59) U/L Alkaline Phosphatase 128 H (46-116) U/L CK-MB (CK-2) 1.6 (0-3.6) ng/ml Troponin I < 0.017 (0.00-0.056) ng/mL C-Reactive Protein 0.2 (<1.0) mg/dL NT-Pro-B Natriuret Pep (0-125) pg/mL Total Protein 7.2 (6.4-8.2) g/dl Albumin 3.7 (3.4-5.0) g/dl Globulin 3.5 gm/dL Albumin/Globulin Ratio 1.1 (1-2) 01/25/21 01/25/21 Range/Units 22:27 22:27 WBC (3.98-10.04) K/mm3 RBC (3.98-5.22) M/mm3 Hgb (11.2-15.7) gm/dl Hct (34.1-44.9) % MCV (79.4-94.8) fl MCH (25.6-32.2) pg MCHC (32.2-35.5) g/dl RDW Std Deviation (36.4-46.3) fL Plt Count (182-369) K/mm3 MPV (9.4-12.3) fl Neut % (Auto) (34.0-71.1) % Lymph % (Auto) (19.3-51.7) % [place]rill % (Auto) (4.7-12.5) % Eos % (Auto) (0.7-5.8) Baso % (Auto) (0.1-1.2) % Neut # (Auto) (1.56-6.13) K/mm3 Lymph # (Auto) (1.18-3.74) K/mm3 [place] # (Auto) (0.24-0.36) K/mm3 Eos # (Auto) (0.04-0.36) K/mm3 Baso # (Auto) (0.01-0.08) K/mm3 ESR (0-20) mm/hr PT 10.4 (9.7-12.0) SECONDS INR 0.97 APTT 22.5 (21.7-31.4) SECONDS D-Dimer, Quantitative 0.50 (0.19-0.50) mg/L Sodium (136-145) mEq/L Potassium (3.5-5.1) mEq/L Chloride (98-107) mEq/L Carbon Dioxide (21-32) mEq/L Anion Gap (5-15) BUN (7-18) mg/dL Creatinine (0.55-1.02) mg/dL Est Cr Clr Drug Dosing mL/min Estimated GFR (MDRD) (>60) mL/min BUN/Creatinine Ratio (14-18) Glucose (70-99) mg/dL Calcium (8.5-10.1) mg/dL Magnesium (1.8-2.4) mg/dL Total Bilirubin (0.2-1.0) mg/dL AST (15-37) U/L ALT (14-59) U/L Alkaline Phosphatase (46-116) U/L CK-MB (CK-2) (0-3.6) ng/ml Troponin I (0.00-0.056) ng/mL C-Reactive Protein (<1.0) mg/dL NT-Pro-B Natriuret Pep 102 (0-125) pg/mL Total Protein (6.4-8.2) g/dl Albumin (3.4-5.0) g/dl Globulin gm/dL Albumin/Globulin Ratio (1-2) Meds: Medications Generic Name Dose Route Start Last Admin Trade Name Freq PRN Reason Stop Dose Admin Albuterol/Ipratropium 3 ml 01/25/21 22:04 01/25/21 22:25 Albuterol/Ipratropium 3.0-0.5 Mg/3 Ml Neb Soln NEB 3 ml Q4H PRN Administration Shortness Of Breath/wheezing Albuterol/Ipratropium 3 ml 01/25/21 22:55 01/25/21 23:06 Albuterol/Ipratropium 3.0-0.5 Mg/3 Ml Neb Soln NEB 3 ml Q4H PRN Administration Shortness Of Breath/wheezing Sodium Chloride 1,000 mls @ 125 mls/hr 01/25/21 22:15 01/25/21 22:38 Normal Saline IV 125 mls/hr ASDIRECTED YOSEPH Administration Nitroglycerin/Dextrose 25 mg in 250 mls @ 3 mls/hr 01/25/21 22:15 01/25/21 22:41 Nitroglycerin 25 Mg/D5w 250 Ml IV 5 mcg/min TITRATE YOSEPH 3 mls/hr Administration Protocol 5 MCG/MIN Discontinued Medications Generic Name Dose Route Start Last Admin Trade Name Omkarq PRN Reason Stop Dose Admin Aspirin 162 mg 01/25/21 22:05 01/25/21 22:39 Aspirin 81 Mg Tab.Chew PO 01/25/21 22:06 162 mg NOW STA Administration Dicyclomine HCl 20 mg 01/25/21 23:39 01/25/21 23:49 Dicyclomine 10 Mg Cap PO 01/25/21 23:40 20 mg ONETIME ONE Administration Fentanyl 50 mcg 01/25/21 22:18 01/25/21 22:40 Fentanyl 100 Mcg/2 Ml Sdv IVPUSH 01/25/21 22:19 50 mcg ONETIME ONE Administration Ondansetron HCl 4 mg 01/25/21 22:18 01/25/21 22:39 Ondansetron 4 Mg/2 Ml Sdv IVPUSH 01/25/21 22:19 4 mg ONETIME ONE Administration - Radiology Interpretation Free Text/Narrative:: 65-year-old female presents to the ED complaining of central chest pressure discomfort which she describes as a spit of a squeeze since 1500 hrs. today. She states it is perhaps a little bit worse now than it was earlier. It has been constant. No relief with eating swallowing or walking. No burping or belching. She is known to have a hiatal hernia. No associated nausea or vomiting. She has had a previous stent placed in 2019. She believes it was in the left descending artery. Examination reveals diffuse wheezing all lobes of her lung. She has had a previous left upper lobectomy. She is known to have pulmonary fibrosis and mild COPD. Wears oxygen lucidly 2 L/min at nighttime. ECG reveals T wave inversion V1 V2. It also reveals mild ST segment depression V4 to V6 concerning for possible apical ischemia. There is evidence of left atrial hypertrophy pattern. Her blood pressure is low at 110/79. I will try her on low-dose nitroglycerin at 5 mcg/min. She took 2 baby aspirins at home before coming to the ED. She will be given 2 more baby aspirins in the ED. I will also give her fentanyl 50 mcg IV for pain relief with Zofran 4 mg IV. She will also be given a DuoNeb treatment to help with her wheezing. - Re-Assessments/Exams Free Text/Narrative Re-Assessment/Exam: 01/25/21 22:55 on reevaluation the patient was asleep but awoke easily. She states the chest pressure is still there but better than it was. She still has diffuse audible wheezing throughout all lung bone. Chest x-ray reveals evidence of significant pulmonary fibrosis involving the right lower lobe. Likely portions of the right middle lobe as well. No significant cardiomegaly. No pneumonia no pneumothorax.White count is normal at 7.57. Differential is 63% neutrophils on the auto differential. Hemoglobin is 13.6 with hematocrit of 43.0. MCV is 96.6. Platelet count 274,000 01/25/21 23:14 PT is 10.4 with an INR of 0.97 PTT is 22.5 D-dimer is normal at 0.50. Sodium 143 with a potassium of 3.7 chloride 104 with a bicarb of 29. Anion gap is 13.7. BUN is 25 with a creatinine of 0.8. GFR is greater than 60. Glucose is 99 with a calcium of 8.8. Magnesium is slightly elevated at 2.7. Liver function is normal other than alk phosphatase at 128. CK-MB fraction is 1.6. Troponin I is pending. C-reactive protein is 0.2 BNP 102. Total protein 7.2 with an albumin fraction of 3.7 01/25/21 23:38 Troponin returned at less than 0.017. Discussed the findings with the patient and her . She states she is feeling much improved at this point time. It may have been heavy bronchospasm causing her central chest discomfort as she is very tight and wheezy. She also has a hiatal hernia that could explain her retrosternal chest pressure discomfort. She will give it be given Bentyl 20 mg orally before going home tonight. Follow-up with your primary care provider if any further problems occur. Departure - Departure Time of Disposition: 23:40 Disposition: Home, Self-Care 01 Reason for Transfer *Q: Other Condition: Fair Clinical Impression: Non-cardiac chest pain, Pulmonary fibrosis, Bronchospasm, Hiatal hernia Instructions: Bronchospasm, Adult, Pulmonary Fibrosis, Hiatal Hernia Referrals: Shari Franklin PA-C [Primary Care Provider] - Forms: ED Department Discharge Additional Instructions: Evaluation in the emergency room tonight in regards to persistent central chest pressure squeezing discomfort since 1500 hrs. today. Examination revealed diffuse significant wheezing from all lobes of the lungs. You mention also that you have a diagnosis of hiatal hernia. Previous coronary stent placement in 2019. History of pulmonary fibrosis. Chest x-ray reveals evidence of significant fibrosis involving the right lower lobe of the lung and slightly of the right middle lobe of the lung. Left upper lobe of lung has had previous surgical procedure with lobectomy. Heart size is normal. You were treated with DuoNeb inhalational medication x2 while in the ED to relieve bronchospasm. He received fentanyl 50 mcg with Zofran 4 mg IV for nausea and potential hiatal hernia pain. Nitroglycerin drip at 5 mcg/min to relieve esophageal spasm as well as heart pain. Lab test prove there was no evidence of heart related illness with normal cardiac markers and a negative D-dimer indicating no blood clots in the lungs. Therefore the cause of the chest pain appears to be not related to your heart. Either significant bronchospasm i.e. spasm of the upper major bronchi can cause chest pain or hiatal hernia coming from the stomach herniating through the lower portion of the diaphragm up into the chest can cause pain mimicking heart attack to a LISA. You were feeling better at the time of discharge. You were given Bentyl 20 mg before going home which should relieve esophageal and stomach spastic type pain for hiatal hernia overnight. Follow-up with personal care physician if any further problems occur. Continue all medications as per your norm. Particularly inhalational medications as you were showing significant evidence of bronchospasm on exam tonight. Sepsis Event Note (ED) - Focused Exam Vital Signs: Vital Signs Temp Pulse Resp BP Pulse Ox Pulse Ox Pulse Ox 01/25/21 22:55 97 01/25/21 22:04 93 L 01/25/21 21:54 36.5 C 102 H 22 H 116/83 100 - My Orders Last 24 Hours: My Active Orders 01/25/21 22:04 RT Aerosol Therapy [RC] ASDIRECTED Albuterol/Ipratropium [DuoNeb 3.0-0.5 MG/3 ML] 3 ml NEB Q4H PRN 01/25/21 22:05 Chest 1V Frontal [CR] Stat 01/25/21 22:15 Nitroglycerin/D5W [Nitroglycerin 25 MG/D5W 250 ML] 25 mg in 250 ml IV TITRATE Sodium Chloride 0.9% [Normal Saline] 1,000 ml IV ASDIRECTED 01/25/21 22:55 RT Aerosol Therapy [RC] ASDIRECTED Albuterol/Ipratropium [DuoNeb 3.0-0.5 MG/3 ML] 3 ml NEB Q4H PRN - Assessment/Plan Last 24 Hours: My Active Orders 01/25/21 22:04 RT Aerosol Therapy [RC] ASDIRECTED Albuterol/Ipratropium [DuoNeb 3.0-0.5 MG/3 ML] 3 ml NEB Q4H PRN 01/25/21 22:05 Chest 1V Frontal [CR] Stat 01/25/21 22:15 Nitroglycerin/D5W [Nitroglycerin 25 MG/D5W 250 ML] 25 mg in 250 ml IV TITRATE Sodium Chloride 0.9% [Normal Saline] 1,000 ml IV ASDIRECTED 01/25/21 22:55 RT Aerosol Therapy [RC] ASDIRECTED Albuterol/Ipratropium [DuoNeb 3.0-0.5 MG/3 ML] 3 ml NEB Q4H PRN
[2021-01-25 22:00] VITALS: BP 116/83; PULSE 102
[2021-01-25] MEDS ORDERED: Albuterol/Ipratropium 3.0-0.5 MG/3 ML Neb Soln NEB PRN ×2 (22:04→22:55)
[2021-01-25] MEDS ORDERED: Aspirin 81 MG Tab.Chew PO STA (22:05)
[2021-01-25] MEDS ORDERED: Nitroglycerin/D5W 25 MG/250 ML BOTTLE IV SCH (22:15)
[2021-01-25] MEDS ORDERED: Sodium Chloride 0.9% 1,000 ML IV SCH (22:15)
[2021-01-25] MEDS ORDERED: fentaNYL 100 MCG/2 ML SDV IVPUSH ONE (22:18)
[2021-01-25] MEDS ORDERED: Ondansetron 4 MG/2 ML SDV IVPUSH ONE (22:18)
[2021-01-25] MEDS ORDERED: Dicyclomine 10 MG Cap PO ONE (23:39)
--- NOTE | 2021-01-26 06:44 | CR ---
Chest: Frontal view of the chest was obtained. Comparison: Prior chest x-ray performed earlier on the same day as well as on 11/14/20. Interstitial change is seen within the right lung which appears to be stable. Left lung is clear. Heart size is slightly enlarged. Upper mediastinum is normal. Old healed right-sided rib fracture is noted. Slight scoliosis is noted within the spine. Impression: 1. Stable findings as noted above. 2. Nothing acute is definitely appreciated when compared to previous studies. Diagnostic code #3
== END 2021-01-25 23:50 | disposition home or self-care (01) ==
LOC: JD.ED 21:44
DX: J98.01 Acute bronchospasm (principal); J84.10 Pulmonary fibrosis, unspecified; K44.9 Diaphragmatic hernia without obstruction or gangrene; E78.00 Pure hypercholesterolemia, unspecified; K21.9 Gastro-esophageal reflux disease without esophagitis; E66.9 Obesity, unspecified; Z68.33 Body mass index [BMI] 33.0-33.9, adult; Z91.041 Radiographic dye allergy status; Z91.040 Latex allergy status; Z88.0 Allergy status to penicillin; Z88.1 Allergy status to other antibiotic agents; Z91.018 Allergy to other foods; Z79.82 Long term (current) use of aspirin; Z79.899 Other long term (current) drug therapy; J84.9 Interstitial pulmonary disease, unspecified; I50.9 Heart failure, unspecified; R06.02 Shortness of breath; R07.89 Other chest pain; R68.83 Chills (without fever); R05 Cough; M47.819 Spondylosis without myelopathy or radiculopathy, site unspecified; M40.209 Unspecified kyphosis, site unspecified
CPT/HCPCS: 36415; 71045; 71046; 80053; 81001; 82553; 83735; 83880; 84484; 85025; 85379; 85610; 85652; 85730; 86140; 86738; 93005; 94640; 96365; 96375; 99285; A9270; J2405; J3010; J3490; J7030; 93010; J7620-GY

== ENCOUNTER 2021-06-30 16:48 | Emergency (ER) | payer MEDICARE, BC | END 2021-06-30 17:08 | disposition left against medical advice (07) | LOC: JD.ED 16:48 | DX: Z53.21 Procedure and treatment not carried out due to patient leaving prior to being seen by health care provider (principal) ==

== ENCOUNTER 2022-02-20 17:46 | Emergency (ER) | payer MEDICARE, BC ==
[2022-02-20 18:14] VITALS: BP 112/80; PULSE 103
[2022-02-20] MEDS ORDERED: Famotidine 20 MG/2 ML SDV IVPUSH ONE (19:21)
[2022-02-20] MEDS ORDERED: methylPREDNISolone Sodium Succinate 125 MG/2 ML SDV IVPUSH ONE (19:21)
[2022-02-20] MEDS ORDERED: diphenhydrAMINE 50 MG/ML SDV IVPUSH ONE (19:21)
[2022-02-20 19:38] LABS: ESTIMATED GFR > 60 mL/min (>60)
[2022-02-20] MEDS ORDERED: Iopamidol 755 Mg/ML 100 ML Bottle IVPUSH ONE (20:06)
[2022-02-20] MEDS ORDERED: Sodium Chloride 0.9% 100 ML IV SCH (20:15)
[2022-02-20] MEDS ORDERED: Pramipexole 0.5 MG Tab PO STA (20:47)
== END 2022-02-20 21:10 | disposition home or self-care (01) ==
LOC: JD.ED 17:46
DX: J84.10 Pulmonary fibrosis, unspecified (principal); R06.00 Dyspnea, unspecified; E78.00 Pure hypercholesterolemia, unspecified; K21.9 Gastro-esophageal reflux disease without esophagitis; F17.210 Nicotine dependence, cigarettes, uncomplicated; E66.9 Obesity, unspecified; Z68.36 Body mass index [BMI] 36.0-36.9, adult; Z90.710 Acquired absence of both cervix and uterus; Z79.899 Other long term (current) drug therapy; Z79.82 Long term (current) use of aspirin; Z88.6 Allergy status to analgesic agent; Z91.041 Radiographic dye allergy status; Z88.1 Allergy status to other antibiotic agents; Z91.040 Latex allergy status; Z91.018 Allergy to other foods
CPT/HCPCS: 36415; 71275; 80053; 83880; 84484; 85025; 85610; 85730; 93005; 96361; 96374; 96375; 99285; A9270; J1200; J2930; J3490; Q9967; 93010; 99284

== ENCOUNTER 2022-05-28 11:39 | Emergency (ER) | payer MEDICARE, BC ==
[2022-05-28 12:17] VITALS: BP 121/80; PULSE 107
[2022-05-28 13:22] LABS: CORONAVIRUS COVID-19 NAA NEGATIVE (NEGATIVE)
== END 2022-05-28 14:26 | disposition home or self-care (01) ==
LOC: JD.ED 11:39
DX: J18.9 Pneumonia, unspecified organism (principal); E78.00 Pure hypercholesterolemia, unspecified; K21.9 Gastro-esophageal reflux disease without esophagitis; E66.9 Obesity, unspecified; F17.210 Nicotine dependence, cigarettes, uncomplicated; Z68.30 Body mass index [BMI] 30.0-30.9, adult; Z91.040 Latex allergy status; Z91.048 Other nonmedicinal substance allergy status; Z91.041 Radiographic dye allergy status; Z88.1 Allergy status to other antibiotic agents; Z88.0 Allergy status to penicillin; Z91.018 Allergy to other foods; Z79.82 Long term (current) use of aspirin; Z79.899 Other long term (current) drug therapy; Z20.822 Contact with and (suspected) exposure to COVID-19
CPT/HCPCS: 0240U; 36415; 71045; 80053; 83735; 84484; 85025; 86140; 93005; 99285; 93010; 99284

== ENCOUNTER 2022-08-21 04:12 | Emergency (ER) | payer MEDICARE, BC ==
[2022-08-21] MEDS ORDERED: Albuterol/Ipratropium 3.0-0.5 MG/3 ML Neb Soln NEB ONE (05:43)
[2022-08-21 07:12] LABS: ESTIMATED GFR 71 mL/min (>60)
[2022-08-21 07:27] LABS: CORONAVIRUS COVID-19 NAA NEGATIVE (NEGATIVE)
[2022-08-21 08:03] VITALS: BP 126/84; PULSE 78
== END 2022-08-21 08:02 | disposition home or self-care (01) ==
LOC: JD.ED 04:12
DX: R06.02 Shortness of breath (principal); I25.10 Atherosclerotic heart disease of native coronary artery without angina pectoris; K21.9 Gastro-esophageal reflux disease without esophagitis; M19.90 Unspecified osteoarthritis, unspecified site; E66.9 Obesity, unspecified; F17.210 Nicotine dependence, cigarettes, uncomplicated; Z88.8 Allergy status to other drugs, medicaments and biological substances; Z91.041 Radiographic dye allergy status; Z91.040 Latex allergy status; Z88.1 Allergy status to other antibiotic agents; Z88.0 Allergy status to penicillin; Z91.048 Other nonmedicinal substance allergy status; Z91.018 Allergy to other foods; Z79.82 Long term (current) use of aspirin; Z79.899 Other long term (current) drug therapy; Z20.822 Contact with and (suspected) exposure to COVID-19
CPT/HCPCS: 0241U; 36415; 71046; 80053; 83605; 83880; 84484; 85007; 85027; 85379; 87040; 93005; 94640; 99285; J7620-GY

== ENCOUNTER 2023-01-21 19:19 | Emergency (ER) | payer MEDICARE, BC ==
[2023-01-21 19:37] VITALS: PULSE 97
[2023-01-21] MEDS ORDERED: HYDROmorphone 0.5 MG/0.5 ML Syringe IVPUSH STA (20:51)
[2023-01-21] MEDS ORDERED: Ondansetron 4 MG/2 ML SDV IVPUSH ONE (20:51)
[2023-01-21 22:21] LABS: BASOPHILS ABSOLUTE AUTO 0.04 K/mm3 (0.01-0.08); BASOPHILS PERCENT AUTO 0.6 % (0.1-1.2); EOSINOPHILS ABSOLUTE AUTO 0.22 K/mm3 (0.04-0.36); EOSINOPHILS PERCENT AUTO 3.3 (0.7-5.8); HEMATOCRIT 36.8 % (34.1-44.9); IMMATURE GRAN ABSOLUTE AUTO 0.02 K/mm3 (0.00-0.10); IMMATURE GRAN PERCENT AUTO 0.3 % (<=1.0); LYMPHOCYTES ABSOLUTE AUTO 2.07 K/mm3 (1.18-3.74); MEAN CORPUSCULAR HEMOGLOBIN 28.9 pg (25.6-32.2); MEAN CORPUSCULAR HGB CONC 29.9 g/dl (32.2-35.5); MEAN CORPUSCULAR VOLUME 96.8 fl (79.4-94.8); MEAN PLATELET VOLUME 8.4 fl (9.4-12.3); MONOCYTES ABSOLUTE AUTO 0.54 K/mm3 (0.24-0.36); MONOCYTES PERCENT AUTO 8.1 % (4.7-12.5); NEUTROPHILS ABSOLUTE AUTO 3.78 K/mm3 (1.56-6.13); NEUTROPHILS PERCENT AUTO 56.7 % (34.0-71.1); PLATELET COUNT,PLT 286 K/mm3 (182-369); WHITE BLOOD CELL COUNT,WBC 6.67 K/mm3 (3.98-10.04)
[2023-01-21] MEDS ORDERED: diphenhydrAMINE 50 MG/ML SDV IVPUSH STA (22:28)
[2023-01-22 03:58] VITALS: BP 103/65
== END 2023-01-22 00:10 | disposition home or self-care (01) ==
LOC: JD.ED 19:19
DX: R51.9 Headache, unspecified (principal); I25.10 Atherosclerotic heart disease of native coronary artery without angina pectoris; E78.00 Pure hypercholesterolemia, unspecified; K21.9 Gastro-esophageal reflux disease without esophagitis; M19.90 Unspecified osteoarthritis, unspecified site; F17.210 Nicotine dependence, cigarettes, uncomplicated; E66.9 Obesity, unspecified; Z68.38 Body mass index [BMI] 38.0-38.9, adult; Z88.8 Allergy status to other drugs, medicaments and biological substances; Z91.041 Radiographic dye allergy status; Z91.040 Latex allergy status; Z88.1 Allergy status to other antibiotic agents; Z88.5 Allergy status to narcotic agent; Z88.0 Allergy status to penicillin; Z91.018 Allergy to other foods; Z79.899 Other long term (current) drug therapy; Z79.82 Long term (current) use of aspirin
CPT/HCPCS: 36415; 70450; 85025; 85652; 86140; 96374; 96375; 99284; J1170; J1200; J2405

== ENCOUNTER 2023-02-18 13:32 | Emergency (ER) | payer MEDICARE, BC ==
[2023-02-18] MEDS ORDERED: Albuterol/Ipratropium 3.0-0.5 MG/3 ML Neb Soln NEB ONE (14:31)
[2023-02-18] MEDS ORDERED: methylPREDNISolone Sodium Succinate 125 MG/2 ML SDV IVPUSH ONE (14:31)
[2023-02-18 15:09] LABS: BASOPHILS ABSOLUTE AUTO 0.01 K/mm3 (0.01-0.08); BASOPHILS PERCENT AUTO 0.2 % (0.1-1.2); EOSINOPHILS ABSOLUTE AUTO 0.02 K/mm3 (0.04-0.36); EOSINOPHILS PERCENT AUTO 0.4 (0.7-5.8); HEMATOCRIT 39.1 % (34.1-44.9); HEMOGLOBIN 11.7 gm/dl (11.2-15.7); IMMATURE GRAN ABSOLUTE AUTO 0.02 K/mm3 (0.00-0.10); IMMATURE GRAN PERCENT AUTO 0.4 % (<=1.0); LYMPHOCYTES ABSOLUTE AUTO 1.21 K/mm3 (1.18-3.74); LYMPHOCYTES PERCENT AUTO 21.8 % (19.3-51.7); MEAN CORPUSCULAR HEMOGLOBIN 29.2 pg (25.6-32.2); MEAN CORPUSCULAR HGB CONC 29.9 g/dl (32.2-35.5); MEAN CORPUSCULAR VOLUME 97.5 fl (79.4-94.8); MEAN PLATELET VOLUME 8.5 fl (9.4-12.3); NEUTROPHILS ABSOLUTE AUTO 3.79 K/mm3 (1.56-6.13); NEUTROPHILS PERCENT AUTO 68.2 % (34.0-71.1); PLATELET COUNT,PLT 219 K/mm3 (182-369); RED BLOOD CELL COUNT 4.01 M/mm3 (3.98-5.22); WHITE BLOOD CELL COUNT,WBC 5.55 K/mm3 (3.98-10.04)
[2023-02-18 15:33] LABS: ALBUMIN 3.5 g/dl (3.4-5.0); ANION GAP 11.6 (5-15); BILIRUBIN TOTAL 0.5 mg/dL (0.2-1.0); BUN/CREATININE RATIO 29.1 (14-18); C-REACTIVE PROTEIN 2.8 mg/dL (<1.0); CALCIUM 8.6 mg/dL (8.5-10.1); CREATININE 1.1 mg/dL (0.55-1.02); EST CRCL DRUG DOSING (CG) 35.65 mL/min; POTASSIUM,K 4.6 mEq/L (3.5-5.1); PROTEIN TOTAL,TP 7.2 g/dl (6.4-8.2)
[2023-02-18 19:47] VITALS: BP 109/69; PULSE 83
== END 2023-02-18 16:44 | disposition home or self-care (01) ==
LOC: JD.ED 13:32
DX: J84.112 Idiopathic pulmonary fibrosis (principal); I25.10 Atherosclerotic heart disease of native coronary artery without angina pectoris; E78.00 Pure hypercholesterolemia, unspecified; K21.9 Gastro-esophageal reflux disease without esophagitis; M19.90 Unspecified osteoarthritis, unspecified site; E66.9 Obesity, unspecified; Z68.37 Body mass index [BMI] 37.0-37.9, adult; Z88.8 Allergy status to other drugs, medicaments and biological substances; Z88.5 Allergy status to narcotic agent; Z88.0 Allergy status to penicillin; Z88.1 Allergy status to other antibiotic agents; Z91.040 Latex allergy status; Z91.048 Other nonmedicinal substance allergy status; Z91.018 Allergy to other foods; Z91.041 Radiographic dye allergy status; Z79.82 Long term (current) use of aspirin; Z79.899 Other long term (current) drug therapy; Z87.891 Personal history of nicotine dependence
CPT/HCPCS: 36415; 71045; 80053; 84484; 85025; 86140; 93005; 94640; 96374; 99284; J2930; 93010; J7620-GY

== ENCOUNTER 2024-05-08 09:44 | Emergency (ER) | payer MEDICARE, BC ==
[2024-05-08 10:58] LABS: BASOPHILS ABSOLUTE AUTO 0.1 K/mm3 (0.0-0.2); BASOPHILS PERCENT AUTO 0.9 % (0.0-1.0); EOSINOPHILS ABSOLUTE AUTO 0.2 K/mm3 (0.0-0.4); EOSINOPHILS PERCENT AUTO 3.1 % (0.0-6.0); HEMATOCRIT 40.6 % (37.0-47.0); HEMOGLOBIN 12.3 gm/dl (12.0-16.0); IMMATURE GRAN ABSOLUTE AUTO 0.02 K/mm3 (0.00-0.05); IMMATURE GRAN PERCENT AUTO 0.3 % (0.0-0.4); LYMPHOCYTES ABSOLUTE AUTO 1.2 K/mm3 (1.0-4.8); LYMPHOCYTES PERCENT AUTO 20.6 % (24.0-44.0); MEAN CORPUSCULAR HEMOGLOBIN 28.9 pg (28.0-32.0); MEAN CORPUSCULAR HGB CONC 30.3 g/dl (32.0-36.0); MEAN CORPUSCULAR VOLUME 95.3 fl (83.0-99.0); MEAN PLATELET VOLUME 8.9 fl (9.4-12.3); MONOCYTES ABSOLUTE AUTO 0.5 K/mm3 (0.0-0.8); MONOCYTES PERCENT AUTO 9.3 % (0.0-8.0); NEUTROPHILS ABSOLUTE AUTO 3.8 K/mm3 (1.8-7.7); NEUTROPHILS PERCENT AUTO 65.8 % (41.0-71.0); PLATELET COUNT,PLT 337 K/mm3 (150-400); RED BLOOD CELL COUNT 4.26 M/mm3 (4.10-5.30); WHITE BLOOD CELL COUNT,WBC 5.79 K/mm3 (3.9-11.3)
[2024-05-08 11:17] LABS: A/G RATIO 0.9 (1-2); ALBUMIN 3.5 g/dl (3.4-5.0); ANION GAP 14.2 (5-15); BILIRUBIN TOTAL 0.3 mg/dL (0.2-1.0); C-REACTIVE PROTEIN 0.27 mg/dL (<0.30); CALCIUM 8.8 mg/dL (8.5-10.1); CREATININE 1.1 mg/dL (0.55-1.02); EST CRCL DRUG DOSING (CG) 40.49 mL/min; MAGNESIUM 1.8 mg/dL (1.8-2.4); POTASSIUM,K 4.2 mEq/L (3.5-5.1); PROTEIN TOTAL,TP 7.3 g/dl (6.4-8.2)
[2024-05-08] MEDS: Albuterol/Ipratropium 3.0-0.5 MG/3 ML Neb Soln NEB ONE (11:24)
[2024-05-08] MEDS: Furosemide 40 MG/4 ML VIAL IVPUSH ONE (11:53)
[2024-05-08 11:59] LABS: BASE EXCESS ARTERIAL -1.8 (-2-2.0); BICARBONATE,ARTERIAL 23.3 meq/L (22.0-26.0); O2 SATURATION ARTERIAL 98.2 % (96.0-97.0); PCO2 ARTERIAL 42.9 mmHg (35.0-45.0)
[2024-05-08 13:15] VITALS: BP 97/72; PULSE 88
== END 2024-05-08 13:05 | disposition home or self-care (01) ==
LOC: JD.ED 09:44
DX: J43.1 Panlobular emphysema (principal); I50.9 Heart failure, unspecified; E78.00 Pure hypercholesterolemia, unspecified; I25.10 Atherosclerotic heart disease of native coronary artery without angina pectoris; K21.9 Gastro-esophageal reflux disease without esophagitis; E66.9 Obesity, unspecified; Z68.28 Body mass index [BMI] 28.0-28.9, adult; Z90.710 Acquired absence of both cervix and uterus; Z79.899 Other long term (current) drug therapy; Z91.018 Allergy to other foods; Z88.5 Allergy status to narcotic agent; Z88.0 Allergy status to penicillin; Z91.010 Allergy to peanuts; Z91.048 Other nonmedicinal substance allergy status
CPT/HCPCS: 36415; 36600; 70450; 71045; 80053; 82803; 83605; 83735; 83880; 84443; 84484; 85025; 86140; 93005; 94640; 96374; 99285; J1940; 93010; 99284; J7620-GY

== ENCOUNTER 2024-08-06 12:28 | Day surgery (SDC) | payer MEDICARE, BC ==
[2024-08-06] MEDS: Polymyxin B/Trimethoprim 10 ML Bottle EYELF SCH (13:52)
[2024-08-06] MEDS: Brimonidine 0.2% Ophth Soln 5 ML Bottle EYELF SCH (13:57)
[2024-08-06] MEDS: Phenylephrine 2.5% Ophth Soln 2 ML Bot EYELF SCH (14:04)
[2024-08-06] MEDS: Tropicamide 1% Ophth Soln 3 ML Bottle EYELF SCH (14:10)
[2024-08-06] MEDS: Tetracaine HCl/PF 0.5% 4 ML Bottle EYEBOTH SCH (14:56)
[2024-08-06] MEDS: Lidocaine 1% PF 2 ML SDV INJECT SCH (15:24)
[2024-08-06] MEDS: Cefuroxime 10 MG/ML SYRINGE EYELF SCH (15:35)
[2024-08-06] MEDS: Pilocarpine 4% Ophth Soln 15 ML Bot EYELF SCH (15:36)
[2024-08-06 18:41] VITALS: BP 101/73; PULSE 87
== END 2024-08-06 15:50 | disposition home or self-care (01) ==
LOC: JD.SDS 12:28
PROVIDERS: ATTEND Ophthalmology
DX: H25.812 Combined forms of age-related cataract, left eye (principal); I10 Essential (primary) hypertension; E78.2 Mixed hyperlipidemia; I25.10 Atherosclerotic heart disease of native coronary artery without angina pectoris; F41.9 Anxiety disorder, unspecified; Z79.899 Other long term (current) drug therapy; Z88.0 Allergy status to penicillin; Z91.040 Latex allergy status
CPT/HCPCS: 66984; A9270; J0697; J3490; V2632